=== PATIENT | female | born 1960 | race Caucasian/White ===

== ENCOUNTER 2024-10-01 04:25 | Inpatient (IN) | payer MEDICARE, SELFPAY ==
[2024-10-01] VITALS (33 sets, daily range): BP systolic 104–135; BP diastolic 50–76; PULSE 68–118; RESP 16–21; TEMP 36.5–37.7; O2SAT 95–99; BMI 38.8
--- NOTE | ~2024-10-01 | XR_ITS ---
Portable chest x-ray Comparison: None Clinical History: Shortness of breath Findings: Right-sided central venous line in place. There is minimal bibasilar interstitial edema. N o pleural effusion. Cardiomediastinal silhouette is mildly prominent. Bones and soft tissues are unr emarkable. Impression: Mild interstitial edema. Possible cardiomegaly. Reviewed, dictated and finalized at location . Impression: Mild interstitial edema. Possible cardiomegaly.
--- NOTE | ~2024-10-01 | CT_ITS ---
Clinical Indication: Chest pain CT Scan of the Chest with Contrast: Technique: Contiguous sections were acquired throughout the chest after intravenous administration of 100 cc of Omnipaque 350. Dose reduction technique was used on this scan by utilizing automated expos ure control and iterative reconstruction technique. The dose-length product (DLP) was 986.97 mGy-cm. Findings: There is no evidence of any significant mediastinal, hilar or axillary lymphadenopathy. There is no f illing defect in the pulmonary arterial tree to suggest pulmonary embolus. There is no evidence of ao rtic dissection or aneurysm. Minimal pericardial effusion present. Probable minimal pleural fluid bilaterally with mild bibasilar atelectatic change. Images through the upper abdomen reveal nodular contour of liver and distended gallbladder. 1.9 cm le ft adrenal nodule present. There is an area of amorphous mild sclerosis of the midsternal body, nonsp ecific.. Impression: No evidence of pulmonary embolus, aortic dissection, or aortic aneurysm. Minimal pericardial effusion and minimal bilateral pleural fluid with minimal bibasilar atelectasis. Cirrhotic liver with distended gallbladder. Area of mild amorphous sclerosis in the midsternal body, nonspecific. Correlate for point tenderness. Consider bone scan to evaluate for uptake. 1.9 cm left adrenal nodule, stable since prior exam from 2010, therefore consistent with benign adeno ma. Clear lungs. Reviewed, dictated and finalized at [facility]. Impression: No evidence of pulmonary embolus, aortic dissection, or aortic aneurysm. Minimal pericardial effusion and minimal bilateral pleural fluid with minimal b ibasilar atelectasis. Cirrhotic liver with distended gallbladder. Area of mild amorphous sclerosis in the midsternal body, nonspecific. Correlate for point tenderness. Consider bone scan to evaluate for uptake. 1.9 cm left adrenal nodule, stable since prior exam from 2010, therefore consis tent with benign adenoma. Clear lungs.
--- NOTE | ~2024-10-01 | NM_ITS ---
EXAMINATION: NM shay stress w perfusion DATE: 10/01/2024 16:48 INDICATION: Chest pain. TECHNIQUE: Rest images were obtained following intravenous administration of 9.44 mCi Tc99m tetrofosm in (Myoview). The patient was infused intravenously with Lexiscan (regadenoson). Then, 30 mCi Tc99m t etrofosmin (Myoview) was administered intravenously, and stress images were obtained. Data was recons tructed into short axis and horizontal and vertical long axis SPECT images. Gated SPECT images were a lso obtained. COMPARISON: Chest CT 10/01/2024 FINDINGS: Sensitivity and specificity are decreased by chest wall attenuation. There is a large, mode rate severity, fixed perfusion defect involving mid anterior segment, mid to basal anterolateral segm ents, and mid to basal inferolateral segments of left ventricle, consistent with infarct. No reversib le component to suggest ischemia. There is no segmental wall motion abnormality. Left ventricular e jection fraction measures 68%. IMPRESSION: 1. Large area of moderate severity infarct involving mid anterior segment, mid to basal anterolateral segments, and mid to basal inferolateral segments of left ventricle. 2. Normal left ventricular ejection fraction measuring 68%. Reviewed, dictated and finalized at location A. IMPRESSION: 1. Large area of moderate severity infarct involving mid anterior segment, mid to basal anterolateral segments, and mid to basal inferolateral segments of lef t ventricle. 2. Normal left ventricular ejection fraction measuring 68%.
--- OUTSIDE RECORDS SUMMARY | 2024-10-01 04:27 | XMS_ITS | Encounter Summary ---
Author Organization [facility] Address [address] [address] Phone Care Team Providers Care Safety Equipment Tester Name Role Phone Denise Rosales MD Primary Care Provider +1 [phone] Encounter Details Date Type Department Care Team (Late st Contact Info) Description 09/27/2024 [facility] [address] [address] Isi Canas, [employer] [address] [facility] [address] [place] [address] End stage renal disease; Dependence on renal dialysis Social History Tobacco Use Types Packs/Day Years Used Date Smoking Tobacco: Never Assessed Comments Unknown Sex and Gender Information Value Date Recorded Sex Assigned at Not on file Legal Sex Female 10:03 AM EDT Gender Identity Not on file Sexual Orientation Not on file documented as of this encounter Miscellaneous Notes * Dialysis Note - Isi Canas APRN - 09/27/2024 12:00 AM CDT Patient: Lina Clinton : 1960 Note Type: Dialysis Rounds-Basic Service Date: 09/27/2024 This patient was personally seen for a basic visit as part of routine monthly dialysis care for end stage renal disease. Attending Pest Control Service Technician: WARREN PENA MD Dialysis Location: [facility] Schedule: Shift: 1 OVERVIEW Patient is stable. COMMENTS: The diabetic foot ulcers are better. She is to see Dr. Soto in [facility] in [place] for access placement. HOME MEDICATIONS COMMENTS: Needs to take her binder [facility] B-complex with vitamin C tablet Take 1 tablet by mouth once a day. calcitriol 0.5 mcg capsule Take 1 capsule by mouth once a day. ergocalciferol (vitamin D2) 1,250 mcg (50,000 unit) capsule Take 1 capsule by mouth once a week. Imodium A-D 2 mg capsule Take 1 capsule by mouth three times a day as needed. [For diarrhea] levothyroxine 175 mcg tablet Take 1 tablet by mouth once a day. losartan 50 mg tablet Take 1 tablet by mouth. melatonin 10 mg tablet Take 1 tablet by mouth every night at bedtime as needed. [take an hour before going to sleep] Metamucil 0.4 gram capsule Take 3 capsule by mouth once a day. [(pt states taking Metamucil gummies)] pioglitazone 15 mg tablet Take 1 tablet by mouth once a day as directed. Protonix 40 mg tablet,delayed release (DR/EC) Take 1 tablet by mouth once a day. rosuvastatin 40 mg tablet Take 1 tablet by mouth every night as directed. Velphoro 500 mg tablet,chewable Take 1 tablet by mouth three times a day with meals. Current [facility] Allergies Allergen: No Known Allergies Allergen: No Known Drug Allergies Allergen: No Known Food Allergies DIALYSIS PRESCRIPTION COMMENTS: No indication of RENAL recovery Treatment Data Treatment Date: 09/27/2024 started at: 8:45 AM Dialysate / Machine Temp (prescribed): 37.0*C Dialysate / Machine Temp (actual): 37.0*C BFR (prescribed): 400 BFR (actual): 400 DFR (prescribed): Autoflow 1.5 DFR (actual): 500 Prescribed Time: 04:00 EDW (kg): 104.0 Dialyzer: 180NRe Optiflux Dialysate: 2.0 K, 3.0 Ca, 1.0 Mg, 100 Dextrose (G2301) Sodium: 138 Bicarb: 38 Pre Dialysis Vitals Pre BP Sit: 137/69 Pre Wt (kg): 109.6 EDW Deviation (kg): 5.6 Temp: 98.1*F Current Dialysis Vitals BP Sit: 107/66 AP/SHOVEL LOADER OPERATOR: 160/125 Pulse: 92 TREATMENT MEDICATIONS ORDERS Heparin Sodium (Porcine) 1,000 Units/mL Catheter Lock Arterial 2100 units Arterial Red Port Every Treatment 10/20/2023 - 10/18/2024 Heparin Sodium (Porcine) 1,000 Units/mL Catheter Lock Venous 2200 units Venous Blue Port Every Treatment 10/20/2023 - 10/18/2024 Heparin Sodium (Porcine) 1,000 Units/mL Systemic 1000 units IVP Every Treatment 10/20/2023 - 10/18/2024 Heparin Sodium (Porcine) 1,000 Units/mL Systemic 500 units IVP Every Treatment 10/20/2023 - 10/18/2024 Iron Sucrose (Venofer) 50 mg IVP 1X Week During Dialysis 09/13/2024 - 09/12/2025 Mircera 75 mcg IVP Every 2 weeks During Dialysis 09/20/2024 - 09/19/2025 BP AND FLUID ASSESSMENT Acceptable blood pressure. Fluid status acceptable. Post BP Sit 141/71 - 09/24/2024 150/76 - 09/22/2024 181/92 - 09/20/2024 Post Wt (kg) 106.4 - 09/24/2024 106.5 - 09/22/2024 106.7 - 09/20/2024 EDW (kg) 104.0 - 09/24/2024 104.0 - 09/22/2024 104.0 - 09/20/2024 Deviation (kg) 2.4 - 09/24/2024 2.5 - 09/22/2024 2.7 - 09/20/2024 ADEQUACY ASSESSMENT Target met. Missed Treatments 0 - Last 30 days 0 - Last 60 days spKt/V (Daugirdas II) 1.76 (09/22/24) 1.63 (08/25/24) 1.39 (08/13/24) eKdrt/V 1.55 (09/22/24) 1.44 (08/25/24) 1.23 (08/13/24) % Urea Reduction 79 (09/22/24) 76 (08/25/24) 71 (08/13/24) BUN 66 (09/22/24) 79 (08/25/24) 62 (08/13/24) BUN Post Dialysis 14 (09/22/24) 19 (08/25/24) 18 (08/13/24) Creatinine 7.59 (09/08/24) 9.40 (09/06/24) 6.46 (08/04/24) Bicarbonate (CO2) 22 (09/08/24) 25 (08/04/24) 19 (07/07/24) Sodium 143 (09/08/24) 144 (08/04/24) 147 (07/07/24) ACCESS ASSESSMENT Vascular access examined. New access developing - awaiting use. COMMENTS: AVF placed 09/23 left arm Strong bruit and thrill CVCatheter Tunneled Chest Active (In Use) - 03/01/2024 Placed - 03/01/2024 ANEMIA ASSESSMENT Hemoglobin not at target. Hemoglobin 8.9 (09/22/24) 8.6 (09/15/24) 10.0 (09/08/24) Iron Saturation (TSat) 36 (09/08/24) 52 (08/04/24) 48 (07/07/24) Ferritin 886 (09/08/24) 1,017 (08/04/24) 967 (07/07/24) Iron 76 (09/08/24) 103 (08/04/24) 106 (07/07/24) TIBC 209 (09/08/24) 199 (08/04/24) 221 (07/07/24) MCV 92 (09/08/24) 93 (08/04/24) 92 (07/07/24) Folate >24.0 (02/04/24) 9.3 (10/13/23) Vitamin B-12 1,990 (10/13/23) Platelets 178 (09/08/24) 183 (08/04/24) 180 (07/07/24) BMM ASSESSMENT Bone and mineral metabolism parameters reviewed. Calcium 8.8 09/08/24 8.0 08/04/24 8.2 07/07/24 Corrected Calcium 8.9 09/08/24 8.2 08/04/24 8.1 07/07/24 Phosphorus 4.6 09/08/24 7.3 08/04/24 10.1 07/07/24 Calcium Phosphorus Product 40 09/08/24 58 08/04/24 83 07/07/24 PTH 154 09/08/24 380 08/04/24 433 07/07/24 Vitamin D, 25-OH, Total 49.9 02/04/24 77.1 10/13/23 Magnesium 2.4 08/04/24 2.6 05/05/24 2.9 02/04/24 Alkaline Phosphatase 59 08/04/24 57 05/05/24 63 02/04/24 Aluminum <5 08/04/24 <5 02/04/24 <5 10/13/23 NUTRITION ASSESSMENT Albumin not at goal. Potassium controlled. Patient taking protein supplements. Albumin 3.9 09/08/24 3.8 08/04/24 4.1 07/07/24 Potassium 4.3 09/08/24 3.8 08/04/24 4.9 07/07/24 eNPCR 1.13 09/22/24 1.28 08/25/24 1.01 08/13/24 Hemoglobin A1C 7.8 08/04/24 6.6 05/05/24 6.7 02/04/24 PHYSICAL EXAM Exam performed. Vital Signs Reviewed. Lungs - Clear. CV - Blood pressure noted. CV - RRR. No edema. EXT - No ulcers. COMMENTS: Trace edema ADDITIONAL LABS WBC 7.77 (09/08/24) 7.13 (08/04/24) 7.83 (07/07/24) Hepatitis B Surface Ab <10 (08/04/24) <10 (05/05/24) <10 (10/13/23) ADDITIONAL COMMENT COMMENTS: ASSESSMENT: ESKD on HD via tunnel cath Foot wounds. No PAD. Working with podiatry. LIVIA on CPAP Liver cirrhosis presumably due to NAFLD, on pioglitazone PUD at anastomosis by EGD 10/01 with history of Gastric bypass Anemia of CKD HTN controlled ARB DM2 sub-optimally controlled on Actos HLD on rosuvastatin Hypothyroidism with Myxedema in September 2023 SHPT uncontrolled, started on calcitriol PLAN: - binder reminder. Try to ask social work to get a cheaper option. - encourage using GLP1 agonist instead of Actos - now is interested in home dialysis, referral made - plan for AV access creation with Surgery referral at [facility] - Dr. Escobar Signed by: ISI CANAS APRN on 09/27/2024 at 10:34:27 AM documented in this encounter Plan of Treatment Not on file documented as of this encounter Visit Diagnoses Diagnosis End stage renal disease Dependence on renal dialysis documented in this encounter Care Teams Safety Equipment Tester Relationship Specialty Start Date End Date Denise Rosales MD [address] [facility], [address] [place] [address] PCP - General Internal Medicine 08/19/23 documented as of this encounter
--- OUTSIDE RECORDS SUMMARY | 2024-10-01 04:27 | XMS_ITS | Encounter Summary ---
Author Organization [facility] Address [address] [address] Phone Care Team Providers Care Application Technician Name Role Phone Denise Rosales MD Primary Care Provider [phone] [phone] Encounter Details Date Type Department Care Team (Late st Contact Info) Description 09/20/2024 Treatment [facility] [address] [address] Sony Marie, DO [address] [facility] [address] [place] [address] End stage renal disease; Dependence [...] encounter Miscellaneous Notes * Dialysis Note - Sony Marie, - 09/20/2024 12:00 AM CST Patient: Lina Clinton : 1960 VBC: Augustine LUCIANO, IFRAH Bradshaw Note Type: Dialysis Rounds-Comp Attestation Service Date: 09/20/2024 This patient was seen for a complete visit as part of routine monthly dialysis care for end stage renal disease. Documentation of the visit is present in the dialysis unit medical record system. Attending Heat Plant Specialist: SONY MARIE Dialysis Location: [facility] Schedule: Shift: 1 ADDITIONAL COMMENT COMMENTS: ASSESSMENT: ESKD on HD [...] AV access creation with Surgery referral at [facility] - Dr. Escobar Signed by: SONY MARIE MD on 09/20/2024 at 10:04:13 AM Transcribed by: SONY MARIE MD on 09/20/2024 at 10:04:13 AM documented in this encounter Plan of Treatment Not on file documented as of this encounter Visit Diagnoses Diagnosis End stage renal disease Dependence on renal dialysis documented in this encounter Care Teams Application Technician Relationship Specialty Start Date End Date Denise Rosales MD [address] [facility], [address] [place] [address] PCP - General Internal Medicine 08/19/23 documented as of this encounter
--- OUTSIDE RECORDS SUMMARY | 2024-10-01 04:28 | XMS_ITS | Encounter Summary ---
Author Organization [facility] Address [address] [place], [place] [address] [address] Phone Care Team Providers Care Jigmaker Name Role Phone Denise Rosales MD Primary Care Provider [phone] [phone] Encounter Details Date Type Department Care Team (Late st Contact Info) Description 06/28/2024 Treatment [facility] [address] [place] [address] Isi Canas APRN [address] [facility] [address] [place] [address] Social History Tobacco Use Types Packs/Day Years Used Date Smoking Tobacco: Never Assessed Comments Unknown Sex and Gender Information Value Date Recorded Sex Assigned at Not on file Legal Sex Female 10:03 AM EDT Gender Identity Not on file Sexual Orientation Not on file documented as of this encounter Miscellaneous Notes * Dialysis Note - Isi Canas APRN - 06/28/2024 12:00 AM CST Patient: Lina Clinton : 1960 Note Type: Dialysis Rounds-Basic Service Date: 06/28/2024 This patient was personally seen for a basic visit as part of routine monthly dialysis care for end stage renal disease. Attending Adjunct Psychology Faculty Member: WARREN PENA MD Dialysis Location: [facility] Schedule: Shift: 1 OVERVIEW Patient is stable. COMMENTS: The diabetic foot ulcers are better. She is to see Dr. Soto in [facility] in [place] for access placement. HOME MEDICATIONS Medications reviewed. COMMENTS: Needs to take her binder Current [facility] Outpatient Medications B-complex with vitamin C tablet [...] as directed. Protonix 40 mg tablet,delayed release (/EC) Take 1 tablet by mouth once a day. rosuvastatin 40 mg tablet Take 1 tablet by mouth every night as directed. Velphoro 500 mg tablet,chewable Take 1 tablet by mouth three times a day with meals. Current [facility] Allergies Allergen: No Known Allergies Allergen: No Known Drug Allergies Allergen: No Known Food Allergies DIALYSIS PRESCRIPTION COMMENTS: No indication of RENAL recovery Treatment Data Treatment Date: 06/28/2024 started at: 6:11 AM Dialysate / Machine Temp (prescribed): 37.0*C Dialysate / Machine Temp (actual): 37.0*C BFR (prescribed): 400 BFR (actual): 350 DFR (prescribed): Autoflow 1.5 DFR (actual): 800 Prescribed Time: 04:00 EDW (kg): 102.0 Dialyzer: 180NRe Optiflux Dialysate: 2.0 K, 2.25 Ca, 1.0 Mg, 100 Dextrose (G2231) Sodium: 138 Bicarb: 38 Pre Dialysis Vitals Pre BP Sit: 138/79 Pre Wt (kg): 105.5 EDW Deviation (kg): 3.5 Temp: 98.2*F Current Dialysis Vitals BP Sit: 103/58 AP/SPRIGGER: 149/108 Pulse: 77 TREATMENT MEDICATIONS ORDERS Heparin Sodium (Porcine) 1,000 [...] Treatment 10/20/2023 - 10/18/2024 Iron Sucrose (Venofer) 100 mg IVP 3X Week During Dialysis 06/14/2024 - 2024 Mircera 60 mcg IVP Every 2 weeks During Dialysis 06/23/2024 - 06/22/2025 BP AND FLUID ASSESSMENT Acceptable blood pressure. Fluid status acceptable. Post BP Sit 110/68 - 06/25/2024 117/76 - 06/23/2024 115/71 - 06/21/2024 Post Wt (kg) 103.3 - 06/25/2024 103.1 - 06/23/2024 103.6 - 06/21/2024 EDW (kg) 102.0 - 06/25/2024 102.0 - 06/23/2024 102.0 - 06/21/2024 Deviation (kg) 1.3 - 06/25/2024 1.1 - 06/23/2024 1.6 - 06/21/2024 ADEQUACY ASSESSMENT Target met. Prescription compliance acceptable. Missed Treatments 0 - Last 30 days 0 - Last 60 days spKt/V (Daugirdas II) 1.31 (06/23/24) 1.43 (06/02/24) 1.45 (05/05/24) eKdrt/V 1.15 (06/23/24) 1.26 (06/02/24) 1.26 (05/05/24) % Urea Reduction 68 (06/23/24) 72 (06/02/24) 73 (05/05/24) BUN 76 (06/23/24) 67 (06/02/24) 70 (05/26/24) BUN Post Dialysis 24 (06/23/24) 19 (06/02/24) 17 (05/05/24) Creatinine 7.82 (06/09/24) 7.06 (05/05/24) 6.69 (04/07/24) Bicarbonate (CO2) 19 (06/09/24) 24 (05/05/24) 26 (04/07/24) Sodium 141 (06/09/24) 141 (05/05/24) 141 (04/07/24) ACCESS ASSESSMENT Current access is temporary and referral has been made for new access placement. COMMENTS: Access in July after new insurance CVCatheter Tunneled Chest Active (In Use) - 03/01/2024 Placed - 03/01/2024 ANEMIA ASSESSMENT Anemia targets met. Hemoglobin 10.4 (06/23/24) 10.8 (06/16/24) 11.8 (06/09/24) Iron Saturation (TSat) 21 (06/09/24) 26 (05/05/24) 24 (04/07/24) Ferritin 387 (06/09/24) 426 (05/05/24) 301 (04/07/24) Iron 50 (06/09/24) 56 (05/05/24) 56 (04/07/24) TIBC 237 (06/09/24) 217 (05/05/24) 238 (04/07/24) MCV 92 (06/09/24) 93 (05/05/24) 93 (04/07/24) Folate >24.0 (02/04/24) 9.3 (10/13/23) Vitamin B-12 1,990 (10/13/23) Platelets 163 (06/09/24) 189 (05/05/24) 201 (04/07/24) BMM ASSESSMENT Hyperphosphatemia noted. COMMENTS: Change binder to Velphro 500 mg with mealsBinder reminder Calcium 8.4 06/09/24 8.8 05/05/24 8.4 04/07/24 Corrected Calcium 8.3 06/09/24 8.9 05/05/24 8.5 04/07/24 Phosphorus 9.0 06/09/24 6.2 05/05/24 7.3 04/07/24 Calcium Phosphorus Product 76 06/09/24 55 05/05/24 61 04/07/24 PTH 309 06/09/24 416 05/05/24 367 04/07/24 Vitamin D, 25-OH, Total 49.9 02/04/24 77.1 10/13/23 Magnesium 2.6 05/05/24 2.9 02/04/24 2.1 10/13/23 Alkaline Phosphatase 57 05/05/24 63 02/04/24 67 10/13/23 Aluminum <5 02/04/24 <5 10/13/23 NUTRITION ASSESSMENT Albumin at goal. Albumin 4.1 06/09/24 3.9 05/05/24 3.9 04/07/24 Potassium 3.9 06/09/24 3.8 05/05/24 3.9 04/07/24 eNPCR 1.10 06/23/24 1.03 06/02/24 0.97 05/05/24 Hemoglobin A1C 6.6 05/05/24 6.7 02/04/24 5.7 12/03/23 PHYSICAL EXAM Exam performed. Vital Signs Reviewed. Lungs - Clear. CV - Blood pressure noted. CV - RRR. No edema. EXT - No ulcers. ADDITIONAL LABS WBC 6.29 (06/09/24) 6.51 (05/05/24) 5.97 (04/07/24) Hepatitis B Surface Ab <10 (05/05/24) <10 (10/13/23) ADDITIONAL COMMENT COMMENTS: ASSESSMENT: ESKD on HD via tunnel cath Foot wounds. No PAD. Working with podiatry. LIVIA on CPAP Liver cirrhosis presumably due to NAFLD, on pioglitazone PUD at anastomosis by EGD 10/01 with history of Gastric bypass Anemia of CKD HTN controlled DM2 controlled HLD controlled on rosuvastatin Hypothyroidism with Myxedema in September 2023 SHPT uncontrolled, started on calcitriol PLAN: - binder reminder. - Working on a surgical refferal with Mickie. The patient is not interested in doing anything until new insurance starts 07/21/24. - not interested in PD at this time. Signed by: ISI CANAS APRN on 06/28/2024 at 09:05:56 AM Transcribed by: ISI CANAS APRN on 06/28/2024 at 09:05:56 AM documented in this encounter Plan of Treatment Not on file documented as of this encounter Visit Diagnoses Not on filedocumented in this encounter Care Teams Jigmaker Relationship Specialty Start Date End Date Denise Rosales MD [address] [facility], [address] [place] [address] PCP - General Internal Medicine 08/19/23 documented as of this encounter
--- OUTSIDE RECORDS SUMMARY | 2024-10-01 04:28 | XMS_ITS ---
Author Organization [facility] Address [address] [place] [address] Care Team Providers Care Community Board Member Name Role Phone Janusz Rosales MD Primary Care Provide r Sony Marie DO Unavailable [phone] Sylwia Hess NP Unavailable Benito Cho MD Unavailable [phone] Reyes Reyna MD Unavailable [phone] Dialysis Access Sites Type Status Location Placement Date Removal Da te AV fistula Active Left Upper Arm - Anterior 09/23/2024 Hemodialysis Cath Double 03/01/24 Tunneled catheter Right Internal Jugular Active Right Neck (side) - Anterior 03/01/2024 Hemodialysis Cath Double 09/25/23 Tunneled catheter Right Internal Jugular Inactive Right Neck (side) - Anterior 09/25/2023 02/27/2024 Procedures Procedure Name Priority Date/Time Associated Diagnosis Comments POCT GLUCOSE DEVICE Routine 09/23/2024 2 :27 PM SPEAKING UNIT ASSEMBLER UT AN PROCEDURE PLACEHOLDER Routine 09/23/2024 1:15 PM SPEAKING UNIT ASSEMBLER UT AN ELECTIVE ENDOTRACHEAL AIRWAY Routine 09/23/2024 1:15 PM SPEAKING UNIT ASSEMBLER CREATION ARTERIOVENOUS FISTULA - ARM 09/23/2024 12:55 PM SPEAKING UNIT ASSEMBLER ESRD (end stage renal disease) on dialysis (HCC) POCT GLUCOSE DEVICE Routine 09/23/2024 1 1:34 AM SPEAKING UNIT ASSEMBLER EGFR STAT 09/23/2024 11:29 AM SPEAKING UNIT ASSEMBLER APTT STAT 09/23/2024 11:29 AM SPEAKING UNIT ASSEMBLER PROTIME-INR STAT 09/23/2024 11:29 AM SPEAKING UNIT ASSEMBLER CBC WITHOUT DIFFERENTIAL STAT 09/23/2024 11:29 AM SPEAKING UNIT ASSEMBLER BASIC METABOLIC PANEL STAT 09/23/2024 11:29 AM SPEAKING UNIT ASSEMBLER US VEIN MAPPING DUPLEX UPPER EXTREMITY BILATERAL Schedule Routine, Read Routine (OP Routine) 08/03/2024 10:11 AM SPEAKING UNIT ASSEMBLER Pre-operative exam ESRD (end stage renal disease) on dialysis (HCC) HEPATITIS PANEL, ACUTE STAT 03/01/2024 7:06 AM CDT HEMOGLOBIN A1C Routine 03/01/2024 7:06 AM CDT COLONOSCOPY 10/07/2023 2:06 PM CDT from Last 3 Months or Most Recently Relevant to Health Maintenance Allergies No known active allergies Medications blood glucose diagnostic (ONETOUCH ULTRA TEST) strip Take as directed; tests 1 x daily 100 strip 3 7 Active ergocalciferol (VITAMIN D) 50,000 unit capsule Take 1 capsule (50,000 Units total) by mouth once a week Friday Active levothyroxine (SYNTHROID) 175 mcg tablet Take 1 tablet (175 mcg total) by mouth clay plant treater before breakfast Active rosuvastatin (CRESTOR) 40 mg tablet Take 1 tablet (40 mg total) by mouth nightly Active calcitRIOL (ROCALTROL) 0.5 mcg capsule Take 1 capsule (0.5 mcg total) by mouth daily 30 capsule 4 025 Active pioglitazone (ACTOS) 15 mg tabletIndicati ons:type 2 diabetes mellitus Take 1 tablet (15 mg total) by mouth daily 30 tablet 4 025 Active Additional Information Patient taking differently:15 mg oral Daily,Do not take morning of surgery, Indications: type 2 diabetes mellitus, Informant: Self, Reported on 09/23/2024 vitamin B complex with vitamin C tabletIndicati ons:Vitamin Deficiency Prevention Take 1 tablet by mouth daily 30 tablet 4 025 Active losartan (COZAAR) 50 mg tablet Take 1 tablet (50 mg total) by mouth nightly 30 tablet 4 025 Active Additional Information Patient taking differently:50 mg oral Nightly,Do not take the evening before surgery, Informant: Self, Reported on 09/23/2024 psyllium, aspartame, SF (METAMUCIL SF) 3.4 gram packet Take 1 packet by mouth daily 30 packet 4 Active Additional Information Patient taking differently: 3 packetoral Daily,3 gummies do not take morning of surgery, Informant: Self, Reported on 09/23/2024 loperamide (IMODIUM) 2 mg capsule Take 1 capsule (2 mg total) by mouth 3 (three) times a day as needed for diarrhea 30 [address] (PROTONIX) 40 mg EC tablet Take 1 tablet (40 mg total) by mouth daily Active melatonin 10 mg tablet Take 1 tablet (10 mg total) by mouth nightly 4 Active Velphoro 500 mg tablet,chewabl e Take 1 tablet (500 mg total) by mouth 3 times daily 4 Active epoetin marah-epbx (RETACRIT) (10,000 unit/mL) solutionIndica tions:ESRD on Dialysis,to be given on HD days Inject 1 mL (10,000 Units total) under the skin 3 (three) times a week 4 025 Discontinu ed(Therapy completed) oxyCODONE (ROXICODONE) 5 mg immediate release tabletIndicati ons:Pain Take 1 tablet (5 mg total) by mouth every 6 (six) hours as needed for pain for up to 7 days 10 tablet 5 025 Active Problems Problem Noted Date Diagnosed Date Chronic heart failure with preserved ejection fr action 02/28/2024 Bacteremia 02/27/2024 ESRD (end stage renal disease) 11/18/2023 Assessment & Plan (08/03/2024 12:10 PM SPEAKING UNIT ASSEMBLER): Patient is right-hand dominant, requiring permanent access for dialysis. Will proceed with creation of left arm AV fistula versus graft after obtaining cardiac risk assessment. Risks of the procedure including but not limited to bleeding, infection, nerve injury, steal syndrome, stroke, , myocardial infarction communicated the patient with full understanding. She wishes to proceed Generalized muscle weakness 09/23/2023 Anemia in chronic kidney disease (CKD) ARF (acute renal failure) 09/23/2023 Metabolic acidosis 09/23/2023 Hepatitis 09/23/2023 Primary hypertension 09/23/2023 Morbidly obese 09/23/2023 LIVIA (obstructive sleep apnea) 09/23/2023 Mixed hyperlipidemia 09/23/2023 Anemia, blood loss 09/22/2023 Type 2 diabetes mellitus 12/15/2013 Overview (10/23/2016): DMII WO CMP UNCNTRLD Vitamin D deficiency 02/10/2013 Overview (10/23/2016): VITAMIN D DEFICIENCY NOS Hypothyroidism 02/10/2013 Overview (10/23/2016): HYPOTHYROIDISM NOS Immunizations Immunization Administration Dates Next Due Influenza, Quadrivalent, Spl it, Preservative Free, Intramuscular 09/23/2023 Social History Tobacco Use Types Packs/Day Years Used Date Smoking Tobacco: Former Cigarettes Q uit: 2005 Tobacco Cessation:Counseling Given: Not Answered Alcohol Use Standard Drinks/Week Comments No 0 (1 standard drink = 0.6 oz pur e alcohol) [facility] Utilities Answer Date Recorded In the past 12 months has [employer], gas, oil, or water company threatened to shut off services in your home? No 03/01/2024 Social Connection and Isolat ion Panel [NHANES] Answer Date Recorded In a typical week, how many times do you talk on the phone with family, friends, or neighbors? More than three times a week 03/01/2024 How often do you get togethe r with friends or relatives? More than three times a week 03/01/2024 How often do you attend chur ch or buddhism services? Never 03/01/2024 Do you belong to any clubs o r organizations such as bahai groups, unions, fraternal or athletic groups, or school groups? No 03/01/2024 How often do you attend meet ings of the clubs or organizations you belong to? Never 03/01/2024 Are you , , di vorced, , never , or living with a partner? 03/01/2024 AUDIT-C Answer Date Recorded Q1: How often do you have a drink containing alcohol? Never 09/23/2024 Q2: How many drinks containi ng alcohol do you have on a typical day when you are drinking? Patient does not drink Q3: How often do you have si x or more drinks on one occasion? Never 09/23/2024 Overall Financial Resource Strain (CARDIA) Answe r Date Recorded How hard is it for you to pa y for the very basics like food, housing, medical care, and heating? Not hard at all 03/01/2024 Hunger Vital Sign Answer Date Recorded Within the past 12 months, y ou worried that your food would run out before you got the money to buy more. Never true 03/01/20 24 Within the past 12 months, t he food you bought just didn't last and you didn't have money to get more. Never true 03/01/2024 PRAPARE - Transportation Answer Date Re corded In the past 12 months, has l ack of transportation kept you from medical appointments or from getting medications? No 02/18 In the past 12 months, has l ack of transportation kept you from meetings, work, or from getting things needed for daily living? No 03/01/2024 Housing Stability Vital Sign Answer Tae e Recorded In the last 12 months, was t here a time when you were not able to pay the mortgage or rent on time? No 11/18/2023 In the last 12 months, how many places have you lived? 1 11/18/2023 In the last 12 months, was t here a time when you did not have a steady place to sleep or slept in a retirement (including now)? No 11/18/2023 Housing Stability Vital Sign Answer Tae e Recorded In the last 12 months, was t here a time when you were not able to pay the mortgage or rent on time? No 03/01/2024 In the past 12 months, how m any times have you moved where you were living? 0 03/01/2024 At any time in the past 12 m [facility], were you homeless or living in a retirement (including now)? No 03/01/2024 Personal Safety Answer Date Recorded Have you ever been in or are you currently in a harmful physical or emotional relationship or is someone making you feel afraid or unsafe? Denies 09/23/2024 Comments No Sex and Gender Information Value Date Recorded Sex Assigned at Not on file Legal Sex Female 9:46 AM SPEAKING UNIT ASSEMBLER Gender Identity Not on file Sexual Orientation Not on file Last Filed Vital Signs Vital Sign Reading Time Taken Comments Blood Pressure 141/78 09/23/2024 3:40 PM SPEAKING UNIT ASSEMBLER Pulse 88 09/23/2024 3:40 PM SPEAKING UNIT ASSEMBLER Temperature 36.4 C (97.6 F) 09/23/2024 3:10 PM SPEAKING UNIT ASSEMBLER Respiratory Rate 18 09/23/2024 3:40 PM SPEAKING UNIT ASSEMBLER Oxygen Saturation 100% 09/23/2024 3:40 PM SPEAKING UNIT ASSEMBLER Inhaled Oxygen Concentration - - Weight 106.1 kg (234 lb) 09/23/2024 11:20 AM SPEAKING UNIT ASSEMBLER Height 170.2 cm (5' 7 ) 08/03/2024 10:07 AM SPEAKING UNIT ASSEMBLER Body Mass Index 36.65 08/03/2024 10:07 AM SPEAKING UNIT ASSEMBLER Results * POCT glucose (09/23/2024 2:27 PM SPEAKING UNIT ASSEMBLER) [facility] Glucose, POC 119 70 - 199 mg/dL Glucose comment 1 Use This Result PINO KNAPP Blood 09/23/2024 2:27 PM SPEAKING UNIT ASSEMBLER 09/23/2024 2:27 PM SPEAKING UNIT ASSEMBLER us Jose Rafael Huff MD LAB POCT ORDERABLES - DEVICE Fin al Result PINO RA [address] [facility] [place] [address] * UT AN ELECTIVE ENDOTRACHEAL AIRWAY, UT AN PROCEDURE PLACEHOLDER (09/23/2024 1:15 PM SPEAKING UNIT ASSEMBLER) Narrative Sony Cheung CRNA - 09/23/2024 1:15 PM SPEAKING UNIT ASSEMBLER Sony Cheung CRNA 09/23/2024 1:16 PM Airway Patient location: OR Urgency: elective Indications for airway management: anesthesia Difficult airway: no Staff: Placed by: EVENT MANAGEMENT CONSULTANT: Sony Cheung CRNA Emergent airway documentation: Risks and benefits discussed: yes Consent obtained: yes Consent given by: patient Airway prep: Preoxygenated: yes Patient position: sniffing Mask difficulty assessment: 3 - difficult mask (inadequate, unstable or two providers) Spontaneous ventilation during airway: absent Sedation level during airway: deep Final airway details: Final airway type: endotracheal airway Tube type: ETT ETT size: 7.0 mm Cuffed: yes Technique used for successful ETT placement: video laryngoscopy Devices/Methods used in placement: intubating stylet Insertion site: oral Blade type: Joelle Video blade type: CMAC Blade size: 3 Cormack-Lehane (video): grade IIb - view of arytenoids or posterior of glottis only Cuff volume: 7 mL Cuff inflated with: air ETT to teeth: 23 cm Placement verified by: auscultation and CO2 detection Airway secured with: silk tape Number of attempts: 1 Additional comments: PEDRO García atraumatically inserted ETT with supervision. Dentition unchanged. Kerri Mullins MD ANESTHESIA ORDERABLES Final Result * POCT glucose (09/23/2024 11:34 AM SPEAKING UNIT ASSEMBLER) Pathologist [facility] Glucose, POC 109 70 - 199 mg/dL Blood 09/23/2024 11:3 4 AM SPEAKING UNIT ASSEMBLER 09/23/2024 11:34 AM SPEAKING UNIT ASSEMBLER Jose Rafael Huff MD LAB POCT ORDERABLES - DEVICE Fin al Result PINO [address] [facility] [place] [address] * (ABNORMAL) eGFR (09/23/2024 11:29 AM SPEAKING UNIT ASSEMBLER) Pathologist [facility] eGFR 10(L) >=60 mL/min/1. 73 m2 Comment: Interpretive Data Reference Interval Normal >/= 90 mL/min/1.73m2 Mildly decreased* 60 - 89 mL/min/1.73m2 Mildly to moderately decreased 45 - 59 mL/min/1.73m2 Moderately to severely decreased 30 - 44 mL/min/1.73m2 Severely decreased 15 - 29 mL/min/1.73m2 Kidney Failure < 15 mL/min/1.73m2 *Relative to young adult level Estimated glomerular filtration rate is determined by the 2020 CKD-EPI equation recommended by the National Kidney Foundation (A Unifying Approach to GFR Estimation: Recommendations of the NKF-ASK Task Force on Reassessing the Inclusion of Race in Diagnosing Kidney Disease, JASN 2020). The CKD-EPI equation should not be used for patients with unstable renal function and has not been validated in children and those over 70. Current interpretive data was last reviewed 2021. Blood 09/23/2024 11:2 9 AM SPEAKING UNIT ASSEMBLER 09/23/2024 11:35 AM SPEAKING UNIT ASSEMBLER Jose Rafael Huff MD LAB BLOOD ORDERABLES Final Resul t Performing Organization Address [facility] de Phone Number [address] [place] [address] * aPTT (09/23/2024 11:29 AM SPEAKING UNIT ASSEMBLER) aPTT 28 22 - 37 sec Comment: Interpretive data aPTT test has not been evaluated for monitoring heparin therapy. The anti-Xa is the preferred test. Current interpretive data was last revised on 2019. Blood 09/23/2024 11:2 9 AM SPEAKING UNIT ASSEMBLER 09/23/2024 11:35 AM SPEAKING UNIT ASSEMBLER Jose Rafael Huff MD LAB BLOOD ORDERABLES Final Resul t Performing Organization Address City/[facility] Co de Phone Number [address] [place] [address] * Protime-INR (09/23/2024 11:29 AM SPEAKING UNIT ASSEMBLER) PT 13.9 12.0 - 14.6 sec INR 1.0 0.9 - 1.2 [facility] Comment: Ref Range High Interpretive data Oral anticoagulant therapeutic ranges: Venous thromboembolism prophylaxis or treatment: 2.0-3.0 CARDIOLOGY Standard range: 2.0-3.0 High-intensity range: 2.5-3.5 Refer to indication-specific guidelines for appropriate target ranges for prosthetic heart valve replacement. Current interpretive data was last revised on 2019. Blood 09/23/2024 11:2 9 AM SPEAKING UNIT ASSEMBLER 09/23/2024 11:35 AM SPEAKING UNIT ASSEMBLER Jose Rafael Huff MD LAB BLOOD ORDERABLES Final Resul t [facility] [address] [facility] [place] [address] * (ABNORMAL) CBC without differential (09/23/2024 11:29 AM SPEAKING UNIT ASSEMBLER) WBC 7.0 3.8 - 9.9 K/cumm Hgb 9.9(L) 11.9 - 15.5 g/dL [facility] Hct 30.7(L) 35.6 - 45.5 % [facility] Plt 239 150 - 400 K/cumm [facility] MPV 10.2 9.1 - 12.3 fL [facility] RBC 3.27(L) 3.90 - 5.20 M/cumm [facility] MCV 93.9 81.3 - 96.4 fL [facility] MCH 30.3 27.1 - 33.3 pg [facility] MCHC 32.2(L) 32.3 - 35.7 g/dL [facility] RDW CV 14.3 11.1 - 14.9 % [facility] RDW SD 48.2(H) 35.7 - 48.1 fL [facility] NRBC abs 0.00 0.00 - 0.01 K/cumm [facility] Blood 09/23/2024 11:2 9 AM SPEAKING UNIT ASSEMBLER 09/23/2024 11:35 AM SPEAKING UNIT ASSEMBLER Jose Rafael Huff MD LAB BLOOD ORDERABLES Final Resul t Performing Organization Address [facility]/ZIP Co de Phone Number PINO [phone] [facility] [place] [address] * (ABNORMAL) Basic metabolic panel (09/23/2024 11:29 AM SPEAKING UNIT ASSEMBLER) Sodium 141 135 - 145 mmol/L Potassium, pl 3.6 3.3 - 4.9 mmol/L [facility] Chloride 100 97 - 110 mmol/L [facility] CO2 29 22 - 32 mmol/L [facility] Anion gap 12 2 - 15 mmol/L [facility] BUN 39(H) 6 - 25 mg/dL [facility] Creatinine 4.80(H) 0.60 - 1.10 mg/dL [facility] Glucose 128 70 - 199 mg/dL [facility] Comment: Interpretive Data Fasting glucose >/= 126 mg/dl is diagnostic for diabetes. Fasting is defined as no caloric intake for at least 8 hours. Fasting glucose between 100 mg/dl to 125 mg/dl is diagnostic of prediabetes. In a patient with classic symptoms of hyperglycemia or hyperglycemic crisis, a random glucose >/= 200 mg/dl is diagnostic for diabetes. In the absence of unequivocal hyperglycemia, results should be confirmed by repeat testing. The classification and Diagnosis of Diabetes Diabetes Care 202; 46: S19-S40. Current interpretive data was last revised 2022. Calcium 9.3 8.5 - 10.3 mg/dL [facility] Blood 09/23/2024 11:2 9 AM SPEAKING UNIT ASSEMBLER 09/23/2024 11:35 AM SPEAKING UNIT ASSEMBLER us Jose Rafael Huff MD LAB BLOOD ORDERABLES Final Resul t Performing Organization Address [facility]/ZIP Co de Phone Number PINO [phone] [facility] [place] [address] * US Vein Mapping Duplex Upper Extremity Bilateral (08/03/2024 10:11 AM SPEAKING UNIT ASSEMBLER) Anatomical Region Laterality Modality Vascular Bilateral Ultrasound 08/03/2024 Narrative 08/06/2024 9:06 AM SPEAKING UNIT ASSEMBLER Downstream Job ID: [id number] Downstream Document ID: [id number] Dictated date/time: [id number] BILATERAL UPPER EXTREMITY VEIN MAPPING. REASON FOR EXAM Preop dialysis. COMMENTS ON THE RIGHT Deep veins of right upper extremity show normal flow and compressibility. Right cephalic vein measures 3.1, 3.2, 3.7, 5.0. Basilic measures 3.6, 3.5, 3.5, 2.6. Axillary vein measures 9.7. COMMENTS ON THE LEFT Deep veins show normal flow and compressibility. Left cephalic measures 5.0, 2.3, 2.7. Basilic measure 3.7, 3.7, 3.1, 2.4. Axillary vein is patent, 6.6. OVERALL IMPRESSION Bilateral cephalic and basilic veins marginal in terms of size for AV fistula creation. Bilateral axillary veins are patent. Job ID/Internal Job ID: [id number] Jaren Huff MD [facility] [place] US PROCEDURES Final Re sult * Hepatitis panel, acute Blood (03/01/2024 7:06 AM CDT) Hep A IgM Nonreactive Nonreactive Comment: Interpretive Data: If Hep A IgM Ab is reported as Equivocal, a new sample should be drawn in two weeks for testing. Current interpretive data was last revised on 19. Hep B core IgM Nonreactive Nonreactive [facility] Comment: Interpretive Data If HepB Core IgM Ab is reported as Equivocal, a new sample should be drawn in two weeks for testing. Current interpretive data was last revised on 19. Hep C Ab Nonreactive Nonreactive [facility] Comment: Interpretive Data Nonreactive: Antibodies to HCV not detected. Does NOT exclude the possibility of recent exposure to HCV. Equivocal: Equivocal for HCV antibodies. Supplemental molecular testing will be automatically performed to determine infection status in accordance with current CDC screening recommendations. Reactive: Positive for HCV antibodies. This may represent current or past HCV infection. Supplemental molecular testing will be automatically performed to determine current infection status in accordance with current CDC screening recommendations. Interpretive data was last revised on 2019. HepBsAg Nonreactive Nonreactive [facility] Blood 03/01/2024 7:06 AM CDT 03/01/2024 7:26 AM CDT Ilan Pat MD LAB MICROBIOLOGY - GENERAL ORDERABLES Final Result Performing Organization Address [facility] Co de Phone Number PINO [phone] [facility] [place] [address] * (ABNORMAL) Hemoglobin A1c (03/01/2024 7:06 AM CDT) Hgb A1C 6.9(H) 4.0 - 5.6 % Estimated Average Glucose 151 mg/dL [facility] Comment: The ADA recommends reporting an estimated Average Glucose (eAG) with all Hemoglobin A1c results using the equation derived from a study of 507 normal and diabetic adults. Minority populations were underrepresented and children were not included. (Diabetes Care 31:5604-3198, 2008). The eAG is not equivalent to a fasting glucose. Blood 03/01/2024 7:06 AM CDT 03/01/2024 7:31 AM CDT Lance Foreman MD LAB BLOOD ORDERABLES Final Resu lt Performing Organization Address [facility] Co de Phone Number [facility]O [facility] [address] [facility] [place] [address] * Colonoscopy (10/07/2023 2:06 PM CDT) Anatomical Region Laterality Modality Other Narrative Procedure Note Reyes Reyna MD - 10/07/2023 2:06 PM CDT - [facility] Patient Name: Lina Clinton Procedure Date: 10/07/2023 2:06 PM Date of : 1960 Admit Type: Inpatient Age: 63 Gender: Female Note Status: Finalized Attending MD: Reyes Reyna M.D. Procedure Date: 10/07/2023 Procedure: Colonoscopy Indications: Iron deficiency anemia Providers: Reyes Reyna M.D., ZAYDA Cerda (Anesthesia Staff), Holly Moncada RN, Brant, Alum Plant Operator Referring MD: Janusz Rosales M.D. Medicines: Monitored Anesthesia Care Complications: No immediate complications. Estimated Blood Loss: Estimated blood loss was minimal. Procedure: Pre-Anesthesia Assessment: - Prior to the procedure, a History and Physicalwas performed, and patient medications and allergieswere reviewed. The patient is competent. The risks and benefits of the procedure and the sedation optionsand risks were discussed with the patient. Allquestions were answered and informed consent was obtained. Patient identification and proposed procedure were verified by the physician, the nurse and the stacker operator in the procedure room. Mental Status Examination: alert and oriented. AirwayExamination: normal oropharyngeal airway and neck mobility. Respiratory Examination: clear to auscultation. CV Examination: normal. Prophylactic Antibiotics: The patient does not require prophylactic antibiotics. Prior Anticoagulants: The patient has taken no anticoagulant or antiplatelet agents. ASA Grade Assessment: IV - A patient with severe systemic disease that is a constant threat to life. After reviewing the risks and benefits, the patient was deemed in satisfactory condition to undergo the procedure. The anesthesia plan was to use monitored anesthesia care (MAC). Immediately prior to administration of medications, the patient was re-assessed for adequacy to receive sedatives. The heart rate, respiratory rate, oxygen saturations, blood pressure, adequacy of pulmonary ventilation,and response to care were monitored throughout the procedure. The physical status of the patient was re-assessed after the procedure. - The risks and benefits of the procedure and the sedation options and risks were discussed with the patient. All questions were answered and informed consent was obtained. After I obtained informed consent, the scope was passed under direct vision. Throughout theprocedure, the patient's blood pressure, pulse, and oxygen saturations were monitored continuously. The scopewas passed under direct vision. The Colonoscope was introduced through the anus and advanced to the the cecum, identified by appendiceal orifice andileocecal valve. The colonoscopy was performed without difficulty. The patient tolerated the procedurewell. The quality of the bowel preparation was adequate.The bowel preparation used was Plenvu and bisacodyl tablets via extended prep with split doseinstruction. Findings: An 8 mm polyp was found in the ileocecal valve. The polyp wassessile. The polyp was removed with a cold snare. Resection and retrieval were complete. Estimated blood loss was minimal. A 4 mm polyp was found in the cecum. The polyp was sessile. The polyp was removed with a jumbo cold forceps. Resection and retrieval were complete. Estimated blood loss was minimal. The exam was otherwise without abnormality on direct and retroflexion views. Impression: - One 8 mm polyp at the ileocecal valve, removedwith a cold snare. Resected and retrieved. - One 4 mm polyp in the cecum, removed with a jumbo cold forceps. Resected and retrieved. - The examination was otherwise normal on directand retroflexion views. Recommendation: - Await pathology results. - Repeat colonoscopy in 5 years for surveillance. Procedure Code(s): --- Professional --- 90958, Colonoscopy, flexible; with removal of tumor(s), polyp(s), or other lesion(s) by snare technique 92645, 59, Colonoscopy, flexible; with biopsy,single or multiple Diagnosis Code(s): --- Professional --- D12.0, Benign neoplasm of cecum D50.9, Iron deficiency anemia, unspecified CPT copyright 2020 [employer]. All rights reserved. The codes documented in this report are preliminary and upon airline mechanic reviewmay be revised to meet current compliance requirements. Electronically signed by Reyes Reyna M.D. Reyes Reyna M.D. 10/07/2023 2:36:38 PM Number of Addenda: 0 Note Initiated On: 10/07/2023 2:06 PM us Reyes Reyna MD ENDOSCOPY PROCEDURES Fi nal Result from Last 3 Months or Most Recently Relevant to Health Maintenance
--- OUTSIDE RECORDS SUMMARY | 2024-10-01 04:28 | XMS_ITS | Encounter Summary ---
Author Organization [employer] [facility] Address [address] [place] [address] Phone Care Team Providers Care Grips Name Role Phone Denise Rosales MD Primary Care Provider [phone] Encounter Details Date Type Department Care Team (Late st Contact Info) Description 04/23/2024 Treatment [facility] [address] [address] Ilan Pat MD [address] [facility] [address] [place] [address] Social History Tobacco Use Types Packs/Day Years Used Date Smoking Tobacco: Never Assessed Comments Unknown Sex and Gender Information Value Date Recorded Sex Assigned at Not on file Legal Sex Female 10:03 AM EDT Gender Identity Not on file Sexual Orientation Not on file documented as of this encounter Miscellaneous Notes * Dialysis Note - Ilan Pat MD - 04/23/2024 12:00 AM CDT Patient: Lina Clinton : 1960 Note Type: Dialysis Rounds-Comp Service Date: 04/23/2024 This patient was personally seen for a complete visit as part of routine monthly dialysis care for end stage renal disease. Attending Director Of Family Service Center: WARREN PENA Dialysis Location: [facility] Schedule: Shift: 1 OVERVIEW Patient is stable. COMMENTS: The diabetic foot ulcers are better. She is to see Dr. Soto in [facility] in [place] for access placement. HOME MEDICATIONS Medications reviewed. [facility] Actos 15 mg tablet Take 1 tablet by mouth once a day as directed. B-complex with vitamin C tablet Take 1 [...] mg tablet Take 1 tablet by mouth. Metamucil 3.4 gram/5.4 gram powder Take 1 scoop by mouth once a day. Miralax 17 gram/dose powder Take 17 gram by mouth once a day as needed. [For constipation] Protonix 40 mg tablet,delayed release (DR/EC) Take 1 tablet by mouth once a day. Renvela 800 mg tablet Take 2 tablet by mouth three times a day with meals. rosuvastatin 40 mg tablet Take 1 tablet by mouth every night as directed. Current [facility] Allergies Allergen: No Known Allergies Allergen: No Known Drug Allergies Allergen: No Known Food Allergies DIALYSIS PRESCRIPTION Treatment Data Treatment Date: 04/23/2024 started at: 6:44 AM Dialysate / Machine Temp (prescribed): 37.0*C Dialysate / Machine Temp (actual): 37.0*C BFR (prescribed): 400 BFR (actual): 400 DFR (prescribed): Autoflow 1.5 DFR (actual): 600 Prescribed Time: 04:00 EDW (kg): 101.0 Dialyzer: 180NRe Optiflux Dialysate: 2.0 K, 2.25 Ca, 1.0 Mg, 100 Dextrose (G2231) Sodium: 138 Bicarb: 38 Pre Dialysis Vitals Pre BP Sit: 140/74 Pre Wt (kg): 103.8 EDW Deviation (kg): 2.8 Temp: 98.3*F Current Dialysis Vitals BP Sit: 103/62 AP/SUPERVISOR HOUSECLEANER: 165/132 Pulse: 83 TREATMENT MEDICATIONS ORDERS Heparin Sodium (Porcine) 1,000 [...] units IVP Every Treatment 10/20/2023 - 10/18/2024 Mircera 75 mcg IVP Every 2 weeks During Dialysis 04/05/2024 - 04/04/2025 BP AND FLUID ASSESSMENT Acceptable blood pressure. Post BP Sit 113/57 - 04/21/2024 133/79 - 04/19/2024 93/45 - 04/16/2024 Post Wt (kg) 102.4 - 04/21/2024 102.3 - 04/19/2024 102.1 - 04/16/2024 EDW (kg) 101.0 - 04/21/2024 101.0 - 04/19/2024 101.0 - 04/16/2024 Deviation (kg) 1.4 - 04/21/2024 1.3 - 04/19/2024 1.1 - 04/16/2024 ADEQUACY ASSESSMENT Target met. Missed Treatments 0 - Last 30 days 1 - Last 60 days Most recently missed on 03/01/2024 spKt/V (Daugirdas II) 1.59 (04/07/24) 1.51 (03/10/24) 1.54 (02/11/24) eKdrt/V 1.41 (04/07/24) 1.34 (03/10/24) 1.37 (02/11/24) % Urea Reduction 75 (04/07/24) 73 (03/10/24) 74 (02/11/24) BUN 56 (04/07/24) 52 (03/10/24) 65 (02/11/24) BUN Post Dialysis 14 (04/07/24) 14 (03/10/24) 17 (02/11/24) Creatinine 6.69 (04/07/24) 7.80 (03/29/24) 6.46 (03/10/24) Bicarbonate (CO2) 26 (04/07/24) 27 (03/10/24) 25 (02/04/24) Sodium 141 (04/07/24) 146 (03/10/24) 141 (02/04/24) ACCESS ASSESSMENT COMMENTS: Had vein mapping CVCatheter Tunneled Chest Active (In Use) - 03/01/2024 Placed - 03/01/2024 ANEMIA ASSESSMENT Hemoglobin not at target. HAKEEM adjusted per protocol. Iron adjusted per protocol. Hemoglobin 9.6 (04/21/24) 10.2 (04/14/24) 9.4 (04/07/24) Iron Saturation (TSat) 24 (04/07/24) 32 (03/10/24) 22 (02/04/24) Ferritin 301 (04/07/24) 511 (03/10/24) 352 (02/04/24) Iron 56 (04/07/24) 70 (03/10/24) 50 (02/04/24) TIBC 238 (04/07/24) 217 (03/10/24) 229 (02/04/24) MCV 93 (04/07/24) 90 (03/10/24) 96 (02/04/24) Folate >24.0 (02/04/24) 9.3 (10/13/23) Vitamin B-12 1,990 (10/13/23) Platelets 201 (04/07/24) 232 (03/10/24) 163 (02/04/24) BMM ASSESSMENT PTH within target. Hyperphosphatemia noted. COMMENTS: Binder reminder Calcium 8.4 04/07/24 8.6 03/10/24 9.2 02/04/24 Corrected Calcium 8.5 04/07/24 8.8 03/10/24 9.3 02/04/24 Phosphorus 7.3 04/07/24 5.9 03/10/24 6.0 02/04/24 Calcium Phosphorus Product 61 04/07/24 51 03/10/24 55 02/04/24 PTH 367 04/07/24 530 03/10/24 133 02/04/24 Vitamin D, 25-OH, Total 49.9 02/04/24 77.1 10/13/23 30.7 06/05/23 Magnesium 2.9 02/04/24 2.1 10/13/23 2.1 06/05/23 Alkaline Phosphatase 63 02/04/24 67 10/13/23 Aluminum <5 02/04/24 <5 10/13/23 NUTRITION ASSESSMENT Albumin 3.9 04/07/24 3.8 03/10/24 3.9 02/04/24 Potassium 3.9 04/07/24 3.7 03/10/24 5.2 02/04/24 eNPCR 0.95 04/07/24 0.87 03/10/24 1.06 02/11/24 Hemoglobin A1C 6.7 02/04/24 5.7 12/03/23 10.1 06/05/23 TRANSPLANT STATUS COMMENT COMMENTS: too sick at this time. VISIT DIAGNOSES D63.1 Anemia in chronic kidney disease E11.9 Type 2 diabetes mellitus without complications E78.2 Mixed hyperlipidemia I10 Essential (primary) hypertension I25.10 Atherosclerotic heart disease of [place] coronary artery without angina pectoris I50.22 Chronic systolic (congestive) heart failure N25.81 Secondary hyperparathyroidism of renal origin ADDITIONAL LABS WBC 5.97 (04/07/24) 10.19 (03/10/24) 4.85 (02/04/24) Cholesterol 206 (06/05/23) HDL 64 (06/05/23) LDL Calculated 106 (06/05/23) Triglycerides 210 (06/05/23) Hepatitis B Surface Ab <10 (10/13/23) ADDITIONAL COMMENT COMMENTS: ASSESSMENT: ESKD on HD via tunnel cath Right foot wound without OM at this time. No PAD. LIVIA on CPAP Liver cirrhosis presumably due to NAFLD, on pioglitazone PUD at anastomosis by EGD 10/01 with history of Gastric bypass Anemia of CKD HTN controlled DM2 controlled HLD controlled on rosuvastatin Hypothyroidism with Myxedema in September 2023 SHPT uncontrolled, started on calcitriol PLAN: - binder reminder. - Mickie is sending her to Dr. Soto - she is agreeable to get a PD cath after 07/21/24. - once she has an appointment with surgeon for PD cath placement, then will let PD RN know. Signed by: Ilan Pat on 04/23/2024 at 09:10:53 AM Transcribed by: Ilan Pat on 04/23/2024 at 09:10:53 AM documented in this encounter Plan of Treatment Not on file documented as of this encounter Visit Diagnoses Not on filedocumented in this encounter Care Teams Grips Relationship Specialty Start Date End Date Denise Rosales MD [address] [facility], [address] [place] [id number] PCP - General Internal Medicine 08/19/23 documented as of this encounter
--- OUTSIDE RECORDS SUMMARY | 2024-10-01 04:28 | XMS_ITS | Encounter Summary ---
Author Organization [employer] [facility] Address [address] [place], [place] [address], [place] [address] Phone Care Team Providers Care Supervisor Costuming Name Role Phone Denise Rosales MD Primary Care Provider [phone] Encounter Details Date Type Department Care Team (Late st Contact Info) Description 03/29/2024 Treatment [facility] [address] [place] [address] Kalyn Canas APRN [address] [facility] 1 [place] [address] Social History Tobacco Use Types Packs/Day Years Used Date Smoking Tobacco: Never Assessed Comments Unknown Sex and Gender Information Value Date Recorded Sex Assigned at Not on file Legal Sex Female 10:03 AM EDT Gender Identity Not on file Sexual Orientation Not on file documented as of this encounter Miscellaneous Notes * Dialysis Note - Kalyn Canas APRN - 03/29/2024 12:00 AM CDT Patient: Lina Clinton : 1960 Note Type: Dialysis Rounds-Comp Service Date: 03/29/2024 This patient was personally seen for a complete visit as part of routine monthly dialysis care for end stage renal disease. Attending Technical Illustrator: WARREN PENA Dialysis Location: [facility] Schedule: Shift: 1 OVERVIEW Patient is stable. HOME MEDICATIONS Medications reviewed. [facility] Actos 15 mg tablet Take [...] by mouth every night as directed. Current [facility] Allergies Allergen: No Known Allergies Allergen: No Known Drug Allergies Allergen: No Known Food Allergies DIALYSIS PRESCRIPTION Treatment Data Treatment Date: 03/29/2024 started at: 6:24 AM Dialysate / Machine Temp (prescribed): 37.0*C Dialysate / Machine Temp (actual): 37.0*C BFR (prescribed): 400 BFR (actual): 350 DFR (prescribed): Autoflow 1.5 DFR (actual): 500 Prescribed Time: 04:00 EDW (kg): 101.0 Dialyzer: 180NRe Optiflux Dialysate: 2.0 K, 2.25 Ca, 1.0 Mg, 100 Dextrose (G2231) Sodium: 138 Bicarb: 38 Pre Dialysis Vitals Pre BP Sit: 151/79 Pre Wt (kg): 105.7 EDW Deviation (kg): 4.7 Temp: 97.0*F Current Dialysis Vitals BP Sit: 146/80 AP/KNOT BUMPER: 75/98 Pulse: 78 TREATMENT MEDICATIONS ORDERS Heparin Sodium (Porcine) 1,000 [...] IVP Every Treatment 10/20/2023 - 10/18/2024 Mircera 60 mcg IVP Every 2 weeks During Dialysis 03/12/2024 - 03/11/2025 BP AND FLUID ASSESSMENT Acceptable blood pressure. High weight gain. Post BP Sit 113/62 - 03/26/2024 122/74 - 03/24/2024 96/59 - 03/22/2024 Post Wt (kg) 103.7 - 03/26/2024 103.8 - 03/24/2024 102.9 - 03/22/2024 EDW (kg) 101.0 - 03/26/2024 101.0 - 03/24/2024 101.0 - 03/22/2024 Deviation (kg) 2.7 - 03/26/2024 2.8 - 03/24/2024 1.9 - 03/22/2024 ADEQUACY ASSESSMENT Target met. Prescription compliance acceptable. Missed Treatments 1 - Last 30 days 1 - Last 60 days Most recently missed on 03/01/2024 spKt/V (Daugirdas II) 1.51 (03/10/24) 1.54 (02/11/24) 1.32 (02/04/24) eKdrt/V 1.34 (03/10/24) 1.37 (02/11/24) 1.18 (02/04/24) % Urea Reduction 73 (03/10/24) 74 (02/11/24) 68 (02/04/24) BUN 52 (03/10/24) 65 (02/11/24) 66 (02/04/24) BUN Post Dialysis 14 (03/10/24) 17 (02/11/24) 21 (02/04/24) Creatinine 6.46 (03/10/24) 6.70 (02/16/24) 6.40 (02/04/24) Bicarbonate (CO2) 27 (03/10/24) 25 (02/04/24) 19 (01/07/24) Sodium 146 (03/10/24) 141 (02/04/24) 143 (01/07/24) ACCESS ASSESSMENT Current access is permanent and functioning well. CVCatheter Tunneled Chest Active (In Use) - 03/01/2024 Placed - 03/01/2024 ANEMIA ASSESSMENT Anemia targets met. Continue current HAKEEM dose. Continue maintenance iron. Hemoglobin 9.2 (03/24/24) 9.5 (03/17/24) 10.3 (03/10/24) Iron Saturation (TSat) 32 (03/10/24) 22 (02/04/24) 11 (01/07/24) Ferritin 511 (03/10/24) 352 (02/04/24) 151 (01/07/24) Iron 70 (03/10/24) 50 (02/04/24) 23 (01/07/24) TIBC 217 (03/10/24) 229 (02/04/24) 210 (01/07/24) MCV 90 (03/10/24) 96 (02/04/24) 89 (01/07/24) Folate >24.0 (02/04/24) 9.3 (10/13/23) Vitamin B-12 1,990 (10/13/23) Platelets 232 (03/10/24) 163 (02/04/24) 151 (01/07/24) BMM ASSESSMENT PTH within target. Phosphorus controlled. Calcium controlled. Calcium 8.6 03/10/24 9.2 02/04/24 8.8 01/07/24 Corrected Calcium 8.8 03/10/24 9.3 02/04/24 9.0 01/07/24 Phosphorus 5.9 03/10/24 6.0 02/04/24 4.7 01/07/24 Calcium Phosphorus Product 51 03/10/24 55 02/04/24 41 01/07/24 PTH 530 03/10/24 133 02/04/24 265 01/07/24 Vitamin D, 25-OH, Total 49.9 02/04/24 77.1 10/13/23 30.7 06/05/23 Magnesium 2.9 02/04/24 2.1 10/13/23 2.1 06/05/23 Alkaline Phosphatase 63 02/04/24 67 10/13/23 Aluminum <5 02/04/24 <5 10/13/23 NUTRITION ASSESSMENT Albumin not at goal. Caloric intake addressed. Patient taking protein supplements. Albumin 3.8 03/10/24 3.9 02/04/24 3.8 01/07/24 Potassium 3.7 03/10/24 5.2 02/04/24 4.9 01/07/24 eNPCR 0.87 03/10/24 1.06 02/11/24 1.00 02/04/24 Hemoglobin A1C 6.7 02/04/24 5.7 12/03/23 10.1 06/05/23 PHYSICAL EXAM Exam performed. Vital Signs Reviewed. Lungs - Clear. CV - Blood pressure noted. CV - RRR. No edema. ADDITIONAL LABS WBC 10.19 (03/10/24) 4.85 (02/04/24) 6.65 (01/07/24) Cholesterol 206 (06/05/23) HDL 64 (06/05/23) LDL Calculated 106 (06/05/23) Triglycerides 210 (06/05/23) Hepatitis B Surface Ab <10 (10/13/23) ADDITIONAL COMMENT COMMENTS: 24 hour urine today Signed by: Kalyn Canas on 03/29/2024 at 11:16:54 AM Transcribed by: Kalyn Canas on 03/29/2024 at 11:16:54 AM documented in this encounter Plan of Treatment Not on file documented as of this encounter Visit Diagnoses Not on filedocumented in this encounter Care Teams Supervisor Costuming Relationship Specialty Start Date End Date Denise Rosales MD [address] [facility], [address] [place] [address] PCP - General Internal Medicine 08/19/23 documented as of this encounter
--- OUTSIDE RECORDS SUMMARY | 2024-10-01 04:28 | XMS_ITS | Encounter Summary ---
Author Organization [employer] [facility] Address [address] [place], [place] [address], [place] [address] Phone Care Team Providers Care Dough Cutting Machine Operator Name Role Phone Denise Rosales MD Primary Care Provider [phone] Encounter Details Date Type Department Care Team (Late st Contact Info) Description 08/04/2024 Treatment [email or web address] [address] [address] Isi Canas APRN [address] [facility] 1 [place] [address] Social History Tobacco Use Types Packs/Day Years Used Date Smoking Tobacco: Never Assessed Comments Unknown Sex and Gender Information Value Date Recorded Sex Assigned at Not on file Legal Sex Female 10:03 AM EDT Gender Identity Not on file Sexual Orientation Not on file documented as of this encounter Miscellaneous Notes * Dialysis Note - Isi Canas APRN - 08/04/2024 12:00 AM CST Patient: Lina Clinton : 1960 Note Type: Dialysis Rounds-Basic Service Date: 08/04/2024 This patient was personally seen for a basic visit as part of routine monthly dialysis care for end stage renal disease. Attending Pressing Machine Operator: WARREN PENA MD Dialysis Location: [facility] Schedule: Shift: 1 OVERVIEW Patient is stable. Patient has no complaints. COMMENTS: The diabetic foot ulcers are better. She is to see Dr. Soto in [facility] in [place] for access placement. HOME MEDICATIONS COMMENTS: Needs to take her binder Current [facility] Outpatient Medications B-complex with vitamin C tablet [...] three times a day with meals. Current [facility] Allergies Allergen: No Known Allergies Allergen: No Known Drug Allergies Allergen: No Known Food Allergies DIALYSIS PRESCRIPTION COMMENTS: No indication of RENAL recovery Treatment Data Treatment Date: 08/04/2024 started at: 6:29 AM Dialysate / Machine Temp (prescribed): 37.0*C Dialysate / Machine Temp (actual): 37.0*C BFR (prescribed): 400 BFR (actual): 400 DFR (prescribed): Autoflow 1.5 DFR (actual): 800 Prescribed Time: 04:00 EDW (kg): 103.2 Dialyzer: 180NRe Optiflux Dialysate: 2.0 K, 2.25 Ca, 1.0 Mg, 100 Dextrose (G2231) Sodium: 138 Bicarb: 38 Pre Dialysis Vitals Pre BP Sit: 162/85 Pre Wt (kg): 105.1 EDW Deviation (kg): 1.9 Temp: 97.0*F Current Dialysis Vitals BP Sit: 101/60 AP/ELEMENTARY READING TUTOR: 154/127 Pulse: 93 TREATMENT MEDICATIONS ORDERS Heparin Sodium (Porcine) 1,000 [...] 50 mg IVP 1X Week During Dialysis 07/12/2024 - 07/11/2025 BP AND FLUID ASSESSMENT Acceptable blood pressure. Fluid status acceptable. COMMENTS: Fluid not moving, legs are tight Will try profile 2 Post BP Sit 96/54 - 08/02/2024 121/65 - 07/30/2024 123/69 - 07/28/2024 Post Wt (kg) 103.6 - 08/02/2024 103.3 - 07/30/2024 103.6 - 07/28/2024 EDW (kg) 103.2 - 08/02/2024 103.2 - 07/30/2024 103.2 - 07/28/2024 Deviation (kg) 0.4 - 08/02/2024 0.1 - 07/30/2024 0.4 - 07/28/2024 ADEQUACY ASSESSMENT Target met. Prescription compliance acceptable. Missed Treatments 0 - Last 30 days 0 - Last 60 days spKt/V (Daugirdas II) 7.17 (07/28/24) 1.48 (06/30/24) 1.31 (06/23/24) eKdrt/V 1.30 (06/30/24) 1.15 (06/23/24) 1.26 (06/02/24) % Urea Reduction 97 (07/28/24) 73 (06/30/24) 68 (06/23/24) BUN 61 (07/28/24) 70 (06/30/24) 76 (06/23/24) BUN Post Dialysis 2 (07/28/24) 19 (06/30/24) 24 (06/23/24) Creatinine 9.63 (07/07/24) 7.82 (06/09/24) 7.06 (05/05/24) Bicarbonate (CO2) 19 (07/07/24) 19 (06/09/24) 24 (05/05/24) Sodium 147 (07/07/24) 141 (06/09/24) 141 (05/05/24) ACCESS ASSESSMENT Current access is permanent and functioning well. COMMENTS: Had vein mapping yesterday CVCatheter Tunneled Chest Active (In Use) - 03/01/2024 Placed - 03/01/2024 ANEMIA ASSESSMENT Anemia targets met. Hemoglobin 11.5 (07/28/24) 11.5 (07/22/24) 11.0 (07/15/24) Iron Saturation (TSat) 48 (07/07/24) 21 (06/09/24) 26 (05/05/24) Ferritin 967 (07/07/24) 387 (06/09/24) 426 (05/05/24) Iron 106 (07/07/24) 50 (06/09/24) 56 (05/05/24) TIBC 221 (07/07/24) 237 (06/09/24) 217 (05/05/24) MCV 92 (07/07/24) 92 (06/09/24) 93 (05/05/24) Folate >24.0 (02/04/24) 9.3 (10/13/23) Vitamin B-12 1,990 (10/13/23) Platelets 180 (07/07/24) 163 (06/09/24) 189 (05/05/24) BMM ASSESSMENT Bone and mineral metabolism parameters reviewed. Calcium 8.2 07/07/24 8.4 06/09/24 8.8 05/05/24 Corrected Calcium 8.1 07/07/24 8.3 06/09/24 8.9 05/05/24 Phosphorus 10.1 07/07/24 9.0 06/09/24 6.2 05/05/24 Calcium Phosphorus Product 83 07/07/24 76 06/09/24 55 05/05/24 PTH 433 07/07/24 309 06/09/24 416 05/05/24 Vitamin D, 25-OH, Total 49.9 02/04/24 77.1 10/13/23 Magnesium 2.6 05/05/24 2.9 02/04/24 2.1 10/13/23 Alkaline Phosphatase 57 05/05/24 63 02/04/24 67 10/13/23 Aluminum <5 02/04/24 <5 10/13/23 NUTRITION ASSESSMENT Albumin at goal. Albumin 4.1 07/07/24 4.1 06/09/24 3.9 05/05/24 Potassium 4.9 07/07/24 3.9 06/09/24 3.8 05/05/24 eNPCR 1.09 06/30/24 1.10 06/23/24 1.03 06/02/24 Hemoglobin A1C 6.6 05/05/24 6.7 02/04/24 5.7 12/03/23 PHYSICAL EXAM Exam performed. Vital Signs Reviewed. Lungs - Clear. CV - Blood pressure noted. CV - RRR. No edema. EXT - No ulcers. ADDITIONAL LABS WBC 7.83 (07/07/24) 6.29 (06/09/24) 6.51 (05/05/24) Hepatitis B Surface Ab <10 (05/05/24) <10 [...] time. Signed by: ISI CANAS APRN on 08/04/2024 at 12:53:21 PM documented in this encounter Plan of Treatment Not on file documented as of this encounter Visit Diagnoses Not on filedocumented in this encounter Care Teams Dough Cutting Machine Operator Relationship Specialty Start Date End Date Denise Rosales MD [address] [facility], [address] [place] [address] PCP - General Internal Medicine 08/19/23 documented as of this encounter
--- OUTSIDE RECORDS SUMMARY | 2024-10-01 04:28 | XMS_ITS | Encounter Summary ---
Author Organization [facility] Address [address] [place] [address] Care Team Providers Care Cylinder Block Hole Reliner Name Role Phone Janusz Rosales MD Primary Care Provide r Sony Marie DO Unavailable [phone] Sylwia Hess NP Unavailable [phone] Benito Cho MD Unavailable [phone] Reyes Reyna MD Unavailable Encounter Details Date Type Department Care Team (Late st Contact Info) Description 09/17/2024 Telephone [facility] [address] [place] [address] [place] [address] [place] [address] [address] [place] [address] Social History Tobacco Use Types Packs/Day Years Used Date Smoking Tobacco: Former Cigarettes Q uit: 2005 Alcohol Use Standard Drinks/Week Comments No 0 (1 standard drink = 0.6 oz pur e alcohol) [facility] Utilities Answer Date Recorded In the past 12 months has e electric, gas, oil, or water company threatened to [...] often do you attend chur ch or yarsanism services? Never 03/01/2024 Do you belong to any clubs o r organizations such as voodoo groups, unions, fraternal or athletic groups, or school groups? No 03/01/2024 How often do you attend meet ings of the clubs or organizations you belong to? Never 03/01/2024 Are you , , di vorced, , never , or living with a partner? 03/01/2024 AUDIT-C Answer Date Recorded Q1: How often do you have a drink containing alcohol? Never 09/16/2024 Q2: How many drinks containi ng alcohol do you have on a typical day when you are drinking? Patient does not drink Q3: How often do you have si x or more drinks on one occasion? Never 09/16/2024 Overall Financial Resource Strain (CARDIA) Answe r [...] place to sleep or slept in a group home (including now)? No 11/18/2023 Housing Stability Vital Sign Answer Tae e Recorded In the last 12 months, was t here a time when you were not able to pay the mortgage or rent on time? No 03/01/2024 In the past 12 months, how m any times have you moved where you were living? 0 03/01/2024 At any time in the past 12 m [facility], were you homeless or living in a group home (including now)? No 03/01/2024 Personal Safety Answer Date Recorded Have you ever been in or are you currently in a harmful physical or emotional relationship or is someone making you feel afraid or unsafe? 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 Gender Identity Not on file Sexual Orientation Not on file documented as of this encounter Plan of Treatment Not on file documented as of this encounter Visit Diagnoses Not on filedocumented in this encounter Care Teams Cylinder Block Hole Reliner Relationship Specialty Start Date End Date Januzs Rosales MD [address] [facility] [address] [place] [address] PCP - General Internal Medicine 09/24/23 Sony Marie DO [address] [facility] [place] [address] Consulting Physician Nephrology 10/09/23 Sylwia Hess [employer] [address] [facility] [address] [place] [address] Nurse Practitioner Urology 10/09/23 [place] [address] [facility] [address] [place] [address] Consulting Physician Endocrinology 10/09/23 [place] [address] [facility] [address] [place] [address] Consulting Physician Gastroenterology 10/09/23 documented as of this encounter
--- OUTSIDE RECORDS SUMMARY | 2024-10-01 04:28 | XMS_ITS | Encounter Summary ---
Author Organization [employer] [facility] Address [address] [place], [place] [address] [address] Phone Care Team Providers Care Computer Field Technician Name Role Phone Denise Rosales MD Primary Care Provider [phone] Encounter Details Date Type Department Care Team (Late st Contact Info) Description 05/05/2024 Treatment [facility] [address] [address] Kalyn Canas APRN [address] [facility] [address] [place] [address] Social History Tobacco Use Types Packs/Day Years Used Date Smoking Tobacco: Never Assessed Comments Unknown Sex and Gender Information Value Date Recorded Sex Assigned at Not on file Legal Sex Female 10:03 AM EDT Gender Identity Not on file Sexual Orientation Not on file documented as of this encounter Miscellaneous Notes * Dialysis Note - Kalyn Canas APRN - 05/05/2024 12:00 AM CDT Patient: Lina Clinton : 1960 Note Type: Dialysis Rounds-Basic Service Date: 05/05/2024 This patient was personally seen for a basic visit as part of routine monthly dialysis care for end stage renal disease. Attending River Captain: WARREN PENA MD Dialysis Location: [facility] Schedule: Shift: 1 OVERVIEW Patient is stable. Patient has no complaints. COMMENTS: The diabetic foot ulcers are better. She is to see Dr. Soto in [facility] in [place] for access placement. HOME MEDICATIONS Medications reviewed. [facility] Medications Actos 15 mg tablet Take [...] by mouth every night as directed. Current [facility] Allergies Allergen: No Known Allergies Allergen: No Known Drug Allergies Allergen: No Known Food Allergies DIALYSIS PRESCRIPTION Treatment Data Treatment Date: 05/05/2024 started at: 6:41 AM Dialysate / Machine Temp (prescribed): 37.0*C Dialysate / Machine Temp (actual): 37.0*C BFR (prescribed): 400 BFR (actual): 350 DFR (prescribed): Autoflow 1.5 DFR (actual): 600 Prescribed Time: 04:00 EDW (kg): 101.0 Dialyzer: 180NRe Optiflux Dialysate: 2.0 K, 2.25 Ca, 1.0 Mg, 100 Dextrose (G2231) Sodium: 138 Bicarb: 38 Pre Dialysis Vitals Pre BP Sit: 130/67 Pre Wt (kg): 102.3 EDW Deviation (kg): 1.3 Temp: 96.9*F Current Dialysis Vitals BP Sit: 141/80 AP/FACULTY MEMBER: 142/112 Pulse: 86 TREATMENT MEDICATIONS ORDERS Heparin Sodium (Porcine) 1,000 [...] 100 mg IVP 3X Week During Dialysis 04/26/2024 - 05/17/2024 Mircera 75 mcg IVP Every 2 weeks During Dialysis 04/05/2024 - 04/04/2025 BP AND FLUID ASSESSMENT Acceptable blood pressure. Fluid status acceptable. Post BP Sit 112/67 - 05/03/2024 108/64 - 04/30/2024 108/60 - 04/28/2024 Post Wt (kg) 102.0 - 05/03/2024 101.8 - 04/30/2024 101.6 - 04/28/2024 EDW (kg) 101.0 - 05/03/2024 101.0 - 04/30/2024 101.0 - 04/28/2024 Deviation (kg) 1.0 - 05/03/2024 0.8 - 04/30/2024 0.6 - 04/28/2024 ADEQUACY ASSESSMENT Target met. Prescription compliance acceptable. Missed Treatments 0 - Last 30 days 0 - Last 60 days spKt/V (Daugirdas II) 1.59 (04/07/24) 1.51 (03/10/24) [...] (04/07/24) 146 (03/10/24) 141 (02/04/24) ACCESS ASSESSMENT Vascular access examined. Referral made for access revision/intervention. COMMENTS: Had vein mapping, considering PD Access next week CVCatheter Tunneled Chest Active (In Use) - 03/01/2024 Placed - 03/01/2024 ANEMIA ASSESSMENT Anemia targets met. Hemoglobin 10.5 (04/28/24) 9.6 (04/21/24) 10.2 (04/14/24) Iron Saturation (TSat) 24 (04/07/24) 32 (03/10/24) 22 (02/04/24) Ferritin 301 (04/07/24) 511 (03/10/24) 352 (02/04/24) Iron 56 (04/07/24) 70 (03/10/24) 50 (02/04/24) TIBC 238 (04/07/24) 217 (03/10/24) 229 (02/04/24) MCV 93 (04/07/24) 90 (03/10/24) 96 (02/04/24) Folate >24.0 (02/04/24) 9.3 (10/13/23) Vitamin B-12 1,990 (10/13/23) Platelets 201 (04/07/24) 232 (03/10/24) 163 (02/04/24) BMM ASSESSMENT Bone and mineral metabolism parameters reviewed. COMMENTS: Binder reminder Calcium 8.4 04/07/24 8.6 [...] 10/13/23 NUTRITION ASSESSMENT Albumin not at goal. Patient taking protein supplements. Albumin 3.9 04/07/24 3.8 03/10/24 3.9 02/04/24 Potassium 3.9 04/07/24 3.7 03/10/24 5.2 02/04/24 eNPCR 0.95 04/07/24 0.87 03/10/24 1.06 02/11/24 Hemoglobin A1C 6.7 02/04/24 5.7 12/03/23 10.1 06/05/23 TRANSPLANT STATUS COMMENT COMMENTS: too sick at this time. PHYSICAL EXAM Exam performed. Vital Signs Reviewed. Lungs - Clear. CV - Blood pressure noted. CV - RRR. No edema. EXT - No ulcers. ADDITIONAL LABS WBC 5.97 (04/07/24) 10.19 (03/10/24) [...] will let PD RN know. Signed by: Kalyn Canas on 05/05/2024 at 09:32:48 AM Transcribed by: Kalyn Canas on 05/05/2024 at 09:32:48 AM documented in this encounter Plan of Treatment Not on file documented as of this encounter Visit Diagnoses Not on filedocumented in this encounter Care Teams Computer Field Technician Relationship Specialty [place] [address] [place] [address], [address] [place] [address] PCP - General Internal Medicine 08/19/23 documented as of this encounter
--- OUTSIDE RECORDS SUMMARY | 2024-10-01 04:28 | XMS_ITS | Referral Summary ---
Author Organization [facility] Address [address] [place] [address] Care Team Providers Care Inspection Clerk Name Role Phone Janusz Rosales MD Primary Care Provide r Sony Marie DO Unavailable [phone] Sylwia Hess NP Unavailable Benito Cho MD Unavailable [phone] Reyes Reyna MD Unavailable Encounters Date Type Department Care Team Description 09/23/2024 1:00 PM RETAIL ASSET PROTECTION SPECIALIST - 09/23/2024 3:20 PM RETAIL ASSET PROTECTION SPECIALIST Surgery [facility] [place] [address] [place] [address] Jose Rafael Huff MD CREATION LEFT BRACHIAL CEPHALIC ARTERIOVENOUS FISTULA 09/23/2024 12:54 PM RETAIL ASSET PROTECTION SPECIALIST Anesthesia Event [facility] [place] [address] [place] [address] Kerri Mullins MD Taylor-White, Carlotta A., NP 09/23/2024 10:34 AM RETAIL ASSET PROTECTION SPECIALIST - 09/23/2024 4:20 PM RETAIL ASSET PROTECTION SPECIALIST Hospital Encounter [facility] [place] [address] [place] [address] Jose Rafael Huff MD ESRD (end stage renal disease) (HCC) (Primary Dx) Discharge Disposition: Discharge to home or self care 09/17/2024 Telephone [facility] Dialysis Access Center at [address] [address] Jose Rafael Huff MD 09/10/2024 Telephone [facility] Dialysis Access Center at [address] [address] Jose Rafael Huff MD Schedule LUE AVF vs AVG Creation (Cardiac clearance received from Dr. Ojeda on 09/09/24) 09/07/2024 10:00 AM RETAIL ASSET PROTECTION SPECIALIST Office Visit [facility] Medical [facility] Cardiology [address] [place] [address] [place] [address] [phone] Bob Benson MD Pre-operative cardiovascular examination (Primary Dx) 08/04/2024 Telephone [facility] Cardiology [address] [place] [address] [phone] Lamin Ojeda MD Cardiac clearance LUE AV Fistual graft creation 08/03/2024 9:16 AM RETAIL ASSET PROTECTION SPECIALIST - 08/03/2024 11:59 PM RETAIL ASSET PROTECTION SPECIALIST Hospital Encounter [facility] Dialysis Access Center at [address] [address] ESRD (end stage renal disease) on dialysis (HCC) (Primary Dx); Chronic heart failure with preserved ejection fraction (HCC); Mixed hyperlipidemia; Primary hypertension Discharge Disposition: Discharge to home or self care 08/03/2024 9:16 AM RETAIL ASSET PROTECTION SPECIALIST - 08/03/2024 11:59 PM RETAIL ASSET PROTECTION SPECIALIST Hospital Encounter [facility] Medical Office Building [address] [place] [address] [place] [phone] Pre-operative exam; ESRD (end stage renal disease) on dialysis (HCC) Discharge Disposition: Discharge to home or self care from Last 3 Months Allergies No known active allergies Medications blood glucose diagnostic (That's Us TechnologiesUCH ULTRA TEST) strip Take as directed; tests 1 x daily 100 strip 3 7 Active ergocalciferol (VITAMIN D) 50,000 unit capsule Take 1 capsule (50,000 Units total) by mouth once a week Friday Active levothyroxine (SYNTHROID) 175 mcg tablet Take 1 tablet (175 mcg total) by mouth consulting marine engineer before breakfast Active rosuvastatin (CRESTOR) 40 mg [...] 11/18/2023 Assessment & Plan (08/03/2024 12:10 PM RETAIL ASSET PROTECTION SPECIALIST): Patient is right-hand dominant, requiring permanent access [...] Date Smoking Tobacco: Former Cigarettes Q uit: 2004 Tobacco Cessation:Counseling Given: Not Answered Alcohol Use Standard Drinks/Week Comments No 0 (1 standard drink = 0.6 oz pur e alcohol) [facility] Utilities Answer Date Recorded In the past 12 months has th e electric, gas, oil, or water company [...] often do you attend chur ch or advent services? Never 03/01/2024 Do you belong to any clubs o r organizations such as taoism groups, unions, fraternal or athletic groups, or [...] any time in the past 12 m [facility], were you homeless or living in a [...] on file Legal Sex Female 9:46 AM RETAIL ASSET PROTECTION SPECIALIST Gender Identity Not on file Sexual Orientation Not on file Last Filed Vital Signs Vital Sign Reading Time Taken Comments Blood Pressure 141/78 09/23/2024 3:40 PM RETAIL ASSET PROTECTION SPECIALIST Pulse 88 09/23/2024 3:40 PM RETAIL ASSET PROTECTION SPECIALIST Temperature 36.4 C (97.6 F) 09/23/2024 3:10 PM RETAIL ASSET PROTECTION SPECIALIST Respiratory Rate 18 09/23/2024 3:40 PM RETAIL ASSET PROTECTION SPECIALIST Oxygen Saturation 100% 09/23/2024 3:40 PM RETAIL ASSET PROTECTION SPECIALIST Inhaled Oxygen Concentration - - Weight 106.1 kg (234 lb) 09/23/2024 11:20 AM RETAIL ASSET PROTECTION SPECIALIST Height 170.2 cm (5' 7 ) 08/03/2024 10:07 AM RETAIL ASSET PROTECTION SPECIALIST Body Mass Index 36.65 08/03/2024 10:07 AM RETAIL ASSET PROTECTION SPECIALIST Plan of Treatment Not on file Medical Devices Implanted Type Area Stripper Apprentice Device Identifier Shelf Expiration Date Model / Serial / Lot e-Rewards Duramax Vascpak Safesheath D-Pro 15.5fr 28cm Kit Catheter [id number] Internal Jugular e-Rewards [id number] 03/20/2026 [id number] / / [id number] [facility] [facility] Duramax Vascpak Safesheath D-Pro 15.5fr 28cm Kit Catheter [id number] - [id number] Implanted:Qty: 1 on 09/25/2023 by Jerel Correa MD at [facility] Cloud 66 11/17/2025 [id number] / / [id number] Procedures Procedure Name Priority Date/Time Associated Diagnosis Comments POCT GLUCOSE DEVICE Routine 09/23/2024 2 :27 PM RETAIL ASSET PROTECTION SPECIALIST IA AN PROCEDURE PLACEHOLDER Routine 09/23/2024 1:15 PM RETAIL ASSET PROTECTION SPECIALIST IA AN ELECTIVE ENDOTRACHEAL AIRWAY Routine 09/23/2024 1:15 PM RETAIL ASSET PROTECTION SPECIALIST CREATION ARTERIOVENOUS FISTULA - ARM 09/23/2024 12:55 PM RETAIL ASSET PROTECTION SPECIALIST ESRD (end stage renal disease) on dialysis (HCC) POCT GLUCOSE DEVICE Routine 09/23/2024 1 1:34 AM RETAIL ASSET PROTECTION SPECIALIST EGFR STAT 09/23/2024 11:29 AM RETAIL ASSET PROTECTION SPECIALIST APTT STAT 09/23/2024 11:29 AM RETAIL ASSET PROTECTION SPECIALIST PROTIME-INR STAT 09/23/2024 11:29 AM RETAIL ASSET PROTECTION SPECIALIST CBC WITHOUT DIFFERENTIAL STAT 09/23/2024 11:29 AM RETAIL ASSET PROTECTION SPECIALIST BASIC METABOLIC PANEL STAT 09/23/2024 11:29 AM RETAIL ASSET PROTECTION SPECIALIST US VEIN MAPPING DUPLEX UPPER EXTREMITY BILATERAL Schedule Routine, Read Routine (OP Routine) 08/03/2024 10:11 AM RETAIL ASSET PROTECTION SPECIALIST Pre-operative exam ESRD (end stage renal disease) on dialysis (HCC) HEPATITIS PANEL, ACUTE STAT 03/01/2024 7:06 AM CDT HEMOGLOBIN A1C Routine 03/01/2024 7:06 AM CDT COLONOSCOPY 10/07/2023 2:06 PM CDT from Last 3 Months or Most Recently Relevant to Health Maintenance Results * POCT glucose (09/23/2024 2:27 PM RETAIL ASSET PROTECTION SPECIALIST) Glucose, POC 119 70 - 199 mg/dL Glucose comment 1 Use This Result ISABELBLANCA KNAPP Blood 09/23/2024 2:27 PM RETAIL ASSET PROTECTION SPECIALIST 09/23/2024 2:27 PM RETAIL ASSET PROTECTION SPECIALIST us Jose Rafael Huff MD LAB POCT ORDERABLES - DEVICE Fin al Result PINO KNAPP [address] [facility] Department [place] [address] * IA AN ELECTIVE ENDOTRACHEAL AIRWAY, IA AN PROCEDURE PLACEHOLDER (09/23/2024 1:15 PM RETAIL ASSET PROTECTION SPECIALIST) Narrative Sony Cheung CRNA - 09/23/2024 1:15 PM RETAIL ASSET PROTECTION SPECIALIST Sony Cheung CRNA 09/23/2024 1:16 PM Airway Patient location: OR Urgency: elective Indications for airway management: anesthesia Difficult airway: no Staff: Placed by: [employer]: Sony Cheung CRNA Emergent airway documentation: Risks [...] atraumatically inserted ETT with supervision. Dentition unchanged. us Kerri Mullins MD ANESTHESIA ORDERABLES Final Result * POCT glucose (09/23/2024 11:34 AM RETAIL ASSET PROTECTION SPECIALIST) Glucose, POC 109 70 - 199 mg/dL Blood 09/23/2024 11:3 4 AM RETAIL ASSET PROTECTION SPECIALIST 09/23/2024 11:34 AM RETAIL ASSET PROTECTION SPECIALIST Jose Rafael Huff MD LAB POCT ORDERABLES - DEVICE Fin al Result Performing Organization Address [facility] Co de Phone Number PINO [address] [employer] [place] [address] * (ABNORMAL) eGFR (09/23/2024 11:29 AM RETAIL ASSET PROTECTION SPECIALIST) Pathologist [facility] eGFR 10(L) >=60 mL/min/1. 73 m2 Comment: [...] reviewed 2021. Blood 09/23/2024 11:2 9 AM RETAIL ASSET PROTECTION SPECIALIST 09/23/2024 11:35 AM RETAIL ASSET PROTECTION SPECIALIST Jose Rafael Huff MD LAB BLOOD ORDERABLES Final Resul t Performing Organization Address [facility]/ZIP Co de Phone Number ISABEL[address] [employer] [place] [address] * aPTT (09/23/2024 11:29 AM RETAIL ASSET PROTECTION SPECIALIST) Pathologist [facility] aPTT 28 22 - 37 sec Comment: Interpretive data aPTT test has not been evaluated for monitoring heparin therapy. The anti-Xa is the preferred test. Current interpretive data was last revised on 2019. Blood 09/23/2024 11:2 9 AM RETAIL ASSET PROTECTION SPECIALIST 09/23/2024 11:35 AM RETAIL ASSET PROTECTION SPECIALIST Jose Rafael Huff MD LAB BLOOD ORDERABLES Final Resul t Performing Organization Address [facility] de Phone Number [address] [address] * Protime-INR (09/23/2024 11:29 AM RETAIL ASSET PROTECTION SPECIALIST) [facility] PT 13.9 12.0 - 14.6 sec INR 1.0 0.9 - 1.2 PINO Comment: Ref Range High Interpretive data Oral anticoagulant therapeutic ranges: Venous thromboembolism prophylaxis or treatment: 2.0-3.0 CARDIOLOGY Standard range: 2.0-3.0 High-intensity range: 2.5-3.5 Refer to indication-specific guidelines for appropriate target ranges for prosthetic heart valve replacement. Current interpretive data was last revised on 2019. Blood 09/23/2024 11:2 9 AM RETAIL ASSET PROTECTION SPECIALIST 09/23/2024 11:35 AM RETAIL ASSET PROTECTION SPECIALIST Jose Rafael Huff MD LAB BLOOD ORDERABLES Final Resul t Performing Organization Address [facility] de Phone Number [place] [phone] [facility] [place] [address] * (ABNORMAL) CBC without differential (09/23/2024 11:29 AM RETAIL ASSET PROTECTION SPECIALIST) Pathologist [facility] WBC 7.0 3.8 - 9.9 K/cumm Hgb 9.9(L) 11.9 - 15.5 g/dL [facility] Hct 30.7(L) 35.6 - 45.5 % [facility] Plt 239 150 - 400 K/cumm [facility] MPV 10.2 9.1 - 12.3 fL [facility] RBC 3.27(L) 3.90 - 5.20 M/cumm [facility] MCV 93.9 81.3 - 96.4 fL [facility] MCH 30.3 27.1 - 33.3 pg [facility] MCHC 32.2(L) 32.3 - 35.7 g/dL [facility] RDW CV 14.3 11.1 - 14.9 % [facility] RDW SD 48.2(H) 35.7 - 48.1 fL [facility] NRBC abs 0.00 0.00 - 0.01 K/cumm [facility] Blood 09/23/2024 11:2 9 AM RETAIL ASSET PROTECTION SPECIALIST 09/23/2024 11:35 AM RETAIL ASSET PROTECTION SPECIALIST Jose Rafael Huff MD LAB BLOOD ORDERABLES Final Resul t [facility] [address] [facility] Department [place] [address] * (ABNORMAL) Basic metabolic panel (09/23/2024 11:29 AM RETAIL ASSET PROTECTION SPECIALIST) Sodium 141 135 - 145 mmol/L Potassium, pl 3.6 3.3 - 4.9 mmol/L [facility] Chloride 100 97 - 110 mmol/L [facility] CO2 29 22 - 32 mmol/L [facility] Anion gap 12 2 - 15 mmol/L [facility] BUN 39(H) 6 - 25 mg/dL [facility] Creatinine 4.80(H) 0.60 - 1.10 mg/dL [facility] Glucose 128 70 - 199 mg/dL [facility] Comment: Interpretive Data Fasting glucose >/= 126 [...] classification and Diagnosis of Diabetes Diabetes Care 2021; 46: S19-S40. Current interpretive data was last revised 2022. Calcium 9.3 8.5 - 10.3 mg/dL [facility] KNAPP Blood 09/23/2024 11:2 9 AM RETAIL ASSET PROTECTION SPECIALIST 09/23/2024 11:35 AM RETAIL ASSET PROTECTION SPECIALIST Jose Rafael Huff MD LAB BLOOD ORDERABLES Final Resul t PINO [address] [facility] Department [place] [address] * US Vein Mapping Duplex Upper Extremity Bilateral (08/03/2024 10:11 AM RETAIL ASSET PROTECTION SPECIALIST) Anatomical Region Laterality Modality Vascular Bilateral Ultrasound 08/03/2024 Narrative 08/06/2024 9:06 AM RETAIL ASSET PROTECTION SPECIALIST [employer] Job ID: [id number] [employer] Document ID: [id number] Dictated date/time: [id number] BILATERAL UPPER EXTREMITY VEIN MAPPING. REASON FOR [...] veins are patent. Job ID/Internal Job ID: [id number] Jaren Huff MD IMG US PROCEDURES Final Re sult * Hepatitis panel, acute Blood (03/01/2024 7:06 AM CDT) Hep A IgM Nonreactive Nonreactive Comment: Interpretive Data: If Hep A IgM Ab is reported as Equivocal, a new sample should be drawn in two weeks for testing. Current interpretive data was last revised on 19. Hep B core IgM Nonreactive Nonreactive [facility] Comment: Interpretive Data If HepB Core IgM Ab is reported as Equivocal, a new sample should be drawn in two weeks for testing. Current interpretive data was last revised on 19. Hep C Ab Nonreactive Nonreactive [facility] Comment: Interpretive Data Nonreactive: Antibodies to HCV [...] last revised on 2019. HepBsAg Nonreactive Nonreactive [facility] Blood 03/01/2024 7:06 AM CDT 03/01/2024 7:26 AM CDT Ilan Pat MD LAB MICROBIOLOGY - GENERAL ORDERABLES Final Result Performing Organization Address [facility] de Phone Number [facility] [address] [employer] [place] [address] * (ABNORMAL) Hemoglobin A1c (03/01/2024 7:06 AM CDT) Hgb A1C 6.9(H) 4.0 - 5.6 % Estimated Average Glucose 151 mg/dL [facility] Comment: The ADA recommends reporting an estimated Average Glucose (eAG) with all Hemoglobin A1c results using the equation derived from a study of 507 normal and diabetic adults. Minority populations were underrepresented and children were not included. (Diabetes Care 31:1422-1248, 2008). The eAG is not equivalent to a fasting glucose. Blood 03/01/2024 7:06 AM CDT 03/01/2024 7:31 AM CDT Lance Foreman MD LAB BLOOD ORDERABLES Final Resu lt Performing Organization Address [facility] Co de Phone Number [facility] [address] [place] [address] * Colonoscopy (10/07/2023 2:06 PM CDT) Anatomical Region Laterality Modality Other Narrative Procedure Note Reyes Reyna MD - 10/07/2023 2:06 PM CDT [facility] Endoscopy Lab Patient Name: Lina Clinton Procedure Date: 10/07/2023 2:06 PM Date of : 1960 Admit Type: Inpatient Age: 63 Gender: Female Note Status: Finalized Attending MD: Reyes Reyna M.D. Procedure Date: 10/07/2023 Procedure: Colonoscopy Indications: Iron deficiency anemia Providers: Reyes Reyna M.D., ZAYDA Cerda (Anesthesia Staff), Holly Moncada RN, Brant, Assistant Director Of Plant Operations Referring MD: Janusz Rosales M.D. Medicines: Monitored [...] by the physician, the nurse and the call center assistant in the procedure room. Mental Status Examination: [...] for surveillance. 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 All rights reserved. The codes documented in this report are preliminary and upon distributed generation project manager reviewmay be revised to meet current compliance requirements. Electronically signed by Reyes Reyna M.D. Reyes Reyna M.D. 10/07/2023 2:36:38 PM Number of Addenda: 0 Note Initiated On: 10/07/2023 2:06 PM Reyes Reyna MD ENDOSCOPY PROCEDURES Fi nal Result from Last 3 Months or Most Recently Relevant to Health Maintenance Insurance [employer] MEDICARE [facility] Advance Directives For more information, please contact: [phone] Documents on File Type Date Recorded Patient Gritting Machine Operator Expl anation Power of Pollution Control Engineer 09/23/2024 10:33 AM * Full Code (Latest Code Status on File) Date Activated Date Inactivated Comments 02/27/2024 11:26 AM 03/02/2024 7:45 PM * Full Code Date Activated Date Inactivated Comments 11/18/2023 4:23 AM 11/19/2023 10:14 PM * Full Code Date Activated Date Inactivated Comments 09/23/2023 1:30 AM 10/10/2023 8:44 PM * Full Code Date Activated Date Inactivated Comments 07/26/2022 1:06 PM 07/27/2022 4:39 AM Care Teams Inspection Clerk Relationship Specialty Start Date End Date Janusz Rosales MD [address] [address] PCP - General Internal Medicine 09/24/23 Sony Marie DO [address] [place] [address] Consulting Physician Nephrology 10/09/23 Sylwia Hess, BOTTLE WASHER [address] [facility] [address] [place] [address] Nurse Practitioner Urology 10/09/23 [place] [address] [facility] [address] [place] [address] Consulting Physician Endocrinology 10/09/23 [place] [address] [facility] [address] [place] [address] Consulting Physician Gastroenterology 10/09/23
--- OUTSIDE RECORDS SUMMARY | 2024-10-01 04:28 | XMS_ITS | Encounter Summary ---
Author Organization [employer] [facility] Address [address] [place] [address] Phone Care Team Providers Care Hand Coke Drawer Name Role Phone Denise Rosales MD Primary Care Provider [phone] Encounter Details Date Type Department Care Team (Late st Contact Info) Description 09/10/2024 Treatment [employer] [facility] [address] [address] Isi Canas APRN [address] [facility] [address] [place] [address] Social History Tobacco Use Types Packs/Day Years Used Date Smoking Tobacco: Never Assessed Comments Unknown Sex and Gender Information Value Date Recorded Sex Assigned at Not on file Legal Sex Female 10:03 AM EDT Gender Identity Not on file Sexual Orientation Not on file documented as of this encounter Miscellaneous Notes * Dialysis Note - Isi Canas APRN - 09/10/2024 12:00 AM CST Patient: Lina Clinton : 1960 Note Type: Dialysis Rounds-Basic Service Date: 09/10/2024 This patient was personally seen for a basic visit as part of routine monthly dialysis care for end stage renal disease. Attending Head Of Mathematics: WARREN PENA MD Dialysis Location: [facility] Schedule: Shift: 1 OVERVIEW Patient is stable. Patient has no complaints. COMMENTS: The diabetic foot ulcers are better. She is to see Dr. Soto in [facility] in [place] for access placement. HOME MEDICATIONS COMMENTS: Needs to take her binder Current [facility] Outpatient Medications B-complex with vitamin C tablet [...] three times a day with meals. Current [facility] Allergies Allergen: No Known Allergies Allergen: No Known Drug Allergies Allergen: No Known Food Allergies DIALYSIS PRESCRIPTION COMMENTS: No indication of RENAL recovery Treatment Data Treatment Date: 09/10/2024 started at: 6:36 AM Dialysate / Machine Temp (prescribed): 37.0*C Dialysate / Machine Temp (actual): 37.0*C BFR (prescribed): 400 BFR (actual): 400 DFR (prescribed): Autoflow 1.5 DFR (actual): 800 Prescribed Time: 04:00 EDW (kg): 104.0 Dialyzer: 180NRe Optiflux Dialysate: 2.0 K, 3.0 Ca, 1.0 Mg, 100 Dextrose (G2301) Sodium: 138 Bicarb: 38 Pre Dialysis Vitals Pre BP Sit: 145/77 Pre Wt (kg): 106.3 EDW Deviation (kg): 2.3 Temp: 97.0*F Current Dialysis Vitals BP Sit: 153/83 AP/DIGITAL MARKETING SPECIALIST: 152/136 Pulse: 93 TREATMENT MEDICATIONS ORDERS Heparin Sodium [...] IVP Every Treatment 10/20/2023 - 10/18/2024 Mircera 30 mcg IVP Every 2 weeks During Dialysis 09/06/2024 - 09/05/2025 BP AND FLUID ASSESSMENT Acceptable blood pressure. Fluid status and diet discussed with patient. COMMENTS: Fluid not moving, legs are tight Will try profile 2 Post BP Sit 137/71 - 09/08/2024 170/85 - 09/06/2024 132/81 - 09/03/2024 Post Wt (kg) 105.7 - 09/08/2024 105.8 - 09/06/2024 105.0 - 09/03/2024 EDW (kg) 104.0 - 09/08/2024 104.0 - 09/06/2024 104.0 - 09/03/2024 Deviation (kg) 1.7 - 09/08/2024 1.8 - 09/06/2024 1.0 - 09/03/2024 ADEQUACY ASSESSMENT Target met. Missed Treatments 0 - Last 30 days 0 - Last 60 days spKt/V (Daugirdas II) 1.63 (08/25/24) 1.39 (08/13/24) 7.17 (07/28/24) eKdrt/V 1.44 (08/25/24) 1.23 (08/13/24) 1.30 (06/30/24) % Urea Reduction 76 (08/25/24) 71 (08/13/24) 97 (07/28/24) BUN 79 (08/25/24) 62 (08/13/24) 61 (07/28/24) BUN Post Dialysis 19 (08/25/24) 18 (08/13/24) 2 (07/28/24) Creatinine 7.59 (09/08/24) 9.40 (09/06/24) 6.46 (08/04/24) Bicarbonate (CO2) 22 (09/08/24) 25 (08/04/24) 19 (07/07/24) Sodium 143 (09/08/24) 144 (08/04/24) 147 (07/07/24) ACCESS ASSESSMENT COMMENTS: coke handling supervisor cleared for surgery CVCatheter Tunneled Chest Active (In Use) - 03/01/2024 Placed - 03/01/2024 ANEMIA ASSESSMENT Anemia targets met. Hemoglobin 10.0 (09/08/24) 10.3 (09/01/24) 10.4 (08/25/24) Iron Saturation (TSat) 36 (09/08/24) 52 (08/04/24) 48 (07/07/24) Ferritin 886 (09/08/24) 1,017 (08/04/24) 967 (07/07/24) Iron 76 (09/08/24) 103 (08/04/24) 106 (07/07/24) TIBC 209 (09/08/24) 199 (08/04/24) 221 (07/07/24) MCV 92 (09/08/24) 93 (08/04/24) 92 (07/07/24) Folate >24.0 (02/04/24) 9.3 (10/13/23) Vitamin B-12 1,990 (10/13/23) Platelets 178 (09/08/24) 183 (08/04/24) 180 (07/07/24) BMM ASSESSMENT Bone and mineral metabolism parameters reviewed. COMMENTS: Velphoro samples given Calcium 8.8 09/08/24 8.0 08/04/24 8.2 07/07/24 [...] 10/13/23 NUTRITION ASSESSMENT Albumin not at goal. Albumin 3.9 09/08/24 3.8 08/04/24 4.1 07/07/24 Potassium 4.3 09/08/24 3.8 08/04/24 4.9 07/07/24 eNPCR 1.28 08/25/24 1.01 08/13/24 1.09 06/30/24 Hemoglobin A1C 7.8 08/04/24 6.6 05/05/24 6.7 02/04/24 PHYSICAL EXAM Exam performed. COMMENTS: Trace edema ADDITIONAL LABS WBC 7.77 [...] work to get a cheaper option. - encouraged transition to home dialysis - plan for AV access creation: A) cardiology evaluation on 08/26 - [facility] B) Surgery referral at [facility] - Dr. Escobar - not interested in PD at this time. Signed by: ISI CANAS APRN on 09/10/2024 at 10:23:31 AM documented in this encounter Plan of Treatment Not on file documented as of this encounter Visit Diagnoses Not on filedocumented in this encounter Care Teams Hand Coke Drawer Relationship Specialty Start Date End Date Denise Rosales MD [address] [facility], [address] [place] [address] PCP - General Internal Medicine 08/19/23 documented as of this encounter
--- OUTSIDE RECORDS SUMMARY | 2024-10-01 04:28 | XMS_ITS | Clinical Summary ---
Author Organization [facility] Address [facility] [place] [address] Care Team Providers Care Bench Tool Maker Name Role Phone Unavailable Primary Care Provider Unavailabl e Source Comments [facility],non-owned Affiliates and Associated Physician Practices is amultiple site organization consisting of ambulatory clinics and hospital sitesin [place], [place], [place] and [place]. This disclosure is being madepursuant to the Care Everywhere program and may not contain all information available regarding this patient. Last updated 18.[facility] Social History Tobacco Use Types Packs/Day Years Used Date Smoking Tobacco: Never Assessed Sex and Gender Information Value Date Recorded Sex Assigned at Not on file Gender Identity Not on file Sexual Orientation Not on file Plan of Treatment Health Maintenance Due Date Last Done Comments BONE DENSITY TESTING 1960 COLOGUARD (AGES 45-75) - COL ON CA SCREENING 1960 COLON MONITORING 1960 COLONOSCOPY - COLON CA SCREENING 1960 CT COLONOGRAPHY - COLON CA SCREENING 1960 Colorectal Cancer Screening 1960 FIT - COLON CA SCREENING 1960 FLEX SIG - COLON CA SCREENING 1960 LIPID TESTING 1960 MAMMOGRAM 1960 PAP SMEAR 1960 HIV SCREENING 1974 HEPATITIS C SCREENING 06/30/1977 DTAP/TDAP/TD VACCINES (1 - Tdap) 1978 PNEUMOCOCCAL VACCINE 50+ (1 of 1 - PCV) 2009 ZOSTER VACCINE (1 of 2) 2009 COVID-19 VACCINE (1 - 2023-2 5 season) 2024 INFLUENZA VACCINE (#1) 2024 DEPRESSION SCREENING 07/21/2024 Respiratory Syncytial Virus (RSV) Vaccine Pt: or over 60 yrs (1 - 1-dose 75+ series) 2034 HEPATITIS B VACCINE Aged Out No longe r eligible based on patient's age to complete this topic HIB VACCINE Aged Out No longer eligi ble based on patient's age to complete this topic HPV VACCINE Aged Out No longer eligi ble based on patient's age to complete this topic MENINGOCOCCAL (Group B) VACC INE SHARED DECISION-MAKING Aged Out No longer eligibl e based on patient's age to complete this topic MENINGOCOCCAL GROUPS A/C/Y/W VACCINE Aged Out No longer eligible b ased on patient's age to complete this topic
--- OUTSIDE RECORDS SUMMARY | 2024-10-01 04:28 | XMS_ITS | Data Portability ---
Author Organization [facility], Main Office Address [address] [place] [address] Care Team Providers Care Rn Advanced Name Role Phone NOHEMY HARRINGTON Primary Care Provider NOHEMY HARRINGTON Referring Provider [phone] Assessment Encounter Date Assessment Date Assessment LastModified by Organization Details LastModified Time 03/18/2024 03/18/2024 45 minutes spent with the patient and her ajita2 Not available 03/18/2024 19:01:20 Plan of Treatment Reminders Order Date Submit Date Provider Last Modified By Organization Details Last Modified Time Details Appointments None recorded. Lab lipid panel, serum 2023 024 [email or web address] 6 [facility] (Lab), [address] [place], [address], 5 09:15:11 CBC w/ auto diff 2023 024 [email or web address] 6 [facility] (Lab), [address] [place], [address], 5 09:15:11 TSH, serum or plasma 2023 024 [email or web address] 6 [facility] (Lab), [address] [place], [address], 5 09:15:11 CMP, serum or plasma 2023 024 [email or web address] 6 [facility] (Lab), [address] [place], [address], 5 09:15:11 vitamin D, 25-hydroxy, total, serum [address] (Lab), [address] [place], [address], 5 09:15:11 glycohemogl obin, total, blood [address] (Lab), [address] [place], [address], 5 09:15:11 microalbumi n, urine [address] (Lab), [address] [place], [address], 4 14:25:51 lipid panel, serum [address] (Lab), [address] [place], [address], 4 10:14:37 CBC w/ auto diff [address] (Lab), [address] [place], [address], 4 10:14:37 TSH, serum or plasma [address] (Lab), [address] [place], [address], 4 09:07:17 CMP, serum or plasma [address] (Lab), [address] [place], [address], 4 10:14:37 vitamin D, 25-hydroxy, total, serum 2023 024 [email or web address] 6 [facility] (Lab), [address] [place], [address], 4 10:14:37 abo group + rh type, blood - pt wishes to know blood type. 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 2022 023 [email or web address] 3 [facility], [address], [address], [place], [address], 3 08:00:36 Procedures colonoscopy screening (PROC) 2023 024 IRVING Carney MD, [address] [facility], [address], [place], [address], 4 15:39:30 Surgeries None recorded. Imaging MAMMO, screening, digital, bilateral 2023 024 [facility], [address], [place], [address], 5 08:52:00 XR, lumbosacral spine, 2 or 3 view [address] ([facility]), [address] [place], [address], 4 14:25:38 XR, thoracic spine, 3 view 2023 024 [facility] (Radiology), [address] [facility], [address], 4 13:52:14 bone density 2023 024 [email or web address] [facility], [address], [place], [address], 5 08:52:01 US, thyroid - Please call patient to schedule. 2023 024 [email or web address] [facility], [address], [place], [address], 5 08:52:01 MAMMO, screening, digital, bilateral [address] [facility], [address], [place], [address], 4 09:18:49 bone density 2023 024 [email or web address] 6 [facility], [address], [place], [address], 4 11:18:42 US, thyroid 2023 024 [email or web address] 6 [facility], [address], [place], [address], 4 09:18:49 MAMMO, screening, bilateral 2022 023 [email or web address] [address] [facility], [address], [place], [address], 3 09:22:37 Medication Orders cyclobenzap rine 10 mg tablet 2023 024 [email or web address] [id number], [address] [place], [place], [id number], 4 14:25:32 Farxiga 10 mg tablet 2022 023 [facility][id number], [address], [place], [id number], 3 09:57:27 metformin 1,000 mg tablet 2022 023 [facility] #[id number], [address], [place], [id number], 4 14:39:45 Patient TargetsNo targets recorded. Patient Instructions Encounter Date Encounter Id Patient Instructions Last Modified By Organization Details Last Modified Time 03/11/2023 [id number] FU in 3-4 dm, weight, nephropathy, allergies, lipid, thyroid Not available 03/11/2023 13:01:29 07/01/2023 [id number] Fu in 3 mo with pcp. Patient aware 07/01/23 Boy leaving [facility]. 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 Referring Physician: Nohemy Harrington, Family Medicine, Encounter Date: 03/11/2023 Profiler Operator Referral for Gy necologic examination Referring Physician: Denise Rosales Internal Medicine, Encounter Date: 09/10/2023 Profiler Operator Referral for Gy necologic examination Referring Physician: Denise Rosales [facility], Encounter Date: 03/18/2024 Diabetic Ophthalmology Refer ral for Type 2 diabetes mellitus without complication Referring Physician: Denise Rosales [facility], Encounter Date: 03/18/2024 Chief Radiologic Technologist Referral for Type 2 diabetes mellitus without complication Referring Physician: Denise Rosales [facility], Encounter Date: 03/18/2024 Results Created Date Observation Date Name Description Value Unit Range Abnormal Flag Note LastModifiedBy Organization Detail LastModifiedTime 05/30/20 22 05/30/2022 US, abdom en No observ ation record ed. [id number] [facility] [address] [place], [address], 09/18/2022 07:07:56 03/18/20 24 03/18/2024 XR, lumba r spine [facility] [address] [facility] [address] Megan kinney Name: VERONICA ESPARZA Access ion #: [id number] Sex: F : 1959 7 Dictat ed By: Karol Streeter Attend ing Physic keisha: LIBORIO BABCOCK ng Physic keisha: GENNALIBORIO GUZMAN Exam Date: 2023 12:04 PM Exam Name: XR L SPINE Admitt ing Diagno sis(es ): INDICA TION: Low back pain COMPAR NIA: None TECHNI QUE: 3 views of the lumbar spine were obtain ed. FINDIN GS: Minima l lorenzo listhe sis of L4 on L5. The interv ertebr al disc spaces are well-m aintai dominic. No signif icant facet arthro kamla is noted. Mild multil evel degene rative disc diseas e of the lumbos acral spine. No acute fractu re, verteb ral compre ssion deform ity or aggres sive osseou s lesion s. The parave rtebra l soft tissue s are grossl y unrema rkable . IMPRES SAIRA: No acute fractu re. Electr onical ly Signed by: Karol Streeter at 2023 12:49: 23 PM Page 1 INTERFACE [facility] (Imaging) [address] [place] [address], [address], 03/18/2024 13:51:17 03/18/20 24 03/18/2024 XR, thora cic spine , 3 view [facility] [address] [address] Patien t Name: VERONICA ESPARZA IA Access ion #: [id number] Sex: F : 1959 7 Dictat ed By: Karol Streeter Attend ing Physic keisha: LIBORIO BABCOCK Physic keisha: GENNALIBORIO GUZMAN Exam Date: 2023 12:05 PM Exam Name: XR T SPINE 3V Admitt ing Diagno sis(es ): ACCESS ION #: [id number] INDICA TION: Low back pain COMPAR NIA: None TECHNI QUE:3 views of the thorac ic spine were obtain ed. FINDIN GS: The thorac ic verteb ral alignm ent is normal . Right centra l venous cathet er tip projec ts over the right atrium . The interv ertebr al disc spaces are well-m aintai dominic. No signif icant facet arthro kamla is noted. No acute fractu re, verteb ral compre ssion deform ity or aggres sive osseou s lesion s. The imaged thorax and abdome n are grossl y unrema rkable . IMPRES SAIRA: No acute fractu re. Electr onical ly Signed by: Karol Streeter at 2023 12:50: 40 PM Page 1 [email or web address] [facility] (Imaging) [address] [place], [address], 03/19/2024 10:14:02 Result Notes None recorded. Problems Name Problem SNOMED Code Status Onset Date Resolution Date Notes Provider Name and Address Organization Details Recorded Time Disorder of shoulder 691396302 Active Not Available [facility] 3 07:00:00 Hyperchole sterolemia 79169968 Active 2019 Not Available [facility] 3 07:00:00 Screening for malignant neoplasm of breast Active 2020 Not Available [facility] 3 07:00:00 Screening for malignant neoplasm of colon Active 2020 Not Available [facility] 3 07:00:00 Vitamin D deficiency 57968768 Active 2019 Not Available [facility] 3 07:00:01 Seasonal allergic rhinitis 801517597 Active 2020 Not Available [facility] 3 07:00:01 Sleep disorder 73747271 Active 2019 apnea Not Available [facility] 3 07:00:01 Onychomyco sis of toenails 114387423 Active 2019 Not Available [facility] 3 07:00:01 Hypothyroi dism 19396897 Active Not Available [facility] 3 07:00:01 Eczema 71502731 Active 2019 Not Available [facility] 3 07:00:01 Chronic kidney disease stage 3 914382972 Active 2021 Not Available [facility] 3 07:00:01 Uncontroll ed type 2 diabetes mellitus 045398387 Active 2018 Not Available [facility] 3 07:00:01 Retinopath y due to diabetes mellitus 4130293 Active 2019 Not Available [facility] 3 07:00:01 Cough 75440682 Active 2020 Not Available [facility] 3 07:00:02 Upper respirator y infection 14666899 Completed Not Available [facility] 3 07:00:02 Hyperlipid emia 65119522 Active Not Available [facility] 3 07:00:02 Noncomplia nce with treatment 4829122 Active 2021 Not Available [facility] 3 07:00:02 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 Not Available [facility] 3 07:00:02 Diabetes mellitus 23145240 Active Not Available [facility] 3 07:00:02 Sleep apnea 95184893 Active Not Available [facility] 3 07:00:02 Neck pain 42781132 Active Not Available [facility] 3 07:00:03 Dystrophia unguium 66359936 Active 2020 Not Available [facility] 3 07:00:03 Iron deficiency anemia 10918375 Active 2019 Not Available [facility] 3 07:00:03 Type 2 diabetes mellitus 91427883 Active 2022 Nohemy Harrington NP [address], [place], [address] , [facility] 3 12:46:14 Essential hypertensi on 63106256 Active 2022 Nohemy Harrington NP [address], [address], [place], [address] , [facility] 3 10:19:39 Allergic rhinitis 43329362 Active 2022 Nohemy Harrington NP [address], [address], [place], [address] , [facility] 3 10:28:37 Type 2 diabetes mellitus without complicati on 432689548 Active 2023 Denise bray MD [address], [place], [address] , [facility] 4 15:09:20 Chronic kidney disease 072178419 Active 2023 Denise bray MD [address], [address], [place], [address] , [facility] 4 15:10:34 Low back pain 077148978 Active 2023 Denise bray MD [address], [place], [address] , [facility] 4 12:02:48 End stage renal failure on dialysis 710530594 Active 2023 Denise bray MD [address], [place], [address] , [facility] 4 12:10:47 Open wound of foot 218132019 Active 2023 Denise bray MD [address], [place], [address] , [facility] 4 12:11:17 Problem Notes None recorded. Procedures Surgical History Date Name Laterality Status Provider Name and Address Organization Details Recorded Time Gastric Bypass completed Not Available [facility] 09/18/2022 06:55:42 removal of toenail completed Not Available [facility] 09/18/2022 06:55:42 Imaging Results Imaging Date Name Status LastModified by [facility] Details LastModified Time 05/30/2022 US, abdomen completed [id number] [facility] [address] [place], [address], 09/18/2022 07:07:56 03/18/2024 XR, lumbar spine active INTERFACE [facility] (Imaging) [address] [place], [address], 03/18/2024 13:51:17 03/18/2024 XR, thoracic spine, 3 view completed [facility] (Imaging) [address] [place], [address], 03/19/2024 10:14:02 Procedure Notes None recorded. Medical Equipment None Reported. Allergies No known drug allergies Medications Name Sig Start Date Stop Date Status Note LastModified by Organization Details LastModified Time losartan 50 mg tablet active Not Available Not Available Not Available Santyl 250 unit/gram topical ointment APPLY TOPICALL Y TO WOUND DAILY active Not Available Not Available No t Available cyclobenz aprine 10 mg tablet TAKE 1 TABLET BY MOUTH EVERY DAY NEEDED active Not Available Not Available No t Available pioglitaz one 15 mg tablet TAKE 1 TABLET BY MOUTH EVERY DAY active Not Available Not Available No t Available metformin 500 mg tablet Take 1 tablet twice a day by oral route. 08/26 completed 4@500mg Not Available Not Available Not Available prednison e 10 mg tablet active Not Available Not Available Not Available atorvasta tin 20 mg tablet Take 1 tablet every day by oral route for 90 days. active Not Available Not Available No t Available clindamyc in HCl 300 mg capsule TAKE 1 CAPSULE EVERY 6 HOURS NEEDED 03/22 completed Not Available Not Available Not Available loperamid e 2 mg capsule 03/18 completed Not Available Not Available Not Available cetirizin e 10 mg tablet Take 1 tablet every day by oral route. active Not Available Not Available No t Available azithromy major 250 mg tablet FOLLOW PACKAGE DIRECTIO NS 02/14 completed Not Available Not Available Not Available ibuprofen 800 mg tablet TAKE 1 TABLET BY MOUTH EVERY 6 HOURS NEEDED 03/22 completed Not Available Not Available Not Available benzonata te 200 mg capsule TK 1 C PO TID FOR 7 DAYS PRN active Not Available Not Available No t Available hydrocodo ne 5 mg-acetam inophen 325 mg tablet TAKE ONE HALF TO ONE TABLET BY MOUTH EVERY 8 HOUR NEEDED FOR PAIN FOR 5 DAYS 03/18 completed Not Available Not Available Not Available Synthroid 150 mcg tablet TAKE 1 TABLET DAILY 04/13 completed Not Available Not Available Not Available prednison e 20 mg tablet 04/08 completed Not Available Not Available Not Available midodrine 5 mg tablet 03/18 completed Not Available Not Available Not Available Accu-Chek Softclix Lancets active Not Available Not Available Not Available triamcino lone acetonide 0.5 % topical ointment APPLY A THIN LAYER TO THE AFFECTED AREA(S) BY TOPICAL ROUTE 2 TIMES PER DAY 03/22 completed Not Available Not Available Not Available chlorthal idone 25 mg tablet 1 tab po daily 03/18 completed Not Available Not Available Not Available ciproflox acin 500 mg tablet 09/10 completed Not Available Not Available Not Available sulfameth oxazole 800 mg-trimet hoprim 160 mg tablet TK 1 T PO Q 12 H FOR 7 DAYS 04/08 completed Not Available Not Available Not Available aspirin 81 mg tablet,de layed release Take 1 tablet every day by oral route. 07/03 completed Not Available Not Available Not Available tramadol 50 mg tablet TAKE 1 TO 2 TABLETS BY MOUTH EVERY 6 HOURS NEEDED FOR PAIN 07/01 completed Not Available Not Available Not Available simvastat in 40 mg tablet TAKE 1 TABLET NIGHTLY 07/01 completed Not Available Not Available Not Available glimepiri de 2 mg tablet TAKE 1 TABLET TWICE A DAY 02/07 completed Not Available Not Available Not Available Synthroid 175 mcg tablet TAKE 1 TABLET BY MOUTH EVERY DAY active Not Available Not Available No t Available Macrobid 100 mg capsule Take 1 capsule every 12 hours by oral route for 7 days. active Not Available Not Available No t Available amoxicill in 875 mg tablet TAKE 1 TABLET BY MOUTH TWICE DAILY UNTIL ALL TAKEN 09/10 completed Not Available Not Available Not Available deslorata dine 5 mg tablet Take 1 tablet every day by oral route as needed for 30 days. active Not Available Not Available No t Available gemfibroz il 600 mg tablet Take 1 tablet twice a day by oral route for 90 days. active On this from previous PCP, d/c due to contrain dication Not Available Not Available Not Available hydrocodo ne 7.5 mg-acetam inophen 325 mg tablet Take 1 tablet every 6 hours by oral route. active Not Available Not Available No t Available cephalexi n 500 mg capsule Take 1 capsule every 6 hours by oral route for 10 days. active Not Available Not Available No t Available pantopraz ole 40 mg tablet,de layed release active Not Available Not Available Not Available simvastat in 20 mg tablet TAKE 1 TABLET DAILY 04/13 completed Not Available Not Available Not Available oseltamiv ir 75 mg capsule Take 1 capsule twice a day by oral route as directed for 5 days. active Not Available Not Available No t Available ferrous sulfate 325 mg (65 mg iron) tablet Take 1 tablet every day by oral route. 09/10 completed using otc [facility] Not Available Not Available Not Available calcitrio l 0.5 mcg capsule active Not Available Not Available Not Available metformin 1,000 mg tablet TAKE 1 TABLET TWICE A DAY 09/[address] Marie. Not Available Not Available Not Available glimepiri de 4 mg tablet TAKE 1 AND 1/2 TABLETS DAILY 05/24 completed Not Available Not Available Not Available orphenadr ine citrate ER 100 mg tablet,ex tended release Take 1 tablet twice a day by oral route as needed. active Not Available Not Available No t Available monteluka st 10 mg tablet Take 1 tablet every day by oral route. 03/11 completed Not Available Not Available Not Available hydroxyzi ne HCl 25 mg tablet 03/18 completed Not Available Not Available Not Available ergocalci ferol (vitamin D2) 1,250 mcg (50,000 unit) capsule TAKE 1 CAPSULE BY MOUTH WEEKLY active Not Available Not Available No t Available levofloxa major 500 mg tablet TAKE 1 TABLET BY MOUTH EVERY DAY FOR 10 DAYS 07/01 completed Not Available Not Available Not Available methylpre dnisolone 4 mg tablets in a dose pack FOLLOW PACKAGE [employer]IO NS 07/01 completed Not Available Not Available Not Available ketoconaz ole 2 % topical cream APPLY DAILY TO AFFECTED NAILS FOR 4 WKS active Not Available Not Available No t Available PreviDent 5000 Plus 1.1 % cream U UTD 10/14 completed Not Available Not Available Not Available fluticaso ne propionat e 50 mcg/actua tion nasal spray,martin pension SHAKE LIQUID AND USE 2 SPRAYS IN EACH NOSTRIL EVERY DAY active Not Available Not Available No t Available metformin ER 500 mg tablet,ex tended release 24 hr TAKE 2 TABLETS TWICE A DAY 04/25 completed Not Available Not Available Not Available amoxicill in 875 mg-potass ium clavulana te 125 mg tablet TAKE 1 TABLET BY MOUTH TWICE DAILY FOR 7 DAYS 07/01 completed Not Available Not Available Not Available amoxicill in 500 mg-potass ium clavulana te 125 mg tablet TK 1 T PO Q 12 H FOR 10 DAYS 08/07 completed Not Available Not Available Not Available olmesarta n 5 mg tablet TAKE 2 TABLETS BY MOUTH EVERY NIGHT 03/18 completed Not Available Not Available Not Available rosuvasta tin 20 mg tablet 1 tab po daily. 03/18 completed Not Available Not Available Not Available rosuvasta tin 40 mg tablet Take 1 tablet every day by oral route for 90 days. active Not Available Not Available No t Available BD Ultra-Fin e Mini Pen Needle 31 gauge x 10/03 active Not Available Not Available Not Available solifenac in 5 mg tablet TAKE 1 TABLET BY MOUTH BEFORE EACH HEMODIAL YSIS TREATMEN T active Not Available Not Available No t Available chlorhexi dine gluconate 0.12 % mouthwash 09/10 completed Not Available Not Available Not Available calcium 200 mg once daily 03/18 completed Not Available Not Available Not Available sevelamer carbonate 800 mg tablet Take 3 tablets 3 times a day by oral route for 90 days. active Not Available Not Available No t Available Citracal Plus Bone Density 20mg BID 10/24 completed Not Available Not Available Not Available Farxiga 10 mg tablet TAKE 1 TABLET BY MOUTH EVERY DAY 07/01 completed Not Available Not Available Not Available Farxiga 5 mg tablet TAKE 1 TABLET BY MOUTH IN THE MORNING active Not Available Not Available No t Available Jardiance 10 mg tablet Take 1 tablet every day by oral route. 02/07 completed Not Available Not Available Not Available Tresiba FlexTouch U-100 insulin 100 unit/mL (3 mL) subcutane ous pen 15 units inj daily. (Sliding scale per Dr. Marie) 03/18 completed taking 7 units daily Not Available Not Available Not Available Accu-Chek Guide test strips USE DAILY TO CHECK FASTING GLUCOSE active Not Available Not Available No t Available Fluvirin 8085-9056 45 mcg (15 mcg x 3)/0.5 mL intramusc ular suspensio n ADM 0.5ML IM UTD 10/17 completed Not Available Not Available Not Available Ozempic 1 mg/dose (2 mg/1.5 mL) subcutane ous pen injector Inject 1 mg every week by subcutan eous route. active Not Available Not Available No t Available Ozempic 0.25 mg or 0.5 mg (2 mg/1.5 mL) subcutane ous pen injector 0.25 mg SQ weekly for 4 weeks, then 0.5 mg SQ weekly for 4 weeks, then 1 mg SQ weekly 08/07 completed Not Available Not Available Not Available Accu-Chek Guide Me Glucose Meter active Not Available Not Available Not Available Rybelsus 7 mg tablet TAKE 2 TABLETS BY MOUTH IN THE MORNING 03/18 completed Not Available Not Available Not Available Rybelsus 3 mg tablet Take 1 tablet every day by oral route for 30 days. active Not Available Not Available No t Available Paxlovid 300 mg (150 mg x 2)-100 mg tablets in a dose pack Take 1 dose pk twice a day by oral route for 5 days. active Not Available Not Available No t Available Vitals Date Recorded Body height Provider Name an d Address Organization Details Last Updated DateTime 11/12/2021 170.18 cm Not Available [facility] 3 06:56:00 Date Recorded Body weight Body mass index (BMI) Body height Body temperature Heart rate Respiratory rate Oxygen saturation Oxygen saturation in Arterial blood by Pulse oximetry Pain severity - 0-10 verbal numeric rating [Score] - Reported Systolic blood pressure Diastolic blood pressure Provider Name and Address Organization Details Last Updated DateTime 3 479234. 25 g 37 kg/m2 170.18 cm 95.8 [degF] 94 /min 20 /min 96 % 96 % 0 160 mm[Hg] 86 mm[Hg] Nohemy Gutierrez RN [place] [facility] 3 12:19:44 Date Recorded Body height Body mass index (BMI) Body weight Body temperature Heart rate Respiratory rate Oxygen saturation Oxygen saturation in Arterial blood by Pulse oximetry Pain severity - 0-10 verbal numeric rating [Score] - Reported Systolic blood pressure Diastolic blood pressure Provider Name and Address Organization Details Last Updated DateTime 3 170.18 cm 37.7 kg/m2 139417. 76 g 95.6 [degF] 79 /min 20 /min 97 % 97 % 2 158 mm[Hg] 98 mm[Hg] Nohemy Gutierrez RN [facility] 3 10:01:23 Date Recorded Body height Body mass index (BMI) Body weight Body temperature Heart rate Systolic blood pressure Diastolic blood pressure Provider Name and Address Organization Details Last Updated DateTime 4 170.18 cm 38.8 kg/m2 966233. 91 g 97.4 [degF] 78 /min 120 mm[Hg] 70 mm[Hg] Faye Sandoval Sindy [employer] 4 14:46:56 Date Recorded Body height Body mass index (BMI) Body weight Body temperature Heart rate Systolic blood pressure Diastolic blood pressure Provider Name and Address Organization Details Last Updated DateTime 4 170.18 cm 35.6 kg/m2 114087. 47 g 97.8 [degF] 78 /min 110 mm[Hg] 60 mm[Hg] Faye Sandoval Sindy [employer] 4 11:46:08 Social History Question Answer Notes LastModified by Organization Details LastModified Time Tobacco Smoking Status Former Smoker started age 10 and stopped age 36. Nohemy Harrington NP [address] [place] [address] [address], [place], [address], [employer] [facility] 03/11/2023 12:53:59 Do You Have An Advance Directive? No Information not available 03/11/2023 What Is Your Level Of Alcohol Consumption? None [id number] Information not available 09/18/2022 Is Blood Transfusion Acceptable In An Emergency? Yes Information not available 03/11/2023 What Is Your Level Of Caffeine Consumption? Moderate [id number] Information not available 09/18/2022 What Is Your Code Status? Full Code Information not available 03/11/2023 In The 14 Days Before Symptom Onset, Have You Had Close Contact With A Laboratory-confi rmed COVID-19 While That Case Was Ill? No [email or web address] Information not available 03/11/2023 In The 14 Days Before Symptom Onset, Have You Had Close Contact With A Person Who Is Under Investigation For COVID-19 While That Person Was Ill? No [email or web address] Information not available 03/11/2023 Are You Currently Employed? No Information not available 03/11/2023 What Type Of Diet Are You Following? REGULAR [id number] Information not available 09/18/2022 Have There Been Any Changes To Your Family Or Social Situation? No [email or web address] Information not available 03/11/2023 When Did You Quit Smoking? 16+yearssincelastc igarette Information not available 03/11/2023 Do You Use Insect Repellent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
--- OUTSIDE RECORDS SUMMARY | 2024-10-01 04:28 | XMS_ITS | Encounter Summary ---
Author Organization [place] [facility] Address [address] [place], [place] [address] [address] Phone Care Team Providers Care Professor Of Economics Name Role Phone Denise Rosales MD Primary Care Provider [phone] Encounter Details Date Type Department Care Team (Late st Contact Info) Description 05/31/2024 Treatment [facility] [address] [place] [address] Kalyn Canas APRN [address] [facility] [address] [place] [address] Social History Tobacco Use Types Packs/Day Years Used Date Smoking Tobacco: Never Assessed Comments Unknown Sex and Gender Information Value Date Recorded Sex Assigned at Not on file Legal Sex Female 10:03 AM EDT Gender Identity Not on file Sexual Orientation Not on file documented as of this encounter Miscellaneous Notes * Dialysis Note - Kalyn Canas APRN - 05/31/2024 12:00 AM CST PROVIDER ROUNDING NOTE BASIC HD - Lina Clinton - Chart #: [id number] Clinic: [address] [place] [address] Modality: IHD Method of Interaction: Face to face Date of Interaction: 05/31/2024 Patient is stable - Medications and labs reviewed. Patient issues include: there is some issue with getting her vein mapping records and surgeon could not do her access. She is getting new insurance in July and wants to wait ubtil then Prior Treatment: 05/28/2024 Dialyzer: 180NRe Optiflux Dialysate: 2.0 K, 2.25 Ca, 1.0 Mg, 100 Dextrose ([id number]) Actual Time: 04:00 Prescribed Time: 4:0 Avg BFR: 430 Avg DFR: 650 Wt Gain (kg): 1.00 EDW (kg): 102.00 post Wt (kg): HOME MEDICATIONS Actos (pioglitazone) 15 mg, oral, 1 tablet once a day B-complex with vitamin C (b-complex with vitamin c) , oral, 1 tablet once a day calcitriol (calcitriol) 0.5 mcg, oral, 1 capsule once a day ergocalciferol (vitamin D2) (ergocalciferol (vitamin d2)) 1,250 mcg (50,000 unit), oral, 1 capsule once a week Imodium A-D (loperamide) 2 mg, oral, 1 capsule three times a day [For diarrhea] levothyroxine (levothyroxine) 175 mcg, oral, 1 tablet once a day losartan (losartan) 50 mg, oral, 1 tablet Metamucil (psyllium husk) 3.4 gram/5.4 gram, oral, 1 scoop once a day Miralax (polyethylene glycol 3350) 17 gram/dose, oral, 17 gram once a day [For constipation] Protonix (pantoprazole) 40 mg, oral, 1 tablet once a day Renvela (sevelamer carbonate) 800 mg, oral, 2 tablet three times a day rosuvastatin (rosuvastatin) 40 mg, oral, 1 tablet every night Kalyn Canas documented in this encounter Plan of Treatment Not on file documented as of this encounter Visit Diagnoses Not on filedocumented in this encounter Care Teams Professor Of Economics Relationship Specialty Start Date End Date Denise Rosales MD [address] [place] [address], [address] [place] [address] PCP - General Internal Medicine 08/19/23 documented as of this encounter
--- OUTSIDE RECORDS SUMMARY | 2024-10-01 04:28 | XMS_ITS | Encounter Summary ---
Author Organization [employer] [facility] Address [address] [place] [address] Phone Care Team Providers Care Air Quality Technician Name Role Phone Denise Rosales MD Primary Care Provider [phone] Encounter Details Date Type Department Care Team (Late st Contact Info) Description 07/23/2024 Treatment [facility] [address] [address] Ilan Pat MD [address] [address] Type 2 diabetes mellitus without complication; Hypertensive heart and chronic kidney disease without heart failure, with stage 5 chronic kidney disease, or end stage renal disease; Chronic diastolic congestive heart failure Social History Tobacco Use Types Packs/Day Years Used Date Smoking Tobacco: Never Assessed Comments Unknown Sex and Gender Information Value Date Recorded Sex Assigned at Not on file Legal Sex Female 10:03 AM EDT Gender Identity Not on file Sexual Orientation Not on file documented as of this encounter Miscellaneous Notes * Dialysis Note - Ilan Pat MD - 07/23/2024 12:00 AM CST Patient: Lina Clinton, 1960, 64y, F Dialysis Location: [facility] Attending Coupon Collection Clerk: Sony Marie Service Date: 07/23/2024 Service Provider: Ilan Pat MD I met face to face with the patient today. OVERVIEW The patient presented with ESRD on dialysis Primary cause of renal failure: Type 2 diabetes mellitus with diabetic chronic kidney disease Comments: Feet are healed. HOME MEDICATIONS Home Medications: Velphoro (sucroferric oxyhydroxide) 500 mg, by mouth, Take 1 tablet three times a day with meals Metamucil (psyllium husk) 0.4 gram, by mouth, Take 3 capsule once a day (pt states taking Metamucilgummies) pioglitazone 15 mg, by mouth, Take 1 tablet once a day as directed losartan 50 mg, by mouth, Take 1 tablet Protonix (pantoprazole) 40 mg, by mouth, Take 1 tablet once a day B-complex with vitamin C (b-complex with vitamin c) 1 tablet, by mouth, Take 1 tablet once a day ergocalciferol (vitamin D2) (ergocalciferol (vitamin d2)) 1,250 mcg (50,000 unit), by mouth, Take 1capsule once a week calcitriol 0.5 mcg, by mouth, Take 1 capsule once a day levothyroxine 175 mcg, by mouth, Take 1 tablet once a day rosuvastatin 40 mg, by mouth, Take 1 tablet every night as directed melatonin 10 mg, by mouth, Take 1 tablet every night at bedtime as needed take an hour before goingto sleep Imodium A-D (loperamide) 2 mg, by mouth, Take 1 capsule three times a day as needed For diarrhea Allergies: No Known Allergies LAST HOSPITALIZATION Discharge Diagnosis: R78.81 Bacteremia Admission Date 02/27/24 Discharge Date 03/02/24 DIALYSIS PRESCRIPTION IHD 3x Week Start date: 07/16/24 Dialyzer: 180NRe Optiflux BFR: 400 DFR: Autoflow 1.5 Potassium: 2.0 Sodium: 138 EDW: 104 Duration: 4:00 Calcium: 2.25 Bicarb: 38 Rx updated on: 07/15/2024 TREATMENT ASSESSMENT BP Sit Pre 07/22/2024: 154/87 07/19/2024: 169/88 07/16/2024: 113/63 BP Stand Post 07/22/2024: 144/75 07/19/2024: 126/78 07/16/2024: 116/72 BP Sit Post 07/22/2024: 144/83 07/19/2024: 137/88 07/16/2024: 124/81 Tx Duration 07/22/2024: 4:00 07/19/2024: 4:00 07/16/2024: 4:00 Missed Treatments 0 - last 30 days 0 - last 60 days FLUID ASSESSMENT EDW (kg) 07/22/2024: 104.0 07/19/2024: 104.0 07/16/2024: 104.0 Weight Pre (kg) 07/22/2024: 105.3 07/19/2024: 105.2 07/16/2024: 104.5 Weight Post (kg) 07/22/2024: 103.9 07/19/2024: 104.0 07/16/2024: 103.9 PWV (kg) 07/22/2024: -0.1 07/19/2024: 0.0 07/16/2024: -0.1 UF Rate (mL/kg/hr) 07/22/2024: 3.4 07/19/2024: 2.9 07/16/2024: 1.4 ADEQUACY ASSESSMENT spKt/V, URR 06/30/2024: 1.48, 73.0 06/23/2024: 1.31, 68.0 06/02/2024: 1.43, 72.0 Urine Cr Clearance 02/16/2024: 3.5 ACCESS ASSESSMENT Access Type: CVCatheter Access SubType: Tunneled Access Status: Active (In Use) - 03/01/2024 Access Location: Chest Placed: 03/01/2024 ANEMIA ASSESSMENT HGB, TSAT 07/15/2024: 11.0, - 07/07/2024: 11.8, 48.0 06/30/2024: 11.4, - Ferritin 07/07/2024: 967.0 06/09/2024: 387.0 05/05/2024: 426.0 Mircera, IVP (mcg) 06/23/2024: 60 05/31/2024: 75 05/17/2024: 75 Iron Sucrose (Venofer) (mg) 07/19/2024: 50 07/12/2024: 50 2024: 100 BMM ASSESSMENT PTH, Intact 07/07/2024: 433.0 06/09/2024: 309.0 05/05/2024: 416.0 Calcium, Phosphorus 07/07/2024: 8.2, 10.1 06/09/2024: 8.4, 9.0 05/05/2024: 8.8, 6.2 NUTRITION ASSESSMENT Potassium, Albumin 07/07/2024: 4.9, 4.1 06/09/2024: 3.9, 4.1 05/05/2024: 3.8, 3.9 eNPCR 06/30/2024: 1.09 06/23/2024: 1.1 06/02/2024: 1.03 DIAGNOSIS Chief Complaint: N18.6 End stage renal disease ADDITIONAL DIAGNOSES Additional conditions addressed during visit: E11.9 Type 2 diabetes mellitus without complications Comments: Glu controlled at home. Continue the current med's. Check A1c and Glu quaterly. 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 Continue current med's. Monitor status with each TX. I50.32 Chronic diastolic (congestive) heart failure Comments: NO edema, No SOB. BP controlled. No med change. DW adjustment as needed. Monitor status on each treatment. Patient data updated 07/23/2024 at 9:19 AM Signed By: Ilan Pat MD on 07/23/2024 9:25:57 AM documented in this encounter Plan of Treatment Not on file documented as of this encounter Visit Diagnoses Diagnosis Type 2 diabetes mellitus without complication Hypertensive heart and chronic kidney disease without heart failure, with stage 5 chronic kidney disease, or end stage renal disease Chronic diastolic congestive heart failure documented in this encounter Care Teams Air Quality Technician Relationship Specialty Start Date End Date Denise Rosales MD [address] [facility], [address] [place] [address] PCP - General Internal Medicine 08/19/23 documented as of this encounter
--- OUTSIDE RECORDS SUMMARY | 2024-10-01 04:28 | XMS_ITS | Encounter Summary ---
Author Organization [employer] [facility] Address [address] [address] Phone Care Team Providers Care Heat Seal Operator Name Role Phone Denise Rosales MD Primary Care Provider [phone] [phone] Encounter Details Date Type Department Care Team (Late st Contact Info) Description 08/25/2024 Treatment [facility] [address] [place] [address] Kalyn Canas APRN [address] [facility] [address] [place] [address] Social History Tobacco Use Types Packs/Day Years Used Date Smoking Tobacco: Never Assessed Comments Unknown Sex and Gender Information Value Date Recorded Sex Assigned at Not on file Legal Sex Female 10:03 AM EDT Gender Identity Not on file Sexual Orientation Not on file documented as of this encounter Miscellaneous Notes * Dialysis Note - Kalyn Canas APRN - 08/25/2024 12:00 AM CST PROVIDER ROUNDING NOTE BASIC HD - Lina Clinton - Chart #: [id number] Clinic: [address] [place] [address] Modality: IHD Method of Interaction: Face to face Date of Interaction: 08/25/2024 Patient is stable - High weight gain noted - Medications and labs reviewed. Patient issues include: To see cardiology for surgery clearance Prior Treatment: 08/23/2024 Dialyzer: 180NRe Optiflux Dialysate: 2.0 K, 3.0 Ca, 1.0 Mg, 100 Dextrose (G2301) Actual Time: 04:00 Prescribed Time: 4:0 Avg BFR: 450 Avg DFR: 800 Wt Gain (kg): 2.40 EDW (kg): 103.20 post Wt (kg): HOME MEDICATIONS B-complex with vitamin C (b-complex with vitamin [...] losartan (losartan) 50 mg, oral, 1 tablet melatonin (melatonin) 10 mg, oral, 1 tablet every night at bedtime [take an hour before going to sleep] Metamucil (psyllium husk) 0.4 gram, oral, 3 capsule once a day [(pt states taking Metamucil gummies)] pioglitazone (pioglitazone) 15 mg, oral, 1 tablet once a day Protonix (pantoprazole) 40 mg, oral, 1 tablet once a day rosuvastatin (rosuvastatin) 40 mg, oral, 1 tablet every night Velphoro (sucroferric oxyhydroxide) 500 mg, oral, 1 tablet three times a day Kalyn Canas documented in this encounter Plan of Treatment Not on file documented as of this encounter Visit Diagnoses Not on filedocumented in this encounter Care Teams Heat Seal Operator Relationship Specialty Start Date End Date Denise Rosales MD [address] [facility], [address] [place] [address] PCP - General Internal Medicine 08/19/23 documented as of this encounter
--- OUTSIDE RECORDS SUMMARY | 2024-10-01 04:28 | XMS_ITS | Clinical Summary ---
Author Organization [employer] [facility] Address [address] [place] [address] Care Team Providers Care Molder Shoulder Pad Name Role Phone Denise Rosales MD Primary Care Provider Allergies No known active allergies Medications pioglitazone (ACTOS) 15 mg tablet Take 15 mg by mouth daily with breakfast. Active levothyroxine 75 mcg tablet Take 75 mcg by mouth daily in the morning. Active calcitRIOL (ROCALTROL) 0.5 mcg capsule Take 0.5 mcg by mouth daily. Active pantoprazole (PROTONIX) 40 mg Tablet, Delayed Release (E.C.) Take 40 mg by mouth daily. Active B-complex with vitamin C (VITAMIN B&C ORAL) Take by mouth daily. Active psyllium (METAMUCIL) Packet Take 1 Packet by mouth daily. 3 gummies (on dialysis). Daily Active rosuvastatin (CRESTOR) 40 mg tablet Take 40 mg by mouth daily at bedtime. Active losartan (COZAAR) 50 mg tablet Take 50 mg by mouth daily. Active ERGOCALCIFEROL, VITAMIN D2, ORAL Take by mouth every 7 days. Takes on Friday Active HYDROcodone-juliana taminophen (NORCO) 5-325 mg tablet Take 1 Tablet by mouth every 4 hours as needed for Pain, Moderate. NO LONGER TAKING Active melatonin 5 mg Tablet Take 5 mg by mouth daily at bedtime. Active collagenase (SANTYL) 250 unit/gram Ointment Apply to affected area daily. Use a thin layer on each wound. Wound length (required) 0.3 cm X wound width (required) 3 cm X 0.3 treatment days. And 0.3x0.6x0.5 30 Gram 2 4 Active Velphoro 500 mg Tablet, Chewable Take 1 Tablet by mouth 3 times daily. 4 Active Active Problems Patient Care Coordination No te Formatting of this note migh t be different from the original. Dr. Garcia DPM Dr. Ilan Pat Nephrology at [facility], [address] [address] No additional problems on file Encounters Date Type Department Care Team Description 09/25/2024 External Device Data STL ABSTRACTION Provider, Abstract 09/24/2024 External Device Data [facility] ABSTRACTION Provider, Abstract 09/22/2024 External Device Data [facility] ABSTRACTION Provider, Abstract 09/22/2024 External Device Data [facility] ABSTRACTION Provider, Abstract 09/07/2024 External Device Data [facility] ABSTRACTION Provider, Abstract 08/11/2024 External Device Data [facility] ABSTRACTION Provider, Abstract 08/11/2024 External Device Data ST[facility] ABSTRACTION Provider, Abstract from Last 3 Months Social History Tobacco Use Types Packs/Day Years Used Date Smoking Tobacco: Former Cigarettes Q uit: 2004 Smokeless Tobacco: Never Tobacco Cessation:Counseling Given: Not Answered Alcohol Use Standard Drinks/Week Comments Never 0 (1 standard drink = 0.6 oz pur e alcohol) Feeling Safe Answer Date Recorded Are you in a relationship wi th someone who hurts you emotionally and/or physically? No 06/29/2024 Comments Unknown Sex and Gender Information Value Date Recorded Sex Assigned at Not on file Legal Sex Female 8:09 AM CDT Gender Identity Not on file Sexual Orientation Not on file Last Filed Vital Signs Vital Sign Reading Time Taken Comments Blood Pressure 125/68 06/29/2024 9:00 AM GENERAL OPERATIONS MANAGER Pulse 81 06/29/2024 9:00 AM GENERAL OPERATIONS MANAGER Temperature 36.4 C (97.6 F) 06/29/2024 9:00 AM GENERAL OPERATIONS MANAGER Respiratory Rate 18 06/29/2024 9:00 AM GENERAL OPERATIONS MANAGER Oxygen Saturation - - Inhaled Oxygen Concentration - - Weight 101.6 kg (224 lb) 06/29/2024 9:00 AM GENERAL OPERATIONS MANAGER Height 170.2 cm (5' 7 ) 06/29/2024 9:00 AM GENERAL OPERATIONS MANAGER Body Mass Index 35.08 06/29/2024 9:00 AM GENERAL OPERATIONS MANAGER Plan of Treatment Health Maintenance Due Date Last Done Comments DIABETES ANNUAL FOOT EXAM 1977 DIABETES ANNUAL RETINAL EXAM 1977 DIABETES MICROALBUMIN ANNUAL SCREEN 1977 LDL CHOLESTEROL ANNUAL 1977 PNEUMOCOCCAL VACCINE 50+ YEA RS (1 of 2 - PCV) 1978 BREAST CANCER SCREENING 1999 FIT-DNA Q 3 years 2004 FIT/FOBT Q 1 year 2004 Flex Sig/CT Colonography Q 5 years 2004 ZOSTER VACCINE (1 of 2) 2009 RSV VACCINE (60+ or ) (1 - Risk 60-74 years 1-dose series) 2019 OSTEOPOROSIS SCREENING 2024 DIABETES HBA1C Q 6 MONTHS 11/03/20242023, 03/01/2024, 11/15/2023, Additional history exists DTAP/TDAP/TD VACCINES (3 - T d or Tdap) 12/21/2027 12/20/2017, 02/15/2013 COLORECTAL SCREENING 10/06/2033 10/07/2023, 10/07/2023, 10/06/2023 Colorectal Cancer Screening 10/06/2033 INFLUENZA VACCINE Completed 05/07/2024, , 04/21/2015 Insurance [facility] [id number] [facility] Care Teams Molder Shoulder Pad Relationship Specialty Start Date End Date Denise Rosales MD PCP - General Internal Medicine 7/26/24
--- OUTSIDE RECORDS SUMMARY | 2024-10-01 04:28 | XMS_ITS | Encounter Summary ---
Author Organization [employer] [facility] Address [address] [place] [address] Phone Care Team Providers Care Logger Driving Horses Name Role Phone Denise Rosales MD Primary Care Provider [phone] [phone] Encounter Details Date Type Department Care Team (Latest Contact Info) Description 09/24/2024 Treatment [employer] [facility] [address] [address] Ilan Pat MD [address] [address] Anemia in chronic kidney disease; Secondary hyperparathyroidism of renal origin; End stage renal disease; Dependence on renal [...] Dialysis Note - Ilan Pat MD - 09/24/2024 12:00 AM CST Patient: Lina Clinton : 1960 VBC: Augustine LUCIANO, IFRAH Bradshaw Note Type: Dialysis Rounds-Comp Service Date: 09/24/2024 This patient was personally seen for a complete visit as part of routine monthly dialysis care for end stage renal disease. Attending Pst Supervisor: WARREN PENA Dialysis Location: [facility] Schedule: Shift: 1 OVERVIEW COMMENTS: The diabetic foot ulcers are better. She is to see Dr. Soto in [facility] in [place] for access placement. HOME MEDICATIONS Medications reviewed. COMMENTS: Needs to take her binder Current [facility] Outpatient Medications B-complex with vitamin C tablet [...] of RENAL recovery Treatment Data Treatment Date: 09/24/2024 started at: 6:37 AM Dialysate / Machine Temp (prescribed): 37.0*C Dialysate / Machine Temp (actual): 37.0*C BFR (prescribed): 400 BFR (actual): 400 DFR (prescribed): Autoflow 1.5 DFR (actual): 500 Prescribed Time: 04:00 EDW (kg): 104.0 Dialyzer: 180NRe Optiflux Dialysate: 2.0 K, 3.0 Ca, 1.0 Mg, 100 Dextrose (G2301) Sodium: 138 Bicarb: 38 Pre Dialysis Vitals Pre BP Sit: 126/58 Pre Wt (kg): 107.9 EDW Deviation (kg): 3.9 Temp: 97.0*F Current Dialysis Vitals BP Sit: 144/77 AP/RHINOLOGIST: 144/110 Pulse: 88 TREATMENT MEDICATIONS ORDERS Heparin Sodium (Porcine) 1,000 [...] 09/20/2024 - 09/19/2025 BP AND FLUID ASSESSMENT COMMENTS: Fluid not moving, legs are tight Will try profile 2 Post BP Sit 150/76 - 09/22/2024 181/92 - 09/20/2024 147/77 - 09/17/2024 Post Wt (kg) 106.5 - 09/22/2024 106.7 - 09/20/2024 105.8 - 09/17/2024 EDW (kg) 104.0 - 09/22/2024 104.0 - 09/20/2024 104.0 - 09/17/2024 Deviation (kg) 2.5 - 09/22/2024 2.7 - 09/20/2024 1.8 - 09/17/2024 ADEQUACY ASSESSMENT Missed Treatments 0 - Last 30 days 0 - Last 60 days spKt/V (Daugirdas II) 1.63 (08/25/24) 1.39 (08/13/24) 7.17 (07/28/24) eKdrt/V 1.44 (08/25/24) 1.23 (08/13/24) 1.30 (06/30/24) % Urea Reduction 76 (08/25/24) 71 (08/13/24) 97 (07/28/24) BUN 79 (08/25/24) 62 (08/13/24) 61 (07/28/24) BUN Post Dialysis 14 (09/22/24) 19 (08/25/24) 18 (08/13/24) Creatinine 7.59 (09/08/24) 9.40 (09/06/24) 6.46 (08/04/24) Bicarbonate (CO2) 22 (09/08/24) 25 (08/04/24) 19 (07/07/24) Sodium 143 (09/08/24) 144 (08/04/24) 147 (07/07/24) ACCESS ASSESSMENT COMMENTS: diffuser operator cleared for surgery CVCatheter Tunneled Chest Active (In Use) - 03/01/2024 Placed - 03/01/2024 ANEMIA ASSESSMENT Hemoglobin 8.9 (09/22/24) 8.6 (09/15/24) 10.0 (09/08/24) Iron Saturation (TSat) 36 (09/08/24) 52 (08/04/24) 48 (07/07/24) Ferritin 886 (09/08/24) 1,017 (08/04/24) 967 (07/07/24) Iron 76 (09/08/24) 103 (08/04/24) 106 (07/07/24) TIBC 209 (09/08/24) 199 (08/04/24) 221 (07/07/24) MCV 92 (09/08/24) 93 (08/04/24) 92 (07/07/24) Folate >24.0 (02/04/24) 9.3 (10/13/23) Vitamin B-12 1,990 (10/13/23) Platelets 178 (09/08/24) 183 (08/04/24) 180 (07/07/24) BMM ASSESSMENT COMMENTS: Velphoro samples given Calcium 8.8 09/08/24 [...] 02/04/24 <5 10/13/23 NUTRITION ASSESSMENT Albumin 3.9 09/08/24 3.8 08/04/24 4.1 07/07/24 Potassium 4.3 09/08/24 3.8 08/04/24 4.9 07/07/24 eNPCR 1.28 08/25/24 1.01 08/13/24 1.09 06/30/24 Hemoglobin A1C 7.8 08/04/24 6.6 05/05/24 6.7 02/04/24 PHYSICAL EXAM COMMENTS: Trace edema VISIT DIAGNOSES D63.1 Anemia in chronic kidney disease COMMENTS: Hgb- 8.9. HAKEEM increased. Continues on HAKEEM & Iv iron. Monitor labs monthly and adjust as needed. N25.81 Secondary hyperparathyroidism of renal origin COMMENTS: Ca PO4 & PTH all wnl. Continue the Vit-D & p-binders. Monitor labs monthly. ADDITIONAL LABS WBC 7.77 (09/08/24) 7.13 (08/04/24) [...] AV access creation with Surgery referral at [facility] - Dr. Escobar Signed by: ILAN PAT MD on 09/24/2024 at 09:41:14 AM Transcribed by: ILAN PAT MD on 09/24/2024 at 09:41:14 AM documented in this encounter Plan of Treatment Not on file documented as of this encounter Visit Diagnoses Diagnosis Anemia in chronic kidney disease Secondary hyperparathyroidism of renal origin End stage renal disease Dependence on renal dialysis documented in this encounter Care Teams Logger Driving Horses Relationship Specialty Start Date End Date Denise Rosales MD [address] [facility], [address] [place] [address] PCP - General Internal Medicine 08/19/23 documented as of this encounter
--- OUTSIDE RECORDS SUMMARY | 2024-10-01 04:28 | XMS_ITS | Referral Summary ---
Author Organization [facility] Address [address] [place] [address] Care Team Providers Care Web Coordinator Name Role Phone Unavailable Primary Care Provider Unavailabl e Source Comments [facility],non-owned Affiliates and Associated Physician Practices is amultiple site organization consisting of ambulatory clinics and hospital sitesin [place], [place], [place] and [place]. This disclosure is being madepursuant to the Care Everywhere program and may not contain all information available regarding this patient. Last updated 18.[facility] Social History Tobacco Use Types Packs/Day Years Used Date Smoking Tobacco: Never Assessed Sex and Gender Information Value Date Recorded Sex Assigned at Not on file Gender Identity Not on file Sexual Orientation Not on file Plan of Treatment Not on file
--- OUTSIDE RECORDS SUMMARY | 2024-10-01 04:28 | XMS_ITS | Encounter Summary ---
Author Organization [employer] [facility] Address [address] [place] [address] Phone Care Team Providers Care Director Of Development Name Role Phone Denise Rosales MD Primary Care Provider +1 [phone] Encounter Details Date Type Department Care Team (Late st Contact Info) Description 04/07/2024 Treatment [facility] [address] [address] Ilan Pat MD [address] [facility] 1 [place] [address] Social History Tobacco Use Types Packs/Day Years Used Date Smoking Tobacco: Never Assessed Comments Unknown Sex and Gender Information Value Date Recorded Sex Assigned at Not on file Legal Sex Female 10:03 AM EDT Gender Identity Not on file Sexual Orientation Not on file documented as of this encounter Miscellaneous Notes * Dialysis Note - Ilan Pat MD - 04/07/2024 12:00 AM CDT Patient: Lina Clinton : 1960 Note Type: Dialysis Rounds-Comp Service Date: 04/07/2024 This patient was personally seen for a complete visit as part of routine monthly dialysis care for end stage renal disease. Attending Slubber Frame Changer: WARREN PENA Dialysis Location: [facility] Schedule: Shift: 1 OVERVIEW Patient is stable. COMMENTS: The diabetic foot ulcers are better. HOME MEDICATIONS [facility]ations [facility] Actos 15 mg [...] by mouth every night as directed. [facility] Allergies Allergen: No Known Allergies Allergen: No Known Drug Allergies Allergen: No Known Food Allergies DIALYSIS PRESCRIPTION Treatment Data Treatment Date: 04/07/2024 started at: 6:32 AM Dialysate / Machine Temp (prescribed): 37.0*C Dialysate / Machine Temp (actual): 36.0*C BFR (prescribed): 400 BFR (actual): 400 DFR (prescribed): Autoflow 1.5 DFR (actual): 600 Prescribed Time: 04:00 EDW (kg): 101.0 Dialyzer: 180NRe Optiflux Dialysate: 2.0 K, 2.25 Ca, 1.0 Mg, 100 Dextrose (G2231) Sodium: 138 Bicarb: 38 Pre Dialysis Vitals Pre BP Sit: 128/68 Pre Wt (kg): 103.4 EDW Deviation (kg): 2.4 Temp: 96.8*F Current Dialysis Vitals BP Sit: 103/58 AP/SOURCING SPECIALIST: 155/120 Pulse: 83 TREATMENT MEDICATIONS ORDERS Heparin Sodium [...] ASSESSMENT Acceptable blood pressure. Post BP Sit 122/71 - 04/05/2024 107/59 - 04/02/2024 127/71 - 03/31/2024 Post Wt (kg) 102.0 - 04/05/2024 101.1 - 04/02/2024 102.0 - 03/31/2024 EDW (kg) 101.0 - 04/05/2024 101.0 - 04/02/2024 101.0 - 03/31/2024 Deviation (kg) 1.0 - 04/05/2024 0.1 - 04/02/2024 1.0 - 03/31/2024 ADEQUACY ASSESSMENT Missed Treatments 0 - Last 30 days 1 - Last 60 days Most recently missed on 03/01/2024 spKt/V (Daugirdas II) 1.51 (03/10/24) 1.54 (02/11/24) 1.32 (02/04/24) eKdrt/V 1.34 (03/10/24) 1.37 (02/11/24) 1.18 (02/04/24) % Urea Reduction 73 (03/10/24) 74 (02/11/24) 68 (02/04/24) BUN 52 (03/10/24) 65 (02/11/24) 66 (02/04/24) BUN Post Dialysis 14 (03/10/24) 17 (02/11/24) 21 (02/04/24) Creatinine 7.80 (03/29/24) 6.46 (03/10/24) 6.70 (02/16/24) Bicarbonate (CO2) 27 (03/10/24) 25 (02/04/24) 19 (01/07/24) Sodium 146 (03/10/24) 141 (02/04/24) 143 (01/07/24) ACCESS ASSESSMENT CVCatheter Tunneled Chest Active (In Use) - 03/01/2024 Placed - 03/01/2024 ANEMIA ASSESSMENT Anemia targets not met. Hemoglobin 8.9 (03/31/24) 9.2 (03/24/24) 9.5 (03/17/24) Iron Saturation (TSat) 32 (03/10/24) 22 (02/04/24) 11 (01/07/24) Ferritin 511 (03/10/24) 352 (02/04/24) 151 (01/07/24) Iron 70 (03/10/24) 50 (02/04/24) 23 (01/07/24) TIBC 217 (03/10/24) 229 (02/04/24) 210 (01/07/24) MCV 90 (03/10/24) 96 (02/04/24) 89 (01/07/24) Folate >24.0 (02/04/24) 9.3 (10/13/23) Vitamin B-12 1,990 (10/13/23) Platelets 232 (03/10/24) 163 (02/04/24) 151 (01/07/24) BMM ASSESSMENT PTH within target. Phosphorus controlled. Calcium 8.6 03/10/24 9.2 02/04/24 8.8 [...] NUTRITION ASSESSMENT Albumin not at goal. Albumin 3.8 03/10/24 3.9 02/04/24 3.8 01/07/24 Potassium 3.7 03/10/24 5.2 02/04/24 4.9 01/07/24 eNPCR 0.87 03/10/24 1.06 02/11/24 1.00 02/04/24 Hemoglobin A1C 6.7 02/04/24 5.7 12/03/23 10.1 06/05/23 TRANSPLANT STATUS COMMENT COMMENTS: too sick at this time. PHYSICAL EXAM Exam not performed. VISIT DIAGNOSES D63.1 Anemia in chronic kidney disease E11.9 Type 2 diabetes mellitus without complications E78.2 Mixed hyperlipidemia I10 Essential (primary) hypertension I25.10 Atherosclerotic heart disease of [place] coronary artery without angina pectoris I50.22 Chronic systolic (congestive) heart failure ADDITIONAL LABS WBC 10.19 (03/10/24) 4.85 (02/04/24) 6.65 (01/07/24) Cholesterol 206 (06/05/23) HDL 64 (06/05/23) LDL Calculated 106 (06/05/23) Triglycerides 210 (06/05/23) Hepatitis B Surface Ab <10 (10/13/23) ADDITIONAL COMMENT COMMENTS: 24 hour urine today Signed by: Ilan Pat on 04/07/2024 at 09:30:44 AM Transcribed by: Ilan Pat on 04/07/2024 at 09:30:44 AM documented in this encounter Plan of Treatment Not on file documented as of this encounter Visit Diagnoses Not on filedocumented in this encounter Care Teams Director Of Development Relationship Specialty Start Date End Date Denise Rosales MD [address] [facility], [address] [place] [address] PCP - General Internal Medicine 08/19/23 documented as of this encounter
--- OUTSIDE RECORDS SUMMARY | 2024-10-01 04:28 | XMS_ITS | Encounter Summary ---
Author Organization [facility] Address [address] [place], [place] [address], [place] [address] Phone Care Team Providers Care Associate Publisher Name Role Phone Denise Rosales MD Primary Care Provider [phone] Encounter Details Date Type Department Care Team (Late st Contact Info) Description 06/23/[address] [facility] [employer] [address] [place] [address] Isi Canas APRN [address] [facility] 1 [place] [address] Social History Tobacco Use Types Packs/Day Years Used Date Smoking Tobacco: Never Assessed Comments Unknown Sex and Gender Information Value Date Recorded Sex Assigned at Not on file Legal Sex Female 10:03 AM EDT Gender Identity Not on file Sexual Orientation Not on file documented as of this encounter Miscellaneous Notes * Dialysis Note - Isi Canas APRN - 06/23/2024 12:00 AM CST Patient: Lina Clinton : 1960 Note Type: Dialysis Rounds-Comp Service Date: 06/23/2024 This patient was personally seen for a complete visit as part of routine monthly dialysis care for end stage renal disease. Attending Production Manager: WARREN PENA Dialysis Location: [facility] Schedule: Shift: 1 OVERVIEW Patient is stable. COMMENTS: The diabetic foot ulcers are better. She is to see Dr. Soto in [facility] in [place] for access placement. HOME MEDICATIONS Medications reviewed. COMMENTS: Needs to take her binder Current [facility] Outpatient Medications B-complex with vitamin C tablet [...] a day. Renvela 800 mg tablet Take 4 tablet by mouth three times a day with meals. rosuvastatin 40 mg tablet Take 1 tablet by mouth every night as directed. Current [facility] Allergies Allergen: No Known Allergies Allergen: No Known Drug Allergies Allergen: No Known Food Allergies DIALYSIS PRESCRIPTION Treatment Data Treatment Date: 06/23/2024 started at: 6:16 AM Dialysate / Machine Temp (prescribed): 37.0*C Dialysate / Machine Temp (actual): -- BFR (prescribed): 400 BFR (actual): 400 DFR (prescribed): Autoflow 1.5 DFR (actual): 800 Prescribed Time: 04:00 EDW (kg): 102.0 Dialyzer: -- Dialysate: -- Sodium: 138 Bicarb: 38 Pre Dialysis Vitals Pre BP Sit: 136/72 Pre Wt (kg): 104.6 EDW Deviation (kg): 2.6 Temp: 97.0*F Current Dialysis Vitals BP Sit: 130/74 AP/HOME HEALTH CAREGIVER: 170/145 Pulse: 84 TREATMENT MEDICATIONS ORDERS Heparin Sodium (Porcine) 1,000 [...] 3X Week During Dialysis 06/14/2024 - 2024 BP AND FLUID ASSESSMENT Acceptable blood pressure. Fluid status acceptable. Post BP Sit 115/71 - 06/21/2024 110/68 - 06/18/2024 109/67 - 06/16/2024 Post Wt (kg) 103.6 - 06/21/2024 103.2 - 06/18/2024 103.3 - 06/16/2024 EDW (kg) 102.0 - 06/21/2024 102.0 - 06/18/2024 102.0 - 06/16/2024 Deviation (kg) 1.6 - 06/21/2024 1.2 - 06/18/2024 1.3 - 06/16/2024 ADEQUACY ASSESSMENT Prescription compliance acceptable. Missed Treatments 0 - Last 30 days 0 - Last 60 days spKt/V (Daugirdas II) 1.43 (06/02/24) 1.45 (05/05/24) 1.59 (04/07/24) eKdrt/V 1.26 (06/02/24) 1.26 (05/05/24) 1.41 (04/07/24) % Urea Reduction 73 (05/05/24) 75 (04/07/24) 73 (03/10/24) BUN 70 (05/26/24) 63 (05/05/24) 56 (04/07/24) BUN Post Dialysis 17 (05/05/24) 14 (04/07/24) 14 (03/10/24) Creatinine 7.82 (06/09/24) 7.06 (05/05/24) 6.69 (04/07/24) Bicarbonate (CO2) 19 (06/09/24) 24 (05/05/24) 26 (04/07/24) Sodium 141 (06/09/24) 141 (05/05/24) 141 (04/07/24) ACCESS ASSESSMENT COMMENTS: Access in July after new insurance CVCatheter Tunneled Chest Active (In Use) - 03/01/2024 Placed - 03/01/2024 ANEMIA ASSESSMENT Anemia targets met. Hemoglobin 10.8 (06/16/24) 11.8 (06/09/24) 10.8 (05/26/24) Iron Saturation (TSat) 21 (06/09/24) 26 (05/05/24) 24 (04/07/24) Ferritin 387 (06/09/24) 426 (05/05/24) 301 (04/07/24) Iron 50 (06/09/24) 56 (05/05/24) 56 (04/07/24) TIBC 237 (06/09/24) 217 (05/05/24) 238 (04/07/24) MCV 92 (06/09/24) 93 (05/05/24) 93 (04/07/24) Folate >24.0 (02/04/24) 9.3 (10/13/23) Vitamin B-12 1,990 (10/13/23) Platelets 163 (06/09/24) 189 (05/05/24) 201 (04/07/24) BMM ASSESSMENT PTH within target. Hyperphosphatemia noted. Calcium controlled. COMMENTS: Change binder to Velphro 500 mg [...] <5 10/13/23 NUTRITION ASSESSMENT Albumin at goal. Potassium controlled. Albumin 4.1 06/09/24 3.9 05/05/24 3.9 04/07/24 Potassium 3.9 06/09/24 3.8 05/05/24 3.9 04/07/24 eNPCR 1.03 06/02/24 0.97 05/05/24 0.95 04/07/24 Hemoglobin A1C 6.6 05/05/24 6.7 02/04/24 5.7 [...] time. Signed by: ISI CANAS APRN on 06/23/2024 at 08:56:08 AM Transcribed by: ISI CANAS APRN on 06/23/2024 at 08:56:08 AM documented in this encounter Plan of Treatment Not on file documented as of this encounter Visit Diagnoses Not on filedocumented in this encounter Care Teams Associate Publisher Relationship Specialty Start Date End Date Denise Rosales MD [address] [facility], [address] [place] [address] PCP - General Internal Medicine 08/19/23 documented as of this encounter
--- OUTSIDE RECORDS SUMMARY | 2024-10-01 04:28 | XMS_ITS | Encounter Summary ---
Author Organization [employer] [facility] Address [address] [address] Phone Care Team Providers Care Group Practice Pediatrician Name Role Phone Denise Rosales MD Primary Care Provider +1 -[phone] Encounter Details Date Type Department Care Team (Late st Contact Info) Description 06/07/2024 Treatment [facility] [address] [address] Sony Marie, DO [address] [facility] 1 [place] [address] Social History Tobacco Use Types Packs/Day Years Used Date Smoking Tobacco: Never Assessed Comments Unknown Sex and Gender Information Value Date Recorded Sex Assigned at Not on file Legal Sex Female 10:03 AM EDT Gender Identity Not on file Sexual Orientation Not on file documented as of this encounter Miscellaneous Notes * Dialysis Note - Sony Marie, DO - 06/07/2024 12:00 AM CST Patient: Lina Clinton : 1960 Note Type: Dialysis Rounds-Comp Attestation Service Date: 06/07/2024 This patient was seen for a complete visit as part of routine monthly dialysis care for end stage renal disease. Documentation of the visit is present in the dialysis unit medical record system. Attending Vehicle Inspector: SONY MARIE Dialysis Location: [facility] DIAL[facility] Schedule: M-W-F Shift: 1 DIALYSIS PRESCRIPTION Treatment Data Treatment Date: 06/07/2024 started at: 6:30 AM Dialysate / Machine Temp (prescribed): 37.0*C Dialysate / Machine Temp (actual): -- BFR (prescribed): 400 BFR (actual): 400 DFR (prescribed): Autoflow 1.5 DFR (actual): 800 Prescribed Time: 04:00 EDW (kg): 102.0 Dialyzer: -- Dialysate: -- Sodium: 138 Bicarb: 38 Pre Dialysis Vitals Pre BP Sit: 142/76 Pre Wt (kg): 104.3 EDW Deviation (kg): 2.3 Temp: 97.0*F Current Dialysis Vitals BP Sit: 116/65 AP/TRANSFUSION NURSE: 168/134 Pulse: 81 ADDITIONAL COMMENT COMMENTS: ASSESSMENT: ESKD on HD [...] in PD at this time. Signed by: SONY MARIE MD on 06/07/2024 at 09:21:42 AM Transcribed by: SONY MARIE MD on 06/07/2024 at 09:21:42 AM documented in this encounter Plan of Treatment Not on file documented as of this encounter Visit Diagnoses Not on filedocumented in this encounter Care Teams Group Practice Pediatrician Relationship Specialty [place] [address] [place] [address], [address] [place] [address] PCP - General Internal Medicine 08/19/23 documented as of this encounter
--- OUTSIDE RECORDS SUMMARY | 2024-10-01 04:28 | XMS_ITS | Encounter Summary ---
Author Organization [facility] Address [address] [place], [place] [address], [place] [address] Phone Care Team Providers Care Purler Name Role Phone Denise Rosales MD Primary Care Provider +1 [phone] Encounter Details Date Type Department Care Team (Late st Contact Info) Description 07/02/[address] [facility] [address] [place] [address] Isi Canas APRN [address] [facility] 1 [place] [address] Social History Tobacco Use Types Packs/Day Years Used Date Smoking Tobacco: Never Assessed Comments Unknown Sex and Gender Information Value Date Recorded Sex Assigned at Not on file Legal Sex Female 10:03 AM EDT Gender Identity Not on file Sexual Orientation Not on file documented as of this encounter Miscellaneous Notes * Dialysis Note - Isi Canas APRN - 07/02/2024 12:00 AM CST Patient: Lina Clinton : 1960 Note Type: Dialysis Rounds-Basic Service Date: 07/02/2024 This patient was personally seen for a basic visit as part of routine monthly dialysis care for end stage renal disease. Attending Teletypesetter Operator: WARREN PENA MD Dialysis Location: [facility] DIALYSIS Schedule: Shift: 1 OVERVIEW Patient is stable. COMMENTS: The diabetic foot ulcers are better. She is to see Dr. Soto in [facility] in [place] for access placement. HOME MEDICATIONS Medications reviewed. COMMENTS: Needs to take her binder Current [facility] Outpatient Medications B-complex with vitamin C tablet [...] a day with meals. Current [facility] Allergies Allergen: No Known Allergies Allergen: No Known Drug Allergies Allergen: No Known Food Allergies DIALYSIS PRESCRIPTION COMMENTS: No indication of RENAL recovery Treatment Data Treatment Date: 07/02/2024 started at: 6:21 AM Dialysate / Machine Temp (prescribed): 37.0*C Dialysate / Machine Temp (actual): 37.0*C BFR (prescribed): 400 BFR (actual): 400 DFR (prescribed): Autoflow 1.5 DFR (actual): 700 Prescribed Time: 04:00 EDW (kg): 102.0 Dialyzer: 180NRe Optiflux Dialysate: 2.0 K, 2.25 Ca, 1.0 Mg, 100 Dextrose (G2231) Sodium: 138 Bicarb: 38 Pre Dialysis Vitals Pre BP Sit: 159/85 Pre Wt (kg): 106.2 EDW Deviation (kg): 4.2 Temp: 97.1*F Current Dialysis Vitals BP Sit: 94/56 AP/BULB GROWER: 180/140 Pulse: 83 TREATMENT MEDICATIONS ORDERS Heparin Sodium [...] ASSESSMENT Acceptable blood pressure. High weight gain. Cramping noted. COMMENTS: Fluid not moving, legs are tight Will try profile 2 Post BP Sit 121/71 - 06/30/2024 105/65 - 06/28/2024 110/68 - 06/25/2024 Post Wt (kg) 104.2 - 06/30/2024 104.3 - 06/28/2024 103.3 - 06/25/2024 EDW (kg) 102.0 - 06/30/2024 102.0 - 06/28/2024 102.0 - 06/25/2024 Deviation (kg) 2.2 - 06/30/2024 2.3 - 06/28/2024 1.3 - 06/25/2024 ADEQUACY ASSESSMENT Target met. Prescription compliance acceptable. Missed Treatments 0 - Last 30 days 0 - Last 60 days spKt/V (Daugirdas II) 1.31 (06/23/24) 1.43 (06/02/24) 1.45 (05/05/24) eKdrt/V 1.15 (06/23/24) 1.26 (06/02/24) 1.26 (05/05/24) % Urea Reduction 73 (06/30/24) 68 (06/23/24) 72 (06/02/24) BUN 70 (06/30/24) 76 (06/23/24) 67 (06/02/24) BUN Post Dialysis 19 (06/30/24) 24 (06/23/24) 19 (06/02/24) Creatinine 7.82 (06/09/24) 7.06 (05/05/24) 6.69 (04/07/24) Bicarbonate (CO2) 19 (06/09/24) 24 (05/05/24) 26 (04/07/24) Sodium 141 (06/09/24) 141 (05/05/24) 141 (04/07/24) ACCESS ASSESSMENT Current access is temporary and referral has been made for new access placement. COMMENTS: Access in July after new insurance CVCatheter Tunneled Chest Active (In Use) - 03/01/2024 Placed - 03/01/2024 ANEMIA ASSESSMENT Anemia targets met. Hemoglobin 11.4 (06/30/24) 10.4 (06/23/24) 10.8 (06/16/24) Iron Saturation (TSat) 21 (06/09/24) 26 (05/05/24) [...] to Velphro 500 mg with mealsBinder reminder Just started taking Velphoro Calcium 8.4 06/09/24 8.8 05/05/24 8.4 04/07/24 [...] - Blood pressure noted. CV - RRR. 1+ edema. ADDITIONAL LABS WBC 6.29 (06/09/24) 6.51 (05/05/24) [...] time. Signed by: ISI CANAS APRN on 07/02/2024 at 10:06:41 AM Transcribed by: ISI CANAS APRN on 07/02/2024 at 10:06:41 AM documented in this encounter Plan of Treatment Not on file documented as of this encounter Visit Diagnoses Not on filedocumented in this encounter Care Teams Purler Relationship Specialty Start Date End Date Denise Rosales MD [address] [facility], [address] [place] [address] PCP - General Internal Medicine 08/19/23 documented as of this encounter
--- OUTSIDE RECORDS SUMMARY | 2024-10-01 04:28 | XMS_ITS | Patient Health Summary ---
Author Organization [facility] [employer] Address [facility] [place] [address] Care Team Providers Care Application Integration Engineer Name Role Phone Unavailable Primary Care Provider Unavailabl e Note from [facility],non-owned Affiliates and Associated Physician Practices is amultiple site organization consisting of ambulatory clinics and hospital sitesin [place] and [place]. This disclosure is being madepursuant to the Care Everywhere program and may not contain all information available regarding this patient. Last updated 18.[facility] [employer] Social History Tobacco Use Types Packs/Day Years Used Date Smoking Tobacco: Never Assessed Sex and Gender Information Value Date Recorded Sex Assigned at Not on file Gender Identity Not on file Sexual Orientation Not on file Procedures * DERMATOPATHOLOGY(Performed 11/13/2010) Results * PATHOLOGY TISSUE FOR DERMATOLOGY (11/13/2010 12:00 AM CDT) Result CASE: [id number] PATIENT: LINA CLINTON PATHOLOGIC DIAGNOSIS: Left forehead: LARGE CELL ACANTHOMA CLINICAL DATA: R/O lentigo vs large cell acanthoma. GROSS DESCRIPTION: Received is one formalin filled container labeled with the patient's name and designated left forehead. The specimen consists of a punch biopsy measuring [id number]. Jar 0. MICROSCOPIC DESCRIPTION: Sections show compact orthokeratosis with acanthosis composed of slightly larger keratinocytes with basal layer hyperpigmentatio n. Final Diagnosis performed by Jami Coleman M.D. Electronically signed 11/15/2010 5:47:57PM [facility] DERMATOLOGY LAB Comment: Performed at: Dermatopathology Laboratory [facility] - Department of Dermatology [address] [place] [address], [address] [place] [address] Phone number: [phone] Toll Free: [phone] FAX: [phone] 11/13/2010 11/14/2010 Joshua Bender MD LAB - PATHOLOGY/CYTO LOGY ORDERABLES Performing Organization Address City/State/[facility] Co id Phone Number [facility] DERMATOLOGY [facility] [address] [place] [address]. 5th Floor Lab [address] [phone]
--- OUTSIDE RECORDS SUMMARY | 2024-10-01 04:28 | XMS_ITS | Encounter Summary ---
Author Organization [employer] [facility] Address [address] [place], [place] [address] [address] Phone Care Team Providers Care Senior Pl Sql Developer Name Role Phone Denise Rosales MD Primary Care Provider +1 [phone] Encounter Details Date Type Department Care Team (Late st Contact Info) Description 05/26/2024 Treatment [facility] [address] [place] [address] Kalyn Canas APRN [address] [facility] 1 [place] [address] Social History Tobacco Use Types Packs/Day Years Used Date Smoking Tobacco: Never Assessed Comments Unknown Sex and Gender Information Value Date Recorded Sex Assigned at Not on file Legal Sex Female 10:03 AM EDT Gender Identity Not on file Sexual Orientation Not on file documented as of this encounter Miscellaneous Notes * Dialysis Note - Kalyn Canas APRN - 05/26/2024 12:00 AM CST PROVIDER ROUNDING NOTE COMP HD - Lina Clinton - Chart #: [id number] Clinic: [address] [place] [address] Modality: IHD Method of Interaction: Face to face Date of Interaction: 05/26/2024 Patient is stable - Optimal weight addressed with patient and staff. - Medications and labs reviewed. Patient issues include: Did not have access surgery, resceduled Prior Treatment: 05/24/2024 Dialyzer: 180NRe Optiflux Dialysate: 2.0 K, 2.25 Ca, 1.0 Mg, 100 Dextrose (G2231) Actual Time: 03:59 Prescribed Time: 4:0 Avg BFR: 330 Avg DFR: 530 Wt Gain (kg): 1.80 EDW (kg): 102.00 post Wt (kg): ADEQUACY spKt/V eKdrt/V OLC (Del) spKtv 1.45 05/05/24 1.26 05/05/24 1.19 05/24/24 1.59 04/07/24 1.41 04/07/24 1.53 05/21/24 1.51 03/10/24 1.34 03/10/24 1.50 05/19/24 URR Potassium, Serum Bicarbonate Creatinine % mEq/L mEq/L mg/dL 73 05/05/24 3.8 05/05/24 24 05/05/24 7.06 05/05/24 75 04/07/24 3.9 04/07/24 26 04/07/24 6.69 04/07/24 73 03/10/24 3.7 03/10/24 27 03/10/24 7.80 03/29/24 - Adequacy parameters reviewed Adequacy - Adequacy target met Sitting BP Pre Sitting BP Post Standing BP Post 139 /76 05/24/24 118 /68 05/24/24 117 /79 05/21/24 118 /69 05/21/24 130 /72 05/19/24 135 /76 10/30/24 Blood Pressure - Blood pressure controlled Fluid Status - Fluid status acceptable Interdialytic Weight Gain - Interdialytic weight gain acceptable Prescription Compliance - Prescription compliance acceptable VASCULAR ACCESS Type Exit Site Status Access ID CVCatheter-Tunneled Chest Active (In Use) [id number] - Current access is functioning well. Most Recent In-center Antibiotic Order 03/05/2024 Cefazolin 3000 mg IV 1X Week x 3 Times, Clinic [id number]- Entered By Eugenie DUPREE HGB Transferrin Sat. (Calc) Ferritin g/dL % ng/mL 10.3 05/19/24 26 05/05/24 426 05/05/24 10.4 05/12/24 24 04/07/24 301 04/07/24 10.6 05/05/24 32 03/10/24 511 03/10/24 Erythropoietin-Stimulating Agents (HAKEEM) Administrations 75 mcg Mircera 10/28/24 75 mcg Mircera 05/03/24 75 mcg Mircera 04/19/24 IV Iron Administrations 100 mg Venofer 05/17/24 100 mg Venofer 05/14/24 100 mg Venofer 05/12/24 - Anemia reviewed - Anemia targets met BONE AND MINERAL METABOLISM Calcium, Total Calcium, Corrected Phosphorous PTH-Intact, Plasma mg/dL mg/dL mg/dL pg/mL 8.8 05/05/24 8.9 05/05/24 6.2 05/05/24 416 05/05/24 8.4 04/07/24 8.5 04/07/24 7.3 04/07/24 367 04/07/24 8.6 03/10/24 8.8 03/10/24 5.9 03/10/24 530 03/10/24 Vitamin D 25 Hydroxy 49.9 02/04/24 77.1 10/13/23 - Bone and mineral metabolism parameters reviewed - Calcium controlled - Hyperphosphatemia noted Binder reminder NUTRITION Albumin eNPCR g/dL g/kg/day 3.9 05/05/24 0.97 05/05/24 3.9 04/07/24 0.95 04/07/24 3.8 03/10/24 0.87 03/10/24 - Nutrition reviewed - Patient taking protein supplements HOME MEDICATIONS Actos (pioglitazone) 15 mg, oral, [...] 40 mg, oral, 1 tablet every night EXAM - Vital signs reviewed Pulmonary - LUNGS - clear Cardiovascular - CV - Blood pressure noted - CV - RRR Edema - EXT - No edema INTEREST AND ELIGIBILITY (If changes are made, Please notify SW below) Date of discussion from transplant assessment: 05/03/2024 Patient already on transplant list? No Patient interested in transplantation? Not interested - other If undecided or not interested - other, why? Patient reports that dialysis is short-term. Has patient's physician identified one or more exclusions per the Contraindication list provider by the transplant center? No Transplant Comments: 02/12/24-Continues to not be interested in transplant at this time. Kalyn Canas documented in this encounter Plan of Treatment Not on file documented as of this encounter Visit Diagnoses Not on filedocumented in this encounter Care Teams Senior Pl Sql Developer Relationship Specialty Start Date End Date Denise Rosales MD [address] [place] [address], [address] [place] [address] PCP - General Internal Medicine 08/19/23 documented as of this encounter
--- OUTSIDE RECORDS SUMMARY | 2024-10-01 04:28 | XMS_ITS | Encounter Summary ---
Author Organization [employer] [facility] Address [address] [place], [place] [address] [address] Phone Care Team Providers Care Pulpwood Cutter Name Role Phone Denise Rosales MD Primary Care Provider +1 [phone] Encounter Details Date Type Department Care Team (Late st Contact Info) Description 04/28/2024 Treatment [facility] [address] [address] Kalyn Canas APRN [address] [facility] 1 [place] [address] Social History Tobacco Use Types Packs/Day Years Used Date Smoking Tobacco: Never Assessed Comments Unknown Sex and Gender Information Value Date Recorded Sex Assigned at Not on file Legal Sex Female 10:03 AM EDT Gender Identity Not on file Sexual Orientation Not on file documented as of this encounter Miscellaneous Notes * Dialysis Note - Kalyn Canas APRN - 04/28/2024 12:00 AM CDT Patient: Lina Clinton : 1960 Note Type: Dialysis Rounds-Basic Service Date: 04/28/2024 This patient was personally seen for a basic visit as part of routine monthly dialysis care for end stage renal disease. Attending Auto Roller: WARREN PENA MD Dialysis Location: [facility] DIALYSIS Schedule: Shift: 1 OVERVIEW Patient is stable. Patient has no complaints. COMMENTS: The diabetic foot ulcers are better. She is to see Dr. Soto in [facility] in [place] for access placement. HOME MEDICATIONS Medications reviewed. [facility] Medic[facility] Actos 15 mg tablet [...] by mouth every night as directed. Current [facility] Allergies Allergen: No Known Allergies Allergen: No Known Drug Allergies Allergen: No Known Food Allergies DIALYSIS PRESCRIPTION Treatment Data Treatment Date: 04/28/2024 started at: 6:23 AM Dialysate / Machine Temp (prescribed): 37.0*C Dialysate / Machine Temp (actual): 37.0*C BFR (prescribed): 400 BFR (actual): 400 DFR (prescribed): Autoflow 1.5 DFR (actual): 600 Prescribed Time: 04:00 EDW (kg): 101.0 Dialyzer: 180NRe Optiflux Dialysate: 2.0 K, 2.25 Ca, 1.0 Mg, 100 Dextrose (G2231) Sodium: 138 Bicarb: 38 Pre Dialysis Vitals Pre BP Sit: 159/88 Pre Wt (kg): 102.8 EDW Deviation (kg): 1.8 Temp: 97.4*F Current Dialysis Vitals BP Sit: 108/60 AP/DIRECTOR OF INFECTION CONTROL: -- Pulse: 81 TREATMENT MEDICATIONS ORDERS Heparin Sodium (Porcine) 1,000 [...] pressure. Fluid status acceptable. Post BP Sit 110/60 - 04/26/2024 101/58 - 04/23/2024 113/57 - 04/21/2024 Post Wt (kg) 102.4 - 04/26/2024 102.7 - 04/23/2024 102.4 - 04/21/2024 EDW (kg) 101.0 - 04/26/2024 101.0 - 04/23/2024 101.0 - 04/21/2024 Deviation (kg) 1.4 - 04/26/2024 1.7 - 04/23/2024 1.4 - 04/21/2024 ADEQUACY ASSESSMENT Target met. Prescription compliance acceptable. [...] (04/07/24) 146 (03/10/24) 141 (02/04/24) ACCESS ASSESSMENT Current access is temporary and referral has been made for new access placement. COMMENTS: Had vein mapping, considering PD CVCatheter Tunneled Chest Active (In Use) - 03/01/2024 Placed - 03/01/2024 ANEMIA ASSESSMENT Anemia targets met. Hemoglobin 9.6 (04/21/24) 10.2 (04/14/24) 9.4 (04/07/24) [...] within target. Hyperphosphatemia noted. Calcium controlled. COMMENTS: Binder reminder Calcium 8.4 04/07/24 8.6 [...] controlled. Patient taking protein supplements. Albumin 3.9 04/07/24 [...] without OM at this time. No PAD. LIVAI on CPAP Liver cirrhosis presumably due to [...] RN know. Signed by: Kalyn Canas on 04/28/2024 at 10:47:30 AM Transcribed by: Kalyn Canas on 04/28/2024 at 10:47:30 AM documented in this encounter Plan of Treatment Not on file documented as of this encounter Visit Diagnoses Not on filedocumented in this encounter Care Teams Pulpwood Cutter Relationship Specialty Start Date End Date Denise Rosales MD [address] [facility], [address] [place] [address] PCP - General Internal Medicine 08/19/23 documented as of this encounter
--- OUTSIDE RECORDS SUMMARY | 2024-10-01 04:28 | XMS_ITS | Encounter Summary ---
Author Organization [employer] [facility] Address [address] [place], [place] [address] [address] Phone Care Team Providers Care Roll Form Operator Name Role Phone Denise Rosales MD Primary Care Provider +1 [phone] Encounter Details Date Type Department Care Team (Late st Contact Info) Description 04/09/2024 Treatment [employer] [facility] [address] [place] [address] Kalyn Canas APRN [address] [facility] 1 [place] [address] Social History Tobacco Use Types Packs/Day Years Used Date Smoking Tobacco: Never Assessed Comments Unknown Sex and Gender Information Value Date Recorded Sex Assigned at Not on file Legal Sex Female 10:03 AM EDT Gender Identity Not on file Sexual Orientation Not on file documented as of this encounter Miscellaneous Notes * Dialysis Note - Kalyn Canas APRN - 04/09/2024 12:00 AM CDT Patient: Lina Clinton : 1960 Note Type: Dialysis Rounds-Basic Service Date: 04/09/2024 This patient was personally seen for a basic visit as part of routine monthly dialysis care for end stage renal disease. Attending Nitro Man: WARREN PENA Dialysis Location: [facility] D[facility] Schedule: Shift: 1 OVERVIEW Patient is stable. COMMENTS: The diabetic foot ulcers are better. HOME MEDICATIONS [facility] Medications Actos 15 mg tablet [...] Allergies DIALYSIS PRESCRIPTION Treatment Data Treatment Date: 04/09/2024 started at: 6:23 AM Dialysate / Machine Temp (prescribed): 37.0*C Dialysate / Machine Temp (actual): 37.0*C BFR (prescribed): 400 BFR (actual): 400 DFR (prescribed): Autoflow 1.5 DFR (actual): 700 Prescribed Time: 04:00 EDW (kg): 101.0 Dialyzer: 180NRe Optiflux Dialysate: 2.0 K, 2.25 Ca, 1.0 Mg, 100 Dextrose (G2231) Sodium: 138 Bicarb: 38 Pre Dialysis Vitals Pre BP Sit: 134/71 Pre Wt (kg): 103.2 EDW Deviation (kg): 2.2 Temp: 97.4*F Current Dialysis Vitals BP Sit: 113/64 AP/PERFORATOR TYPIST: 152/128 Pulse: 76 TREATMENT MEDICATIONS ORDERS Heparin Sodium (Porcine) 1,000 [...] pressure. Fluid status acceptable. Post BP Sit 105/63 - 04/07/2024 122/71 - 04/05/2024 107/59 - 04/02/2024 Post Wt (kg) 101.5 - 04/07/2024 102.0 - 04/05/2024 101.1 - 04/02/2024 EDW (kg) 101.0 - 04/07/2024 101.0 - 04/05/2024 101.0 - 04/02/2024 Deviation (kg) 0.5 - 04/07/2024 1.0 - 04/05/2024 0.1 - 04/02/2024 ADEQUACY ASSESSMENT Target met. Prescription compliance acceptable. Missed Treatments 0 - Last 30 days 1 - Last 60 days Most recently missed on 03/01/2024 spKt/V (Daugirdas II) 1.51 (03/10/24) 1.54 (02/11/24) 1.32 (02/04/24) eKdrt/V 1.34 (03/10/24) 1.37 (02/11/24) 1.18 (02/04/24) % Urea Reduction 75 (04/07/24) 73 (03/10/24) [...] for new access placement. COMMENTS: Had vein mapping CVCatheter Tunneled Chest Active (In Use) - 03/01/2024 Placed - 03/01/2024 ANEMIA ASSESSMENT Anemia targets met. Hemoglobin 9.4 (04/07/24) 8.9 (03/31/24) 9.2 (03/24/24) Iron Saturation (TSat) 24 (04/07/24) 32 (03/10/24) 22 (02/04/24) Ferritin 301 (04/07/24) 511 (03/10/24) 352 (02/04/24) Iron 56 (04/07/24) 70 (03/10/24) 50 (02/04/24) TIBC 238 (04/07/24) 217 (03/10/24) 229 (02/04/24) MCV 93 (04/07/24) 90 (03/10/24) 96 (02/04/24) Folate >24.0 (02/04/24) 9.3 (10/13/23) Vitamin B-12 1,990 (10/13/23) Platelets 201 (04/07/24) 232 (03/10/24) 163 (02/04/24) BMM ASSESSMENT Bone and mineral metabolism parameters reviewed. Calcium 8.4 04/07/24 8.6 03/10/24 9.2 02/04/24 [...] 3.9 04/07/24 3.7 03/10/24 5.2 02/04/24 eNPCR 0.87 03/10/24 1.06 02/11/24 1.00 02/04/24 [...] urine today Signed by: Kalyn Canas on 04/09/2024 at 10:26:51 AM Transcribed by: Kalyn Canas on 04/09/2024 at 10:26:51 AM documented in this encounter Plan of Treatment Not on file documented as of this encounter Visit Diagnoses Not on filedocumented in this encounter Care Teams Roll Form Operator Relationship Specialty Start Date End Date Denise Rosales MD [address] [facility], [address] [place] [address] PCP - General Internal Medicine 08/19/23 documented as of this encounter
--- OUTSIDE RECORDS SUMMARY | 2024-10-01 04:28 | XMS_ITS | Encounter Summary ---
Author Organization [employer] [facility] Address [address] [place], [place] [address], [place] [address] Phone Care Team Providers Care Snack Stewardess Name Role Phone Denise Rosales MD Primary Care Provider [phone] [phone] Encounter Details Date Type Department Care Team (Late st Contact Info) Description 04/14/2024 Treatment [employer] [facility] [address] [address] Kalyn Canas APRN [address] [place] [address] Social History Tobacco Use Types Packs/Day Years Used Date Smoking Tobacco: Never Assessed Comments Unknown Sex and Gender Information Value Date Recorded Sex Assigned at Not on file Legal Sex Female 10:03 AM EDT Gender Identity Not on file Sexual Orientation Not on file documented as of this encounter Miscellaneous Notes * Dialysis Note - Kalyn Canas APRN - 04/14/2024 12:00 AM CDT Patient: Lina Clinton : 1960 Note Type: Dialysis Rounds-Basic Service Date: 04/14/2024 This patient was personally seen for a basic visit as part of routine monthly dialysis care for end stage renal disease. Attending Plant Quality Manager: WARREN PENA MD Dialysis Location: [facility] Schedule: Shift: 1 OVERVIEW Patient is stable. Patient has no complaints. COMMENTS: The diabetic foot ulcers are better. HOME MEDICATIONS [facility] Outpatient Medications Actos 15 mg tablet [...] by mouth every night as directed. [facility] Allergies Allergen: No Known Allergies Allergen: No Known Drug Allergies Allergen: No Known Food Allergies DIALYSIS PRESCRIPTION Treatment Data Treatment Date: 04/14/2024 started at: 6:28 AM Dialysate / Machine Temp (prescribed): 37.0*C Dialysate / Machine Temp (actual): 36.0*C BFR (prescribed): 400 BFR (actual): 400 DFR (prescribed): Autoflow 1.5 DFR (actual): 600 Prescribed Time: 04:00 EDW (kg): 101.0 Dialyzer: 180NRe Optiflux Dialysate: 2.0 K, 2.25 Ca, 1.0 Mg, 100 Dextrose (G2231) Sodium: 138 Bicarb: 38 Pre Dialysis Vitals Pre BP Sit: 141/78 Pre Wt (kg): 103.3 EDW Deviation (kg): 2.3 Temp: 98.0*F Current Dialysis Vitals BP Sit: 104/65 AP/PUNCHBOARD ASSEMBLER: -- Pulse: 81 TREATMENT MEDICATIONS ORDERS Heparin [...] BP AND FLUID ASSESSMENT Acceptable blood pressure. EDW adjusted. Post BP Sit 123/61 - 04/12/2024 117/64 - 04/09/2024 105/63 - 04/07/2024 Post Wt (kg) 102.2 - 04/12/2024 101.3 - 04/09/2024 101.5 - 04/07/2024 EDW (kg) 101.0 - 04/12/2024 101.0 - 04/09/2024 101.0 - 04/07/2024 Deviation (kg) 1.2 - 04/12/2024 0.3 - 04/09/2024 0.5 - 04/07/2024 ADEQUACY ASSESSMENT Target met. Prescription compliance acceptable. [...] 141 (02/04/24) ACCESS ASSESSMENT Vascular access examined. Current access is temporary and referral has [...] urine today Signed by: Kalyn Canas on 04/14/2024 at 10:02:26 AM Transcribed by: Kalyn Canas on 04/14/2024 at 10:02:26 AM documented in this encounter Plan of Treatment Not on file documented as of this encounter Visit Diagnoses Not on filedocumented in this encounter Care Teams Snack Stewardess Relationship Specialty Start Date End Date Denise Rosales MD [address] [facility], [address] [place] [address] PCP - General Internal Medicine 08/19/23 documented as of this encounter
--- OUTSIDE RECORDS SUMMARY | 2024-10-01 04:28 | XMS_ITS | Encounter Summary ---
Author Organization [employer] [facility] Address [address] [place], [place] [address], [place] [address] Phone Care Team Providers Care Cable Inspector Name Role Phone Denise Rosales MD Primary Care Provider [phone] [phone] Encounter Details Date Type Department Care Team (Late st Contact Info) Description 09/03/[address] [employer] [facility] [address] [place] [address] Isi Canas APRN [address] [facility] 1 [place] [address] Social History Tobacco Use Types Packs/Day Years Used Date Smoking Tobacco: Never Assessed Comments Unknown Sex and Gender Information Value Date Recorded Sex Assigned at Not on file Legal Sex Female 10:03 AM EDT Gender Identity Not on file Sexual Orientation Not on file documented as of this encounter Miscellaneous Notes * Dialysis Note - Isi Canas APRN - 09/03/2024 12:00 AM CST Patient: Lina Clinton : 1960 Note Type: Dialysis Rounds-Basic Service Date: 09/03/2024 This patient was personally seen for a basic visit as part of routine monthly dialysis care for end stage renal disease. Attending Engineering Professor: WARREN PENA MD Dialysis Location: [facility] Schedule: Shift: 1 OVERVIEW Patient is stable. Patient has no complaints. COMMENTS: The diabetic foot ulcers are better. She is to see Dr. Soto in [facility] in [place] for access placement. HOME MEDICATIONS COMMENTS: Needs to take her binder Current [facility] Outpatient Medications B-complex with vitamin C [...] three times a day with meals. Current [facility] Allergies Allergen: No Known Allergies Allergen: No Known Drug Allergies Allergen: No Known Food Allergies DIALYSIS PRESCRIPTION COMMENTS: No indication of RENAL recovery Treatment Data Treatment Date: 09/03/2024 started at: 6:32 AM Dialysate / Machine Temp (prescribed): 37.0*C Dialysate / Machine Temp (actual): 37.0*C BFR (prescribed): 400 BFR (actual): 400 DFR (prescribed): Autoflow 1.5 DFR (actual): 800 Prescribed Time: 04:00 EDW (kg): 104.0 Dialyzer: 180NRe Optiflux Dialysate: 2.0 K, 3.0 Ca, 1.0 Mg, 100 Dextrose (G2301) Sodium: 138 Bicarb: 38 Pre Dialysis Vitals Pre BP Sit: 160/82 Pre Wt (kg): 107.0 EDW Deviation (kg): 3.0 Temp: 97.0*F Current Dialysis Vitals BP Sit: 150/86 AP/HOT STAMP OPERATOR: 164/137 Pulse: 95 TREATMENT MEDICATIONS ORDERS Heparin Sodium (Porcine) 1,000 [...] units IVP Every Treatment 10/20/2023 - 10/18/2024 BP AND FLUID ASSESSMENT Acceptable blood pressure. Fluid status and diet discussed with patient. COMMENTS: Fluid not moving, legs are tight Will try profile 2 Post BP Sit 159/95 - 09/01/2024 144/81 - 08/30/2024 165/84 - 08/27/2024 Post Wt (kg) 105.9 - 09/01/2024 105.3 - 08/30/2024 105.0 - 08/27/2024 EDW (kg) 104.0 - 09/01/2024 103.2 - 08/30/2024 103.2 - 08/27/2024 Deviation (kg) 1.9 - 09/01/2024 2.1 - 08/30/2024 1.8 - 08/27/2024 ADEQUACY ASSESSMENT Target met. Missed Treatments 0 - Last 30 days 0 - Last 60 days spKt/V (Daugirdas II) 1.63 (08/25/24) 1.39 (08/13/24) 7.17 (07/28/24) eKdrt/V 1.44 (08/25/24) 1.23 (08/13/24) 1.30 (06/30/24) % Urea Reduction 76 (08/25/24) 71 (08/13/24) 97 (07/28/24) BUN 79 (08/25/24) 62 (08/13/24) 61 (07/28/24) BUN Post Dialysis 19 (08/25/24) 18 (08/13/24) 2 (07/28/24) Creatinine 6.46 (08/04/24) 9.63 (07/07/24) 7.82 (06/09/24) Bicarbonate (CO2) 25 (08/04/24) 19 (07/07/24) 19 (06/09/24) Sodium 144 (08/04/24) 147 (07/07/24) 141 (06/09/24) ACCESS ASSESSMENT COMMENTS: Waiting on digital media manager appointment CVCatheter Tunneled Chest Active (In Use) - 03/01/2024 Placed - 03/01/2024 ANEMIA ASSESSMENT Anemia targets met. Hemoglobin 10.4 (08/25/24) 10.1 (08/18/24) 10.3 (08/11/24) Iron Saturation (TSat) 52 (08/04/24) 48 (07/07/24) 21 (06/09/24) Ferritin 1,017 (08/04/24) 967 (07/07/24) 387 (06/09/24) Iron 103 (08/04/24) 106 (07/07/24) 50 (06/09/24) TIBC 199 (08/04/24) 221 (07/07/24) 237 (06/09/24) MCV 93 (08/04/24) 92 (07/07/24) 92 (06/09/24) Folate >24.0 (02/04/24) 9.3 (10/13/23) Vitamin B-12 1,990 (10/13/23) Platelets 183 (08/04/24) 180 (07/07/24) 163 (06/09/24) BMM ASSESSMENT Hyperphosphatemia noted. COMMENTS: Velphoro samples given Calcium 8.0 08/04/24 8.2 07/07/24 8.4 06/09/24 Corrected Calcium 8.2 08/04/24 8.1 07/07/24 8.3 06/09/24 Phosphorus 7.3 08/04/24 10.1 07/07/24 9.0 06/09/24 Calcium Phosphorus Product 58 08/04/24 83 07/07/24 76 06/09/24 PTH 380 08/04/24 433 07/07/24 309 06/09/24 Vitamin D, 25-OH, Total 49.9 02/04/24 77.1 10/13/23 Magnesium 2.4 08/04/24 2.6 05/05/24 2.9 02/04/24 Alkaline Phosphatase 59 08/04/24 57 05/05/24 63 02/04/24 Aluminum <5 08/04/24 <5 02/04/24 <5 10/13/23 NUTRITION ASSESSMENT Albumin not at goal. Patient taking protein supplements. Albumin 3.8 08/04/24 4.1 07/07/24 4.1 06/09/24 Potassium 3.8 08/04/24 4.9 07/07/24 3.9 06/09/24 eNPCR 1.28 08/25/24 1.01 08/13/24 1.09 06/30/24 Hemoglobin A1C 7.8 08/04/24 6.6 05/05/24 6.7 02/04/24 PHYSICAL EXAM Exam performed. Vital Signs Reviewed. Lungs - Clear. CV - Blood pressure noted. COMMENTS: Trace edema ADDITIONAL LABS WBC 7.13 (08/04/24) 7.83 (07/07/24) 6.29 (06/09/24) Hepatitis B Surface Ab <10 (08/04/24) <10 [...] creation: A) cardiology evaluation on 08/26 - [facility] B) Surgery referral at [facility] - Dr. Escobar - not interested in PD at this time. Signed by: ISI CANAS APRN on 09/03/2024 at 09:58:57 AM documented in this encounter Plan of Treatment Not on file documented as of this encounter Visit Diagnoses Not on filedocumented in this encounter Care Teams Cable Inspector Relationship Specialty Start Date End Date Denise Rosales MD [address] [facility], [address] [place] [address] PCP - General Internal Medicine 08/19/23 documented as of this encounter
--- OUTSIDE RECORDS SUMMARY | 2024-10-01 04:28 | XMS_ITS | Encounter Summary ---
Author Organization [employer] [facility] Address [address] [place] [address] Phone Care Team Providers Care Addiction Treatment Counselor Name Role Phone Denise Rosales MD Primary Care Provider [phone] [phone] Encounter Details Date Type Department Care Team (Late st Contact Info) Description 06/25/2024 Treatment [employer] [facility] [address] [address] Ilan Pat MD [address] [address] Social History Tobacco Use Types Packs/Day Years Used Date Smoking Tobacco: Never Assessed Comments Unknown Sex and Gender Information Value Date Recorded Sex Assigned at Not on file Legal Sex Female 10:03 AM EDT Gender Identity Not on file Sexual Orientation Not on file documented as of this encounter Miscellaneous Notes * Dialysis Note - Ilan Pat MD - 06/25/2024 12:00 AM CST Patient: Lina Clinton : 1960 Note Type: Dialysis Rounds-Comp Service Date: 06/25/2024 This patient was personally seen for a complete visit as part of routine monthly dialysis care for end stage renal disease. Attending Pre Certification Specialist: WARREN PENA MD Dialysis Location: [facility] Schedule: Shift: 1 OVERVIEW COMMENTS: The diabetic foot ulcers are better. She is to see Dr. Soto in [facility] in [place] for access placement. HOME MEDICATIONS COMMENTS: Needs to take her binder Current [facility] Outpatient Medications B-complex with vitamin C [...] three times a day with meals. Current [facility] Allergies Allergen: No Known Allergies Allergen: No Known Drug Allergies Allergen: No Known Food Allergies DIALYSIS PRESCRIPTION COMMENTS: No indication of RENAL recovery Treatment Data Treatment Date: 06/25/2024 started at: 6:16 AM Dialysate / Machine Temp (prescribed): 37.0*C Dialysate / Machine Temp (actual): 37.0*C BFR (prescribed): 400 BFR (average delivered): 400 DFR (prescribed): Autoflow 1.5 DFR (average delivered): 800 Prescribed Time: 04:00 Actual Time: 04:00 EDW (kg): 102.0 Dialyzer: 180NRe Optiflux Dialysate: 2.0 K, 2.25 Ca, 1.0 Mg, 100 Dextrose (G2231) Sodium: 138 Bicarb: 38 Pre Dialysis Vitals Pre BP Sit: 128/73 Pre Wt (kg): 105.0 EDW Deviation (kg): 3.0 Temp: 98.0*F Post Dialysis Vitals Post BP Sit: 110/68 Post Wt (kg): 103.3 TREATMENT MEDICATIONS ORDERS Heparin Sodium (Porcine) 1,000 [...] 06/23/2024 - 06/22/2025 BP AND FLUID ASSESSMENT Post BP Sit 110/68 - 06/25/2024 117/76 - 06/23/2024 115/71 - 06/21/2024 Post Wt (kg) 103.3 - 06/25/2024 103.1 - 06/23/2024 103.6 - 06/21/2024 EDW (kg) 102.0 - 06/25/2024 102.0 - 06/23/2024 102.0 - 06/21/2024 Deviation (kg) 1.3 - 06/25/2024 1.1 - 06/23/2024 1.6 - 06/21/2024 ADEQUACY ASSESSMENT Missed Treatments 0 - Last 30 days 0 - Last 60 days spKt/V (Daugirdas II) 1.43 (06/02/24) 1.45 (05/05/24) 1.59 (04/07/24) eKdrt/V 1.26 (06/02/24) 1.26 (05/05/24) 1.41 (04/07/24) % Urea Reduction 68 (06/23/24) 72 (06/02/24) [...] Anemia targets met. Continue current HAKEEM dose. Hemoglobin 10.4 (06/23/24) 10.8 (06/16/24) 11.8 (06/09/24) [...] ASSESSMENT PTH within target. Hyperphosphatemia noted. COMMENTS: Change binder to Velphro [...] A1C 6.6 05/05/24 6.7 02/04/24 5.7 12/03/23 VISIT DIAGNOSES E11.9 Type 2 diabetes mellitus without complications COMMENTS: A1c 6.6% on current meds. No med change needed. Continue to monitor glucose and A1c quarterly. N25.81 Secondary hyperparathyroidism of renal origin COMMENTS: Ca PO4 & PTH all wnl. Continue the Vit-D & p-binders. Monitor labs monthly. D63.1 Anemia in chronic kidney disease COMMENTS: Hgb- 10.4. Continues on HAKEEM & Iv iron. Monitor labs monthly and adjust as needed. ADDITIONAL LABS WBC 6.29 (06/09/24) 6.51 (05/05/24) [...] in PD at this time. Signed by: ILAN PAT MD on 06/25/2024 at 05:46:54 PM Transcribed by: ILAN PAT MD on 06/25/2024 at 05:46:54 PM documented in this encounter Plan of Treatment Not on file documented as of this encounter Visit Diagnoses Not on filedocumented in this encounter Care Teams Addiction Treatment Counselor Relationship Specialty Start Date End Date Denise Rosales MD [address] [facility], [address] [place] [id number] PCP - General Internal Medicine 08/19/23 documented as of this encounter
--- OUTSIDE RECORDS SUMMARY | 2024-10-01 04:28 | XMS_ITS | Encounter Summary ---
Author Organization [employer] [facility] Address [address] [address] Phone Care Team Providers Care Machine Setter Sheet Metal Name Role Phone Denise Rosales MD Primary Care Provider [phone] [phone] Encounter Details Date Type Department Care Team (Late st Contact Info) Description 09/29/2024 Orders Only [employer] [facility] [address] [place] [address] Sony Marie DO [address] [facility] 1 [place] [address] Social History Tobacco Use Types Packs/Day Years Used Date Smoking Tobacco: Never Assessed Comments Unknown Sex and Gender Information Value Date Recorded Sex Assigned at Not on file Legal Sex Female 10:03 AM EDT Gender Identity Not on file Sexual Orientation Not on file documented as of this encounter Plan of Treatment Not on file documented as of this encounter Procedures Procedure Name Priority Date/Time Associated Diagnosis Comments HEMATOLOGY Routine 09/29/2024 documented in this encounter Results * (ABNORMAL) HEMATOLOGY (09/29/2024) Hemoglobin 8.7(L) 12.0 - 16.0 g/dL [facility] Hemoglobin x 3 26.1(L) 36.0 - 48.0 % [facility] 09/29/2024 09/30/2024 11: 56 AM CDT Narrative [facility] - 09/30/2024 Unless otherwise specified, test(s) performed at: [facility], [address] [place], [place] [id number] SERVICE CASHIER: Yuri Streeter M.D. For any questions, please call customer service at FREQUENCY:OTHER Resulting Agency Comment Specimen source: Blood us Sony Marie DO LAB BLOOD ORDERABLES Final R esult [facility] See order comments or contact performing lab Unknown, [place] documented in this encounter Visit Diagnoses Not on filedocumented in this encounter Care Teams Machine Setter Sheet Metal Relationship Specialty Start Date End Date Denise Roasles MD [address] [place] [address], [address] [place] [address] PCP - General Internal Medicine 08/19/23 documented as of this encounter
--- OUTSIDE RECORDS SUMMARY | 2024-10-01 04:28 | XMS_ITS | Encounter Summary ---
Author Organization [employer] [facility] Address [address] [address] Phone Care Team Providers Care Environmental Issues Instructor Name Role Phone Denise Rosales MD Primary Care Provider +1 -[phone] Encounter Details Date Type Department Care Team (Late st Contact Info) Description 08/11/2024 Treatment [employer] [facility] [address] [address] Sony Marie, DO [address] [facility] 1 [place] [address] Social History Tobacco Use Types Packs/Day Years Used Date Smoking Tobacco: Never Assessed Comments Unknown Sex and Gender Information Value Date Recorded Sex Assigned at Not on file Legal Sex Female 10:03 AM EDT Gender Identity Not on file Sexual Orientation Not on file documented as of this encounter Miscellaneous Notes * Dialysis Note - Sony Marie, DO - 08/11/2024 12:00 AM CST Patient: Lina Clinton : 1960 Note Type: Dialysis Rounds-Comp Attestation Service Date: 08/11/2024 This patient was seen for a complete visit as part of routine monthly dialysis care for end stage renal disease. Documentation of the visit is present in the dialysis unit medical record system. Attending Human Resources Office Manager: SONY MARIE Dialysis Location: [facility] Schedule: M-W-F Shift: 1 DIALYSIS PRESCRIPTION Treatment Data Treatment Date: 08/11/2024 started at: 6:35 AM Dialysate / Machine Temp (prescribed): 37.0*C Dialysate / Machine Temp (actual): 37.0*C BFR (prescribed): 400 BFR (actual): 400 DFR (prescribed): Autoflow 1.5 DFR (actual): 800 Prescribed Time: 04:00 EDW (kg): 103.2 Dialyzer: 180NRe Optiflux Dialysate: 2.0 K, 2.25 Ca, 1.0 Mg, 100 Dextrose (G2231) Sodium: 138 Bicarb: 38 Pre Dialysis Vitals Pre BP Sit: 155/80 Pre Wt (kg): 106.8 EDW Deviation (kg): 3.6 Temp: 97.0*F Current Dialysis Vitals BP Sit: 158/82 AP/NOODLE PRESS OPERATOR: 155/98 Pulse: 89 ADDITIONAL COMMENT COMMENTS: ASSESSMENT: ESKD on HD [...] creation: A) cardiology evaluation on 08/26 - [facility] B) Surgery referral at [facility] - Dr. Escobar - not interested in PD at this time. Signed by: SONY MARIE MD on 08/11/2024 at 09:48:18 AM Transcribed by: SONY MARIE MD on 08/11/2024 at 09:48:18 AM documented in this encounter Plan of Treatment Not on file documented as of this encounter Visit Diagnoses Not on filedocumented in this encounter Care Teams Environmental Issues Instructor Relationship Specialty Start Date End Date Denise Rosales MD [address] [facility], [address] [place] [address] PCP - General Internal Medicine 08/19/23 documented as of this encounter
--- OUTSIDE RECORDS SUMMARY | 2024-10-01 04:28 | XMS_ITS | Clinical Summary ---
Author Organization [facility] Facility Address [address] [place] [address] Care Team Providers Care Child Support Officer Name Role Phone Denise Rosales MD Primary Care Provider [phone] Medications losartan (COZAAR) 50 MG tablet Take 1 tablet (50 mg total) by mouth every night 90 tablet 1 02/18/2023 Active Rybelsus 7 MG tablet TAKE 2 TABLETS BY MOUTH IN THE MORNING 60 tablet 3 06/09/2023 Active ciprofloxacin (CIPRO) 500 MG tablet Take 1 tablet (500 mg total) by mouth 1 (one) time each day 5 tablet 08/06/2023 Active olmesartan (BENICAR) 5 MG tablet Take 2 tablets (10 mg total) by mouth every night 180 tablet 1 09/16/2023 Active hydrOXYzine (ATARAX) 25 MG tablet Take 1 tablet (25 mg total) by mouth 3 (three) times a day if needed for itching or anxiety 30 tablet 3 09/16/2023 Active rosuvastatin (CRESTOR) 20 MG tablet Take 1 tablet (20 mg total) by mouth 1 (one) time each day 90 tablet 1 11/10/2023 Active Encounters Date Type Department Care Team Description 09/29/2024 Orders Only [facility], [address] [address] Sony Marie DO 09/27/2024 Treatment [facility], [address] [address] Canas, Kalyn, DECK LID FITTER End stage renal disease; Dependence on renal dialysis 09/24/2024 Treatment [facility], [address] [place] [address] Ilan Pat MD Anemia in chronic kidney disease; Secondary hyperparathyroidism of renal origin; End stage renal disease; Dependence on renal dialysis 09/22/2024 Orders Only [facility], [address] [place] [address] Sony Marie, DO 09/20/2024 Treatment [facility], [address] [place] [phone] Sony Marie, DO End stage renal disease; Dependence on renal dialysis 09/20/2024 Documentation Only [facility], [address] [place] [phone] Sony Marie, DO 09/15/2024 Orders Only [facility], [address] [facility] [place] [phone] Sony Marie, DO 09/10/2024 Treatment [facility], [address] [place] [phone] Kalyn Canas, DECK LID FITTER 09/08/2024 Orders Only [facility], [address] [place] [address] Sony Marie, DO 09/06/2024 Orders Only [facility], [address] [place] [address] Sony Marie, DO 09/03/2024 Treatment [facility], [address] [facility] [place] [phone] Kalyn Canas, DECK LID FITTER 09/01/2024 Orders Only [facility], [address] [facility] [place] [address] Sony Marie, DO 08/25/2024 Orders Only [facility] [address] [place] [address] 1 [place] [address] Sony Marie, DO 08/25/2024 Treatment [facility], [address] [place] [address] Klayn Canas, DECK LID FITTER 08/23/2024 Treatment [facility], [address] [facility] [place] [address] Ilan Pat MD Secondary hyperparathyroidism of renal origin; Anemia in chronic kidney disease 08/18/2024 Orders Only [facility], [address] [place] [phone] Sony Marie, DO 08/13/2024 Orders Only [facility] [address] [place], [place] [address] [place] [address] Sony Marie, DO 08/11/2024 Orders Only [facility] [address] [place] [address] [place] [address] Sony Marie, DO 08/11/2024 Treatment [facility], [address] [place] [address] Sony Marie, DO 08/11/2024 Documentation Only [facility], [address] [place] [address] Sony Marie, DO 08/09/2024 Treatment [facility], [address] [place] [phone] Kalyn Canas, DECK LID FITTER 08/04/2024 Orders Only [facility], [address] [place] [address] Sony Marie, DO 08/04/2024 Treatment [facility], [address] [place] [address] Kalyn Canas APRN 07/28/2024 Orders Only [facility], [address] [place] [address] Sony Marie, DO 07/23/2024 Treatment [address] [place] [address] Ilan Pat MD Type 2 diabetes mellitus without complication; Hypertensive heart and chronic kidney disease without heart failure, with stage 5 chronic kidney disease, or end stage renal disease; Chronic diastolic congestive heart failure 07/22/2024 Orders Only [address] [place] [phone] Soyn Marie, DO 07/15/2024 Orders Only [address] [place] [phone] Sony Marie, 07/07/2024 Orders Only [facility], [address] [address] Sony Marie, DO from Last 3 Months Social History Tobacco Use Types Packs/Day Years Used Date Smoking Tobacco: Never Assessed Comments Unknown Sex and Gender Information Value Date Recorded Sex Assigned at Not on file Legal Sex Female 10:03 AM EDT Gender Identity Not on file Sexual Orientation Not on file Last Filed Vital Signs Vital Sign Reading Time Taken Comments Blood Pressure 150/70 09/16/2023 12:08 PM OSTRICH FARM WORKER Pulse 68 09/16/2023 12:08 PM OSTRICH FARM WORKER Temperature 36.7 C (98 F) 09/16/2023 12:08 PM OSTRICH FARM WORKER Respiratory Rate 18 09/16/2023 12:08 PM OSTRICH FARM WORKER Oxygen Saturation 96% 09/16/2023 12:08 PM OSTRICH FARM WORKER Inhaled Oxygen Concentration - - Weight 112 kg (248 lb) 09/16/2023 12:08 PM OSTRICH FARM WORKER Height 170.2 cm (5' 7 ) 07/30/2022 11:49 AM OSTRICH FARM WORKER Body Mass Index 38.84 07/30/2022 11:49 AM OSTRICH FARM WORKER Plan of Treatment Health Maintenance Due Date Last Done Comments Breast Cancer Screening 1960 Pneumococcal Vaccine: 65+ Ye ars (1 of 2 - PCV) 1965 Pneumococcal Vaccine: Pediat rics (0 to 5 Years) and At-Risk Patients (6 to 64 Years) (1 of 2 - PCV) 1965 Hepatitis B Vaccine (1 of 5 - Risk Dialysis 4-dose series) 1979 Colorectal Cancer Screening: Annual FOBT 2008 Colorectal Cancer Screening: Sigmoidoscopy 2008 Diabetes: Ophthalmology Exam 04/23/2022 Diabetes: Pedal Pulse Checked 04/23/2022 Diabetes: Sensory Foot Exam 04/23/2022 Diabetes: Visual Foot Exam 04/23/2022 Diabetes: Hemoglobin A1C 11/02/2024 025, 05/05/2024, 03/01/2024, Additional history exists Colorectal Cancer Screening: Colonoscopy 10/06/2033 10/07/2023, 10/06/2023 Influenza Vaccine Completed 05/07/2024, , 04/29/2021, Additional history exists Procedures Procedure Name Priority Date/Time Associated Diagnosis Comments HEMATOLOGY Routine 09/29/2024 [facility] LAB RESULTS Routine 09/22/2024 HD KINETICS Routine 09/22/2024 CHEMISTRY Routine 09/22/2024 POST CHEMISTRY Routine 09/22/2024 HEMATOLOGY Routine 09/22/2024 HEMATOLOGY Routine 09/15/2024 IMMUNO CHEMISTRY Routine 09/08/2024 CHEMISTRY Routine 09/08/2024 HEMATOLOGY Routine 09/08/2024 CHEMISTRY Routine 09/08/2024 PATIENT INFORMATION Routine 09/06/2024 CHEMISTRY Routine 09/06/2024 URINE CLEARANCE Routine 09/06/2024 PATIENT INFORMATION Routine 09/06/2024 HEMATOLOGY Routine 09/01/2024 SPECTRA KEVEN LAB RESULTS Routine 08/25/2024 HD KINETICS Routine 08/25/2024 POST CHEMISTRY Routine 08/25/2024 CHEMISTRY Routine 08/25/2024 HEMATOLOGY Routine 08/25/2024 HEMATOLOGY Routine 08/18/2024 SPECTRA KEVEN LAB RESULTS Routine 08/13/2024 HD KINETICS Routine 08/13/2024 POST CHEMISTRY Routine 08/13/2024 CHEMISTRY Routine 08/13/2024 HEMATOLOGY Routine 08/11/2024 CHEMISTRY Routine 08/04/2024 TRACE ELEMENTS Routine 08/04/2024 IMMUNO CHEMISTRY Routine 08/04/2024 CHEMISTRY Routine 08/04/2024 SPECIAL CHEMISTRY Routine 08/04/2024 HEMATOLOGY Routine 08/04/2024 SPECTRA KEVEN LAB RESULTS Routine 07/28/2024 HD KINETICS Routine 07/28/2024 CHEMISTRY Routine 07/28/2024 POST CHEMISTRY Routine 07/28/2024 HEMATOLOGY Routine 07/28/2024 HEMATOLOGY Routine 07/22/2024 HEMATOLOGY Routine 07/15/2024 IMMUNO CHEMISTRY Routine 07/07/2024 CHEMISTRY Routine 07/07/2024 HEMATOLOGY Routine 07/07/2024 CHEMISTRY Routine 07/07/2024 from Last 3 Months Results * (ABNORMAL) HEMATOLOGY (09/29/2024) Only the most recent of13 resultswithin the time period is included. Hemoglobin 8.7(L) 12.0 - 16.0 g/dL [facility] Hemoglobin x 3 26.1(L) 36.0 - 48.0 % [facility] 09/29/2024 09/30/2024 11: 56 AM CDT Narrative [facility] - 09/30/2024 Unless otherwise specified, test(s) performed at: [facility], [address] [place] [address] FIXTURE RELAMPER: Yuri Streeter M.D. For any questions, please call customer service at FREQUENCY:OTHER Resulting Agency Comment Specimen source: Blood us Sony Marie DO LAB BLOOD ORDERABLES Final R esult [facility] See order comments or contact performing lab Unknown, [place] * HD KINETICS (09/22/2024) Only the most recent of4 resultswithin the time period is included. % Urea Reduction 79 65 - 80 % [facility] 09/22/2024 09/23/2024 1:4 3 PM OSTRICH FARM WORKER Narrative [facility] - 09/24/2024 Unless otherwise specified, test(s) performed at: [facility], [address] [place], [place] [id number] FIXTURE RELAMPER: Yuri Streeter M.D. For any questions, please call customer service at FREQUENCY:OTHER Resulting Agency Comment Specimen source: Plasma Sony Marie DO LAB BLOOD ORDERABLES Final R esult Performing Organization Address [facility] Co de Phone Number [facility] See order comments or contact performing lab Unknown, [place] * POST CHEMISTRY (09/22/2024) Only the most recent of4 resultswithin the time period is included. BUN Post Dialysis 14 6 - 19 mg/dL [facility] 09/22/2024 09/23/2024 1:4 3 PM OSTRICH FARM WORKER Narrative [facility] - 09/24/2024 Unless otherwise specified, test(s) performed at: [facility], [address] [place] [address] FIXTURE RELAMPER: Yuri Streeter M.D. For any questions, please call customer service at FREQUENCY:OTHER Resulting Agency Comment Specimen source: Plasma Sony Marie DO LAB BLOOD ORDERABLES Final R esnew [facility] Performing Organization Address [facility] de Phone Number [employer] [facility] See order comments or contact performing lab Unknown, [place] * (ABNORMAL) [facility] Chemistry (09/22/2024) Only the most recent of11 resultswithin the time period is included. BUN 66(H) 6 - 19 mg/dL [facility] 09/22/2024 09/23/2024 4:0 6 PM OSTRICH FARM WORKER Narrative [facility] - 09/24/2024 Unless otherwise specified, test(s) performed at: [facility], [address] [place], [place] [id number] FIXTURE RELAMPER: Yuri Streeter M.D. For any questions, please call customer service at FREQUENCY:OTHER Resulting Agency Comment Specimen source: Serum Sony Marie DO LAB BLOOD ORDERABLES Final R esult Performing Organization Address [facility] de Phone Number [facility] See order comments or contact performing lab Unknown, [place] * [facility] Lab Results (09/22/2024) Only the most recent of4 resultswithin the time period is included. [facility] WSTDKT/V 2.6 [facility] eKdrt/V 1.55 [facility] spKt/V (Daugirdas II) 1.76 [facility] eKt/V [facility]ch [facility] eNPCR 1.13 [facility] PCR 88.08 [facility] spKt/V Gotch 1.79 [facility] ge Center nPCR_HD 1.20 [facility] eKt/V ([place]all) 1.54 [facility] 09/22/2024 09/22/2024 [facility] LAB BLOOD ORDERABLES Final Result Performing Organization Address [facility] de Phone Number [facility] Contact Performing lab Unknown, [place] * IMMUNO CHEMISTRY (09/08/2024) Only the most recent of3 resultswithin the time period is included. [facility] Hep B Surface Ag Negative Negative [facility] 09/08/2024 09/09/2024 10: 38 AM OSTRICH FARM WORKER Narrative Resulting Agency Comment Specimen source: Serum Sony Marie DO LAB BLOOD ORDERABLES Final R esult Performing Organization Address [facility] de Phone Number [facility] See order comments or contact performing lab Unknown, [place] * (ABNORMAL) URINE CLEARANCE (09/06/2024) Pathologist [facility] Creatinine, Urine Timed 47.7 mg/dL [facility] Creatinine, 24H Ur 0.3(L) 0.5 - 1.6 g/24 hr [facility] Creatinine Clear, Urine 2.5 mL/min [facility] Creat Clear, Urine Norm 2.0(L) 77.0 - 94.0 mL/min [facility] 09/06/2024 09/07/2024 12: 22 PM OSTRICH FARM WORKER N[facility]ative [facility]/08/2024 Unless otherwise specified, test(s) performed at: [facility], [address] [place] [address] FIXTURE RELAMPER: Yuri Streeter M.D. For any questions, please call customer service at FREQUENCY:OTHER Resulting Agency Comment Specimen source: Urine Sony Marie DO LAB URINE ORDERABLES Edited Result - Final Performing Organization Address [facility] Co de Phone Number [facility] See order comments or contact performing lab Unknown, [place] * PATIENT INFORMATION (09/06/2024) Only the most recent of2 resultswithin the time period is included. Patient Weight 104.0 kg [facility] Patient Height 170.0 cm [facility] Patient BSA 2.14 sq. M. [facility] Comment: Normalized values are calculated using the patient's actual BSA and normalized to the average BSA of 1.73m2. 09/06/2024 09/07/2024 12: 22 PM OSTRICH FARM WORKER Narrative [facility] - 09/08/2024 Unless otherwise specified, test(s) performed at: [facility], [address] [place] [address] FIXTURE RELAMPER: Yuri Streeter M.D. For any questions, please call customer service at FREQUENCY:OTHER Resulting Agency Comment Specimen source: PD Fluid Sony Marie DO LAB BLOOD ORDERABLES Final R esult Performing Organization Address [facility]/ZIP Co de Phone Number [facility] See order comments or contact performing lab Unknown, [place] * (ABNORMAL) SPECIAL CHEMISTRY (08/04/2024) Hemoglobin A1C 7.8(H) 4.8 - 5.9 % [facility] 08/04/2024 08/05/2024 9:3 0 AM OSTRICH FARM WORKER Narrative Resulting Agency Comment Specimen source: Blood Sony Marie DO LAB BLOOD BANK TEST ORDERABL ES Final Result Performing Organization Address [facility]/ZIP Co de Phone Number [employer] [facility] See order comments or contact performing lab Unknown, [place] * TRACE ELEMENTS (08/04/2024) Aluminum <5 0 - 10 mcg/L [facility] Comment: This test was developed and its performance characteristics determined by [facility]. It has not been cleared or approved by the FDA. The laboratory is regulated under CLIA as qualified to perform high complexity testing. This test is used for clinical purposes. It should not be regarded as investigational or for research. 08/04/2024 08/05/2024 11: 10 AM OSTRICH FARM WORKER Narrative [facility] - 08/05/2024 Unless otherwise specified, test(s) performed at: [facility], [address] [place] [address] FIXTURE RELAMPER: Yuri Streeter M.D. For any questions, please call customer service at FREQUENCY:MONTHLY Resulting Agency Comment Specimen source: Serum Sony Marie DO LAB BLOOD ORDERABLES Final R esult Performing Organization Address [facility] Co de Phone Number [employer] [facility] See order comments or contact performing lab Unknown, [place] from Last 3 Months [id number] Care Teams Child Support Officer Relationship Specialty Start Date End Date Denise Rosales MD [address] [facility], [address] [place] [address] PCP - General Internal Medicine 08/19/23
--- OUTSIDE RECORDS SUMMARY | 2024-10-01 04:28 | XMS_ITS | Encounter Summary ---
Author Organization [facility] Address [address] [place] [address] Phone Care Team Providers Care Cold Water Machine Operator Name Role Phone Denise Rosales MD Primary Care Provider [phone] [phone] Encounter Details Date Type Department Care Team (Late st Contact Info) Description 05/10/[address] [facility] [address] [address] Kalyn Canas APRN [address] [facility] 1 [place] [address] Social History Tobacco Use Types Packs/Day Years Used Date Smoking Tobacco: Never Assessed Comments Unknown Sex and Gender Information Value Date Recorded Sex Assigned at Not on file Legal Sex Female 10:03 AM EDT Gender Identity Not on file Sexual Orientation Not on file documented as of this encounter Miscellaneous Notes * Dialysis Note - Kalyn Canas APRN - 05/10/2024 12:00 AM CDT Patient: Lina Clitnon : 1960 Note Type: Dialysis Rounds-Basic Service Date: 05/10/2024 This patient was personally seen for a basic visit as part of routine monthly dialysis care for end stage renal disease. Attending Tutoring Manager: WARREN PENA MD Dialysis Location: [facility] Schedule: Shift: 1 OVERVIEW Patient is stable. Patient has no complaints. COMMENTS: The diabetic foot ulcers are better. She is to see Dr. Soto in [facility] in [place] for access placement. HOME MEDICATIONS Medications reviewed. [facility] Medic[facility] Actos 15 mg tablet [...] by mouth every night as directed. Current [facility] Allergies Allergen: No Known Allergies Allergen: No Known Drug Allergies Allergen: No Known Food Allergies DIALYSIS PRESCRIPTION Treatment Data Treatment Date: 05/10/2024 started at: 6:37 AM Dialysate / Machine Temp (prescribed): 37.0*C Dialysate / Machine Temp (actual): 37.0*C BFR (prescribed): 400 BFR (actual): 400 DFR (prescribed): Autoflow 1.5 DFR (actual): 700 Prescribed Time: 04:00 EDW (kg): 102.0 Dialyzer: 180NRe [employer] Dialysate: 2.0 K, 2.25 Ca, 1.0 Mg, 100 Dextrose (G2231) Sodium: 138 Bicarb: 38 Pre Dialysis Vitals Pre BP Sit: 118/69 Pre Wt (kg): 103.7 EDW Deviation (kg): 1.7 Temp: 97.1*F Current Dialysis Vitals BP Sit: 101/62 AP/PHYSICAL THERAPY COORDINATOR: 164/133 Pulse: 79 TREATMENT MEDICATIONS ORDERS Heparin Sodium (Porcine) 1,000 [...] pressure. Fluid status acceptable. Post BP Sit 111/62 - 05/07/2024 116/69 - 05/05/2024 112/67 - 05/03/2024 Post Wt (kg) 102.7 - 05/07/2024 102.3 - 05/05/2024 102.0 - 05/03/2024 EDW (kg) 102.0 - 05/07/2024 101.0 - 05/05/2024 101.0 - 05/03/2024 Deviation (kg) 0.7 - 05/07/2024 1.3 - 05/05/2024 1.0 - 05/03/2024 ADEQUACY ASSESSMENT Target met. Missed Treatments 0 - Last 30 days 0 - Last 60 days spKt/V (Daugirdas II) 1.45 (05/05/24) 1.59 (04/07/24) 1.51 (03/10/24) eKdrt/V 1.26 (05/05/24) 1.41 (04/07/24) 1.34 (03/10/24) % Urea Reduction 73 (05/05/24) 75 (04/07/24) 73 (03/10/24) BUN 63 (05/05/24) 56 (04/07/24) 52 (03/10/24) BUN Post Dialysis 17 (05/05/24) 14 (04/07/24) 14 (03/10/24) Creatinine 7.06 (05/05/24) 6.69 (04/07/24) 7.80 (03/29/24) Bicarbonate (CO2) 24 (05/05/24) 26 (04/07/24) 27 (03/10/24) Sodium 141 (05/05/24) 141 (04/07/24) 146 (03/10/24) ACCESS ASSESSMENT Vascular access examined. COMMENTS: Had vein mapping, considering PD Access next week Access surgery on CVCatheter Tunneled Chest Active (In Use) - 03/01/2024 Placed - 03/01/2024 ANEMIA ASSESSMENT Anemia targets met. Hemoglobin 10.6 (05/05/24) 10.5 (04/28/24) 9.6 (04/21/24) Iron Saturation (TSat) 26 (05/05/24) 24 (04/07/24) 32 (03/10/24) Ferritin 426 (05/05/24) 301 (04/07/24) 511 (03/10/24) Iron 56 (05/05/24) 56 (04/07/24) 70 (03/10/24) TIBC 217 (05/05/24) 238 (04/07/24) 217 (03/10/24) MCV 93 (05/05/24) 93 (04/07/24) 90 (03/10/24) Folate >24.0 (02/04/24) 9.3 (10/13/23) Vitamin B-12 1,990 (10/13/23) Platelets 189 (05/05/24) 201 (04/07/24) 232 (03/10/24) BMM ASSESSMENT Bone and mineral metabolism parameters reviewed. COMMENTS: Binder reminder Calcium 8.8 05/05/24 8.4 04/07/24 8.6 03/10/24 Corrected Calcium 8.9 05/05/24 8.5 04/07/24 8.8 03/10/24 Phosphorus 6.2 05/05/24 7.3 04/07/24 5.9 03/10/24 Calcium Phosphorus Product 55 05/05/24 61 04/07/24 51 03/10/24 PTH 416 05/05/24 367 04/07/24 530 03/10/24 Vitamin D, 25-OH, Total 49.9 02/04/24 77.1 10/13/23 30.7 06/05/23 Magnesium 2.6 05/05/24 2.9 02/04/24 2.1 10/13/23 Alkaline Phosphatase 57 05/05/24 63 02/04/24 67 10/13/23 Aluminum <5 02/04/24 <5 10/13/23 NUTRITION ASSESSMENT Albumin not at goal. Potassium controlled. Patient taking protein supplements. Albumin 3.9 05/05/24 3.9 04/07/24 3.8 03/10/24 Potassium 3.8 05/05/24 3.9 04/07/24 3.7 03/10/24 eNPCR 0.97 05/05/24 0.95 04/07/24 0.87 03/10/24 Hemoglobin A1C 6.6 05/05/24 6.7 02/04/24 5.7 12/03/23 TRANSPLANT STATUS COMMENT COMMENTS: too sick at this time. PHYSICAL EXAM Exam performed. ADDITIONAL LABS WBC 6.51 (05/05/24) 5.97 (04/07/24) 10.19 (03/10/24) Cholesterol 206 (06/05/23) HDL 64 (06/05/23) LDL Calculated 106 (06/05/23) Triglycerides 210 (06/05/23) Hepatitis B Surface Ab <10 (05/05/24) <10 [...] RN know. Signed by: Kalyn Canas on 05/10/2024 at 10:15:28 AM Transcribed by: Kalyn Canas on 05/10/2024 at 10:15:28 AM documented in this encounter Plan of Treatment Not on file documented as of this encounter Visit Diagnoses Not on filedocumented in this encounter Care Teams Cold Water Machine Operator Relationship Specialty Start Date End Date Denise Rosales MD [address] [facility], [address] [place] [address] PCP - General Internal Medicine 08/19/23 documented as of this encounter
--- OUTSIDE RECORDS SUMMARY | 2024-10-01 04:28 | XMS_ITS | Encounter Summary ---
Author Organization [employer] [facility] Address [address] [place], [place] [address] [address] Phone Care Team Providers Care Strategy Director Name Role Phone Denise Rosales MD Primary Care Provider [phone] Encounter Details Date Type Department Care Team (Late st Contact Info) Description 06/11/2024 Treatment [facility] [address] [address] Isi Canas APRN [address] [facility] [address] [place] [address] Social History Tobacco Use Types Packs/Day Years Used Date Smoking Tobacco: Never Assessed Comments Unknown Sex and Gender Information Value Date Recorded Sex Assigned at Not on file Legal Sex Female 10:03 AM EDT Gender Identity Not on file Sexual Orientation Not on file documented as of this encounter Miscellaneous Notes * Dialysis Note - Isi Canas APRN - 06/11/2024 12:00 AM CST Patient: Lina Clinton : 1960 Note Type: Dialysis Rounds-Basic Service Date: 06/11/2024 This patient was personally seen for a basic visit as part of routine monthly dialysis care for end stage renal disease. Attending Computer Security Coordinator: WARREN PENA MD Dialysis Location: [facility] Schedule: Shift: 1 OVERVIEW Patient is stable. COMMENTS: The diabetic foot ulcers are better. She is to see Dr. Soto in [facility] in [place] for access placement. HOME MEDICATIONS Medications reviewed. COMMENTS: Needs to take her binder Current [facility] Outpatient Medications Actos 15 mg [...] by mouth every night as directed. Current [facility] Allergies Allergen: No Known Allergies Allergen: No Known Drug Allergies Allergen: No Known Food Allergies DIALYSIS PRESCRIPTION Treatment Data Treatment Date: 06/11/2024 started at: 6:28 AM Dialysate / Machine Temp (prescribed): 37.0*C Dialysate / Machine Temp (actual): 36.0*C BFR (prescribed): 400 BFR (actual): 400 DFR (prescribed): Autoflow 1.5 DFR (actual): 600 Prescribed Time: 04:00 EDW (kg): 102.0 Dialyzer: 180NRe Optiflux Dialysate: 2.0 K, 2.25 Ca, 1.0 Mg, 100 Dextrose (G2231) Sodium: 138 Bicarb: 38 Pre Dialysis Vitals Pre BP Sit: 120/69 Pre Wt (kg): 105.2 EDW Deviation (kg): 3.2 Temp: 98.1*F Current Dialysis Vitals BP Sit: 100/57 AP/FUSELAGE FRAMER: 169/142 Pulse: 83 TREATMENT MEDICATIONS ORDERS Heparin Sodium [...] pressure. Fluid status acceptable. Post BP Sit 121/74 - 06/09/2024 106/61 - 06/07/2024 107/61 - 06/04/2024 Post Wt (kg) 103.5 - 06/09/2024 102.7 - 06/07/2024 102.5 - 06/04/2024 EDW (kg) 102.0 - 06/09/2024 102.0 - 06/07/2024 102.0 - 06/04/2024 Deviation (kg) 1.5 - 06/09/2024 0.7 - 06/07/2024 0.5 - 06/04/2024 ADEQUACY ASSESSMENT Target met. Missed Treatments 0 [...] placement. COMMENTS: Had vein mapping, considering PD Access next week Access surgery on CVCatheter Tunneled Chest Active (In Use) - 03/01/2024 Placed - 03/01/2024 ANEMIA ASSESSMENT Anemia targets met. Hemoglobin 11.8 (06/09/24) 10.8 (05/26/24) 10.3 (05/19/24) Iron Saturation (TSat) 21 (06/09/24) 26 (05/05/24) 24 (04/07/24) Ferritin 387 (06/09/24) 426 (05/05/24) 301 (04/07/24) Iron 50 (06/09/24) 56 (05/05/24) 56 (04/07/24) TIBC 237 (06/09/24) 217 (05/05/24) 238 (04/07/24) MCV 92 (06/09/24) 93 (05/05/24) 93 (04/07/24) Folate >24.0 (02/04/24) 9.3 (10/13/23) Vitamin B-12 1,990 (10/13/23) Platelets 163 (06/09/24) 189 (05/05/24) 201 (04/07/24) BMM ASSESSMENT PTH within target. Hyperphosphatemia noted. Bone and mineral metabolism parameters reviewed. COMMENTS: Binder reminder Calcium 8.4 06/09/24 8.8 05/05/24 8.4 [...] time. Signed by: ISI CANAS APRN on 06/11/2024 at 09:54:02 AM Transcribed by: ISI CANAS APRN on 06/11/2024 at 09:54:02 AM documented in this encounter Plan of Treatment Not on file documented as of this encounter Visit Diagnoses Not on filedocumented in this encounter Care Teams Strategy Director Relationship Specialty Start Date End Date Denise Rosales MD [address] [facility], [address] [place] [address] PCP - General Internal Medicine 08/19/23 documented as of this encounter
--- OUTSIDE RECORDS SUMMARY | 2024-10-01 04:28 | XMS_ITS | Clinical Summary ---
Author Organization [facility] Address [address] [place] [address] Care Team Providers Care Forms Analyst Name Role Phone Janusz Rosales MD Primary Care Provide r Sony Marie DO Unavailable [phone] Sylwia Hess NP Unavailable [phone] Benito Cho MD Unavailable [phone] Reyes Reyna MD Unavailable [phone] Allergies No known active allergies Medications blood glucose diagnostic (ONETOUCH ULTRA TEST) strip Take as directed; tests 1 x daily 100 strip 3 7 Active ergocalciferol (VITAMIN D) 50,000 unit capsule Take 1 capsule (50,000 Units total) by mouth once a week Friday Active levothyroxine (SYNTHROID) 175 mcg tablet Take 1 tablet (175 mcg total) by mouth 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 breakfast Active rosuvastatin (CRESTOR) 40 mg [...] 11/18/2023 Assessment & Plan (08/03/2024 12:10 PM PATIENT RESOURCE SPECIALIST): Patient is right-hand dominant, requiring permanent [...] NOS Hypothyroidism 02/10/2013 Overview (10/23/2016): HYPOTHYROIDISM NOS Encounters Date Type Department Care Team Description 09/23/2024 1:00 PM PATIENT RESOURCE SPECIALIST - 09/23/2024 3:20 PM PATIENT RESOURCE SPECIALIST Surgery [facility] OR [address] [place] [address] Jose Rafael Huff MD CREATION LEFT BRACHIAL CEPHALIC ARTERIOVENOUS FISTULA 09/23/2024 12:54 PM PATIENT RESOURCE SPECIALIST Anesthesia Event [facility] OR [address] [place] [address] Kerri Mullins MD Taylor-White, Carlotta A., NP 09/23/2024 10:34 AM PATIENT RESOURCE SPECIALIST - 09/23/2024 4:20 PM PATIENT RESOURCE SPECIALIST Hospital Encounter [facility] OR [address] [place] [phone] Jose Rafael Huff MD ESRD (end stage renal disease) (HCC) (Primary Dx) Discharge Disposition: Discharge to home or self care 09/17/2024 Telephone [facility] at [address] [place] [address] Jose Rafael Huff MD 09/10/2024 Telephone [facility] at [address] [place] [address] Jose Rafael Huff MD Schedule LUE AVF vs AVG Creation (Cardiac clearance received from Dr. Ojeda on 09/09/24) 09/07/2024 10:00 AM PATIENT RESOURCE SPECIALIST Office Visit [facility] Medical [facility] Cardiology [address] [place] [address] [place] [address] [phone] Bob Benson MD Pre-operative cardiovascular examination (Primary Dx) 08/04/2024 Telephone [facility] Cardiology [address] [place] [address] [place] [address] [phone] Lamin Ojeda MD Cardiac clearance LUE AV Fistual graft creation 08/03/2024 9:16 AM PATIENT RESOURCE SPECIALIST - 08/03/2024 11:59 PM PATIENT RESOURCE SPECIALIST Hospital Encounter [facility] at [address] [address] ESRD (end stage renal disease) on dialysis (HCC) (Primary Dx); Chronic heart failure with preserved ejection fraction (HCC); Mixed hyperlipidemia; Primary hypertension Discharge Disposition: Discharge to home or self care 08/03/2024 9:16 AM PATIENT RESOURCE SPECIALIST - 08/03/2024 11:59 PM PATIENT RESOURCE SPECIALIST Hospital Encounter [facility] Medical Office Building [address] [place] [address] [place] [phone] Pre-operative exam; ESRD (end stage renal disease) on dialysis (HCC) Discharge Disposition: Discharge to home or self care from Last 3 Months Immunizations Immunization Administration Dates Next Due Influenza, Quadrivalent, Spl it, Preservative Free, Intramuscular 09/23/2023 Surgical History Surgery Date Site/Laterality Comments CARPAL TUNNEL RELEASE 2008 Carpal tunnel release TUNNELED LINE PLACEMENT > 5 YEARS 09/25/2023 N/A ABDOMINAL SURGERY TUNNELED LINE PLACEMENT > 5 YEARS 03/01/2024 N/A REMOVE TUNNELED LINE 02/27/2024 Left Medical History Medical History Date Comments Disorder of thyroid Thyroid dise ase Hyperlipidemia Hyperlipidemia Hypertension Hypertension Diabetes mellitus (HCC) Diabetes Anemia in chronic kidney disease (CKD) Primary hypertension 09/23/2023 Morbidly obese (HCC) 09/23/2023 LIVIA (obstructive sleep apnea) 09/23/2023 Mixed hyperlipidemia 09/23/2023 Chronic heart failure with p reserved ejection fraction (HCC) 02/28/2024 Allergic rhinitis runny nose jose j es otc as needed GERD (gastroesophageal reflux disease) Type 2 diabetes mellitus (HCC) Hypothyroidism Cellulitis left lower leg Hemodialysis patient perma cath Family History Medical History Relation Name Comments Diabetes type II Other 1 Family hist ory of Diabetes -Type II; Hypertension Other 1 Family history of Hypertension; Kidney disease Other 1 Family histor y of Renal disease; Other Other 1 No family histo ry of Cancer -; Other Other 2 No family histo ry of Coronary artery disease; Other Other 3 No family histo ry of Seizure disorder; Relation Name Status Comments Other 1 Other 2 Other 3 Social History Tobacco Use Types Packs/Day Years Used Date Smoking Tobacco: Former Cigarettes Q uit: 2005 Tobacco Cessation:Counseling Given: Not Answered Alcohol Use Standard Drinks/Week Comments No 0 (1 standard drink = 0.6 oz pur e alcohol) [facility] Utilities Answer Date Recorded In the past 12 months has [employer], gas, oil, or water [employer] threatened to shut off services in your [...] often do you attend chur ch or religion services? Never 03/01/2024 Do you belong to any clubs o r organizations such as yazidi groups, unions, fraternal or athletic groups, or [...] place to sleep or slept in a snf (including now)? No 11/18/2023 Housing Stability Vital Sign Answer Tae e Recorded In the last 12 months, was t here a time when you were not able to pay the mortgage or rent on time? No 03/01/2024 In the past 12 months, how m any times have you moved where you were living? 0 03/01/2024 At any time in the past 12 [facility], were you homeless or living in a snf (including now)? No 03/01/2024 Personal Safety Answer Date Recorded Have you ever been in or are you currently in a harmful physical or emotional relationship or is someone making you feel afraid or unsafe? Denies 09/23/2024 Comments No Sex and Gender Information Value Date Recorded Sex Assigned at Not on file Legal Sex Female 9:46 AM PATIENT RESOURCE SPECIALIST Gender Identity Not on file Sexual Orientation Not on file Obstetrics History Last Filed Vital Signs Vital Sign Reading Time Taken Comments Blood Pressure 141/78 09/23/2024 3:40 PM PATIENT RESOURCE SPECIALIST Pulse 88 09/23/2024 3:40 PM PATIENT RESOURCE SPECIALIST Temperature 36.4 C (97.6 F) 09/23/2024 3:10 PM PATIENT RESOURCE SPECIALIST Respiratory Rate 18 09/23/2024 3:40 PM PATIENT RESOURCE SPECIALIST Oxygen Saturation 100% 09/23/2024 3:40 PM PATIENT RESOURCE SPECIALIST Inhaled Oxygen Concentration - - Weight 106.1 kg (234 lb) 09/23/2024 11:20 AM PATIENT RESOURCE SPECIALIST Height 170.2 cm (5' 7 ) 08/03/2024 10:07 AM PATIENT RESOURCE SPECIALIST Body Mass Index 36.65 08/03/2024 10:07 AM PATIENT RESOURCE SPECIALIST Plan of Treatment Health Maintenance Due Date Last Done Comments Albumin Creatinine Ratio, Urine 1960 Breast Cancer Screening-Mammogram 1960 Cervical Cancer Screening 1960 Depression Screening 1960 Osteoporosis Screening-Bone Density Scan 1960 Dilated Eye Exam 1960 Foot Exam 1960 Lipid Panel 1960 Pneumococcal vaccine 65+ (1 of 2 - PCV) 1978 Zoster Vaccine (1 of 2) 2009 Well Visit 65+ 2024 Hemoglobin A1C 09/01/2024 03/01/2024, 09/23/2023 Fall Risk Assessment 09/23/2025 09/23/2024 eGFR 09/23/2025 09/23/2024, 08/12/2023, 03/02/2024, Additional history exists DTaP/Tdap/Td Vaccine (3 - Td or Tdap) 12/21/2027 12/20/2017, 02/15/2013 Colon Cancer Screening-Colonoscopy 10/06/20332023, 10/06/2023 Hepatitis C Screening Completed 03/01/2024 , 11/19/2023, 09/24/2023, Additional history exists Influenza Vaccine Completed 05/07/2024, , 04/29/2021, Additional history exists Medical Devices Implanted Type Area Crane Chaser Device Identifier Shelf Expiration Date Model / Serial / Lot [employer] Dur[employer]ax Vascpak Safesheath D-Pro 15.5fr 28cm Kit Catheter [id number] Internal Jugular [facility] [place] [id number] 03/20/2026 [id number] / / [id number] [employer] Duramax Vascpak Safesheath D-Pro 15.5fr 28cm Kit Catheter [id number] - [id number] Implanted:Qty: 1 on 09/25/2023 by Jerel Correa MD at [facility] [employer] 11/17/2025 [id number] / / [id number] Procedures Procedure Name Priority Date/Time Associated Diagnosis Comments POCT GLUCOSE DEVICE Routine 09/23/2024 2 :27 PM PATIENT RESOURCE SPECIALIST MA AN PROCEDURE PLACEHOLDER Routine 09/23/2024 1:15 PM PATIENT RESOURCE SPECIALIST MA AN ELECTIVE ENDOTRACHEAL AIRWAY Routine 09/23/2024 1:15 PM PATIENT RESOURCE SPECIALIST CREATION ARTERIOVENOUS FISTULA - ARM 09/23/2024 12:55 PM PATIENT RESOURCE SPECIALIST ESRD (end stage renal disease) on dialysis (HCC) POCT GLUCOSE DEVICE Routine 09/23/2024 1 1:34 AM PATIENT RESOURCE SPECIALIST EGFR STAT 09/23/2024 11:29 AM PATIENT RESOURCE SPECIALIST APTT STAT 09/23/2024 11:29 AM PATIENT RESOURCE SPECIALIST PROTIME-INR STAT 09/23/2024 11:29 AM PATIENT RESOURCE SPECIALIST CBC WITHOUT DIFFERENTIAL STAT 09/23/2024 11:29 AM PATIENT RESOURCE SPECIALIST BASIC METABOLIC PANEL STAT 09/23/2024 11:29 AM PATIENT RESOURCE SPECIALIST US VEIN MAPPING DUPLEX UPPER EXTREMITY BILATERAL Schedule Routine, Read Routine (OP Routine) 08/03/2024 10:11 AM PATIENT RESOURCE SPECIALIST Pre-operative exam ESRD (end stage renal disease) on dialysis (HCC) HEPATITIS PANEL, ACUTE STAT 03/01/2024 7:06 AM CDT HEMOGLOBIN A1C Routine 03/01/2024 7:06 AM CDT COLONOSCOPY 10/07/2023 2:06 PM CDT from Last 3 Months or Most Recently Relevant to Health Maintenance Results * POCT glucose (09/23/2024 2:27 PM PATIENT RESOURCE SPECIALIST) Glucose, POC 119 70 - 199 mg/dL Glucose comment 1 Use This Result [facility]PP Blood 09/23/2024 2:27 PM PATIENT RESOURCE SPECIALIST 09/23/2024 2:27 PM PATIENT RESOURCE SPECIALIST us Jose Rafael Huff MD LAB POCT ORDERABLES - DEVICE Fin al Result Performing Organization Address City/State/[facility] [[email or web address]] Co de Phone Number PINO [address] [facility] Department [place] [address] * MA AN ELECTIVE ENDOTRACHEAL AIRWAY, MA AN PROCEDURE PLACEHOLDER (09/23/2024 1:15 PM PATIENT RESOURCE SPECIALIST) Narrative Sony Cheung CRNA - 09/23/2024 1:15 PM PATIENT RESOURCE SPECIALIST Sony Cheung CRNA 09/23/2024 1:16 PM Airway Patient location: OR Urgency: elective Indications for airway management: anesthesia Difficult airway: no Staff: Placed by: INTAKE CLERK: Sony Cheung CRNA Emergent airway documentation: Risks [...] Result * POCT glucose (09/23/2024 11:34 AM PATIENT RESOURCE SPECIALIST) Glucose, POC 109 70 - 199 mg/dL Blood 09/23/2024 11:3 4 AM PATIENT RESOURCE SPECIALIST 09/23/2024 11:34 AM PATIENT RESOURCE SPECIALIST Jose Rafael Huff MD LAB POCT ORDERABLES - DEVICE Fin al Result [facility] [address] [facility] Department [place] [address] * (ABNORMAL) eGFR (09/23/2024 11:29 AM PATIENT RESOURCE SPECIALIST) eGFR 10(L) >=60 mL/min/1. 73 m2 Comment: [...] of Race in Diagnosing Kidney Disease, JASN 202). The CKD-EPI equation should not be used for patients with unstable renal function and has not been validated in children and those over 70. Current interpretive data was last reviewed 2021. Blood 09/23/2024 11:2 9 AM PATIENT RESOURCE SPECIALIST 09/23/2024 11:35 AM PATIENT RESOURCE SPECIALIST Jose Rafael Huff MD LAB BLOOD ORDERABLES Final Resul t Performing Organization Address [facility] [[email or web address]] Co de Phone Number PINO [address] [place] [address] * aPTT (09/23/2024 11:29 AM PATIENT RESOURCE SPECIALIST) aPTT 28 22 - 37 sec Comment: Interpretive data aPTT test has not been evaluated for monitoring heparin therapy. The anti-Xa is the preferred test. Current interpretive data was last revised on 2019. Blood 09/23/2024 11:2 9 AM PATIENT RESOURCE SPECIALIST 09/23/2024 11:35 AM PATIENT RESOURCE SPECIALIST Result [facility] Jose Rafael Huff MD LAB BLOOD ORDERABLES Final Resul t Performing Organization Address [facility] de Phone Number [id number] [address] * Protime-INR (09/23/2024 11:29 AM PATIENT RESOURCE SPECIALIST) PT 13.9 12.0 - 14.6 sec INR 1.0 0.9 - 1.2 PINO Comment: Ref Range High Interpretive data Oral anticoagulant therapeutic ranges: Venous thromboembolism prophylaxis or treatment: 2.0-3.0 CARDIOLOGY Standard range: 2.0-3.0 High-intensity range: 2.5-3.5 Refer to indication-specific guidelines for appropriate target ranges for prosthetic heart valve replacement. Current interpretive data was last revised on 2019. Blood 09/23/2024 11:2 9 AM PATIENT RESOURCE SPECIALIST 09/23/2024 11:35 AM PATIENT RESOURCE SPECIALIST Result [facility] Jose Rafael Huff MD LAB BLOOD ORDERABLES Final Resul t Performing Organization Address [facility] [[email or web address]] Co de Phone Number PINO [facility] [place] [address] * (ABNORMAL) CBC without differential (09/23/2024 11:29 AM PATIENT RESOURCE SPECIALIST) WBC 7.0 3.8 - 9.9 K/cumm Hgb 9.9(L) 11.9 - 15.5 g/dL [facility] Hct 30.7(L) 35.6 - 45.5 % [facility] Plt 239 150 - 400 K/cumm [facility] MPV 10.2 9.1 - 12.3 fL [facility] RBC 3.27(L) 3.90 - 5.20 M/cumm [facility] MCV 93.9 81.3 - 96.4 fL [facility] MCH 30.3 27.1 - 33.3 pg [facility] MCHC 32.2(L) 32.3 - 35.7 g/dL [facility] RDW CV 14.3 11.1 - 14.9 % [facility] RDW SD 48.2(H) 35.7 - 48.1 fL [facility] NRBC abs 0.00 0.00 - 0.01 K/cumm [facility] Blood 09/23/2024 11:2 9 AM PATIENT RESOURCE SPECIALIST 09/23/2024 11:35 AM PATIENT RESOURCE SPECIALIST us Jose Rafael Huff MD LAB BLOOD ORDERABLES Final Resul t [facility] [address] [facility] Department of Laboratories [place], [place] [id number] * (ABNORMAL) Basic metabolic panel (09/23/2024 11:29 AM PATIENT RESOURCE SPECIALIST) [facility] Sodium 141 135 - 145 mmol/L Potassium, pl 3.6 3.3 - 4.9 mmol/L [facility] Chloride 100 97 - 110 mmol/L [facility] CO2 29 22 - 32 mmol/L [facility] Anion gap 12 2 - 15 mmol/L [facility] BUN 39(H) 6 - 25 mg/dL [facility] Creatinine 4.80(H) 0.60 - 1.10 mg/dL [facility] Glucose 128 70 - 199 mg/dL [facility] Comment: Interpretive Data Fasting glucose [...] [facility]NAPP Blood 09/23/2024 11:2 9 AM PATIENT RESOURCE SPECIALIST 09/23/2024 11:35 AM PATIENT RESOURCE SPECIALIST us Jose Rafael Huff MD LAB BLOOD ORDERABLES Final Resul t [facility] [address] [facility] Department [place] [address] * US Vein Mapping Duplex Upper Extremity Bilateral (08/03/2024 10:11 AM PATIENT RESOURCE SPECIALIST) Anatomical Region Laterality Modality Vascular Bilateral Ultrasound 08/03/2024 Narrative 08/06/2024 9:06 AM PATIENT RESOURCE SPECIALIST [employer] Job ID: [id number] [employer] Document ID: [id number] Dictated date/time: [id number] BILATERAL UPPER EXTREMITY VEIN MAPPING. REASON FOR [...] veins are patent. Job ID/Internal Job ID: [id number] us Jaren Huff MD IMG US PROCEDURES Final Re sult * Hepatitis panel, acute Blood (03/01/2024 7:06 AM CDT) Pathologist [facility] Hep A IgM Nonreactive Nonreactive Comment: Interpretive Data: If Hep A IgM Ab is reported as Equivocal, a new sample should be drawn in two weeks for testing. Current interpretive data was last revised on 19. Hep B core IgM Nonreactive Nonreactive [facility] Comment: Interpretive Data If HepB Core IgM Ab is reported as Equivocal, a new sample should be drawn in two weeks for testing. Current interpretive data was last revised on 19. Hep C Ab Nonreactive Nonreactive [facility] Comment: Interpretive Data Nonreactive: Antibodies to HCV [...] last revised on 2019. HepBsAg Nonreactive Nonreactive [facility] Blood 03/01/2024 7:06 AM CDT 03/01/2024 7:26 AM CDT Ilan Pat MD LAB MICROBIOLOGY - GENERAL ORDERABLES Final Result [facility] [address] Department [place] [address] * (ABNORMAL) Hemoglobin A1c (03/01/2024 7:06 AM CDT) Pathologist [facility] Hgb A1C 6.9(H) 4.0 - 5.6 % Estimated Average Glucose 151 mg/dL [facility] Comment: The ADA recommends reporting an estimated Average Glucose (eAG) with all Hemoglobin A1c results using the equation derived from a study of 507 normal and diabetic adults. Minority populations were underrepresented and children were not included. (Diabetes Care 31:8926-0217, 2008). The eAG is not equivalent to a fasting glucose. Blood 03/01/2024 7:06 AM CDT 03/01/2024 7:31 AM CDT Lance Foreman MD LAB BLOOD ORDERABLES Final Resu lt [facility] [address] [facility] Department [place] [address] * Colonoscopy (10/07/2023 2:06 PM CDT) Anatomical Region Laterality Modality Other Narrative Procedure Note Reyes Reyna MD - 10/07/2023 2:06 PM CDT [facility] Endoscopy Lab Patient Name: Lina Clinton Procedure Date: 10/07/2023 2:06 PM Date of : 1960 Admit Type: Inpatient Age: 63 Gender: Female Note Status: Finalized Attending MD: Reyes Reyna M.D. Procedure Date: 10/07/2023 Procedure: Colonoscopy Indications: Iron deficiency anemia Providers: Reyes Reyna M.D., ZAYDA Cerda (Anesthesia Staff), Holly Moncada RN, Brant, Launch Leader Referring MD: Janusz Rosales M.D. Medicines: Monitored [...] by the physician, the nurse and the shopping centre manager in the procedure room. Mental Status Examination: [...] for surveillance. Procedure Code(s): --- Professional --- 99961, Colonoscopy, flexible; with removal of tumor(s), polyp(s), or other lesion(s) by snare technique 71178, 59, Colonoscopy, flexible; with biopsy,single or multiple Diagnosis Code(s): --- Professional --- D12.0, Benign neoplasm of cecum D50.9, Iron deficiency anemia, unspecified CPT copyright 2020 [employer]. All rights reserved. The codes documented in this report are preliminary and upon trade mark examiner reviewmay be revised to meet current compliance requirements. Electronically signed by Reyes Reyna M.D. Reyes Reyna M.D. 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 anation Power of Securities Lending Trader 09/23/2024 10:33 AM * Full Code (Latest [...] 1:06 PM 07/27/2022 4:39 AM Care Teams Forms Analyst Relationship Specialty Start Date End Date Janusz Rosales MD [address] [facility] [address] [place] [address] PCP - General Internal Medicine 09/24/23 Sony Marie DO [address] [facility] [address] [place] [address] Consulting Physician Nephrology 10/09/23 Sylwia Hess, [place] [address] [facility] [address] [place] [address] Nurse Practitioner Urology 10/09/23 [place] [address] [facility] [address] [place] [address] Consulting Physician Endocrinology 10/09/23 [place] [address] [facility] [address] [place] [address] Consulting Physician Gastroenterology 10/09/23
--- OUTSIDE RECORDS SUMMARY | 2024-10-01 04:28 | XMS_ITS | Encounter Summary ---
Author Organization [employer] [facility] Address [address] [address] Phone Care Team Providers Care Instructional Leader Name Role Phone Denise Rosales MD Primary Care Provider [phone] [phone] Encounter Details Date Type Department Care Team (Late st Contact Info) Description 04/19/2024 Treatment [place] [employer] [facility] [address] [address] Sony Marie, DO [address] [facility] [address] [place] [address] Social History Tobacco Use Types Packs/Day Years Used Date Smoking Tobacco: Never Assessed Comments Unknown Sex and Gender Information Value Date Recorded Sex Assigned at Not on file Legal Sex Female 10:03 AM EDT Gender Identity Not on file Sexual Orientation Not on file documented as of this encounter Miscellaneous Notes * Dialysis Note - Sony Marie, DO - 04/19/2024 12:00 AM CDT Patient: Lina Clinton : 1960 Note Type: Dialysis Rounds-Comp Service Date: 04/19/2024 This patient was personally seen for a complete visit as part of routine monthly dialysis care for end stage renal disease. Attending Rock Mason Apprentice: SONY MARIE Dialysis Location: [facility] Schedule: Shift: 1 OVERVIEW Patient is stable. COMMENTS: The diabetic foot ulcers are better. HOME MEDICATIONS Medications reviewed. [facility] Medications Actos 15 [...] by mouth every night as directed. [facility] Allergies Allergen: No Known Allergies Allergen: No Known Drug Allergies Allergen: No Known Food Allergies DIALYSIS PRESCRIPTION Treatment Data Treatment Date: 04/19/2024 started at: 6:50 AM Dialysate / Machine Temp (prescribed): 37.0*C Dialysate / Machine Temp (actual): 37.0*C BFR (prescribed): 400 BFR (actual): 400 DFR (prescribed): Autoflow 1.5 DFR (actual): 600 Prescribed Time: 04:00 EDW (kg): 101.0 Dialyzer: 180NRe Optiflux Dialysate: 2.0 K, 2.25 Ca, 1.0 Mg, 100 Dextrose (G2231) Sodium: 138 Bicarb: 38 Pre Dialysis Vitals Pre BP Sit: 142/72 Pre Wt (kg): 104.3 EDW Deviation (kg): 3.3 Temp: 96.1*F Current Dialysis Vitals BP Sit: 131/77 AP/BEAUTY SPECIALIST: 148/124 Pulse: 83 TREATMENT MEDICATIONS ORDERS Heparin Sodium [...] 04/05/2024 - 04/04/2025 BP AND FLUID ASSESSMENT Post BP Sit 93/45 - 04/16/2024 92/77 - 04/14/2024 123/61 - 04/12/2024 Post Wt (kg) 102.1 - 04/16/2024 101.8 - 04/14/2024 102.2 - 04/12/2024 EDW (kg) 101.0 - 04/16/2024 101.0 - 04/14/2024 101.0 - 04/12/2024 Deviation (kg) 1.1 - 04/16/2024 0.8 - 04/14/2024 1.2 - 04/12/2024 ADEQUACY ASSESSMENT Missed Treatments 0 - Last [...] 03/01/2024 Placed - 03/01/2024 ANEMIA ASSESSMENT Hemoglobin 10.2 (04/14/24) 9.4 (04/07/24) 8.9 (03/31/24) Iron Saturation (TSat) 24 (04/07/24) 32 (03/10/24) 22 (02/04/24) Ferritin 301 (04/07/24) 511 (03/10/24) 352 (02/04/24) Iron 56 (04/07/24) 70 (03/10/24) 50 (02/04/24) TIBC 238 (04/07/24) 217 (03/10/24) 229 (02/04/24) MCV 93 (04/07/24) 90 (03/10/24) 96 (02/04/24) Folate >24.0 (02/04/24) 9.3 (10/13/23) Vitamin B-12 1,990 (10/13/23) Platelets 201 (04/07/24) 232 (03/10/24) 163 (02/04/24) BMM ASSESSMENT COMMENTS: Binder reminder Calcium 8.4 04/07/24 8.6 [...] COMMENT COMMENTS: too sick at this time. ADDITIONAL LABS WBC 5.97 (04/07/24) 10.19 (03/10/24) [...] will let PD RN know. Signed by: Sony Marie on 04/19/2024 at 09:06:08 AM Transcribed by: Sony Marie on 04/19/2024 at 09:06:08 AM documented in this encounter Plan of Treatment Not on file documented as of this encounter Visit Diagnoses Not on filedocumented in this encounter Care Teams Instructional Leader Relationship Specialty Start Date End Date Denise Rosales MD [address] [facility], [address] [place] [address] PCP - General Internal Medicine 08/19/23 documented as of this encounter
--- OUTSIDE RECORDS SUMMARY | 2024-10-01 04:28 | XMS_ITS | Encounter Summary ---
Author Organization [employer] [facility] Address [address] [place], [place] [address], [place] [address] Phone Care Team Providers Care Outdoor Recreation Specialist Name Role Phone Denise Rosales MD Primary Care Provider [phone] [phone] Encounter Details Date Type Department Care Team (Late st Contact Info) Description 08/09/2024 Treatment [place] [employer] [facility] [address] [place] [address] Kalyn Canas APRN [address] [facility] [address] [place] [address] Social History Tobacco Use Types Packs/Day Years Used Date Smoking Tobacco: Never Assessed Comments Unknown Sex and Gender Information Value Date Recorded Sex Assigned at Not on file Legal Sex Female 10:03 AM EDT Gender Identity Not on file Sexual Orientation Not on file documented as of this encounter Miscellaneous Notes * Dialysis Note - Kalyn Canas APRN - 08/09/2024 12:00 AM CST PROVIDER ROUNDING NOTE BASIC HD - Lina Clinton - Chart #: [id number] Clinic: [address] [place] [address] Modality: IHD Method of Interaction: Face to face Date of Interaction: 08/09/2024 Patient is stable - Medications and labs reviewed. Patient issues include: Had conor mapping last week, access scheduled for febuary Prior Treatment: 08/06/2024 Dialyzer: 180NRe Optiflux Dialysate: 2.0 K, 2.25 Ca, 1.0 Mg, 100 Dextrose (G2231) Actual Time: 04:00 Prescribed Time: 4:0 Avg BFR: 400 Avg DFR: 740 Wt Gain (kg): 2.20 EDW (kg): 103.20 post Wt (kg): HOME [...] on filedocumented in this encounter Care Teams Outdoor Recreation Specialist Relationship Specialty Start Date End Date Denise Rosales MD [address] [place] [address], [address] [place] [address] PCP - General Internal Medicine 08/19/23 documented as of this encounter
--- OUTSIDE RECORDS SUMMARY | 2024-10-01 04:28 | XMS_ITS | Encounter Summary ---
Author Organization [employer] [facility] Address [address] [place] [address] Phone Care Team Providers Care Esthetician Permanent Makeup Artist Name Role Phone Denise Rosales MD Primary Care Provider [phone] [phone] Encounter Details Date Type Department Care Team (Latest Contact Info) Description 08/23/2024 Treatment [employer] [facility] [address] [address] Ilan Pat MD [address] [address] Secondary hyperparathyroidism of renal origin; Anemia in chronic kidney disease Social History Tobacco Use Types Packs/Day Years Used Date Smoking Tobacco: Never Assessed Comments Unknown Sex and Gender Information Value Date Recorded Sex Assigned at Not on file Legal Sex Female 10:03 AM EDT Gender Identity Not on file Sexual Orientation Not on file documented as of this encounter Miscellaneous Notes * Dialysis Note - Ilan Pat MD - 08/23/2024 12:00 AM CST Patient: Lina Clinton, 1960, 64y, F Dialysis Location: [facility] Attending Making Line Worker: Sony Marie Service Date: 08/23/2024 Service Provider: Ilan Pat MD I met face to face with the patient today. OVERVIEW The patient presented with ESRD on dialysis Primary cause of renal failure: Type 2 diabetes mellitus with diabetic chronic kidney disease Comments: Feet are healed. LAST HOSPITALIZATION Discharge Diagnosis: R78.81 Bacteremia Admission Date 02/27/24 Discharge Date 03/02/24 DIALYSIS PRESCRIPTION IHD 3x Week Start date: 08/13/24 Dialyzer: 180NRe Optiflux BFR: 400 DFR: Autoflow 1.5 Potassium: 2.0 Sodium: 138 EDW: 103.2 Duration: 4:00 Calcium: 3.0 Bicarb: 38 Rx updated on: 08/13/2024 TREATMENT ASSESSMENT BP Sit Pre 08/20/2024: 146/65 08/18/2024: 151/79 08/16/2024: 165/73 BP Stand Post 08/20/2024: 101/58 08/18/2024: 146/79 08/16/2024: 164/83 BP Sit Post 08/20/2024: 108/61 08/18/2024: 142/82 08/16/2024: 125/96 Tx Duration 08/20/2024: 4:00 08/18/2024: 4:00 08/16/2024: 3:59 Missed Treatments 0 - last 30 days 0 - last 60 days FLUID ASSESSMENT EDW (kg) 08/20/2024: 103.2 08/18/2024: 103.2 08/16/2024: 103.2 Weight Pre (kg) 08/20/2024: 106.2 08/18/2024: 107.0 08/16/2024: 106.9 Weight Post (kg) 08/20/2024: 104.8 08/18/2024: 105.3 08/16/2024: 104.8 PWV (kg) 08/20/2024: 1.6 08/18/2024: 2.1 08/16/2024: 1.6 UF Rate (mL/kg/hr) 08/20/2024: 3.3 08/18/2024: 4 08/16/2024: 5 ADEQUACY ASSESSMENT spKt/V, URR 08/13/2024: 1.39, 71.0 07/28/2024: 7.17, 97.0 06/30/2024: 1.48, 73.0 ACCESS ASSESSMENT Access Type: CVCatheter Access SubType: Tunneled Access Status: Active (In Use) - 03/01/2024 Access Location: Chest Placed: 03/01/2024 ANEMIA ASSESSMENT HGB, TSAT 08/18/2024: 10.1, - 08/11/2024: 10.3, - 08/04/2024: 11.0, 52.0 Ferritin 08/04/2024: 1017.0 07/07/2024: 967.0 06/09/2024: 387.0 Mircera, IVP (mcg) 08/09/2024: 75 06/23/2024: 60 05/31/2024: 75 Iron Sucrose (Venofer) (mg) 08/02/2024: 50 07/19/2024: 50 07/12/2024: 50 BMM ASSESSMENT PTH, Intact 08/04/2024: 380.0 07/07/2024: 433.0 06/09/2024: 309.0 Calcium, Phosphorus 08/04/2024: 8.0, 7.3 07/07/2024: 8.2, 10.1 06/09/2024: 8.4, 9.0 NUTRITION ASSESSMENT Potassium, Albumin 08/04/2024: 3.8, 3.8 07/07/2024: 4.9, 4.1 06/09/2024: 3.9, 4.1 eNPCR 08/13/2024: 1.01 06/30/2024: 1.09 06/23/2024: 1.1 DIAGNOSIS Chief Complaint: N18.6 End stage renal disease ADDITIONAL DIAGNOSES Additional conditions addressed during visit: N25.81 Secondary hyperparathyroidism of renal origin Comments: PO4 is better but still too high. Butter binder compliance encouraged. Monitor labs monthly and adjust as needed. D63.1 Anemia in chronic kidney disease Comments: Hbg 10.1. Will contiue to monitor labs and anjust meds as needed. Patient data updated 08/23/2024 at 9:16 AM Signed By: Ilan Pat MD on 08/23/2024 9:19:22 AM documented in this encounter Plan of Treatment Not on file documented as of this encounter Visit Diagnoses Diagnosis Secondary hyperparathyroidism of renal origin Anemia in chronic kidney disease documented in this encounter Care Teams Esthetician Permanent Makeup Artist Relationship Specialty Start Date End Date Denise Rosales MD [address] [facility], [address] [place] [address] PCP - General Internal Medicine 08/19/23 documented as of this encounter
--- OUTSIDE RECORDS SUMMARY | 2024-10-01 04:29 | XMS_ITS ---
Author Name [facility], [facility] Address [address] [place] [address] Phone [phone] Organization [facility] e, NA DOCUMENT DISCLAIMER Multiple document versions may exist, please be sure you review the latest version. The information in the [facility], [place] Continuity of Care Document represents a summary of certain health and medical information. It may not contain the complete medical history for the patient and should be independently verified. The represented time in the document is Eastern Time. PROBLEMS Problem Code Status Onset Date Type 2 diabetes mellitus without complications E11.9 Active July 23, 2024 Hypertensive heart and chron ic kidney disease without heart failure, with stage 5 chronic kidney disease, or end stage renal disease I13.11 Active Zack jelly 2024 Chronic diastolic (congestive) heart failure I50.32 Active July 23, 2024 Encounter for immunization Z23 Active O ctober 2023 Bacteremia R78.81 Active March 03, 2024 Bacteremia R78.81 Active February 27, 2024 Encounter for adequacy testing for hemodialysis Z49.31 Active February 08, 2024 Personal history of diabetic foot ulcer Z86.31 A ctive November 21, 2023 Unspecified protein-calorie malnutrition E46 Active October 20, 2023 Coagulation defect, unspecified D68.9 Active October 17, 2023 Iron deficiency anemia, unspecified D50.9 Activ e October 13, 2023 Fever, unspecified R50.9 Active October 13, 2023 Anaphylactic reaction due to adverse effect of correct drug or medicament properly administered, initial encounter T88.6XXA Active October 13, 2023 Pain, unspecified R52 Active October 13, 2023 Allergy, unspecified, sequela T78.40XS Active October 13, 2023 End stage renal disease N18.6 Active Gerald 2023 Secondary hyperparathyroidism of renal origin N25.81 Active October 13, 2023 Chronic kidney disease, stage 4 (severe) N18.4 Active October 02, 2023 Personal history of nicotine dependence Z87.891 A ctive October 01, 2023 Mixed hyperlipidemia E78.2 Active September 182023 Anemia in chronic kidney disease D63.1 Active October 01, 2023 Long-term (current) use of i njectable non-insulin antidiabetic drugs Z79.85 Active October 01, 2023 Hypertensive chronic kidney disease with stage 1 through stage 4 chronic kidney disease, or unspecified chronic kidney disease I12.9 Active October 01, 2023 Hypothyroidism, unspecified E03.9 Active October 01, 2023 Type 2 diabetes mellitus wit h diabetic chronic kidney disease E11.22 Active October 01, 2023 Dependence on renal dialysis Z99.2 Active October 01, 2023 ALLERGIES AND ADVERSE REACTIONS No Known Allergies SOCIAL HISTORY Tobacco Use Status Tobacco Type Unknown if ever consumed tobacco - Caregiver Characteristics No Information Available Characteristics of Home environment No Information Available Gender and Sex Information Gender Identity Sexual Orientation No Information Available No Information Available MEDICATIONS Prescribed Medications for Dialysis Treatments Medication Instructions Dosage Route Start Date End Date Stat us Acetaminophen PRN every 4 hours 650 mg Oral October 20, 2023 October 18, 2024 Active Heparin Sodium (Porcine) 1,000 Units/mL Catheter Lock Arterial Every Treatment 2100 units Arterial Red Port October 20, 2023 October 18, 2024 Active Heparin Sodium (Porcine) 1,000 Units/mL Catheter Lock Venous Every Treatment 2200 units Venous Blue Port October 20, 2023 October 18, 2024 Active Heparin Sodium (Porcine) 1,000 Units/mL Systemic Infusion (Pump), Every Treatment, Total treatment minutes 240, Turn heparin pump off 0 minutes prior to end of treatment 500 units/ho ur Intravenous - push October 20, 2023 October 18, 2024 Active Heparin Sodium (Porcine) 1,000 Units/mL Systemic Bolus, Every Treatment, Total treatment minutes 240 1000 units Intravenous - push October 20, 2023 October 18, 2024 Active Iron Sucrose (Venofer) During Dialysis, 1X Week 50 mg Intravenous - push September 13, 2024 September 12, 2025 Active Mircera During Dialysis, Every 2 weeks 75 mcg Intravenous - push September 20, 2024 September 19, 2025 Active Mircera During Dialysis, Every 2 weeks 30 mcg Intravenous - push September 06, 2024 September 05, 2025 Discontinued Home Medications Medication Instructions Dosage Route Start Date End Date Stat us B-complex with vitamin C Take by mouth once a day 1 tablet ORAL October 13, 2023 Active calcitriol 0.5 mcg Take by mouth once a day 1 capsule ORAL October 13, 2023 Active ergocalciferol (vitamin D2) 1,250 mcg (50,000 unit) Take by mouth once a week 1 capsule ORAL October 13, 2023 Active Imodium A-D 2 mg Take by mouth three times a day as needed 1 capsule ORAL November 21, 2023 Active levothyroxine 175 mcg Take by mouth once a day 1 tablet ORAL October 13, 2023 Active losartan 50 mg Take by mouth 1 tablet ORAL November 28, 2023 Active melatonin 10 mg Take by mouth every night at bedtime as needed 1 tablet ORAL June 11, 2024 Active Metamucil 0.4 gram Take by mouth once a day 3 capsule ORAL June 11, 2024 Active pioglitazone 15 mg Take by mouth once a day as directed 1 tablet ORAL June 11, 2024 Active Protonix 40 mg Take by mouth once a day 1 tablet ORAL October 13, 2023 Active rosuvastatin 40 mg Take by mouth every night as directed 1 tablet ORAL October 13, 2023 Active Velphoro 500 mg Take by mouth three times a day with meals 1 tablet ORAL June 23, 2024 Active VITAL SIGNS Post-Treatment Vital Signs Vital Sign Value Date / Time Blood Pressure-sitting 124/66 mmHg September 29, 2024 06:38 AM Blood Pressure-standing 130/62 mmHg September 06:38 AM Heart Rate 90 beats per minute September 29 06:38 AM Respiratory Rate 18 breaths per minute September 29, 2024 06:38 AM Temperature 97.0 deg. F September 29, 2024 0 6:38 AM Weight Vital Sign Value Date / Time Estimated Dry Weight 104 kg August 11:59 PM Pre-Dialysis 109.30 kg September 29, 2024 0 6:38 AM Post-Dialysis 107.80 kg September 29, 2024 0 6:38 AM Other Other Value Date / Time Height 170.2 cm October 13, 2023 1 2:00 AM Body Mass Index 35.99 kg/m2 September 13 05:55 PM HEALTH CONCERNS Tuberculosis Testing TST Date Administered TST Date Read TST Result 10/13/2023 10/15/2023 Negative (<5) mm LAB RESULTS Hematology Result Type Result Value Relevant Referen ce Range Interpretation Date Folate, Serum 9.3 ng/mL No Reference Ran ge Provided - October 13, 2023 Folate, Serum > 24.0 ng/mL No Reference Ran ge Provided - February 04, 2024 UIBC/TIBC 182 mcg/dL 155 - 355 mcg/dL - e r 2023 TIBC (Calc) 238 mcg/dL 185 - 515 mcg/dL - er 2023 Transferrin Sat. (Calc) 24 % 20 - 55 % - April 07 Ferritin 301 ng/mL 10 - 291 ng/mL High April 07, 2024 Platelets 201 1000/mcL 130 - 400 1000/mcL - Mar WBC (No Diff) 5.97 1000/mcL 4.80 - 10.80 1000/mcL - April 07, 2024 Neutrophils 63.6 % 40.0 - 75.0 % - April 07, 2024 Platelets 189 1000/mcL 130 - 400 1000/mcL - Apro 2023 WBC (No Diff) 6.51 1000/mcL 4.80 - 10.80 1000/mcL - May 05, 2024 Neutrophils 72.1 % 40.0 - 75.0 % - April Transferrin Sat. (Calc) 26 % 20 - 55 % - May 05, 2024 Ferritin 426 ng/mL 10 - 291 ng/mL High April UIBC/TIBC 161 mcg/dL 155 - 355 mcg/dL - May 05, 2024 TIBC (Calc) 217 mcg/dL 185 - 515 mcg/dL - May 05, 2024 Transferrin Sat. (Calc) 21 % 20 - 55 % - June 09 TIBC (Calc) 237 mcg/dL 185 - 515 mcg/dL - 2023 UIBC/TIBC 187 mcg/dL 155 - 355 mcg/dL - June 09, 2024 Platelets 163 1000/mcL 130 - 400 1000/mcL - Maye mb2023 Ferritin 387 ng/mL 10 - 291 ng/mL High May 222023 Neutrophils 71.3 % 40.0 - 75.0 % - May 222023 WBC (No Diff) 6.29 1000/mcL 4.80 - 10.80 1000/mcL - June 09, 2024 WBC (No Diff) 7.83 1000/mcL 4.80 - 10.80 1000/mcL - July 07, 2024 MIKAYLA 1.3 % 0.0 - 4.0 % - July 07, 2024 MCH 29.4 pg 27.0 - 31.0 pg - June 202023 MCHC 32.0 g/dL 30.0 - 36.0 g/dL - July 07, 2024 Hemoglobin x 3 35.4 % 36.0 - 48.0 % Low [facility] 2023 RDW 16.2 % 11.5 - 14.5 % High June Platelets 180 1000/mcL 130 - 400 1000/mcL - [facility] mber 2023 UIBC/TIBC 115 mcg/dL 155 - 355 mcg/dL Low July 07, 2024 Iron 106 mcg/dL 30 - 160 mcg/dL - July 07, 2024 Transferrin Sat. (Calc) 48 % 20 - 55 % - July 07 TIBC (Calc) 221 mcg/dL 185 - 515 mcg/dL - [facility] r 2023 Monocytes 6.0 % 3.0 - 10.0 % - July 07, 2024 Eosinophil 2.6 % 0.0 - 7.0 % - July 07, 2024 Neutrophils 74.4 % 40.0 - 75.0 % - June 202023 Lymphocytes 14.8 % 19.0 - 48.0 % Low June 202023 Basophils 0.8 % 0.0 - 1.5 % - July 07, 2024 Ferritin 967 ng/mL 10 - 291 ng/mL High June 202023 Hemoglobin x 3 33 % 36.0 - 48.0 % Low [facility] r 2023 Hemoglobin x 3 34.5 % 36.0 - 48.0 % Low July 22, 2024 Hemoglobin x 3 34.5 % 36.0 - 48.0 % Low July 28, 2024 Ferritin 1017 ng/mL 10 - 291 ng/mL High July Platelets 183 1000/mcL 130 - 400 1000/mcL - Zack jelly 2024 Iron 103 mcg/dL 30 - 160 mcg/dL - July 212024 TIBC (Calc) 199 mcg/dL 185 - 515 mcg/dL - August 04, 2024 UIBC/TIBC 96 mcg/dL 155 - 355 mcg/dL Low August 04, 2024 Eosinophil 3.0 % 0.0 - 7.0 % - August 04 025 Monocytes 5.7 % 3.0 - 10.0 % - August 04, 2024 Lymphocytes 16.9 % 19.0 - 48.0 % Low July Neutrophils 71.2 % 40.0 - 75.0 % - July Basophils 1.1 % 0.0 - 1.5 % - August 04 WBC (No Diff) 7.13 1000/mcL 4.80 - 10.80 1000/mcL - August 04, 2024 MIKAYLA 2.1 % 0.0 - 4.0 % - August 04 MCH 30.2 pg 27.0 - 31.0 pg - July Hemoglobin x 3 33 % 36.0 - 48.0 % Low August 04, 2024 RDW 15.4 % 11.5 - 14.5 % High August 04, 2024 MCHC 32.6 g/dL 30.0 - 36.0 g/dL - August 04, 2024 Transferrin Sat. (Calc) 52 % 20 - 55 % - August 04, 2024 Hemoglobin x 3 30.9 % 36.0 - 48.0 % Low August 11, 2024 Hemoglobin x 3 30.3 % 36.0 - 48.0 % Low August 18, 2024 Hemoglobin x 3 31.2 % 36.0 - 48.0 % Low Februar y 2024 Hemoglobin x 3 30.9 % 36.0 - 48.0 % Low Februar y 2024 HGB 10.3 g/dL 12.0 - 16.0 g/dL Low September 01, 2024 Ferritin 886 ng/mL 10 - 291 ng/mL High August 212024 Neutrophils 76.4 % 40.0 - 75.0 % High August 212024 Eosinophil 2.6 % 0.0 - 7.0 % - September 08, 2024 Basophils 1.1 % 0.0 - 1.5 % - September 08, 2024 Lymphocytes 13.2 % 19.0 - 48.0 % Low August 212024 Monocytes 5.1 % 3.0 - 10.0 % - September 08, 2024 MIKAYLA 1.6 % 0.0 - 4.0 % - September 08, 2024 WBC (No Diff) 7.77 1000/mcL 4.80 - 10.80 1000/mcL - September 08, 2024 UIBC/TIBC 133 mcg/dL 155 - 355 mcg/dL Low September 08, 2024 TIBC (Calc) 209 mcg/dL 185 - 515 mcg/dL - 2024 Transferrin Sat. (Calc) 36 % 20 - 55 % - September 08 Iron 76 mcg/dL 30 - 160 mcg/dL - September 08, 2024 RBC 3.30 mill/mcL 4.20 - 5.40 mill/mcL Low September 08, 2024 MCH 30.5 pg 27.0 - 31.0 pg - August 212024 MCHC 33.3 g/dL 30.0 - 36.0 g/dL - September 08, 2024 HCT 30.2 % 37.0 - 47.0 % Low August Hemoglobin x 3 30 % 36.0 - 48.0 % Low 2024 Platelets 178 1000/mcL 130 - 400 1000/mcL - 2024 RDW 14.2 % 11.5 - 14.5 % - August HGB 10.0 g/dL 12.0 - 16.0 g/dL Low September 08, 2024 HGB 8.6 g/dL 12.0 - 16.0 g/dL Low September 15, 2024 Hemoglobin x 3 25.8 % 36.0 - 48.0 % Low 2024 Hemoglobin x 3 26.7 % 36.0 - 48.0 % Low September HGB 8.9 g/dL 12.0 - 16.0 g/dL Low September HGB 8.7 g/dL 12.0 - 16.0 g/dL Low September Hemoglobin x 3 26.1 % 36.0 - 48.0 % Low September 182024 Metabolic/Renal Result Type Result Value Relevant Referen ce Range Interpretation Date Vitamin B12 1990 pg/mL 211 - 911 pg/mL High September Hemoglobin A1c 6.6 % 4.8 - 5.9 % High April 202023 Bicarbonate 19 mEq/L 22 - 29 mEq/L Low June 202023 Sodium 147 mEq/L 136 - 145 mEq/L High July 07, 2024 Creatinine, Serum 9.63 mg/dL 0.60 - 1.30 mg/dL High July 07, 2024 Chloride 104 mEq/L 96 - 108 mEq/L - June 202023 Potassium 4.9 mEq/L 3.5 - 5.1 mEq/L - July 07, 2024 URR, Calc 97 % 65 - 80 % High July 28 BUN 61 mg/dL 6 - 19 mg/dL High July 28, 2024 BUN, Post 2 mg/dL 6 - 19 mg/dL Low July 28, 2024 Hemoglobin A1c 7.8 % 4.8 - 5.9 % High July 212024 Sodium 144 mEq/L 136 - 145 mEq/L - July 212024 Creatinine, Serum 6.46 mg/dL 0.60 - 1.30 mg/dL High August 04, 2024 Bicarbonate 25 mEq/L 22 - 29 mEq/L - July Chloride 103 mEq/L 96 - 108 mEq/L - July Potassium 3.8 mEq/L 3.5 - 5.1 mEq/L - July 212024 BUN 62 mg/dL 6 - 19 mg/dL High August 13, 2024 URR, Calc 71 % 65 - 80 % - August 13 BUN, Post 18 mg/dL 6 - 19 mg/dL - August 13, 2024 BUN 79 mg/dL 6 - 19 mg/dL High August 25, 2024 BUN, Post 19 mg/dL 6 - 19 mg/dL - August 25, 2024 URR, Calc 76 % 65 - 80 % - August 25 Creatinine Clearance, Urine 2.0 mL/min 77.0 - 94.0 mL/min Low September 06, 2024 Creatinine, Serum 9.40 mg/dL 0.60 - 1.30 mg/dL High September 06, 2024 Bicarbonate 22 mEq/L 22 - 29 mEq/L - August 212024 Creatinine, Serum 7.59 mg/dL 0.60 - 1.30 mg/dL High September 08, 2024 Sodium 143 mEq/L 136 - 145 mEq/L - September 08, 2024 Potassium 4.3 mEq/L 3.5 - 5.1 mEq/L - September 08, 2024 Chloride 104 mEq/L 96 - 108 mEq/L - August 212024 URR, Calc 79 % 65 - 80 % - September 22, 2024 BUN 66 mg/dL 6 - 19 mg/dL High September 22 BUN, Post 14 mg/dL 6 - 19 mg/dL - September 22 HD Adequacy Result Type Result Value Relevant Referen ce Range Interpretation Date Krt/V 0.00 No Reference Ran ge Provided - April 07, 2024 Krt/V 0.00 No Reference Ran ge Provided - May 05, 2024 Krt/V 0.00 No Reference Ran ge Provided - June 02, 2024 Krt/V 0.00 No Reference Ran ge Provided - June 23, 2024 Krt/V 0.00 No Reference Ran ge Provided - June 30, 2024 spKt/V (Daugirdas II) 7.17 No Reference Range Provided - July 28, 2024 eKt/V ([place]) 6.26 No Reference Range Provided - July 28, 2024 Krt/V 0.00 No Reference Ran ge Provided - August 13, 2024 wstdKt/V 2.3 No Reference Ran ge Provided - August 13, 2024 wstdKt/V, residual 0.0 No Reference Range Provided - August 13, 2024 eKt/V ([place]) 1.22 No Reference Range Provided - August 13, 2024 wstdKt/V without residual 2.3 No Reference Range Provided - August 13, 2024 spKt/V (Daugirdas II) 1.39 No Reference Range Provided - August 13, 2024 spKt/V Gotch 1.41 No Reference Ran ge Provided - August 13, 2024 spKt/V (Daugirdas II) 1.63 No Reference Range Provided - August 25, 2024 Krt/V 0.00 No Reference Ran ge Provided - August 25, 2024 spKt/V Gotch 1.66 No Reference Ran ge Provided - August 25, 2024 wstdKt/V 2.5 No Reference Ran ge Provided - August 25, 2024 eKt/V ([place]) 1.42 No Reference Range Provided - August 25, 2024 wstdKt/V, residual 0.0 No Reference Range Provided - August 25, 2024 wstdKt/V without residual 2.5 No Reference Range Provided - August 25, 2024 spKt/V (Daugirdas II) 1.76 No Reference Range Provided - September 22, 2024 wstdKt/V, residual 0.0 No Reference Range Provided - September 22, 2024 Krt/V 0.00 No Reference Ran ge Provided - September 22, 2024 wstdKt/V without residual 2.6 No Reference Range Provided - September 22, 2024 wstdKt/V 2.6 No Reference Ran ge Provided - September 22, 2024 spKt/V Gotch 1.79 No Reference Ran ge Provided - September 22, 2024 eKt/V ([place]) 1.54 No Reference Range Provided - September 22, 2024 Bone/Mineral Result Type Result Value Relevant Referen ce Range Interpretation Date Vitamin D 25 Hydroxy 77.1 ng/mL 30.0 - 100.0 ng/mL - October 13, 2023 Magnesium 2.1 mg/dL 1.6 - 2.6 mg/dL - October 13, 2023 Magnesium 2.9 mg/dL 1.6 - 2.6 mg/dL High February 04, 2024 Vitamin D 25 Hydroxy 49.9 ng/mL 30.0 - 100.0 ng/mL - February 04, 2024 PTH-Intact, Plasma 367 pg/mL 16 - 80 pg/mL High Sep 2023 PTH-Intact, Plasma 416 pg/mL 16 - 80 pg/mL High Apr angela2023 Magnesium 2.6 mg/dL 1.6 - 2.6 mg/dL - April 202023 PTH-Intact, Plasma 309 pg/mL 16 - 80 pg/mL High May Phosphorus 10.1 mg/dL 2.6 - 4.5 mg/dL High July 07, 2024 Calcium, Total 8.2 mg/dL 8.4 - 10.2 mg/dL Low Dece mb2023 Corrected Ca x P Product 82 0 - 54 High July 07 Ca x P Product 83 0 - 54 High June 202023 PTH-Intact, Plasma 433 pg/mL 16 - 80 pg/mL High Jun Calcium, Total 8.0 mg/dL 8.4 - 10.2 mg/dL Low Zack jelly2024 Alkaline Phosphatase 59 U/L 35 - 104 U/L - [facility] 2024 Ca x P Product 58 0 - 54 High July Phosphorus 7.3 mg/dL 2.6 - 4.5 mg/dL High July 212024 PTH-Intact, Plasma 380 pg/mL 16 - 80 pg/mL High Jul Corrected Ca x P Product 60 0 - 54 High August 04, 2024 Magnesium 2.4 mg/dL 1.6 - 2.6 mg/dL - July 212024 PTH-Intact, Plasma 154 pg/mL 16 - 80 pg/mL High Feb ruary 2024 Corrected Ca x P Product 41 0 - 54 - September 08 Calcium, Total 8.8 mg/dL 8.4 - 10.2 mg/dL - 2024 Phosphorus 4.6 mg/dL 2.6 - 4.5 mg/dL High September 08, 2024 Ca x P Product 40 0 - 54 - August 212024 Liver/Nutrition Result Type Result Value Relevant Referen ce Range Interpretation Date Globulin (Calc) 2.6 g/dL 2.0 - 4.0 g/dL - 2023 A/G Ratio 1.6 1.0 - 2.0 - July 07 Total Protein 6.7 g/dL 6.0 - 8.5 g/dL - 2023 Albumin (BCG) 4.1 g/dL 3.5 - 5.2 g/dL - 2023 Glucose 190 mg/dL 70 - 100 mg/dL High June 202023 Albumin (BCG) 3.8 g/dL 3.5 - 5.2 g/dL - August 04, 2024 Total Protein 6.0 g/dL 6.0 - 8.5 g/dL - August 04, 2024 A/G Ratio 1.7 1.0 - 2.0 - August 04 Globulin (Calc) 2.2 g/dL 2.0 - 4.0 g/dL - 2024 Glucose 250 mg/dL 70 - 100 mg/dL High July eNPCR 1.01 No Reference Ran ge Provided - August 13, 2024 eNPCR 1.28 No Reference Ran ge Provided - August 25, 2024 Glucose 235 mg/dL 70 - 100 mg/dL High August 212024 Globulin (Calc) 2.3 g/dL 2.0 - 4.0 g/dL - 2024 A/G Ratio 1.7 1.0 - 2.0 - September 08 Total Protein 6.2 g/dL 6.0 - 8.5 g/dL - 2024 Albumin (BCG) 3.9 g/dL 3.5 - 5.2 g/dL - 2024 eNPCR 1.13 No Reference Ran ge Provided - September 22, 2024 Immunochemistry Result Type Result Value Relevant Reference Range Interpre tation Date HCV s/co ratio 0.12 0.00 - 0.79 - October 13, 2023 HCV s/co ratio 0.10 0.00 - 0.79 - February 04, 2024 Trace Elements Result Type Result Value Relevant Reference Range Interpre tation Date Aluminum < 5 mcg/L 0 - 10 mcg/L - October 12 Aluminum < 5 mcg/L 0 - 10 mcg/L - February 03 Aluminum < 5 mcg/L 0 - 10 mcg/L - August 04, 2024 Peritoneal Dialysis Testing Result Type Result Value Relevant Referen ce Range Interpretation Date Creatinine, Urine 31.6 mg/dL No Reference R dominick Provided - October 27, 2023 Total Creatinine, Urine 0.4 g/24 hr 0.5 - 1.6 g/24 hr Low October 27, 2023 Creatinine, Urine 39.4 mg/dL No Reference R dominick Provided - December 15, 2023 Total Creatinine, Urine 0.5 g/24 hr 0.5 - 1.6 g/24 hr - December 15, 2023 Creatinine, Urine 41.2 mg/dL No Reference R dominick Provided - January 23, 2024 Creatinine, Urine 39.1 mg/dL No Reference R dominick Provided - February 16, 2024 Total Creatinine, Urine 0.4 g/24 hr 0.5 - 1.6 g/24 hr Low February 16, 2024 Creatinine, Urine 40.2 mg/dL No Reference R dominick Provided - March 29, 2024 Total Creatinine, Urine 0.2 g/24 hr 0.5 - 1.6 g/24 hr Low March 29, 2024 Creatinine, Urine 47.7 mg/dL No Reference R dominick Provided - September 06, 2024 Total Creatinine, Urine 0.3 g/24 hr 0.5 - 1.6 g/24 hr Low September 06 Infectious Diseases Result Type Result Value Relevant Referen ce Range Interpretation Date Hep B core Ab Total (anti-HBc) Negative No Reference Range Provided - October 13, 2023 HCV Ab (anti-HCV) Nonreactive No Reference R dominick Provided - February 04, 2024 Hep B Surface Ab (anti-HBs) < 10 mIU/mL No Reference Range Provided - August 04, 2024 Hep B Surface Ag (HBsAg) Negative No Reference Range Provided - September 08, 2024 Microbiology-Culture, Urine Result Type Result Value Relevant Referen ce Range Interpretation Date Culture Result (Urine) No Growth After 48 Hours No Reference Range Provided - June 28, 2024 DIALYSIS PRESCRIPTION Conventional Hemodialysis Data Element Value Order Date/Time September 01, 2024 Frequency 3X Week Treatment Days MonWedFri Dialyzer [id number] Optiflux Treatment Time (Total Minutes) 240 min Blood Flow Rate (mL/min) 400 mL/min Dialysate Flow Rate Autoflow 1.5 Estimated Dry Weight 104 kg Dialysate Concentrate 2.0 K, 3.0 Ca, 1.0 Mg, 100 Dextrose (G2301) Sodium (mEq/L) 138 mEq/L Bicarb Machine Setting (mEq/L) 38 mEq/L Dialysis Access Hemodialysis-CV Cath eter-Tunneled, Chest, Right Jugular Access Placed on March 01, 2024 IMMUNIZATIONS Vaccine Date Dose Route Status HEPLISAV-B, Series 3 of September 08, 2024 20.0 mcg Int ramuscular Completed HEPLISAV-B, Series 2 of August 04, 2024 20.0 mcg Intr amuscular Completed HEPLISAV-B, Series 1 of July 07, 2024 20.0 mcg Int ramuscular Completed Flu Vaccine - Flublok Trivalent May 07, 2024 0.5 mL Intramuscular Completed HEPLISAV-B, Series 4 of April 07, 2024 20.0 mcg In tramuscular Completed HEPLISAV-B, Series 3 of 4 February 04, 2024 20.0 mcg Intramu scular Completed HEPLISAV-B, Series 2 of January 07, 2024 20.0 mcg Intramu scular Completed HEPLISAV-B, Series 1 of December 03, 2023 20.0 mcg Intramus cular Completed TRANSPLANT WAITLIST STATUS No Information on Transplant Waitlist Status ADVANCE DIRECTIVES Directive Description Ordered By Effective Date Resuscitation status Full Code Sony Marie Sep [id number] DIALYSIS TREATMENTS Conventional Hemodialysis Date Pre-Treatment Vitals Post-Treatment Lili ls Duration (hr) BFR (mL/min) Dialysate Dialyzer Dialysis Access Meds Admin September 24, 2024 Weight 107.90 kg Weight 106.40 kg 04:00:00 410 2.0 K, 3.0 Ca, 1.0 Mg, 100 Dextrose (G2301) 180nre Optifl ux Blood Pressure-sitting 126/58 mmHg Blood Pressure-sit ting 141/71 mmHg Heart Rate 89 beats per minute Blood Pressure-standi ng 133/61 mmHg Respiratory Rate 18 breaths per minute Heart Rate 96 beats per minute Temperature 97.0 deg. F Respiratory Rate 18 breaths per minute - - Temperature 97.0 deg. F September 27, 2024 Weight 109.60 kg Weight 107.60 kg 01:51:00 400 2.0 K, 3.0 Ca, 1.0 Mg, 100 Dextrose (G2301) 180nre Optiflux Hemodialysis-CV Catheter-Tunneled, Chest, Right Jugular Access Placed on March 01, 2024 Heparin Sodium (Porcine) 1,000 Units/mL Catheter Lock Arterial; 2100units,Arterial Red Port Heparin Sodium (Porcine) 1,000 Units/mL Catheter Lock Venous; 2200units,Venous Blue Port Heparin Sodium (Porcine) 1,000 Units/mL Systemic; 500units,Intravenous - push Heparin Sodium (Porcine) 1,000 Units/mL Systemic; 1000units,Intravenous - push Iron Sucrose (Venofer); 50mg,Intravenous - push Blood Pressure-sitting 137/69 mmHg Blood Pressure-sit ting 109/60 mmHg Heart Rate 95 beats per minute Blood Pressure-standi ng 106/59 mmHg Respiratory Rate 20 breaths per minute Heart Rate 89 beats per minute Temperature 98.1 deg. F Respiratory Rate 18 breaths per minute - - Temperature 97.0 deg. F September 29, 2024 Weight 109.30 kg Weight 107.80 kg 04:00:00 360 2.0 K, 3.0 Ca, 1.0 Mg, 100 Dextrose (G2301) 180nre Optiflux Hemodialysis-CV Catheter-Tunneled, Chest, Right Jugular Access Placed on March 01, 2024 Heparin Sodium (Porcine) 1,000 Units/mL Catheter Lock Arterial; 2100units,Arterial Red Port Heparin Sodium (Porcine) 1,000 Units/mL Catheter Lock Venous; 2200units,Venous Blue Port Heparin Sodium (Porcine) 1,000 Units/mL Systemic; 500units,Intravenous - push Heparin Sodium (Porcine) 1,000 Units/mL Systemic; 1000units,Intravenous - push Blood Pressure-sitting 142/72 mmHg Blood Pressure-sit ting 124/66 mmHg Heart Rate 93 beats per minute Blood Pressure-standi ng 130/62 mmHg Respiratory Rate 18 breaths per minute Heart Rate 90 beats per minute Temperature 96.5 deg. F Respiratory Rate 18 breaths per minute - - Temperature 97.0 deg. F
--- OUTSIDE RECORDS SUMMARY | 2024-10-01 04:29 | XMS_ITS | Clinical Summary ---
Author Organization [facility] Address [address] [place] [address] Care Team Providers Care Electro Mechanical Engineer Name Role Phone Denise Rosales MD Primary Care Provider Allergies No known active allergies Medications levothyroxine (SYNTHROID) 175 MCG tablet Take 1 tablet (175 mcg total) by mouth every morning. Active rosuvastatin (CRESTOR) 40 MG tablet Take 0.5 tablets (20 mg total) by mouth nightly at bedtime. Active vitamin D2, ergocalciferol, (DRISDOL) 1.25 mg capsule Take 1 capsule (1.25 mg total) by mouth every 7 days. On Sundays Active pioglitazone (ACTOS) 15 MG tablet Take 1 tablet (15 mg total) by mouth daily. Active calcitriol (ROCALTROL) 0.5 MCG capsule Take 1 capsule (0.5 mcg total) by mouth daily. Active pantoprazole EC (PROTONIX) 40 MG tablet Take 1 tablet (40 mg total) by mouth 2 (two) times a day. Active sevelamer carbonate (RENVELA) 800 MG tablet Take 1 tablet (800 mg total) by mouth 3 (three) times daily with meals. Active B Complex-C Tab tablet Take 1 tablet by mouth daily. 4 Active SANTYL ointment APPLY TOPICALLY TO WOUND DAILY Active ACCU-CHEK GUIDE test strip 4 Active losartan (COZAAR) 50 MG tablet 4 Active sevelamer (RENAGEL) 800 MG tablet Take 1 tablet (800 mg total) by mouth 3 (three) times daily. Active loperamide (IMODIUM) 2 MG capsule Active melatonin (MELATONIN MAXIMUM STRENGTH) 5 MG tablet Take 1 tablet (5 mg total) by mouth. Active Active Problems Problem Noted Date Diagnosed Date Brachial neuritis 05/10/2024 Disorder of shoulder 05/10/2024 Neck pain 05/10/2024 Upper respiratory infection 05/10/2024 Low back pain 03/18/2024 Open wound of foot 03/18/2024 Chronic heart failure with p reserved ejection fraction ([facility]) 02/28/2024 Bacteremia 02/27/2024 Personal history of diabetic foot ulcer 11/21/19 Diabetic foot infection ([facility]) 2023 Unspecified protein-calorie malnutrition ([facility]) 10/20/2023 Coagulation defect ([facility]) 10/17/2023 Allergy, unspecified, sequela 10/13/2023 Anaphylactic reaction due to adverse effect of correct drug or medicament properly administered, initial encounter 10/13/2023 Chronic kidney disease with end stage renal failure on dialysis ([facility]) 10/13/2023 Fever, unspecified 10/13/2023 Pain, unspecified 10/13/2023 Secondary hyperparathyroidism of renal origin ([facility]) 10/13/2023 Dependence on renal dialysis 10/01/2023 Long-term (current) use of i njectable non-insulin antidiabetic drugs 10/01/2023 Personal history of nicotine dependence 10/01/19 24 Anemia in chronic kidney disease (CKD) 4 ARF (acute renal failure) 09/23/2023 Generalized muscle weakness 09/23/2023 Inflammatory liver disease 09/23/2023 Metabolic acidosis 09/23/2023 Morbidly obese 09/23/2023 LIVIA (obstructive sleep apnea) 09/23/2023 Primary hypertension 06/30/2023 Stage 3 chronic kidney disease 04/15/2022 Noncompliance with treatment 02/14/2022 Cough 03/22/2021 Dystrophia unguium 08/27/2020 Seasonal allergic rhinitis 08/20/2020 Iron deficiency anemia 03/15/2020 Diabetic retinopathy ([facility]) 0 Eczema 10/15/2019 Hypercholesterolemia 08/25/2019 Onychomycosis of toenail 08/25/2019 Sleep disorder 08/25/2019 Overview (05/10/2024): apnea Type 2 diabetes mellitus ([facility]) 12/15 Overview (05/10/2024): DMII WO CMP UNCNTRLD Hypothyroidism 02/10/2013 Overview (05/10/2024): HYPOTHYROIDISM NOS Vitamin D deficiency 02/10/2013 Overview (05/10/2024): VITAMIN D DEFICIENCY NOS Immunizations Name Administration Dates Next Due Flublok (RIV3, Trivalent, 0.5mL) 05/07/2024 Hepatitis B Vac Recomb Adj 2 0 Mcg/0.5ml Im Sosy 04/07/2024,02/04/2024,01/07/2024, 024 Influenza (Generic) 04/29/2021, 7,03/21/2016, 015,05/14/2012 Influenza Adult (Generic) 09/23/2023,04/14/2020 MODERNA COVID-19 (12+) MRNA, LNP-S, PF, 100 MCG/ 0.5 ML DOSE 09/22/2020 Tdap (Generic) 12/20/2017,02/15/2013 Social History Tobacco Use Types Packs/Day Years Used Date Smoking Tobacco: Unknown Tobacco Cessation:Counseling Given: Not Answered Alcohol Use Standard Drinks/Week Comments Not Currently 0 (1 standard drink = 0.6 oz pur e alcohol) Comments No Sex and Gender Information Value Date Recorded Sex Assigned at Not on file Legal Sex Female 4:17 PM CDT Gender Identity Not on file Sexual Orientation Not on file Last Filed Vital Signs Vital Sign Reading Time Taken Comments Blood Pressure 170/90 05/13/2024 10:16 AM CDT Pulse 93 05/13/2024 10:16 AM CDT Temperature 36.8 C (98.3 F) 11/17/2023 8:45 AM CDT Respiratory Rate 18 11/17/2023 5:22 AM CDT Oxygen Saturation 97% 11/17/2023 8:45 AM CDT Inhaled Oxygen Concentration - - Weight 103.3 kg (227 lb 12.8 oz) 2023 10:16 AM CDT Height 170.2 cm (5' 7 ) 05/13/2024 10:1 6 AM CDT Body Mass Index 35.68 05/13/2024 10:16 AM CDT Plan of Treatment Health Maintenance Due Date Last Done Comments Colorectal Cancer Screening Colonoscopy (10 Years) 1959 Lipid Panel 1959 Pneumococcal Vaccine: 65+ Years (1 of 2 - PCV) 1965 Pneumococcal Vaccine: Pediatrics (0 to 5 Years) and At-Risk Patients (6 to 64 Years) (1 of 2 - PCV) 1965 Diabetes: Retinopathy Eye Exam 1977 Mammogram Screening 1999 Zoster Vaccines (1 of 2) 2009 RSV Immunization or 60+ Years (1 - Risk 60-74 years 1-dose series) 2019 COVID-19 Vaccine ( season) 2024 06/10/2021, 09/22/2020, 09/22/2020 Dexa Scan (General) 2024 Hemoglobin A1C 09/01/2024 03/01/2024, 10/20, 09/23/2023 DTaP, Tdap and Td Vaccines (3 - Td or Tdap) 12/21/2027 12/20/2017, 02/15/2013 Hepatitis C Completed 03/01/2024 Influenza Adult Completed 05/07/2024, 03/0 11/2023, 04/29/2021, Additional history exists Meningococcal B Vaccine Aged Out No l onger eligible based on patient's age to complete this topic Meningococcal Vaccine Aged Out No nanette gaby eligible based on patient's age to complete this topic RSV Immunizations Under 20 Months Aged Out No longer eligible based on patient's age to complete this topic Procedures Procedure Name Priority Date/Time Associated Diagnosis Comments HEMOGLOBIN, GLYCOSYLATED STAT 11/15/2023 6:20 AM CDT from Last 3 Months or Most Recently Relevant to Health Maintenance Results * HEMOGLOBIN, GLYCOSYLATED (11/15/2023 6:20 AM CDT) HGB A1C 5.0 <5.7 % 11/15/2023 10:29 AM CDT [facility] Comment: ADA GUIDELINES 2009 5.7 TO 6.4% INCREASED RISK OF DIABETES > OR = 6.5% CONSISTENT WITH DIABETES ESTIMATED AVG GLUCOSE 97 mg/dL 11/15/2023 10:29 AM CDT [facility] 11/15/2023 6:20 AM CDT us Becca Oliveira [employer] [facility] Final Resul t [facility] [address] [place] [address], from Last 3 Months or Most Recently Relevant to Health Maintenance Insurance [facility] Advance Directives * Full Code (Latest Code Status on File) Date Activated Date Inactivated Comments 11/14/2023 7:36 PM 11/17/2023 11:30 AM Care Teams Electro Mechanical Engineer Relationship Specialty Start Date End Date Denise Rosales MD [facility] [place] [address] PCP - General INTERNAL MEDICINE 09/22/23
--- NOTE | 2024-10-01 04:31 | ECG_ITS ---
Test Date: 2024-10-01 04:38:55 Measurements Intervals Bryant Rate: 92 P: 60 PA: 150 QRS: -37 QRSD: 106 T: 70 QT: 407 QTc: 504 Interpretive Statements SINUS RHYTHM LEFT AXIS DEVIATION [QRS AXIS < -30] NONSPECIFIC T-WAVE ABNORMALITY No previous ECG available for comparison Electronically Signed On 10-01-2024 16:54:59 CDT by Talita Kolb M.D.
[2024-10-01 04:52] LABS: Basophils Absolute Auto 0.1 K/mm3 (0.0-0.1); Basophils Percent Auto 0.6 % (0.2-1.2); Eosinophils Absolute Auto 0.1 K/mm3 (0-0.3); Eosinophils Percent Auto 0.9 % (0-4.4); Hematocrit 30.2 % (37.0-47.0); Hemoglobin 9.3 g/dL (12.0-15.0); Immature Granulocyte Absolute 0.03 K/mm3 (0.00-0.031); Immature Granulocyte Percent A 0.3 % (0-0.5); Lymphocytes Absolute Auto 1.11 K/mm3 (0.9-3.2); Lymphocytes Percent Auto 10.8 % (18.3-44.2); Mean Corpuscular HGB Conc 30.8 g/dl (32-36); Mean Corpuscular Hemoglobin 30.2 pg (26-34); Mean Corpuscular Volume 98.1 fl (80-100); Mean Platelet Volume 10.3 fl (7.4-10.4); Monocytes Absolute Auto 0.8 K/mm3 (0.1-0.6); Monocytes Percent Auto 8.1 % (2.6-8.5); Neutrophils Absolute Auto 8.2 K/mm3 (1.3-6.7); Neutrophils Percent Auto 79.3 % (45.5-73.1); Platelet Count Result 192 k/mm3 (150-375); Red Blood Count 3.08 M/mm3 (4.2-5.4); Red Cell Distribution Width 14.7 % (11.5-14.5); White Blood Count 10.3 K/mm3 (4.5-10.0)
[2024-10-01 05:00] LABS: Alanine Aminotransferase 10 U/L (6-35); Albumin Level 4.2 g/dL (3.5-5.1); Alkaline Phosphatase 77 U/L (38-126); Anion Gap 12 mmol/L (4-12); Aspartate Amino Transferase 21 U/L (14-36); Bilirubin,Total 0.5 mg/dL (0.2-1.3); Blood Urea Nitrogen 52 mg/dL (7-17); Calcium 8.6 mg/dL (8.4-10.2); Carbon Dioxide 29 mmol/L (22-30); Chloride 102 mmol/L (98-107); Estimated CRCL calculation 10 ml/min; Estimated Glomerular Filt Rate 6; Glucose 169 mg/dL (65-110); Potassium 3.7 mmol/L (3.4-5.0); Sodium 143 mmol/L (137-145)
--- NOTE | 2024-10-01 05:08 | ED_ITS ---
HPI - General Adult General Chief complaint: Shortness of Breath/Dyspnea <Rinku Perez MD - Last Filed: 10/01/24 06:53> Stated complaint: sob, pain with inspiration <Rinku Perez MD - Last Filed: 10/01/24 06:53> Time Seen by Provider: 10/01/24 04:39 <Rinku Perez MD - Last Filed: 10/01/24 06:53> History of Present Illness HPI narrative: This is a 64-year-old female history of ESRD w/ HD MWF presenting for chest pain. Patient woke up at 1:00 a.m. with heaviness in the center of chest. It is nonradiating, moderate intensity and it makes it hard to take a deep breath. She has never had pain like this before there are no alleviating factors. She denies any fever chills, nausea vomiting diarrhea productive cough recent viral illness. Patient notes some mild swelling of her lower extremities. Patient had a hemodialysis fistula installed in her left arm on September [address] Huff at [facility]. <Rinku Perez MD - Last Filed: 10/01/24 06:53> Related Data Home medications: Home Medications ?Medication ?Instructions ?Recorded ?Confirmed ?Last Taken ?Type L.acidophilus-B.bifidum-B.longum 1 cap PO DAILY 06/17/23 06/17/23 Unknown History 240 mg (3 billion cell) capsule chlorthalidone 25 mg tablet 25 mg PO DAILY 06/17/23 06/17/23 Unknown History ergocalciferol (vitamin D2) 1,250 1,250 mcg PO DAILY 06/17/23 06/17/23 Unknown History mcg (50,000 unit) capsule ferrous sulfate 325 mg (65 mg 325 mg PO DAILY 06/17/23 06/17/23 Unknown History iron) tablet (Iron (ferrous sulfate)) levothyroxine 175 mcg tablet 175 mcg PO DAILY 06/17/23 06/17/23 Unknown History (Synthroid) metformin 1,000 mg tablet 1,000 mg PO BID 06/17/23 06/17/23 Unknown History semaglutide 7 mg tablet (Rybelsus) 7 mg PO BID 06/17/23 06/17/23 Unknown History simvastatin 40 mg tablet 40 mg PO DAILY 06/17/23 06/17/23 Unknown History <Rinku Perez MD - Last Filed: 10/01/24 06:53> Allergies/adverse reactions: Allergies Allergy/AdvReac Type Severity Reaction Status Date / Time No Known Allergies Allergy Verified 10/01/24 04:28 <Rinku Perez MD - Last Filed: 10/01/24 06:53> [facility] Family History Family History: Family History Father Family history of diabetes mellitus in first degree relative <Rinku Perez MD - Last Filed: 10/01/24 06:53> Social History Social History: Social History Smoking packs per day: 1 Smoking cigarettes per day: 20.0 Years smoked: 30 Smoking pack-years: 30.00 Smoking status: Former smoker Tobacco type: cigarettes Alcohol intake: never Substance use: never Substance use type: does not use Living arrangements: with family Spiritual care concerns: No <Rinku Perez MD - Last Filed: 10/01/24 06:53> Exam 2 Narrative: APPEARANCE: Patient appears comfortable Head: atraumatic. EYES: EOMI, NOSE: Atraumatic NECK: Trachea midline RESPIRATORY: No increased rate of breathing 100% on room air, bibasilar rales CARDIOVASCULAR: RRR, mild edema lower extremities, AV fistula in left arm with thrill, dialysis catheter right chest anterior chest wall ABDOMINAL: Non-distended soft nontender no guarding rebound MUSCULOSKELETAl: No obvious deformities NEURO: Alert. Moving 4/4 extremities SKIN:: Warm, dry. Normal color PSYCHIATRIC: Normal affect <Rinku Perez MD - Last Filed: 10/01/24 06:53> Course Reevaluation(s) Reevaluation #1: I assumed care of this patient at shift change, re-examined the patient no significant interval change of the physical. She still continues to have midsternal chest discomfort. I did inform her about the lab work, EKG findings. Discussed with Dr. Landry and with Dr. Kurtz will consult . Notified Dr Quinonez will accept the pt. <Deyvi Ventura MD - Last Filed: 10/01/24 08:21> Vital Signs Vital signs: Vital Signs Temperature 36.7 C 10/01/24 04:32 Pulse Rate 91 10/01/24 04:32 Respiratory Rate 21 H 10/01/24 04:32 Blood Pressure 135/75 10/01/24 04:32 Pulse Oximetry 95 10/01/24 04:32 Oxygen Delivery Room Air 10/01/24 04:32 Temperature 36.7 C 10/01/24 04:32 Pulse Rate 84 10/01/24 07:04 Respiratory Rate 17 10/01/24 07:03 Blood Pressure 119/60 10/01/24 07:03 Pulse Oximetry 95 10/01/24 07:03 Oxygen Delivery Room Air 10/01/24 04:40 <Rinku Perez MD - Last Filed: 10/01/24 06:53> Vital Signs Temperature 36.7 C 10/01/24 04:32 Pulse Rate 91 10/01/24 04:32 Respiratory Rate 21 H 10/01/24 04:32 Blood Pressure 135/75 10/01/24 04:32 Pulse Oximetry 95 10/01/24 04:32 Oxygen Delivery Room Air 10/01/24 04:32 Temperature 36.7 C 10/01/24 04:32 Pulse Rate 84 10/01/24 07:04 Respiratory Rate 17 10/01/24 07:03 Blood Pressure 119/60 10/01/24 07:03 Pulse Oximetry 95 10/01/24 07:03 Oxygen Delivery Room Air 10/01/24 04:40 <Deyvi Ventura MD - Last Filed: 10/01/24 08:21> Medical Decision Making MDM Narrative Medical decision making narrative: -Course: 64-year-old female with history of ESRD on hemodialysis who recently had a HD fistula installed presenting for chest pain. EKG with no STEMI and nonspecific T-wave abnormalities. Initial troponin elevated at 0.136. -DDX includes but is not limited to: ACS, pneumonia, PE, heart failure -Co-morbidities complicating care: End-stage renal disease, hypertension, diabetes Independent EKG interpretation: Rhythm [sinus], Rate 92, [place] -[normal], SD -[normal], QRS [narrow], QTC [normal], T waves -[negative for concerning inversions], ST Segments - [Negative for concerning elevations] Final interpretations: [Normal Sinus Rhythm] <Rinku Perez MD - Last Filed: 10/01/24 06:53> Vital Signs Vital Signs: Vital Signs Temperature 36.7 C 10/01/24 04:32 Pulse Rate 91 10/01/24 04:32 Respiratory Rate 21 H 10/01/24 04:32 Blood Pressure 135/75 10/01/24 04:32 Pulse Oximetry 95 10/01/24 04:32 Oxygen Delivery Room Air 10/01/24 04:32 Temperature 36.7 C 10/01/24 04:32 Pulse Rate 84 10/01/24 07:04 Respiratory Rate 17 10/01/24 07:03 Blood Pressure 119/60 10/01/24 07:03 Pulse Oximetry 95 10/01/24 07:03 Oxygen Delivery Room Air 10/01/24 04:40 <Rinku Perez MD - Last Filed: 10/01/24 06:53> Vital Signs Temperature 36.7 C 10/01/24 04:32 Pulse Rate 91 10/01/24 04:32 Respiratory Rate 21 H 10/01/24 04:32 Blood Pressure 135/75 10/01/24 04:32 Pulse Oximetry 95 10/01/24 04:32 Oxygen Delivery Room Air 10/01/24 04:32 Temperature 36.7 C 10/01/24 04:32 Pulse Rate 84 10/01/24 07:04 Respiratory Rate 17 10/01/24 07:03 Blood Pressure 119/60 10/01/24 07:03 Pulse Oximetry 95 10/01/24 07:03 Oxygen Delivery Room Air 10/01/24 04:40 <Deyvi Ventura MD - Last Filed: 10/01/24 08:21> Lab Data Result diagrams: 10/01/24 04:43 10/01/24 04:43 <Rinku Perez MD - Last Filed: 10/01/24 06:53> Labs: Lab Results 10/01/24 10/01/24 Range/Units 04:43 05:24 WBC 10.3 H (4.5-10.0) K/mm3 RBC 3.08 L (4.2-5.4) M/mm3 Hgb 9.3 L (12.0-15.0) g/dL Hct 30.2 L (37.0-47.0) % MCV 98.1 (80-100) fl MCH 30.2 (26-34) pg MCHC 30.8 L (32-36) g/dl RDW 14.7 H (11.5-14.5) % Plt Count 192 (150-375) k/mm3 MPV 10.3 (7.4-10.4) fl Immature Gran % (Auto) 0.3 (0-0.5) % Neut % (Auto) 79.3 H (45.5-73.1) % Lymph % (Auto) 10.8 L (18.3-44.2) % [place] % (Auto) 8.1 (2.6-8.5) % Eos % (Auto) 0.9 (0-4.4) % Baso % (Auto) 0.6 (0.2-1.2) % Lymph # (Auto) 1.11 (0.9-3.2) K/mm3 [place] # (Auto) 0.8 H (0.1-0.6) K/mm3 Eos # (Auto) 0.1 (0-0.3) K/mm3 Baso # (Auto) 0.1 (0.0-0.1) K/mm3 Abs Immat Gran (auto) 0.03 (0.00-0.031) K/mm3 Absolute Neuts (auto) 8.2 H (1.3-6.7) K/mm3 Absolute Nucleated RBC 0.000 (0.0-0.012) K/mm3 Nucleated RBC % 0.0 (0.0-0.2) % Sodium 143 (137-145) mmol/L Potassium 3.7 (3.4-5.0) mmol/L Chloride 102 (98-107) mmol/L Carbon Dioxide 29 (22-30) mmol/L Anion Gap 12 (4-12) mmol/L BUN 52 H (7-17) mg/dL Creatinine 6.78 H (0.7-1.0) mg/dL Estim Creat Clear Calc 10 ml/min Estimated GFR 6 L (59 - ) Glucose 169 H (65-110) mg/dL Calcium 8.6 (8.4-10.2) mg/dL Total Bilirubin 0.5 (0.2-1.3) mg/dL AST 21 (14-36) U/L ALT 10 (6-35) U/L Alkaline Phosphatase 77 (38-126) U/L Troponin I 0.136 H* (0.000-0.034) ng/mL Total Protein 7.0 (6.3-8.2) g/dL Albumin 4.2 (3.5-5.1) g/dL Influenza A (RT-PCR) Negative (Negative) Influenza B (RT-PCR) Negative (Negative) RSV (RT-PCR) Negative (Negative) SARS-CoV-2 RNA (RT-PCR) Negative (Negative) <Rinku Perez MD - Last Filed: 10/01/24 06:53> Lab Results 10/01/24 10/01/24 Range/Units 04:43 05:24 WBC 10.3 H (4.5-10.0) K/mm3 RBC 3.08 L (4.2-5.4) M/mm3 Hgb 9.3 L (12.0-15.0) g/dL Hct 30.2 L (37.0-47.0) % MCV 98.1 (80-100) fl MCH 30.2 (26-34) pg MCHC 30.8 L (32-36) g/dl RDW 14.7 H (11.5-14.5) % Plt Count 192 (150-375) k/mm3 MPV 10.3 (7.4-10.4) fl Immature Gran % (Auto) 0.3 (0-0.5) % Neut % (Auto) 79.3 H (45.5-73.1) % Lymph % (Auto) 10.8 L (18.3-44.2) % [place] % (Auto) 8.1 (2.6-8.5) % Eos % (Auto) 0.9 (0-4.4) % Baso % (Auto) 0.6 (0.2-1.2) % Lymph # (Auto) 1.11 (0.9-3.2) K/mm3 [place] # (Auto) 0.8 H (0.1-0.6) K/mm3 Eos # (Auto) 0.1 (0-0.3) K/mm3 Baso # (Auto) 0.1 (0.0-0.1) K/mm3 Abs Immat Gran (auto) 0.03 (0.00-0.031) K/mm3 Absolute Neuts (auto) 8.2 H (1.3-6.7) K/mm3 Absolute Nucleated RBC 0.000 (0.0-0.012) K/mm3 Nucleated RBC % 0.0 (0.0-0.2) % Sodium 143 (137-145) mmol/L Potassium 3.7 (3.4-5.0) mmol/L Chloride 102 (98-107) mmol/L Carbon Dioxide 29 (22-30) mmol/L Anion Gap 12 (4-12) mmol/L BUN 52 H (7-17) mg/dL Creatinine 6.78 H (0.7-1.0) mg/dL Estim Creat Clear Calc 10 ml/min Estimated GFR 6 L (59 - ) Glucose 169 H (65-110) mg/dL Calcium 8.6 (8.4-10.2) mg/dL Total Bilirubin 0.5 (0.2-1.3) mg/dL AST 21 (14-36) U/L ALT 10 (6-35) U/L Alkaline Phosphatase 77 (38-126) U/L Troponin I 0.136 H* (0.000-0.034) ng/mL Total Protein 7.0 (6.3-8.2) g/dL Albumin 4.2 (3.5-5.1) g/dL Influenza A (RT-PCR) Negative (Negative) Influenza B (RT-PCR) Negative (Negative) RSV (RT-PCR) Negative (Negative) SARS-CoV-2 RNA (RT-PCR) Negative (Negative) <Deyvi Ventura MD - Last Filed: 10/01/24 08:21> ECG Data EKG #2: ECG completion date: 10/01/24 <Deyvi Ventura MD - Last Filed: 10/01/24 08:21> ECG completion time: 07:59 <Deyvi Ventura MD - Last Filed: 10/01/24 08:21> EKG Interpretation: normal rate (88), left axis and no acute changes <Deyvi Ventura MD - Last Filed: 10/01/24 08:21> Discharge Plan Discharge Clinical Impression: ESRD (end stage renal disease) on dialysis Chest pain Qualifiers: Chest pain type: unspecified Qualified Code(s): R07.9 - Chest pain, unspecified <Rinku Perez MD - Last Filed: 10/01/24 06:53> Patient Disposition: Still a Patient <Rinku Perez MD - Last Filed: 10/01/24 06:53> Condition: Stable <Rinku Perez MD - Last Filed: 10/01/24 06:53> Patient Language: Lithuanian <Rinku Perez MD - Last Filed: 10/01/24 06:53> Prescriptions: No Action levothyroxine [Synthroid] 175 mcg Tablet 175 mcg PO DAILY chlorthalidone 25 mg tablet 25 mg PO DAILY simvastatin 40 mg tablet 40 mg PO DAILY ferrous sulfate [Iron (ferrous sulfate)] 325 mg (65 mg iron) Tablet 325 mg PO DAILY metformin 1,000 mg tablet 1,000 mg PO BID ergocalciferol (vitamin D2) 1,250 mcg (50,000 unit) capsule 1,250 mcg PO DAILY Healthy Colon 240 mg (3 billion cell) Capsule 1 cap PO DAILY Rybelsus 7 mg tablet 7 mg PO BID <Rinku Perez MD - Last Filed: 10/01/24 06:53> Follow-up/Referrals: Nohemy Brunson APRN [Primary Care Provider] - <Rinku Perez MD - Last Filed: 10/01/24 06:53> Time of Disposition: 08:19 <Rinku Perez MD - Last Filed: 10/01/24 06:53> 08:19 <Deyvi Ventura MD - Last Filed: 10/01/24 08:21>
[2024-10-01 05:26] LABS: Troponin I 0.136 ng/mL (0.000-0.034)
--- OUTSIDE RECORDS SUMMARY | 2024-10-01 05:50 | XMS_ITS | Encounter Summary ---
Author Organization [employer] [facility] Address [address] [address] Phone Care Team Providers Care Youth Ministry Director Name Role Phone Denise Rosales MD Primary Care Provider [phone] [phone] Encounter Details Date Type Department Care Team (Late st Contact Info) Description 09/20/2024 Treatment [employer] [facility] [address] [address] Sony Marie, DO [address] [facility] [address] [place] [address] End stage renal disease; Dependence [...] the dialysis unit medical record system. Attending Lime Trimmer: SONY MARIE Dialysis Location: [facility] Schedule: Shift: 1 ADDITIONAL COMMENT COMMENTS: [...] AV access creation with Surgery referral at [facility] - Dr. Escobar Signed by: SONY MARIE MD on 09/20/2024 at 10:04:13 AM Transcribed by: SONY MARIE MD on 09/20/2024 at 10:04:13 AM documented in this encounter Plan of Treatment Not on file documented as of this encounter Visit Diagnoses Diagnosis End stage renal disease Dependence on renal dialysis documented in this encounter Care Teams Youth Ministry Director Relationship Specialty Start Date End Date Denise Rosales MD [address] [facility], [address] [place] [address] PCP - General Internal Medicine 08/19/23 documented as of this encounter
--- OUTSIDE RECORDS SUMMARY | 2024-10-01 05:50 | XMS_ITS | Encounter Summary ---
Author Organization [employer] [facility] Address [address] [address] Phone Care Team Providers Care Abrasive Band Winder Name Role Phone Denise Rosales MD Primary Care Provider [phone] [phone] Encounter Details Date Type Department Care Team (Late st Contact Info) Description 09/27/2024 Treatment [employer] [facility] [address] [address] Isi Canas, BLOCK HAND [address] [facility] [address] [place] [address] End stage renal disease; Dependence [...] care for end stage renal disease. Attending Supervisor Microbiology Technologists: WARREN PENA MD Dialysis Location: [facility] Schedule: Shift: 1 OVERVIEW Patient is stable. COMMENTS: The diabetic foot ulcers are better. She is to see Dr. Soto in [facility] in [place] for access placement. HOME MEDICATIONS COMMENTS: Needs to take her binder [facility] Medications B-complex with vitamin C [...] 98.1*F Current Dialysis Vitals BP Sit: 107/66 AP/CLOCK AND WATCH HANDS MOUNTER: 160/125 Pulse: 92 TREATMENT MEDICATIONS ORDERS Heparin [...] AV access creation with Surgery referral at [facility] - Dr. Escobar Signed by: ISI CANAS APRN on 09/27/2024 at 10:34:27 AM documented in this encounter Plan of Treatment Not on file documented as of this encounter Visit Diagnoses Diagnosis End stage renal disease Dependence on renal dialysis documented in this encounter Care Teams Abrasive Band Winder Relationship Specialty Start Date End Date Denise Rosales MD [address] [facility], [address] [place] [address] PCP - General Internal Medicine 08/19/23 documented as of this encounter
--- OUTSIDE RECORDS SUMMARY | 2024-10-01 05:50 | XMS_ITS | Encounter Summary ---
Author Organization [employer] [facility] Address [address] [place] [address] Phone Care Team Providers Care Gristmill Operator Name Role Phone Denise Rosales MD Primary Care Provider [phone] [phone] Encounter Details Date Type Department Care Team (Latest Contact Info) Description 09/24/2024 Treatment [employer] [facility] [address] [address] Ilan Pat MD [address] [address] Anemia in chronic kidney disease; [...] care for end stage renal disease. Attending Industrial/Organizational Psychologist: WARREN PENA Dialysis Location: [facility] Schedule: Shift: 1 OVERVIEW COMMENTS: The diabetic foot ulcers are better. She is to see Dr. Soto in [facility] in [place] for access placement. HOME MEDICATIONS Medications reviewed. COMMENTS: Needs to take her binder [facility] Medications B-complex with vitamin C tablet [...] 97.0*F Current Dialysis Vitals BP Sit: 144/77 AP/BEN DAY ARTIST: 144/110 Pulse: 88 TREATMENT MEDICATIONS ORDERS Heparin [...] 144 (08/04/24) 147 (07/07/24) ACCESS ASSESSMENT COMMENTS: research and development technician cleared for surgery CVCatheter Tunneled Chest Active [...] AV access creation with Surgery referral at [facility] - Dr. Escobar Signed by: ILAN [...] dialysis documented in this encounter Care Teams Gristmill Operator Relationship Specialty Start Date End Date Denise Rosales MD [address] [facility], [address] [place] [address] PCP - General Internal Medicine 08/19/23 documented as of this encounter
--- OUTSIDE RECORDS SUMMARY | 2024-10-01 05:50 | XMS_ITS | Encounter Summary ---
Author Organization [employer] [facility] Address [address] [address] Phone Care Team Providers Care Hand Bender Name Role Phone Denise Rosales MD Primary Care Provider [phone] [phone] Encounter Details Date Type Department Care Team (Late st Contact Info) Description 09/29/2024 Orders Only [employer] [facility] [address] [place] [id number] Sony Marie DO [address] [facility] 1 [place] [address] Social History Tobacco Use Types [...] 09/30/2024 Unless otherwise specified, test(s) performed at: [facility], [address] [place], [place] [id number] CERTIFIED ACTIVITIES DIRECTOR: Yuri Streeter M.D. For any questions, please call customer service at FREQUENCY:OTHER Resulting Agency Comment Specimen source: Blood us Sony Marie DO LAB BLOOD ORDERABLES Final R [facility] See order comments or contact performing lab Unknown, [place] documented in this encounter Visit Diagnoses Not on filedocumented in this encounter Care Teams Hand Bender Relationship Specialty Start Date End Date Denise Rosales MD [address] [place] [address], [address] [place] [address] PCP - General Internal Medicine 08/19/23 documented as of this encounter
--- OUTSIDE RECORDS SUMMARY | 2024-10-01 05:51 | XMS_ITS | Encounter Summary ---
Author Organization [employer] [facility] Address [address] [place] [address] Phone Care Team Providers Care Employee Benefits Manager Name Role Phone Denise Rosales MD Primary Care Provider [phone] [phone] Encounter Details Date Type Department Care Team (Latest Contact Info) Description 08/23/2024 Treatment [employer] [facility] [address] [address] Ilan Pat MD [address] [address] Secondary hyperparathyroidism of renal origin; [...] Lina Clinton, 1960, 64y, F Dialysis Location: [facility] Attending Hand Fabric Cutter: Sony Marie Service Date: 08/23/2024 Service Provider: [...] disease documented in this encounter Care Teams Employee Benefits Manager Relationship Specialty Start Date End Date Denise Rosales MD [address] [facility], [address] [place] [address] PCP - General Internal Medicine 08/19/23 documented as of this encounter
--- OUTSIDE RECORDS SUMMARY | 2024-10-01 05:51 | XMS_ITS | Encounter Summary ---
Author Organization [employer] [facility] Address [address] [place], [place] [address], [place] [address] Phone Care Team Providers Care Cra Name Role Phone Denise Rosales MD Primary Care Provider [phone] [phone] Encounter Details Date Type Department Care Team (Late st Contact Info) Description 09/03/2024 Treatment [employer] [facility] [address] [place] [address] Isi Canas APRN [address] [facility] 1 [place] [address] Social History Tobacco Use Types [...] care for end stage renal disease. Attending Recruiter Coordinator: WARREN PENA MD Dialysis Location: [facility] Schedule: Shift: 1 OVERVIEW Patient is stable. Patient has no complaints. COMMENTS: The diabetic foot ulcers are better. She is to see Dr. Soto in [facility] in [place] for access placement. HOME MEDICATIONS COMMENTS: Needs to take her binder Current [facility] Outpatient Medications B-complex with vitamin C [...] three times a day with meals. Current [facility] Allergies Allergen: No Known Allergies Allergen: [...] 97.0*F Current Dialysis Vitals BP Sit: 150/86 AP/RECORD FILING CLERK: 164/137 Pulse: 95 TREATMENT MEDICATIONS ORDERS Heparin [...] 141 (06/09/24) ACCESS ASSESSMENT COMMENTS: Waiting on consumer sales representative appointment CVCatheter Tunneled Chest Active (In Use) [...] creation: A) cardiology evaluation on 08/26 - [facility] B) Surgery referral at [facility] - Dr. Escobar - not interested in PD at this time. Signed by: ISI CANAS APRN on 09/03/2024 at 09:58:57 AM documented in this encounter Plan of Treatment Not on file documented as of this encounter Visit Diagnoses Not on filedocumented in this encounter Care Teams Cra Relationship Specialty Start Date End Date Denise Rosales MD [address] [facility], [address] [place] [address] PCP - General Internal Medicine 08/19/23 documented as of this encounter
--- OUTSIDE RECORDS SUMMARY | 2024-10-01 05:51 | XMS_ITS | Encounter Summary ---
Author Organization [employer] [facility] Address [address] [place], [place] [address], [place] [address] Phone Care Team Providers Care Dry Sand Molder Name Role Phone Denise Rosales MD Primary Care Provider [phone] [phone] Encounter Details Date Type Department Care Team (Late st Contact Info) Description 07/02/2024 Treatment [employer] [facility] [address] [place] [address] Isi Canas APRN [address] [facility] 1 [place] [address] Social History Tobacco Use Types [...] care for end stage renal disease. Attending Food Counter Worker: WARREN PENA MD Dialysis Location: [facility] Schedule: Shift: 1 OVERVIEW Patient is stable. COMMENTS: The diabetic foot ulcers are better. She is to see Dr. Soto in [facility] in [place] for access placement. HOME MEDICATIONS Medications reviewed. COMMENTS: Needs to take her binder Current [facility] Outpatient Medications B-complex with vitamin C tablet [...] three times a day with meals. Current [facility] Allergies Allergen: No Known Allergies Allergen: No [...] 97.1*F Current Dialysis Vitals BP Sit: 94/56 AP/SED SPECIAL EDUCATION TEACHER: 180/140 Pulse: 83 TREATMENT MEDICATIONS ORDERS Heparin [...] on filedocumented in this encounter Care Teams Dry Sand Molder Relationship Specialty Start Date End Date Denise Rosales MD [address] [facility], [address] [place] [address] PCP - General Internal Medicine 08/19/23 documented as of this encounter
--- OUTSIDE RECORDS SUMMARY | 2024-10-01 05:51 | XMS_ITS | Encounter Summary ---
Author Organization [employer] [facility] Address [address] [place], [place] [address] [address] Phone Care Team Providers Care Coder Name Role Phone Denise Rosales MD Primary Care Provider [phone] [phone] Encounter Details Date Type Department Care Team (Late st Contact Info) Description 05/31/2024 Treatment [employer] [facility] [address] [place] [address] Kalyn Canas APRN [address] [facility] 1 [place] [address] Social History Tobacco Use Types Packs/Day [...] HD - Lina Clinton - Chart #: [id number] Clinic: [address] [place] [address] Modality: IHD Method of Interaction: Face to [...] on filedocumented in this encounter Care Teams Coder Relationship Specialty Start Date End Date Denise Rosales MD [address] [place] [address], [address] [place] [address] PCP - General Internal Medicine 08/19/23 documented as of this encounter
--- OUTSIDE RECORDS SUMMARY | 2024-10-01 05:51 | XMS_ITS | Encounter Summary ---
Author Organization [facility] [facility] Address [address] [place] [address] Phone Care Team Providers Care Smalltalk Developer Name Role Phone Denise Rosales MD Primary Care Provider +1 [phone] Encounter Details Date Type Department Care Team (Late st Contact Info) Description 04/07/[address] [facility] [address] [address] Ilan Pat MD [address] [facility] 1 [place] [address] Social History Tobacco Use Types [...] care for end stage renal disease. Attending Clay Press Operator: WARREN PENA Dialysis Location: [facility] Schedule: Shift: 1 OVERVIEW Patient is stable. COMMENTS: The diabetic foot ulcers are better. HOME MEDICATIONS Medications reviewed. [facility] Actos 15 mg [...] by mouth every night as directed. 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
--- OUTSIDE RECORDS SUMMARY | 2024-10-01 05:51 | XMS_ITS | Encounter Summary ---
Author Organization [employer] [facility] Address [address] [place] [address] Phone Care Team Providers Care Entry Level Sales Consultant Name Role Phone Denise Rosales MD Primary Care Provider [phone] [phone] Encounter Details Date Type Department Care Team (Late st Contact Info) Description 04/23/2024 Treatment [facility] [address] [address] Ilan Pat MD [address] [facility] 1 [place] [address] Social History Tobacco Use Types [...] care for end stage renal disease. Attending Conveyor Line Bakery Worker: WARREN PENA Dialysis Location: [facility] Schedule: Shift: 1 OVERVIEW Patient is stable. COMMENTS: The diabetic foot ulcers are better. She is to see Dr. Soto in [facility] in [place] for access placement. HOME MEDICATIONS Medications reviewed. 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
--- OUTSIDE RECORDS SUMMARY | 2024-10-01 05:51 | XMS_ITS | Clinical Summary ---
Author Organization [facility] Address [address] [place] [address] Care Team Providers Care Technology And Engineering Teacher Name Role Phone Janusz Rosales MD Primary Care Provide r Sony Marie DO Unavailable [phone] Sylwia Hess NP Unavailable [phone] eBnito Cho MD Unavailable [phone] Reyes Reyna MD Unavailable [phone] Allergies No known active allergies Medications blood glucose diagnostic (ONETOUCH ULTRA TEST) strip Take as directed; tests 1 x daily 100 strip 3 7 Active ergocalciferol (VITAMIN D) 50,000 unit capsule Take 1 capsule (50,000 Units total) by mouth once a week Friday Active levothyroxine (SYNTHROID) 175 mcg tablet Take 1 tablet (175 mcg total) by mouth principal clerk typist before breakfast Active rosuvastatin (CRESTOR) 40 mg [...] 11/18/2023 Assessment & Plan (08/03/2024 12:10 PM GRINDING WHEEL OPERATOR): Patient is right-hand dominant, requiring permanent access [...] Department Care Team Description 09/23/2024 1:00 PM GRINDING WHEEL OPERATOR - 09/23/2024 3:20 PM GRINDING WHEEL OPERATOR Surgery [facility] [place] [address] [place] [address] Jose Rafael Huff MD CREATION LEFT BRACHIAL CEPHALIC ARTERIOVENOUS FISTULA 09/23/2024 12:54 PM GRINDING WHEEL OPERATOR Anesthesia Event [facility] [place] [address] [place] [address] Kerri Mullins MD Taylor-White, Carlotta A., NP 09/23/2024 10:34 AM GRINDING WHEEL OPERATOR - 09/23/2024 4:20 PM GRINDING WHEEL OPERATOR Hospital Encounter [facility] [place] [address] [place] [address] Jose Rafael Huff MD ESRD (end stage renal disease) (HCC) (Primary Dx) Discharge Disposition: Discharge to home or self care 09/17/2024 Telephone [facility] at [address] [place] [address] Jose Rafael Huff MD 09/10/2024 Telephone [facility] at [address] [place] [address] Jose Rafael Huff MD Schedule LUE AVF vs AVG Creation (Cardiac clearance received from Dr. Ojeda on 09/09/24) 09/07/2024 10:00 AM GRINDING WHEEL OPERATOR Office Visit [facility] Medical [facility] Cardiology [address] [place] [address] [place] [address] [phone] Bob Benson MD Pre-operative cardiovascular examination (Primary Dx) 08/04/2024 Telephone [facility] Cardiology [address] [place] [address] [place] [address] [phone] Lamin Ojeda MD Cardiac clearance LUE AV Fistual graft creation 08/03/2024 9:16 AM GRINDING WHEEL OPERATOR - 08/03/2024 11:59 PM GRINDING WHEEL OPERATOR Hospital Encounter [facility] at [address] [address] ESRD (end stage renal disease) on dialysis (HCC) (Primary Dx); Chronic heart failure with preserved ejection fraction (HCC); Mixed hyperlipidemia; Primary hypertension Discharge Disposition: Discharge to home or self care 08/03/2024 9:16 AM GRINDING WHEEL OPERATOR - 08/03/2024 11:59 PM GRINDING WHEEL OPERATOR Hospital Encounter [facility] Medical Office Building [address] [place] [address] [place] [address] Pre-operative exam; ESRD (end stage renal disease) [...] drink = 0.6 oz pur e alcohol) [facility] Utilities Answer Date Recorded In the past 12 months has [employer], gas, oil, or water [employer] threatened to shut off services in your [...] often do you attend chur ch or druze services? Never 03/01/2024 Do you belong to any clubs o r organizations such as quaker groups, unions, fraternal or athletic groups, or [...] place to sleep or slept in a skilled nursing (including now)? No 11/18/2023 Housing Stability Vital Sign Answer Tae e Recorded In the last 12 months, was t here a time when you were not able to pay the mortgage or rent on time? No 03/01/2024 In the past 12 months, how m any times have you moved where you were living? 0 03/01/2024 At any time in the past 12 m [facility], were you homeless or living in a skilled nursing (including now)? No 03/01/2024 Personal Safety Answer Date Recorded Have you ever been in or are you currently in a harmful physical or emotional relationship or is someone making you feel afraid or unsafe? Denies 09/23/2024 Comments No Sex and Gender Information Value Date Recorded Sex Assigned at Not on file Legal Sex Female 9:46 AM GRINDING WHEEL OPERATOR Gender Identity Not on file Sexual Orientation Not on file Obstetrics History Last Filed Vital Signs Vital Sign Reading Time Taken Comments Blood Pressure 141/78 09/23/2024 3:40 PM GRINDING WHEEL OPERATOR Pulse 88 09/23/2024 3:40 PM GRINDING WHEEL OPERATOR Temperature 36.4 C (97.6 F) 09/23/2024 3:10 PM GRINDING WHEEL OPERATOR Respiratory Rate 18 09/23/2024 3:40 PM GRINDING WHEEL OPERATOR Oxygen Saturation 100% 09/23/2024 3:40 PM GRINDING WHEEL OPERATOR Inhaled Oxygen Concentration - - Weight 106.1 kg (234 lb) 09/23/2024 11:20 AM GRINDING WHEEL OPERATOR Height 170.2 cm (5' 7 ) 08/03/2024 10:07 AM GRINDING WHEEL OPERATOR Body Mass Index 36.65 08/03/2024 10:07 AM GRINDING WHEEL OPERATOR Plan of Treatment Health Maintenance Due Date [...] history exists Medical Devices Implanted Type Area Orthotic/Prosthetic Practitioner Device Identifier Shelf Expiration Date Model / Serial / Lot Nutritionix Duramax Vascpak Safesheath D-Pro 15.5fr 28cm Kit Catheter [id number] Internal Jugular [facility] [employer] [id number] 03/20/2026 [id number] / / [id number] [employer] Duramax Vascpak Safesheath D-Pro 15.5fr 28cm Kit Catheter [id number] - [id number] Implanted:Qty: 1 on 09/25/2023 by Jerel Correa MD at [facility] Entelos 11/17/2025 [id number] / / [id number] Procedures Procedure Name Priority Date/Time Associated Diagnosis Comments POCT GLUCOSE DEVICE Routine 09/23/2024 2 :27 PM GRINDING WHEEL OPERATOR MI AN PROCEDURE PLACEHOLDER Routine 09/23/2024 1:15 PM GRINDING WHEEL OPERATOR MI AN ELECTIVE ENDOTRACHEAL AIRWAY Routine 09/23/2024 1:15 PM GRINDING WHEEL OPERATOR CREATION ARTERIOVENOUS FISTULA - ARM 09/23/2024 12:55 PM GRINDING WHEEL OPERATOR ESRD (end stage renal disease) on dialysis (HCC) POCT GLUCOSE DEVICE Routine 09/23/2024 1 1:34 AM GRINDING WHEEL OPERATOR EGFR STAT 09/23/2024 11:29 AM GRINDING WHEEL OPERATOR APTT STAT 09/23/2024 11:29 AM GRINDING WHEEL OPERATOR PROTIME-INR STAT 09/23/2024 11:29 AM GRINDING WHEEL OPERATOR CBC WITHOUT DIFFERENTIAL STAT 09/23/2024 11:29 AM GRINDING WHEEL OPERATOR BASIC METABOLIC PANEL STAT 09/23/2024 11:29 AM GRINDING WHEEL OPERATOR US VEIN MAPPING DUPLEX UPPER EXTREMITY BILATERAL Schedule Routine, Read Routine (OP Routine) 08/03/2024 10:11 AM GRINDING WHEEL OPERATOR Pre-operative exam ESRD (end stage renal disease) on dialysis (HCC) HEPATITIS PANEL, ACUTE STAT 03/01/2024 7:06 AM CDT HEMOGLOBIN A1C Routine 03/01/2024 7:06 AM CDT COLONOSCOPY 10/07/2023 2:06 PM CDT from Last 3 Months or Most Recently Relevant to Health Maintenance Results * POCT glucose (09/23/2024 2:27 PM GRINDING WHEEL OPERATOR) Glucose, POC 119 70 - 199 mg/dL Glucose comment 1 Use This Result PINO KNAPP Blood 09/23/2024 2:27 PM GRINDING WHEEL OPERATOR 09/23/2024 2:27 PM GRINDING WHEEL OPERATOR us Jose Rafael Huff MD LAB POCT ORDERABLES - DEVICE Fin al Result Performing Organization Address City/State/[facility] Co de Phone Number PINO [address] [facility] Department [place] [address] * MI AN ELECTIVE ENDOTRACHEAL AIRWAY, MI AN PROCEDURE PLACEHOLDER (09/23/2024 1:15 PM GRINDING WHEEL OPERATOR) Narrative Sony Cheung CRNA - 09/23/2024 1:15 PM GRINDING WHEEL OPERATOR Sony Cheung CRNA 09/23/2024 1:16 PM Airway Patient location: OR Urgency: elective Indications for airway management: anesthesia Difficult airway: no Staff: Placed by: NAIL TECHNICIAN: Sony Cheung CRNA Emergent airway documentation: Risks [...] Result * POCT glucose (09/23/2024 11:34 AM GRINDING WHEEL OPERATOR) Glucose, POC 109 70 - 199 mg/dL Blood 09/23/2024 11:3 4 AM GRINDING WHEEL OPERATOR 09/23/2024 11:34 AM GRINDING WHEEL OPERATOR Jose Rafael Huff MD LAB POCT ORDERABLES - DEVICE Fin al Result [facility] [address] [facility] Department [place] [address] * (ABNORMAL) eGFR (09/23/2024 11:29 AM GRINDING WHEEL OPERATOR) eGFR 10(L) >=60 mL/min/1. 73 m2 Comment: [...] reviewed 2021. Blood 09/23/2024 11:2 9 AM GRINDING WHEEL OPERATOR 09/23/2024 11:35 AM GRINDING WHEEL OPERATOR Jose Rafael Huff MD LAB BLOOD ORDERABLES Final Resul t Performing Organization Address [facility] Co de Phone Number PINO [address] [employer] [place] [address] * aPTT (09/23/2024 11:29 AM GRINDING WHEEL OPERATOR) aPTT 28 22 - 37 sec Comment: Interpretive data aPTT test has not been evaluated for monitoring heparin therapy. The anti-Xa is the preferred test. Current interpretive data was last revised on 2019. Blood 09/23/2024 11:2 9 AM GRINDING WHEEL OPERATOR 09/23/2024 11:35 AM GRINDING WHEEL OPERATOR Result [facility] Jose Rafael Huff MD LAB BLOOD ORDERABLES Final Resul t Performing Organization Address [facility] de Phone Number [address] [address] * Protime-INR (09/23/2024 11:29 AM GRINDING WHEEL OPERATOR) PT 13.9 12.0 - 14.6 sec INR 1.0 0.9 - 1.2 PINO Comment: Ref Range High Interpretive data Oral anticoagulant therapeutic ranges: Venous thromboembolism prophylaxis or treatment: 2.0-3.0 CARDIOLOGY Standard range: 2.0-3.0 High-intensity range: 2.5-3.5 Refer to indication-specific guidelines for appropriate target ranges for prosthetic heart valve replacement. Current interpretive data was last revised on 2019. Blood 09/23/2024 11:2 9 AM GRINDING WHEEL OPERATOR 09/23/2024 11:35 AM GRINDING WHEEL OPERATOR Result [facility] Jose Rafael Huff MD LAB BLOOD ORDERABLES Final Resul t Performing Organization Address [facility] Co de Phone Number PINO [facility] [employer] [place] [address] * (ABNORMAL) CBC without differential (09/23/2024 11:29 AM GRINDING WHEEL OPERATOR) WBC 7.0 3.8 - 9.9 K/cumm Hgb [...] MEDICAL CENTER Blood 09/23/2024 11:2 9 AM GRINDING WHEEL OPERATOR 09/23/2024 11:35 AM GRINDING WHEEL OPERATOR us Jose Rafael Huff MD LAB BLOOD ORDERABLES Final Resul t [facility] [address] [facility] Department of Laboratories [place], [place] [id number] * (ABNORMAL) Basic metabolic panel (09/23/2024 11:29 AM GRINDING WHEEL OPERATOR) [facility] Sodium 141 135 - 145 mmol/L Potassium, [...] 2022. Calcium 9.3 8.5 - 10.3 mg/dL PNIO KNAPP Blood 09/23/2024 11:2 9 AM GRINDING WHEEL OPERATOR 09/23/2024 11:35 AM GRINDING WHEEL OPERATOR us Jose Rafael Huff MD LAB BLOOD ORDERABLES Final Resul t PINO [address] [facility] Department [place] [address] * US Vein Mapping Duplex Upper Extremity Bilateral (08/03/2024 10:11 AM GRINDING WHEEL OPERATOR) Anatomical Region Laterality Modality Vascular Bilateral Ultrasound 08/03/2024 Narrative 08/06/2024 9:06 AM GRINDING WHEEL OPERATOR [employer] Job ID: [id number] Ener1 Document ID: [id number] Dictated date/time: [id number] BILATERAL UPPER EXTREMITY VEIN MAPPING. REASON FOR [...] veins are patent. Job ID/Internal Job ID: [id number] us Jaren Huff MD IMG US PROCEDURES Final Re sult * Hepatitis panel, acute Blood (03/01/2024 7:06 AM CDT) Pathologist [facility] Hep A IgM Nonreactive Nonreactive Comment: Interpretive Data: If Hep A IgM Ab is reported as Equivocal, a new sample should be drawn in two weeks for testing. Current interpretive data was last revised on 19. Hep B core IgM Nonreactive Nonreactive [facility] Comment: Interpretive Data If HepB Core IgM Ab is reported as Equivocal, a new sample should be drawn in two weeks for testing. Current interpretive data was last revised on 19. Hep C Ab Nonreactive Nonreactive [facility] Comment: Interpretive Data Nonreactive: Antibodies to HCV [...] last revised on 2019. HepBsAg Nonreactive Nonreactive [facility] Blood 03/01/2024 7:06 AM CDT 03/01/2024 7:26 AM CDT Ilan Pat MD LAB MICROBIOLOGY - GENERAL ORDERABLES Final Result [facility] [address] [place] [address] * (ABNORMAL) Hemoglobin A1c (03/01/2024 7:06 AM CDT) Pathologist [facility] Hgb A1C 6.9(H) 4.0 - 5.6 % Estimated Average Glucose 151 mg/dL [facility] Comment: The ADA recommends reporting an estimated Average Glucose (eAG) with all Hemoglobin A1c results using the equation derived from a study of 507 normal and diabetic adults. Minority populations were underrepresented and children were not included. (Diabetes Care 31:4611-5433, 2008). The eAG is not equivalent to a fasting glucose. Blood 03/01/2024 7:06 AM CDT 03/01/2024 7:31 AM CDT Lance Foreman MD LAB BLOOD ORDERABLES Final Resu lt PINO [address] [facility] Department [place] [address] * Colonoscopy (10/07/2023 2:06 PM CDT) Anatomical Region Laterality Modality Other Narrative Procedure Note Reyes Reyna MD - 10/07/2023 2:06 PM CDT [facility] Endoscopy Lab Patient Name: Lina Clinton Procedure Date: 10/07/2023 2:06 PM Date of : 1960 Admit Type: Inpatient Age: 63 Gender: Female Note Status: Finalized Attending MD: Reyes Reyna M.D. Procedure Date: 10/07/2023 Procedure: Colonoscopy Indications: Iron deficiency anemia Providers: Reyes Reyna M.D., ZAYDA Cerda (Anesthesia Staff), Holly Moncada RN, Brant, Document Control Clerk Referring MD: Janusz Rosales M.D. Medicines: Monitored [...] by the physician, the nurse and the home care physical therapist in the procedure room. Mental Status Examination: [...] for surveillance. 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 All rights reserved. The codes documented in this report are preliminary and upon fermenting cellars receiver reviewmay be revised to meet current compliance requirements. Electronically signed by Reyes Reyna M.D. Reyes Reyna M.D. 10/07/2023 2:36:38 PM Number of Addenda: 0 Note Initiated On: 10/07/2023 2:06 PM Reyes Reyna MD ENDOSCOPY PROCEDURES Fi nal Result from Last 3 Months or Most Recently Relevant to Health Maintenance Insurance A[employer] MEDICARE [facility] Advance Directives For more information, please contact: [phone] Documents on File Type Date Recorded Patient Corn Detasseler Expl anation Power of Motor Vehicle Examiner 09/23/2024 10:33 AM * Full Code (Latest [...] 1:06 PM 07/27/2022 4:39 AM Care Teams Technology And Engineering Teacher Relationship Specialty Start Date End Date Janusz Rosales MD [address] [facility] 15 [place] [address] PCP - General Internal Medicine 09/24/23 Sony Marie DO [address] [facility] [facility] 1 [place] [address] Consulting Physician Nephrology 10/09/23 Sylwia Hess, ASSISTANT COUNTY ATTORNEY [address] [facility] [address] [place] [address] Nurse Practitioner Urology 10/09/23 [place] [address] [facility] [address] [place] [address] Consulting Physician Endocrinology 10/09/23 [place] [address] [facility] [address] [place] [address] Consulting Physician Gastroenterology 10/09/23
--- OUTSIDE RECORDS SUMMARY | 2024-10-01 05:51 | XMS_ITS | Encounter Summary ---
Author Organization [employer] [facility] Address [address] [place], [place] [address], [place] [address] Phone Care Team Providers Care Computer Service Technician Name Role Phone Denise Rosales MD Primary Care Provider [phone] Encounter Details Date Type Department Care Team (Late st Contact Info) Description 05/05/[address] [facility] [employer] [facility] [address] [address] Kalyn Canas APRN [address] [facility] 1 [place] [address] Social History Tobacco Use Types [...] care for end stage renal disease. Attending Emerging Solutions Executive: WARREN PENA MD Dialysis Location: [facility] Schedule: Shift: 1 OVERVIEW Patient is stable. Patient has no complaints. COMMENTS: The diabetic foot ulcers are better. She is to see Dr. Soto in [facility] in [place] for access placement. HOME MEDICATIONS Medications reviewed. [facility] Medications Actos 15 mg [...] by mouth every night as directed. Current [facility] Allergies Allergen: No Known Allergies Allergen: [...] 96.9*F Current Dialysis Vitals BP Sit: 141/80 AP/BOTTOM HOOP DRIVER: 142/112 Pulse: 86 TREATMENT MEDICATIONS ORDERS Heparin [...] filedocumented in this encounter Care Teams Computer Service Technician Relationship Specialty [place] [address] [place] [address], [address] [place] [address] PCP - General Internal Medicine 08/19/23 documented as of this encounter
--- OUTSIDE RECORDS SUMMARY | 2024-10-01 05:51 | XMS_ITS | Encounter Summary ---
Author Organization [employer] [facility] Address [address] [place] [address] Phone Care Team Providers Care Marketing/Sales Person Name Role Phone Denise Rosales MD Primary Care Provider [phone] Encounter Details Date Type Department Care Team (Late st Contact Info) Description 09/10/2024 Treatment [facility] [address] [address] Isi Canas APRN [address] [facility] 1 [place] [address] Social History Tobacco Use Types [...] care for end stage renal disease. Attending Member Of Parliament: WARREN PENA MD Dialysis [facility]: [facility] Schedule: Shift: 1 OVERVIEW Patient is stable. Patient has no complaints. COMMENTS: The diabetic foot ulcers are better. She is to see Dr. Soto in [facility] in [place] for access placement. HOME MEDICATIONS COMMENTS: Needs to take her binder Current [facility] Outpatient Medications B-complex with vitamin C [...] three times a day with meals. 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 Escobar - not interested in PD at this time. Signed by: ISI CANAS APRN on 09/10/2024 at 10:23:31 AM documented in this encounter Plan of Treatment Not on file documented as of this encounter Visit Diagnoses Not on filedocumented in this encounter Care Teams Marketing/Sales Person Relationship Specialty Start Date End Date Denise Rosales MD [address] [facility], [address] [place] [address] PCP - General Internal Medicine 08/19/23 documented as of this encounter
--- OUTSIDE RECORDS SUMMARY | 2024-10-01 05:51 | XMS_ITS | Encounter Summary ---
Author Organization [facility] Address [address] [place] [address] Care Team Providers Care Teletype Operator Name Role Phone Janusz Rosales MD Primary Care Provide r Sony Marie DO Unavailable [phone] Sylwia Hess NP Unavailable [phone] Benito Cho MD Unavailable [phone] Reyes Reyna MD Unavailable [phone] Encounter Details Date Type Department Care Team (Late st Contact Info) Description 09/17/2024 Telephone [facility] at [facility] [address] [facility] [address] [place] [address] [place] [address] [place] [address] [address] [place] [address] Social History Tobacco Use Types Packs/Day Years Used Date Smoking Tobacco: Former Cigarettes Q uit: 2005 Alcohol Use Standard Drinks/Week Comments No 0 (1 standard drink = 0.6 oz pur e alcohol) [facility] Utilities Answer Date Recorded In the [...] often do you attend chur ch or orthodoxy services? Never 03/01/2024 Do you belong to any clubs o r organizations such as jainism groups, unions, fraternal or athletic groups, or [...] place to sleep or slept in a detention (including now)? No 11/18/2023 Housing Stability Vital Sign Answer Tae e Recorded In the last 12 months, was t here a time when you were not able to pay the mortgage or rent on time? No 03/01/2024 In the past 12 months, how m any times have you moved where you were living? 0 03/01/2024 At any time in the past 12 m [facility], were you homeless or living in a detention (including now)? No 03/01/2024 Personal Safety Answer Date Recorded Have you ever been in or are you currently in a harmful physical or emotional relationship or is someone making you feel afraid or unsafe? 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 Gender Identity Not on file Sexual Orientation Not on file documented as of this encounter Plan of Treatment Not on file documented as of this encounter Visit Diagnoses Not on filedocumented in this encounter Care Teams Teletype Operator Relationship Specialty Start Date End Date Janusz Rosales MD [address] [facility] 15 [place] [address] PCP - General Internal Medicine 09/24/23 Sony Marie DO [facility] [facility] [place] [address] Consulting Physician Nephrology 10/09/23 Sylwia Hess DRUM SANDER [address] [facility] [address] [place] [address] Nurse Practitioner Urology 10/09/23 [place] [address] [facility] [address] [place] [address] Consulting Physician Endocrinology 10/09/23 [place] [address] [facility] [address] [place] [address] Consulting Physician Gastroenterology 10/09/23 documented as of this encounter
--- OUTSIDE RECORDS SUMMARY | 2024-10-01 05:51 | XMS_ITS | Encounter Summary ---
Author Organization [email or web address] [facility] Address [address] [place], [place] [address] [address] Phone Care Team Providers Care Film Editor Supervisor Name Role Phone Denise Rosales MD Primary Care Provider [phone] [phone] Encounter Details Date Type Department Care Team (Late st Contact Info) Description 05/26/2024 Treatment [employer] [facility] [address] [place] [address] Kalyn Canas APRN [address] [facility] 1 [place] [address] Social History Tobacco Use Types [...] HD - Lina Clinton - Chart #: [id number] Clinic: [address] [place] [address] Modality: IHD Method of Interaction: Face to [...] Access ID CVCatheter-Tunneled Chest Active (In Use) [id number] - Current access is functioning well. Most Recent In-center Antibiotic Order 03/05/2024 Cefazolin 3000 mg IV 1X Week x 3 Times, Clinic [id number]- Entered By Eugenie DUPREE HGB Transferrin Sat. [...] on filedocumented in this encounter Care Teams Film Editor Supervisor Relationship Specialty Start Date End Date Denise Rosales MD [address] [place] [address], [address] [place] [address] PCP - General Internal Medicine 08/19/23 documented as of this encounter
--- OUTSIDE RECORDS SUMMARY | 2024-10-01 05:51 | XMS_ITS | Clinical Summary ---
Author Organization [facility] Address [facility] [facility] [place] [address] Care Team Providers Care Telegraph Office Route Aide Name Role Phone Unavailable Primary Care Provider Unavailabl e Source Comments [facility],non-owned Affiliates and Associated Physician Practices is amultiple site organization consisting of ambulatory clinics and hospital sitesin [place], [place], [place] and [place]. This disclosure is being madepursuant to the Care Everywhere program and may not contain all information available regarding this patient. Last updated 18.[facility] Social History Tobacco Use Types Packs/Day Years [...]
--- OUTSIDE RECORDS SUMMARY | 2024-10-01 05:51 | XMS_ITS | Encounter Summary ---
Author Organization [employer] [facility] Address [address] [place], [place] [address] [address] Phone Care Team Providers Care Guest Service Aide Name Role Phone Denise Rosales MD Primary Care Provider +1 [phone] Encounter Details Date Type Department Care Team (Late st Contact Info) Description 08/09/2024 Treatment [place] [employer] [facility] [address] [place] [address] Kalyn Canas APRN [address] [facility] 1 [place] [address] Social History Tobacco Use Types [...] HD - Lina Clinton - Chart #: [id number] Clinic: [address] [place] [address] Modality: IHD Method of Interaction: Face to [...] on filedocumented in this encounter Care Teams Guest Service Aide Relationship Specialty Start Date End Date Denise Rosales MD [address] [place] [address], [address] [place] [address] PCP - General Internal Medicine 08/19/23 documented as of this encounter
--- OUTSIDE RECORDS SUMMARY | 2024-10-01 05:51 | XMS_ITS | Encounter Summary ---
Author Organization [employer] [facility] Address [address] [address] Phone Care Team Providers Care Electrical Development Engineer Name Role Phone Denise Rosales MD Primary Care Provider +1 [phone] Encounter Details Date Type Department Care Team (Late st Contact Info) Description 08/25/2024 Treatment [employer] [facility] [address] [place] [address] Kalyn Canas APRN [address] [facility] 1 [place] [address] Social History Tobacco Use Types [...] HD - Lina Clinton - Chart #: [id number] Clinic: [address] [place] [address] Modality: IHD Method of Interaction: Face to [...] on filedocumented in this encounter Care Teams Electrical Development Engineer Relationship Specialty Start Date End Date Denise Rosales MD [address] [facility], [address] [place] [address] PCP - General Internal Medicine 08/19/23 documented as of this encounter
--- OUTSIDE RECORDS SUMMARY | 2024-10-01 05:51 | XMS_ITS | Encounter Summary ---
Author Organization [employer] [facility] Address [address] [place], [place] [address] [address] Phone Care Team Providers Care Machine Silver Stripper Name Role Phone Denise Rosales MD Primary Care Provider +1 [phone] Encounter Details Date Type Department Care Team (Late st Contact Info) Description 04/28/2024 Treatment [employer] [facility] [address] [address] Kalyn Canas APRN [address] [facility] 1 [place] [address] Social History Tobacco Use Types [...] care for end stage renal disease. Attending Basket Grader: WARREN PENA MD Dialysis Location: [facility] Schedule: Shift: 1 OVERVIEW Patient is stable. Patient has no complaints. COMMENTS: The diabetic foot ulcers are better. She is to see Dr. Soto in [facility] in [place] for access placement. HOME MEDICATIONS Medications reviewed. [facility] Outpatient Medications Actos 15 mg tablet [...] by mouth every night as directed. Current [facility] Allergies Allergen: No Known Allergies [...] 97.4*F Current Dialysis Vitals BP Sit: 108/60 AP/EXTRUSION DIE REPAIR MANAGER: -- Pulse: 81 TREATMENT MEDICATIONS ORDERS Heparin [...] filedocumented in this encounter Care Teams Machine Silver Stripper Relationship Specialty Start Date End Date Denise Rosales MD [address] [facility], [address] [place] [address] PCP - General Internal Medicine 08/19/23 documented as of this encounter
--- OUTSIDE RECORDS SUMMARY | 2024-10-01 05:51 | XMS_ITS | Encounter Summary ---
Author Organization [employer] [facility] Address [address] [place] [address] Phone Care Team Providers Care Fish Culturist Name Role Phone Denise Rosales MD Primary Care Provider [phone] Encounter Details Date Type Department Care Team (Late st Contact Info) Description 07/23/[address] [facility] [address] [address] Ilan Pat MD [address] [address] Type 2 diabetes mellitus without [...] Lina Clinton, 1960, 64y, F Dialysis Location: [facility] Attending Bulk Receiver: Sony Marie Service Date: 07/23/2024 Service Provider: [...] failure documented in this encounter Care Teams Fish Culturist Relationship Specialty Start Date End Date Denise Rosales MD [address] [facility], [address] [place] [address] PCP - General Internal Medicine 08/19/23 documented as of this encounter
--- OUTSIDE RECORDS SUMMARY | 2024-10-01 05:51 | XMS_ITS | Encounter Summary ---
Author Organization [employer] [facility] Address [address] [place] [address] Phone Care Team Providers Care Gin Inspector Name Role Phone Denise Rosales MD Primary Care Provider [phone] [phone] Encounter Details Date Type Department Care Team (Late st Contact Info) Description 05/10/2024 Treatment [employer] [facility] [address] [address] Kalyn Canas APRN [address] [facility] 1 [place] [address] Social History Tobacco Use Types [...] - 05/10/2024 12:00 AM CDT Patient: Lina Clinton : 1960 Note Type: Dialysis Rounds-Basic Service Date: 05/10/2024 This patient was personally seen for a basic visit as part of routine monthly dialysis care for end stage renal disease. Attending Proofer: WARREN PENA MD Dialysis Location: [facility] Schedule: Shift: 1 OVERVIEW Patient is stable. Patient has no complaints. COMMENTS: The diabetic foot ulcers are better. She is to see Dr. Soto in [facility] in [place] for access placement. HOME MEDICATIONS Medications reviewed. [facility] Medications Actos 15 mg tablet [...] by mouth every night as directed. Current [facility] Allergies Allergen: No Known Allergies Allergen: [...] 97.1*F Current Dialysis Vitals BP Sit: 101/62 AP/[address] RECORDER: 164/133 Pulse: 79 TREATMENT MEDICATIONS ORDERS Heparin [...] on filedocumented in this encounter Care Teams Gin Inspector Relationship Specialty Start Date End Date Denise Rosales MD [address] [facility], [address] [place] [address] PCP - General Internal Medicine 08/19/23 documented as of this encounter
--- OUTSIDE RECORDS SUMMARY | 2024-10-01 05:51 | XMS_ITS ---
Author Organization [facility] Address [address] [place] [address] Care Team Providers Care Supervisor Beet End Name Role Phone Janusz Rosales MD Primary Care Provide r Sony Marie DO Unavailable [phone] Sylwia Hess NP Unavailable Benito Cho MD Unavailable [phone] Reyes Reyna MD Unavailable Dialysis Access Sites Type Status Location Placement [...] GLUCOSE DEVICE Routine 09/23/2024 2 :27 PM REMOTELY PILOTED VEHICLE CONTROLLER NM AN PROCEDURE PLACEHOLDER Routine 09/23/2024 1:15 PM REMOTELY PILOTED VEHICLE CONTROLLER NM AN ELECTIVE ENDOTRACHEAL AIRWAY Routine 09/23/2024 1:15 PM REMOTELY PILOTED VEHICLE CONTROLLER CREATION ARTERIOVENOUS FISTULA - ARM 09/23/2024 12:55 PM REMOTELY PILOTED VEHICLE CONTROLLER ESRD (end stage renal disease) on dialysis (HCC) POCT GLUCOSE DEVICE Routine 09/23/2024 1 1:34 AM REMOTELY PILOTED VEHICLE CONTROLLER EGFR STAT 09/23/2024 11:29 AM REMOTELY PILOTED VEHICLE CONTROLLER APTT STAT 09/23/2024 11:29 AM REMOTELY PILOTED VEHICLE CONTROLLER PROTIME-INR STAT 09/23/2024 11:29 AM REMOTELY PILOTED VEHICLE CONTROLLER CBC WITHOUT DIFFERENTIAL STAT 09/23/2024 11:29 AM REMOTELY PILOTED VEHICLE CONTROLLER BASIC METABOLIC PANEL STAT 09/23/2024 11:29 AM REMOTELY PILOTED VEHICLE CONTROLLER US VEIN MAPPING DUPLEX UPPER EXTREMITY BILATERAL Schedule Routine, Read Routine (OP Routine) 08/03/2024 10:11 AM REMOTELY PILOTED VEHICLE CONTROLLER Pre-operative exam ESRD (end stage renal disease) [...] 1 tablet (175 mcg total) by mouth plant production manager before breakfast Active rosuvastatin (CRESTOR) 40 mg [...] 11/18/2023 Assessment & Plan (08/03/2024 12:10 PM REMOTELY PILOTED VEHICLE CONTROLLER): Patient is right-hand dominant, requiring permanent access [...] drink = 0.6 oz pur e alcohol) [facility] Utilities Answer Date Recorded In the past 12 months has [employer], gas, oil, or water company threatened to [...] often do you attend chur ch or mandaen services? Never 03/01/2024 Do you belong to any clubs o r organizations such as denominational groups, unions, fraternal or athletic groups, or [...] place to sleep or slept in a fdc (including now)? No 11/18/2023 Housing Stability Vital Sign Answer Tae e Recorded In the last 12 months, was t here a time when you were not able to pay the mortgage or rent on time? No 03/01/2024 In the past 12 months, how m any times have you moved where you were living? 0 03/01/2024 At any time in the past 12 m [facility], were you homeless or living in a fdc (including now)? No 03/01/2024 Personal Safety Answer Date Recorded Have you ever been in or are you currently in a harmful physical or emotional relationship or is someone making you feel afraid or unsafe? Denies 09/23/2024 Comments No Sex and Gender Information Value Date Recorded Sex Assigned at Not on file Legal Sex Female 9:46 AM REMOTELY PILOTED VEHICLE CONTROLLER Gender Identity Not on file Sexual Orientation Not on file Last Filed Vital Signs Vital Sign Reading Time Taken Comments Blood Pressure 141/78 09/23/2024 3:40 PM REMOTELY PILOTED VEHICLE CONTROLLER Pulse 88 09/23/2024 3:40 PM REMOTELY PILOTED VEHICLE CONTROLLER Temperature 36.4 C (97.6 F) 09/23/2024 3:10 PM REMOTELY PILOTED VEHICLE CONTROLLER Respiratory Rate 18 09/23/2024 3:40 PM REMOTELY PILOTED VEHICLE CONTROLLER Oxygen Saturation 100% 09/23/2024 3:40 PM REMOTELY PILOTED VEHICLE CONTROLLER Inhaled Oxygen Concentration - - Weight 106.1 kg (234 lb) 09/23/2024 11:20 AM REMOTELY PILOTED VEHICLE CONTROLLER Height 170.2 cm (5' 7 ) 08/03/2024 10:07 AM REMOTELY PILOTED VEHICLE CONTROLLER Body Mass Index 36.65 08/03/2024 10:07 AM REMOTELY PILOTED VEHICLE CONTROLLER Results * POCT glucose (09/23/2024 2:27 PM REMOTELY PILOTED VEHICLE CONTROLLER) [facility] Glucose, POC 119 70 - 199 mg/dL Glucose comment 1 Use This Result PINO KNAPP Blood 09/23/2024 2:27 PM REMOTELY PILOTED VEHICLE CONTROLLER 09/23/2024 2:27 PM REMOTELY PILOTED VEHICLE CONTROLLER us Jose Rafael Huff MD LAB POCT ORDERABLES - DEVICE Fin al Result PINO RA [address] [facility] Department [place] [address] * NM AN ELECTIVE ENDOTRACHEAL AIRWAY, NM AN PROCEDURE PLACEHOLDER (09/23/2024 1:15 PM REMOTELY PILOTED VEHICLE CONTROLLER) Narrative Sony Cheung CRNA - 09/23/2024 1:15 PM REMOTELY PILOTED VEHICLE CONTROLLER Sony Cheung CRNA 09/23/2024 1:16 PM Airway Patient location: OR Urgency: elective Indications for airway management: anesthesia Difficult airway: no Staff: Placed by: MATERIAL ENGINEER: Sony Cheung CRNA Emergent airway documentation: Risks [...] Result * POCT glucose (09/23/2024 11:34 AM REMOTELY PILOTED VEHICLE CONTROLLER) Pathologist [facility] Glucose, POC 109 70 - 199 mg/dL Blood 09/23/2024 11:3 4 AM REMOTELY PILOTED VEHICLE CONTROLLER 09/23/2024 11:34 AM REMOTELY PILOTED VEHICLE CONTROLLER Jose Rafael Huff MD LAB POCT ORDERABLES - DEVICE Fin al Result PINO [address] [facility] Department [place] [address] * (ABNORMAL) eGFR (09/23/2024 11:29 AM REMOTELY PILOTED VEHICLE CONTROLLER) Pathologist [facility] eGFR 10(L) >=60 mL/min/1. 73 m2 Comment: [...] reviewed 2021. Blood 09/23/2024 11:2 9 AM REMOTELY PILOTED VEHICLE CONTROLLER 09/23/2024 11:35 AM REMOTELY PILOTED VEHICLE CONTROLLER Jose Rafael Huff MD LAB BLOOD ORDERABLES Final Resul t Performing Organization Address [facility] de Phone Number [address] [place] [address] * aPTT (09/23/2024 11:29 AM REMOTELY PILOTED VEHICLE CONTROLLER) aPTT 28 22 - 37 sec Comment: Interpretive data aPTT test has not been evaluated for monitoring heparin therapy. The anti-Xa is the preferred test. Current interpretive data was last revised on 2019. Blood 09/23/2024 11:2 9 AM REMOTELY PILOTED VEHICLE CONTROLLER 09/23/2024 11:35 AM REMOTELY PILOTED VEHICLE CONTROLLER Jose Rafael Huff MD LAB BLOOD ORDERABLES Final Resul t Performing Organization Address City/[facility] Co de Phone Number [address] [place] [address] * Protime-INR (09/23/2024 11:29 AM REMOTELY PILOTED VEHICLE CONTROLLER) PT 13.9 12.0 - 14.6 sec INR 1.0 0.9 - 1.2 [facility] Comment: Ref Range High Interpretive data Oral anticoagulant therapeutic ranges: Venous thromboembolism prophylaxis or treatment: 2.0-3.0 CARDIOLOGY Standard range: 2.0-3.0 High-intensity range: 2.5-3.5 Refer to indication-specific guidelines for appropriate target ranges for prosthetic heart valve replacement. Current interpretive data was last revised on 2019. Blood 09/23/2024 11:2 9 AM REMOTELY PILOTED VEHICLE CONTROLLER 09/23/2024 11:35 AM REMOTELY PILOTED VEHICLE CONTROLLER Jose Rafael Huff MD LAB BLOOD ORDERABLES Final Resul t [facility] [address] [facility] Department [place] [address] * (ABNORMAL) CBC without differential (09/23/2024 11:29 AM REMOTELY PILOTED VEHICLE CONTROLLER) WBC 7.0 3.8 - 9.9 K/cumm Hgb 9.9(L) 11.9 - 15.5 g/dL [facility] Hct 30.7(L) 35.6 - 45.5 % [facility] Plt 239 150 - 400 K/cumm [facility] MPV 10.2 9.1 - 12.3 fL [facility] RBC 3.27(L) 3.90 - 5.20 M/cumm [facility] MCV 93.9 81.3 - 96.4 fL [facility] MCH 30.3 27.1 - 33.3 pg [facility] MCHC 32.2(L) 32.3 - 35.7 g/dL [facility] RDW CV 14.3 11.1 - 14.9 % [facility] RDW SD 48.2(H) 35.7 - 48.1 fL [facility] NRBC abs 0.00 0.00 - 0.01 K/cumm [facility] Blood 09/23/2024 11:2 9 AM REMOTELY PILOTED VEHICLE CONTROLLER 09/23/2024 11:35 AM REMOTELY PILOTED VEHICLE CONTROLLER Jose Rafael Huff MD LAB BLOOD ORDERABLES Final Resul t Performing Organization Address [facility]/ZIP Co de Phone Number PINO [address] [facility] Department [place] [address] * (ABNORMAL) Basic metabolic panel (09/23/2024 11:29 AM REMOTELY PILOTED VEHICLE CONTROLLER) Sodium 141 135 - 145 mmol/L Potassium, pl 3.6 3.3 - 4.9 mmol/L [facility] Chloride 100 97 - 110 mmol/L [facility] CO2 29 22 - 32 mmol/L [facility] Anion gap 12 2 - 15 mmol/L [facility] BUN 39(H) 6 - 25 mg/dL [facility] Creatinine 4.80(H) 0.60 - 1.10 mg/dL [facility] Glucose 128 70 - 199 mg/dL [facility] Comment: Interpretive Data Fasting glucose >/= [...] 2022. Calcium 9.3 8.5 - 10.3 mg/dL [facility] Blood 09/23/2024 11:2 9 AM REMOTELY PILOTED VEHICLE CONTROLLER 09/23/2024 11:35 AM REMOTELY PILOTED VEHICLE CONTROLLER us Jose Rafael Huff MD LAB BLOOD ORDERABLES Final Resul t Performing Organization Address [facility]/ZIP Co de Phone Number PINO [address] [facility] Department [place] [address] * US Vein Mapping Duplex Upper Extremity Bilateral (08/03/2024 10:11 AM REMOTELY PILOTED VEHICLE CONTROLLER) Anatomical Region Laterality Modality Vascular Bilateral Ultrasound 08/03/2024 Narrative 08/06/2024 9:06 AM REMOTELY PILOTED VEHICLE CONTROLLER [employer] Job ID: [id number] [employer] Document ID: [id number] Dictated date/time: [id number] BILATERAL UPPER EXTREMITY VEIN MAPPING. REASON FOR [...] veins are patent. Job ID/Internal Job ID: [id number] Jaren Huff MD [facility] US PROCEDURES Final Re sult * Hepatitis panel, acute Blood (03/01/2024 7:06 AM CDT) Hep A IgM Nonreactive Nonreactive Comment: Interpretive Data: If Hep A IgM Ab is reported as Equivocal, a new sample should be drawn in two weeks for testing. Current interpretive data was last revised on 19. Hep B core IgM Nonreactive Nonreactive [facility] Comment: Interpretive Data If HepB Core IgM Ab is reported as Equivocal, a new sample should be drawn in two weeks for testing. Current interpretive data was last revised on 19. Hep C Ab Nonreactive Nonreactive [facility] Comment: Interpretive Data Nonreactive: Antibodies to [...] last revised on 2019. HepBsAg Nonreactive Nonreactive [facility] Blood 03/01/2024 7:06 AM CDT 03/01/2024 7:26 AM CDT Ilan Pat MD LAB MICROBIOLOGY - GENERAL ORDERABLES Final Result Performing Organization Address [facility] Co de Phone Number PINO [address] [facility] [place] [address] * (ABNORMAL) Hemoglobin A1c (03/01/2024 7:06 AM CDT) Hgb A1C 6.9(H) 4.0 - 5.6 % Estimated Average Glucose 151 mg/dL [facility] Comment: The ADA recommends reporting an estimated Average Glucose (eAG) with all Hemoglobin A1c results using the equation derived from a study of 507 normal and diabetic adults. Minority populations were underrepresented and children were not included. (Diabetes Care 31:7453-6978, 2008). The eAG is not equivalent to a fasting glucose. Blood 03/01/2024 7:06 AM CDT 03/01/2024 7:31 AM CDT Lance Foreman MD LAB BLOOD ORDERABLES Final Resu lt Performing Organization Address [facility] Co de Phone Number [facility]O [facility]Z [address] [facility] [place] [address] * Colonoscopy (10/07/2023 2:06 PM CDT) Anatomical Region Laterality Modality Other Narrative Procedure Note Reyes Reyna MD - 10/07/2023 2:06 PM CDT - [facility] Endoscopy Lab Patient Name: Lina Clinton Procedure Date: 10/07/2023 2:06 PM Date of : 1960 Admit Type: Inpatient Age: 63 Gender: Female Note Status: Finalized Attending MD: Reyes Reyna M.D. Procedure Date: 10/07/2023 Procedure: Colonoscopy Indications: Iron deficiency anemia Providers: Reyes Reyna M.D., ZAYDA Cerda (Anesthesia Staff), Holly Moncada RN, Brant, Clinical Rehabilitation Aide Referring MD: Janusz Rosales M.D. Medicines: Monitored [...] by the physician, the nurse and the customer engagement specialist in the procedure room. Mental Status Examination: [...] for surveillance. Procedure Code(s): --- Professional --- 85151, Colonoscopy, flexible; with removal of tumor(s), polyp(s), or other lesion(s) by snare technique 62108, 59, Colonoscopy, flexible; with biopsy,single or multiple Diagnosis Code(s): --- Professional --- D12.0, Benign neoplasm of cecum D50.9, Iron deficiency anemia, unspecified CPT copyright 2020 [employer]. All rights reserved. The codes documented in this report are preliminary and upon automotive repair technician reviewmay be revised to meet current compliance requirements. Electronically signed by Reyes Reyna M.D. Reyes Reyna M.D. 10/07/2023 2:36:38 PM Number of Addenda: 0 Note Initiated On: 10/07/2023 2:06 PM us Reyes Reyna MD ENDOSCOPY PROCEDURES Fi nal Result from Last 3 Months or Most Recently Relevant to Health Maintenance
--- OUTSIDE RECORDS SUMMARY | 2024-10-01 05:51 | XMS_ITS | Encounter Summary ---
Author Organization [employer] [facility] Address [address] [place], [place] [address] [address] Phone Care Team Providers Care Staff Development Coordinator Name Role Phone Denise Rosales MD Primary Care Provider [phone] Encounter Details Date Type Department Care Team (Late st Contact Info) Description 06/11/2024 Treatment [employer] [facility] [address] [address] Isi Canas APRN [address] [facility] 1 [place] [address] Social History Tobacco Use Types [...] care for end stage renal disease. Attending Sawmill Supervisor: WARREN PENA MD Dialysis Location: [facility] Schedule: Shift: 1 OVERVIEW Patient is stable. COMMENTS: The diabetic foot ulcers are better. She is to see Dr. Soto in [facility] in [place] for access placement. HOME MEDICATIONS Medications reviewed. COMMENTS: Needs to take her binder Current [facility] Outpatient Medications Actos 15 mg tablet [...] by mouth every night as directed. Current [facility] Allergies Allergen: No Known Allergies Allergen: [...] 98.1*F Current Dialysis Vitals BP Sit: 100/57 AP/RIVER TRANSPORTATION WORKER: 169/142 Pulse: 83 TREATMENT MEDICATIONS ORDERS Heparin [...] on filedocumented in this encounter Care Teams Staff Development Coordinator Relationship Specialty Start Date End Date Denise Rosales MD [address] [facility], [address] [place] [address] PCP - General Internal Medicine 08/19/23 documented as of this encounter
--- OUTSIDE RECORDS SUMMARY | 2024-10-01 05:51 | XMS_ITS | Encounter Summary ---
Author Organization [employer] [facility] Address [address] [place], [place] [address] [address] Phone Care Team Providers Care Health Inspector Name Role Phone Denise Rosales MD Primary Care Provider [phone] [phone] Encounter Details Date Type Department Care Team (Late st Contact Info) Description 04/14/2024 Treatment [employer] [facility] [address] [address] Kalyn Canas APRN [address] [facility] 1 [place] [address] Social History Tobacco Use Types [...] care for end stage renal disease. Attending Wreath And Garland Maker Hand: WARREN PENA MD Dialysis Location: [facility] DIALYSIS Schedule: Shift: 1 OVERVIEW Patient is stable. Patient has no complaints. COMMENTS: The diabetic foot ulcers are better. HOME MEDICATIONS [facility] Medic[facility] Actos 15 mg tablet Take [...] by mouth every night as directed. [facility] Allergies Allergen: No Known Allergies Allergen: No [...] 98.0*F Current Dialysis Vitals BP Sit: 104/65 AP/YOUTH CARE SPECIALIST: -- Pulse: 81 TREATMENT MEDICATIONS ORDERS Heparin [...] on filedocumented in this encounter Care Teams Health Inspector Relationship Specialty Start Date End Date Denise Rosales MD [address] [facility], [address] [place] [address] PCP - General Internal Medicine 08/19/23 documented as of this encounter
--- OUTSIDE RECORDS SUMMARY | 2024-10-01 05:51 | XMS_ITS | Patient Health Summary ---
Author Organization [facility] Address [facility] [place] [address] Care Team Providers Care Chalk Extruding Machine Operator Name Role Phone Unavailable Primary Care Provider Unavailabl e Note from [facility],non-owned Affiliates and Associated Physician Practices is amultiple site organization consisting of ambulatory clinics and hospital sitesin [place], [place], [place] and [place]. This disclosure is being madepursuant to the Care Everywhere program and may not contain all information available regarding this patient. Last updated 18.[facility] Social History Tobacco Use Types Packs/Day Years Used Date Smoking Tobacco: Never Assessed Sex and Gender Information Value Date Recorded Sex Assigned at Not on file Gender Identity Not on file Sexual Orientation Not on file Procedures * DERMATOPATHOLOGY(Performed 11/13/2010) Results * PATHOLOGY TISSUE FOR DERMATOLOGY (11/13/2010 12:00 AM CDT) Result CASE: [id number] PATIENT: LINA CLINTON PATHOLOGIC DIAGNOSIS: Left forehead: LARGE CELL ACANTHOMA CLINICAL DATA: R/O lentigo vs large cell acanthoma. GROSS DESCRIPTION: Received is one formalin filled container labeled with the patient's name and designated left forehead. The specimen consists of a punch biopsy measuring [id number]. Jar 0. MICROSCOPIC DESCRIPTION: Sections show compact orthokeratosis with acanthosis composed of slightly larger keratinocytes with basal layer hyperpigmentatio n. Final Diagnosis performed by Jami Coleman M.D. Electronically signed 11/15/2010 5:47:57PM [facility] DERMATOLOGY LAB Comment: Performed at: Dermatopathology Laboratory [facility] - Department of Dermatology [address] [place] [address], [address] [place] [address] Phone number: [phone] Toll Free: [phone] FAX: [phone] 11/13/2010 11/14/2010 Joshua Bender MD LAB - PATHOLOGY/CYTO LOGY ORDERABLES Performing Organization Address City/State/[facility] Co mo Phone Number U DERMATOLOGY LAB [address] [place] [address]. 5th Floor Lab [address] [phone]
--- OUTSIDE RECORDS SUMMARY | 2024-10-01 05:51 | XMS_ITS | Encounter Summary ---
Author Organization [employer] [facility] Address [address] [place], [place] [address] [address] Phone Care Team Providers Care Wood Router Name Role Phone Denise Rosales MD Primary Care Provider [phone] [phone] Encounter Details Date Type Department Care Team (Late st Contact Info) Description 08/04/2024 Treatment [employer] [facility] [address] [address] Isi Canas APRN [address] [facility] 1 [place] [address] Social History Tobacco Use Types [...] care for end stage renal disease. Attending Register Of Deeds: WARREN PENA MD Dialysis Location: [facility] Schedule: Shift: 1 OVERVIEW Patient is stable. Patient has no complaints. COMMENTS: The diabetic foot ulcers are better. She is to see Dr. Soto in [facility] in [place] for access placement. HOME MEDICATIONS COMMENTS: Needs to take her binder Current [facility] Outpatient Medications B-complex with vitamin C tablet [...] three times a day with meals. Current [facility] Allergies Allergen: No Known Allergies Allergen: No [...] 97.0*F Current Dialysis Vitals BP Sit: 101/60 AP/SENIOR MAINTENANCE MACHINIST: 154/127 Pulse: 93 TREATMENT MEDICATIONS ORDERS Heparin [...] on filedocumented in this encounter Care Teams Wood Router Relationship Specialty Start Date End Date Denise Rosales MD [address] [facility], [address] [place] [address] PCP - General Internal Medicine 08/19/23 documented as of this encounter
--- OUTSIDE RECORDS SUMMARY | 2024-10-01 05:51 | XMS_ITS | Encounter Summary ---
Author Organization [employer] [facility] Address [address] [place], [place] [address], [place] [address] Phone Care Team Providers Care Group Leader Wafer Polishing Name Role Phone Denise Rosales MD Primary Care Provider [phone] [phone] Encounter Details Date Type Department Care Team (Late st Contact Info) Description 06/28/2024 Treatment [employer] [facility] [address] [place] [address] Isi Canas APRN [address] [facility] 1 [place] [address] Social History Tobacco Use Types [...] care for end stage renal disease. Attending Investment Trader: WARREN PENA MD Dialysis Location: [facility] DIAL[facility]IS Schedule: Shift: 1 OVERVIEW Patient is stable. COMMENTS: The diabetic foot ulcers are better. She is to see Dr. Soto in [facility] in [place] for access placement. HOME MEDICATIONS Medications reviewed. COMMENTS: Needs to take her binder Current [facility] Outpatient Medications B-complex with vitamin C [...] three times a day with meals. Current [facility] Allergies Allergen: No Known Allergies Allergen: [...] 98.2*F Current Dialysis Vitals BP Sit: 103/58 AP/BELL VALET: 149/108 Pulse: 77 TREATMENT MEDICATIONS ORDERS Heparin [...] filedocumented in this encounter Care Teams Group Leader Wafer Polishing Relationship Specialty Start Date End Date Denise Rosales MD [address] [facility], [address] [place] [address] PCP - General Internal Medicine 08/19/23 documented as of this encounter
--- OUTSIDE RECORDS SUMMARY | 2024-10-01 05:51 | XMS_ITS | Encounter Summary ---
Author Organization [employer] [facility] Address [address] [address] Phone Care Team Providers Care Air Compressor Engineer Name Role Phone Denise Rosales MD Primary Care Provider [phone] [phone] Encounter Details Date Type Department Care Team (Late st Contact Info) Description 08/11/2024 Treatment [employer] [employer] [facility] [address] [address] Sony Marie, DO [address] [facility] 1 [place] [address] Social History Tobacco Use Types [...] the dialysis unit medical record system. Attending Dispatch Lead: SONY MARIE Dialysis Location: [facility] D[facility] Schedule: M-W-F Shift: 1 DIALYSIS PRESCRIPTION [...] 97.0*F Current Dialysis Vitals BP Sit: 158/82 AP/SOCIAL MEDIA EXECUTIVE: 155/98 Pulse: 89 ADDITIONAL COMMENT COMMENTS: ASSESSMENT: [...] creation: A) cardiology evaluation on 08/26 - [facility] B) Surgery referral at [facility] - Dr. Escobar - not interested in PD at this time. Signed by: SONY MARIE MD on 08/11/2024 at 09:48:18 AM Transcribed by: SONY MARIE MD on 08/11/2024 at 09:48:18 AM documented in this encounter Plan of Treatment Not on file documented as of this encounter Visit Diagnoses Not on filedocumented in this encounter Care Teams Air Compressor Engineer Relationship Specialty Start Date End Date Denise Rosales MD [address] [facility], [address] [place] [address] PCP - General Internal Medicine 08/19/23 documented as of this encounter
--- OUTSIDE RECORDS SUMMARY | 2024-10-01 05:51 | XMS_ITS | Encounter Summary ---
Author Organization [employer] [facility] Address [address] [place], [place] [address] [address] Phone Care Team Providers Care Swimming Pool Servicer Name Role Phone Denise Rosales MD Primary Care Provider [phone] [phone] Encounter Details Date Type Department Care Team (Late st Contact Info) Description 04/09/2024 Treatment [employer] [facility] [address] [place] [address] Kalyn Canas APRN [address] [facility] 1 [place] [address] Social History Tobacco Use Types [...] care for end stage renal disease. Attending Glove Sewer: WARREN PENA Dialysis Location: [facility] D[facility] Schedule: Shift: 1 OVERVIEW Patient is stable. COMMENTS: The diabetic foot ulcers are better. HOME MEDICATIONS [facility] Actos 15 mg tablet Take [...] 97.4*F Current Dialysis Vitals BP Sit: 113/64 AP/PROCESS CONTROL TECHNICIAN: 152/128 Pulse: 76 TREATMENT MEDICATIONS ORDERS Heparin [...] on filedocumented in this encounter Care Teams Swimming Pool Servicer Relationship Specialty Start Date End Date Denise Rosales MD [address] [facility], [address] [place] [address] PCP - General Internal Medicine 08/19/23 documented as of this encounter
--- OUTSIDE RECORDS SUMMARY | 2024-10-01 05:51 | XMS_ITS | Referral Summary ---
Author Organization [facility] Address [address] [place] [address] Care Team Providers Care [facility] Attendant Name Role Phone Janusz Rosales MD Primary Care Provide r Sony Marie DO Unavailable [phone] Sylwia Hess NP Unavailable Benito Cho MD Unavailable [phone] Reyes Reyna MD Unavailable Encounters Date Type Department Care Team Description 09/23/2024 1:00 PM SHEET METAL SUPERINTENDENT - 09/23/2024 3:20 PM SHEET METAL SUPERINTENDENT Surgery [facility] OR [address] [place] [address] Jose Rafael Huff MD CREATION LEFT BRACHIAL CEPHALIC ARTERIOVENOUS FISTULA 09/23/2024 12:54 PM SHEET METAL SUPERINTENDENT Anesthesia Event [facility] OR [address] [place] [address] Kerri Mullins MD Taylor-White, Carlotta A., NP 09/23/2024 10:34 AM SHEET METAL SUPERINTENDENT - 09/23/2024 4:20 PM SHEET METAL SUPERINTENDENT Hospital Encounter [facility] OR [address] [place] [address] Jose Rafael Huff MD ESRD (end stage renal disease) (HCC) (Primary Dx) Discharge Disposition: Discharge to home or self care 09/17/2024 Telephone [facility] at [address] [address] Jose Rafael Huff MD 09/10/2024 Telephone [facility] at [address] [address] Jose Rafael Huff MD Schedule LUE AVF vs AVG Creation (Cardiac clearance received from Dr. Ojeda on 09/09/24) 09/07/2024 10:00 AM SHEET METAL SUPERINTENDENT Office Visit [facility] Medical [facility] Cardiology [address] [place] [address] [place] [address] [phone] Bob Benson MD Pre-operative cardiovascular examination (Primary Dx) 08/04/2024 Telephone [facility] Cardiology [address] [place] [address] [phone] Lamin Ojeda MD Cardiac clearance LUE AV Fistual graft creation 08/03/2024 9:16 AM SHEET METAL SUPERINTENDENT - 08/03/2024 11:59 PM SHEET METAL SUPERINTENDENT Hospital Encounter [facility] at [address] [address] ESRD (end stage renal disease) on dialysis (HCC) (Primary Dx); Chronic heart failure with preserved ejection fraction (HCC); Mixed hyperlipidemia; Primary hypertension Discharge Disposition: Discharge to home or self care 08/03/2024 9:16 AM SHEET METAL SUPERINTENDENT - 08/03/2024 11:59 PM SHEET METAL SUPERINTENDENT Hospital Encounter [facility] [address] [place] [address] [place] [address] Pre-operative exam; ESRD (end stage renal disease) on dialysis (HCC) Discharge Disposition: Discharge to home or self care from Last 3 Months Allergies No known active allergies Medications blood glucose diagnostic (ENTEROME BioscienceUCH ULTRA TEST) strip Take as directed; tests 1 x daily 100 strip 3 7 Active ergocalciferol (VITAMIN D) 50,000 unit capsule Take 1 capsule (50,000 Units total) by mouth once a week Friday Active levothyroxine (SYNTHROID) 175 mcg tablet Take 1 tablet (175 mcg total) by mouth astrophysics professor before breakfast Active rosuvastatin (CRESTOR) 40 mg [...] 11/18/2023 Assessment & Plan (08/03/2024 12:10 PM SHEET METAL SUPERINTENDENT): Patient is right-hand dominant, requiring permanent access [...] drink = 0.6 oz pur e alcohol) [facility] Utilities Answer Date Recorded In the past [...] often do you attend chur ch or worship services? Never 03/01/2024 Do you belong to any clubs o r organizations such as lutheran groups, unions, fraternal or athletic groups, or [...] any time in the past [facility], were you homeless or living in [...] on file Legal Sex Female 9:46 AM SHEET METAL SUPERINTENDENT Gender Identity Not on file Sexual Orientation Not on file Last Filed Vital Signs Vital Sign Reading Time Taken Comments Blood Pressure 141/78 09/23/2024 3:40 PM SHEET METAL SUPERINTENDENT Pulse 88 09/23/2024 3:40 PM SHEET METAL SUPERINTENDENT Temperature 36.4 C (97.6 F) 09/23/2024 3:10 PM SHEET METAL SUPERINTENDENT Respiratory Rate 18 09/23/2024 3:40 PM SHEET METAL SUPERINTENDENT Oxygen Saturation 100% 09/23/2024 3:40 PM SHEET METAL SUPERINTENDENT Inhaled Oxygen Concentration - - Weight 106.1 kg (234 lb) 09/23/2024 11:20 AM SHEET METAL SUPERINTENDENT Height 170.2 cm (5' 7 ) 08/03/2024 10:07 AM SHEET METAL SUPERINTENDENT Body Mass Index 36.65 08/03/2024 10:07 AM SHEET METAL SUPERINTENDENT Plan of Treatment Not on file Medical Devices Implanted Type Area Clinical Application Specialist Device Identifier Shelf Expiration Date Model / Serial / Lot Videolla Duramax Vascpak Safesheath D-Pro 15.5fr 28cm Kit Catheter [id number] Internal Jugular Videolla [id number] 03/20/2026 [id number] / / [id number] [employer] [facility] Duramax Vascpak Safesheath D-Pro 15.5fr 28cm Kit Catheter [id number] - [id number] Implanted:Qty: 1 on 09/25/2023 by Jerel Correa MD at [facility] [email or web address] 11/17/2025 [id number] / / [id number] Procedures Procedure Name Priority Date/Time Associated Diagnosis Comments POCT GLUCOSE DEVICE Routine 09/23/2024 2 :27 PM SHEET METAL SUPERINTENDENT NM AN PROCEDURE PLACEHOLDER Routine 09/23/2024 1:15 PM SHEET METAL SUPERINTENDENT NM AN ELECTIVE ENDOTRACHEAL AIRWAY Routine 09/23/2024 1:15 PM SHEET METAL SUPERINTENDENT CREATION ARTERIOVENOUS FISTULA - ARM 09/23/2024 12:55 PM SHEET METAL SUPERINTENDENT ESRD (end stage renal disease) on dialysis (HCC) POCT GLUCOSE DEVICE Routine 09/23/2024 1 1:34 AM SHEET METAL SUPERINTENDENT EGFR STAT 09/23/2024 11:29 AM SHEET METAL SUPERINTENDENT APTT STAT 09/23/2024 11:29 AM SHEET METAL SUPERINTENDENT PROTIME-INR STAT 09/23/2024 11:29 AM SHEET METAL SUPERINTENDENT CBC WITHOUT DIFFERENTIAL STAT 09/23/2024 11:29 AM SHEET METAL SUPERINTENDENT BASIC METABOLIC PANEL STAT 09/23/2024 11:29 AM SHEET METAL SUPERINTENDENT US VEIN MAPPING DUPLEX UPPER EXTREMITY BILATERAL Schedule Routine, Read Routine (OP Routine) 08/03/2024 10:11 AM SHEET METAL SUPERINTENDENT Pre-operative exam ESRD (end stage renal disease) on dialysis (HCC) HEPATITIS PANEL, ACUTE STAT 03/01/2024 7:06 AM CDT HEMOGLOBIN A1C Routine 03/01/2024 7:06 AM CDT COLONOSCOPY 10/07/2023 2:06 PM CDT from Last 3 Months or Most Recently Relevant to Health Maintenance Results * POCT glucose (09/23/2024 2:27 PM SHEET METAL SUPERINTENDENT) Glucose, POC 119 70 - 199 mg/dL Glucose comment 1 Use This Result ISABELBLANCA KNAPP Blood 09/23/2024 2:27 PM SHEET METAL SUPERINTENDENT 09/23/2024 2:27 PM SHEET METAL SUPERINTENDENT us Jose Rafael Huff MD LAB POCT ORDERABLES - DEVICE Fin al Result PINO KNAPP [address] [facility] Department [place] [address] * NM AN ELECTIVE ENDOTRACHEAL AIRWAY, NM AN PROCEDURE PLACEHOLDER (09/23/2024 1:15 PM SHEET METAL SUPERINTENDENT) Narrative Sony Cheung CRNA - 09/23/2024 1:15 PM SHEET METAL SUPERINTENDENT Sony Cheung CRNA 09/23/2024 1:16 PM Airway Patient location: OR Urgency: elective Indications for airway management: anesthesia Difficult airway: no Staff: Placed by: SIDING MECHANIC: Sony Cheung CRNA Emergent airway documentation: Risks [...] Result * POCT glucose (09/23/2024 11:34 AM SHEET METAL SUPERINTENDENT) Glucose, POC 109 70 - 199 mg/dL Blood 09/23/2024 11:3 4 AM SHEET METAL SUPERINTENDENT 09/23/2024 11:34 AM SHEET METAL SUPERINTENDENT Jose Rafael Huff MD LAB POCT ORDERABLES - DEVICE Fin al Result Performing Organization Address [facility] Co de Phone Number PINO [address] [place] [address] * (ABNORMAL) eGFR (09/23/2024 11:29 AM SHEET METAL SUPERINTENDENT) Pathologist [facility] eGFR 10(L) >=60 mL/min/1. 73 m2 Comment: [...] reviewed 2021. Blood 09/23/2024 11:2 9 AM SHEET METAL SUPERINTENDENT 09/23/2024 11:35 AM SHEET METAL SUPERINTENDENT Jose Rafael Huff MD LAB BLOOD ORDERABLES Final Resul t Performing Organization Address [facility]/ZIP Co de Phone Number ISABEL[address] [place] [address] * aPTT (09/23/2024 11:29 AM SHEET METAL SUPERINTENDENT) Pathologist [facility] aPTT 28 22 - 37 sec Comment: Interpretive data aPTT test has not been evaluated for monitoring heparin therapy. The anti-Xa is the preferred test. Current interpretive data was last revised on 2019. Blood 09/23/2024 11:2 9 AM SHEET METAL SUPERINTENDENT 09/23/2024 11:35 AM SHEET METAL SUPERINTENDENT Jose Rafael Huff MD LAB BLOOD ORDERABLES Final Resul t Performing Organization Address [facility] de Phone Number [address] [address] * Protime-INR (09/23/2024 11:29 AM SHEET METAL SUPERINTENDENT) [facility] PT 13.9 12.0 - 14.6 sec INR 1.0 0.9 - 1.2 PINO Comment: Ref Range High Interpretive data Oral anticoagulant therapeutic ranges: Venous thromboembolism prophylaxis or treatment: 2.0-3.0 CARDIOLOGY Standard range: 2.0-3.0 High-intensity range: 2.5-3.5 Refer to indication-specific guidelines for appropriate target ranges for prosthetic heart valve replacement. Current interpretive data was last revised on 2019. Blood 09/23/2024 11:2 9 AM SHEET METAL SUPERINTENDENT 09/23/2024 11:35 AM SHEET METAL SUPERINTENDENT Jose Rafael Huff MD LAB BLOOD ORDERABLES Final Resul t Performing Organization Address [facility] de Phone Number [place] [id number] [facility] [place] [address] * (ABNORMAL) CBC without differential (09/23/2024 11:29 AM SHEET METAL SUPERINTENDENT) Pathologist [facility] WBC 7.0 3.8 - 9.9 K/cumm Hgb 9.9(L) 11.9 - 15.5 g/dL [facility] Hct 30.7(L) 35.6 - 45.5 % [facility] Plt 239 150 - 400 K/cumm [facility] MPV 10.2 9.1 - 12.3 fL [facility] RBC 3.27(L) 3.90 - 5.20 M/cumm [facility] MCV 93.9 81.3 - 96.4 fL [facility] MCH 30.3 27.1 - 33.3 pg [facility] MCHC 32.2(L) 32.3 - 35.7 g/dL [facility] RDW CV 14.3 11.1 - 14.9 % [facility] RDW SD 48.2(H) 35.7 - 48.1 fL [facility] NRBC abs 0.00 0.00 - 0.01 K/cumm [facility] Blood 09/23/2024 11:2 9 AM SHEET METAL SUPERINTENDENT 09/23/2024 11:35 AM SHEET METAL SUPERINTENDENT Jose Rafael Huff MD LAB BLOOD ORDERABLES Final Resul t [facility] [address] [facility] [place] [address] * (ABNORMAL) Basic metabolic panel (09/23/2024 11:29 AM SHEET METAL SUPERINTENDENT) Sodium 141 135 - 145 mmol/L Potassium, pl 3.6 3.3 - 4.9 mmol/L [facility] Chloride 100 97 - 110 mmol/L [facility] CO2 29 22 - 32 mmol/L [facility] Anion gap 12 2 - 15 mmol/L [facility] BUN 39(H) 6 - 25 mg/dL [facility] Creatinine 4.80(H) 0.60 - 1.10 mg/dL [facility] Glucose 128 70 - 199 mg/dL [facility] Comment: Interpretive Data Fasting glucose [...] PINO KNAPP Blood 09/23/2024 11:2 9 AM SHEET METAL SUPERINTENDENT 09/23/2024 11:35 AM SHEET METAL SUPERINTENDENT Jose Rafael Huff MD LAB BLOOD ORDERABLES Final Resul t PINO [address] [facility] [place] [address] * US Vein Mapping Duplex Upper Extremity Bilateral (08/03/2024 10:11 AM SHEET METAL SUPERINTENDENT) Anatomical Region Laterality Modality Vascular Bilateral Ultrasound 08/03/2024 Narrative 08/06/2024 9:06 AM SHEET METAL SUPERINTENDENT Deed Job ID: [id number] Deed Document ID: [id number] Dictated date/time: [id number] BILATERAL UPPER EXTREMITY VEIN MAPPING. REASON FOR [...] veins are patent. Job ID/Internal Job ID: [id number] Jaren Huff MD IMG US PROCEDURES Final Re sult * Hepatitis panel, acute Blood (03/01/2024 7:06 AM CDT) Hep A IgM Nonreactive Nonreactive Comment: Interpretive Data: If Hep A IgM Ab is reported as Equivocal, a new sample should be drawn in two weeks for testing. Current interpretive data was last revised on 19. Hep B core IgM Nonreactive Nonreactive [facility] Comment: Interpretive Data If HepB Core IgM Ab is reported as Equivocal, a new sample should be drawn in two weeks for testing. Current interpretive data was last revised on 19. Hep C Ab Nonreactive Nonreactive [facility] Comment: Interpretive Data Nonreactive: Antibodies to HCV [...] last revised on 2019. HepBsAg Nonreactive Nonreactive [facility] Blood 03/01/2024 7:06 AM CDT 03/01/2024 7:26 AM CDT Ilan Pat MD LAB MICROBIOLOGY - GENERAL ORDERABLES Final Result Performing Organization Address [facility] de Phone Number [facility] [address] [place] [address] * (ABNORMAL) Hemoglobin A1c (03/01/2024 7:06 AM CDT) Hgb A1C 6.9(H) 4.0 - 5.6 % Estimated Average Glucose 151 mg/dL [facility] Comment: The ADA recommends reporting an estimated Average Glucose (eAG) with all Hemoglobin A1c results using the equation derived from a study of 507 normal and diabetic adults. Minority populations were underrepresented and children were not included. (Diabetes Care 31:8586-7315, 2008). The eAG is not equivalent to a fasting glucose. Blood 03/01/2024 7:06 AM CDT 03/01/2024 7:31 AM CDT Lance Foreman MD LAB BLOOD ORDERABLES Final Resu lt Performing Organization Address City/[facility] Co de Phone Number [facility] [address] [employer] [place] [address] * Colonoscopy (10/07/2023 2:06 PM CDT) Anatomical Region Laterality Modality Other Narrative Procedure Note Reyes Reyna MD - 10/07/2023 2:06 PM CDT [facility] Endoscopy Lab Patient Name: Lina Clinton Procedure Date: 10/07/2023 2:06 PM Date of : 1960 Admit Type: Inpatient Age: 63 Gender: Female Note Status: Finalized Attending MD: Reyes Reyna M.D. Procedure Date: 10/07/2023 Procedure: Colonoscopy Indications: Iron deficiency anemia Providers: Reyes Reyna M.D., ZAYDA Cerda (Anesthesia Staff), Holly Moncada RN, Brant, Bosom Presser Referring MD: Janusz Rosales M.D. Medicines: Monitored [...] by the physician, the nurse and the oral surgery physician in the procedure room. Mental Status Examination: [...] for surveillance. Procedure Code(s): --- Professional --- 60017, Colonoscopy, flexible; with removal of tumor(s), polyp(s), or other lesion(s) by snare technique 82036, 59, Colonoscopy, flexible; with biopsy,single or multiple Diagnosis Code(s): --- Professional --- D12.0, Benign neoplasm of cecum D50.9, Iron deficiency anemia, unspecified CPT copyright 2020 [employer]. All rights reserved. The codes documented in this report are preliminary and upon electrician master reviewmay be revised to meet current compliance requirements. Electronically signed by Reyes Reyna M.D. Reyes Reyna M.D. 10/07/2023 2:36:38 PM Number of Addenda: 0 Note Initiated On: 10/07/2023 2:06 PM Reyes Reyna MD ENDOSCOPY PROCEDURES Fi nal Result from Last 3 Months or Most Recently Relevant to Health Maintenance Insurance [employer] MEDICARE [facility] Advance Directives For more information, please contact: [phone] Documents on File Type Date Recorded Patient Seam Presser Expl anation Power of Assistant Production Editor 09/23/2024 10:33 AM * Full Code (Latest [...] 1:06 PM 07/27/2022 4:39 AM Care Teams [facility] Attendant Relationship Specialty Start Date End Date Janusz Rosales MD [address] [address] PCP - General Internal Medicine 09/24/23 Sony Marie DO [address] [place] [address] Consulting Physician Nephrology 10/09/23 Sylwia Hess, GRADUATING MACHINE OPERATOR [address] [facility] [address] [place] [address] Nurse Practitioner Urology 10/09/23 [place] [address] [facility] [address] [place] [address] Consulting Physician Endocrinology 10/09/23 [place] [address] [facility] [address] [place] [address] Consulting Physician Gastroenterology 10/09/23
--- OUTSIDE RECORDS SUMMARY | 2024-10-01 05:51 | XMS_ITS | Encounter Summary ---
Author Organization [facility] Address [address] [place] [address] Phone Care Team Providers Care Manager File Name Role Phone Denise Rosales MD Primary Care Provider [phone] Encounter Details Date Type Department Care Team (Late st Contact Info) Description 06/25/2024 Treatment [facility] [address] [address] Ilan Pat MD [address] [address] Social History Tobacco Use Types [...] care for end stage renal disease. Attending Bark Peeler: WARREN PENA MD Dialysis Location: [facility] Schedule: Shift: 1 OVERVIEW COMMENTS: The diabetic foot ulcers are better. She is to see Dr. Soto in [facility] in [place] for access placement. HOME MEDICATIONS COMMENTS: Needs to take her binder Current [facility] Outpatient Medications B-complex with vitamin C [...] three times a day with meals. Current [facility] Allergies Allergen: No Known Allergies Allergen: [...] on filedocumented in this encounter Care Teams Manager File Relationship Specialty Start Date End Date Denise Rosales MD [address] [facility], [address] [place] [id number] PCP - General Internal Medicine 08/19/23 documented as of this encounter
--- OUTSIDE RECORDS SUMMARY | 2024-10-01 05:51 | XMS_ITS | Referral Summary ---
Author Organization [facility] Address [address] [facility] [place] [address] Care Team Providers Care Adventure Guide Name Role Phone Unavailable Primary Care Provider Unavailabl e Source Comments [facility],non-owned Affiliates and Associated Physician Practices is amultiple site organization consisting of ambulatory clinics and hospital sitesin [place], [place], [place] and [place]. This disclosure is being madepursuant to the Care Everywhere program and may not contain all information available regarding this patient. Last updated 18.[facility] Social History Tobacco Use Types Packs/Day Years Used Date Smoking Tobacco: Never Assessed Sex and Gender Information Value Date Recorded Sex Assigned at Not on file Gender Identity Not on file Sexual Orientation Not on file Plan of Treatment Not on file
--- OUTSIDE RECORDS SUMMARY | 2024-10-01 05:51 | XMS_ITS | Encounter Summary ---
Author Organization [facility] Address [address] [place], [place] [address] [address] Phone Care Team Providers Care Firebrick And Refractory Tile Repairer Name Role Phone Denise Rosales MD Primary Care Provider [phone] Encounter Details Date Type Department Care Team (Late st Contact Info) Description 03/29/[email or web address] [facility] [address] [place] [address] Kalyn Canas APRN [address] [facility] [address] [place] [address] Social History Tobacco Use Types [...] care for end stage renal disease. Attending Title Assistant: WARREN PENA Dialysis Location: [facility] Schedule: Shift: 1 OVERVIEW Patient is stable. HOME MEDICATIONS Medications reviewed. [facility] Medications Actos 15 mg tablet [...] directed. Current [facility] Allergies Allergen: No Known Allergies Allergen: No [...] 97.0*F Current Dialysis Vitals BP Sit: 146/80 AP/SOAKER: 75/98 Pulse: 78 TREATMENT MEDICATIONS ORDERS Heparin [...] on filedocumented in this encounter Care Teams Firebrick And Refractory Tile Repairer Relationship Specialty Start Date End Date Denise Rosales MD [address] [facility], [address] [place] [address] PCP - General Internal Medicine 08/19/23 documented as of this encounter
--- OUTSIDE RECORDS SUMMARY | 2024-10-01 05:51 | XMS_ITS | Encounter Summary ---
Author Organization [employer] [facility] Address [address] [address] Phone Care Team Providers Care Beam Builder Name Role Phone Denise Rosales MD Primary Care Provider [phone] Encounter Details Date Type Department Care Team (Late st Contact Info) Description 04/19/2024 Treatment [place] [facility] [address] [address] Sony Marie, DO [address] [facility] [address] [place] [address] Social History Tobacco Use Types [...] care for end stage renal disease. Attending Network Specialist: SONY MARIE Dialysis Location: [facility] Schedule: Shift: 1 OVERVIEW Patient is stable. COMMENTS: The diabetic foot ulcers are better. HOME MEDICATIONS Medications reviewed. [facility] Medications Actos 15 mg tablet Take [...] by mouth every night as directed. [facility] Allergies Allergen: No Known Allergies Allergen: No [...] 96.1*F Current Dialysis Vitals BP Sit: 131/77 AP/RESIDENTIAL DIRECTOR: 148/124 Pulse: 83 TREATMENT MEDICATIONS ORDERS Heparin [...] on filedocumented in this encounter Care Teams Beam Builder Relationship Specialty Start Date End Date Denise Rosales MD [address] [facility], [address] [place] [address] PCP - General Internal Medicine 08/19/23 documented as of this encounter
--- OUTSIDE RECORDS SUMMARY | 2024-10-01 05:51 | XMS_ITS | Clinical Summary ---
Author Organization [facility] Address [address] [place] [address] Care Team Providers Care Rooter Operator Name Role Phone Denise Rosales MD [...] Garcia DPM Dr. Ilan Pat Nephrology at [facility], [address] [address] No additional problems on file [...] Comments Blood Pressure 125/68 06/29/2024 9:00 AM [facility] UNDERWRITER Pulse 81 06/29/2024 9:00 AM VA UNDERWRITER Temperature 36.4 C (97.6 F) 06/29/2024 9:00 AM VA UNDERWRITER Respiratory Rate 18 06/29/2024 9:00 AM VA UNDERWRITER Oxygen Saturation - - Inhaled Oxygen Concentration - - Weight 101.6 kg (224 lb) 06/29/2024 9:00 AM VA UNDERWRITER Height 170.2 cm (5' 7 ) 06/29/2024 9:00 AM VA UNDERWRITER Body Mass Index 35.08 06/29/2024 9:00 AM [facility] UNDERWRITER Plan of Treatment Health Maintenance Due Date [...] INFLUENZA VACCINE Completed 05/07/2024, , 04/21/2015 Insurance [facility] [id number] [facility] MCR Care Teams Rooter Operator Relationship Specialty Start Date End Date Denise Rosales MD PCP - General Internal Medicine 7/26/24
--- OUTSIDE RECORDS SUMMARY | 2024-10-01 05:51 | XMS_ITS | Encounter Summary ---
Author Organization [employer] [facility] Address [address] [place], [place] [address], [place] [address] Phone Care Team Providers Care Plastics And Composites Inspector Name Role Phone Denise Rosales MD Primary Care Provider [phone] Encounter Details Date Type Department Care Team (Late st Contact Info) Description 06/23/2024 Treatment [employer] [address] [place] [address] Isi Canas APRN [address] [facility] 1 [place] [address] Social History Tobacco Use Types [...] care for end stage renal disease. Attending Lens Dotter: WARREN PENA Dialysis Location: [facility] Schedule: Shift: 1 OVERVIEW Patient is stable. COMMENTS: The diabetic foot ulcers are better. She is to see Dr. Soto in [facility] in [place] for access placement. HOME MEDICATIONS Medications reviewed. COMMENTS: Needs to take her binder Current [facility] Outpatient Medications B-complex with vitamin C [...] by mouth every night as directed. Current [facility] Allergies Allergen: No Known Allergies [...] 97.0*F Current Dialysis Vitals BP Sit: 130/74 AP/NECK BAND MAKER: 170/145 Pulse: 84 TREATMENT MEDICATIONS ORDERS Heparin [...] on filedocumented in this encounter Care Teams Plastics And Composites Inspector Relationship Specialty Start Date End Date Denise Rosales MD [address] [facility], [address] [place] [address] PCP - General Internal Medicine 08/19/23 documented as of this encounter
--- OUTSIDE RECORDS SUMMARY | 2024-10-01 05:51 | XMS_ITS | Encounter Summary ---
Author Organization [facility] Address [address] [address] Phone Care Team Providers Care Study Coordinator Name Role Phone Denise Rosales MD Primary Care Provider [phone] [phone] Encounter Details Date Type Department Care Team (Late st Contact Info) Description 06/07/2024 Treatment [facility] [address] [address] Sony Marie, DO [address] [facility] 1 [place] [address] Social History Tobacco Use Types [...] the dialysis unit medical record system. Attending Sign Language Teacher: SONY MARIE Dialysis Location: [facility] Schedule: M-W-F Shift: 1 DIALYSIS [...] 97.0*F Current Dialysis Vitals BP Sit: 116/65 AP/MEDICAL BILLER/CODER: 168/134 Pulse: 81 ADDITIONAL COMMENT COMMENTS: ASSESSMENT: [...] on filedocumented in this encounter Care Teams Study Coordinator Relationship Specialty [place] [address] [place] [address], [address] [place] [address] PCP - General Internal Medicine 08/19/23 documented as of this encounter
--- OUTSIDE RECORDS SUMMARY | 2024-10-01 05:51 | XMS_ITS | Clinical Summary ---
Author Organization [facility] Address [address] [place] [address] Care Team Providers Care Truck Driving Instructor Name Role Phone Denise Rosales MD Primary Care Provider [phone] Medications losartan (COZAAR) 50 MG tablet Take [...] Department Care Team Description 09/29/2024 Orders Only [place] [facility], [address] [address] Sony Marie DO 09/27/2024 Treatment [place] [facility], [address] [address] Canas, Kalyn, BSA OFFICER End stage renal disease; Dependence on renal dialysis 09/24/2024 Treatment [place] [facility], [address] [place] [address] Ilan Pat MD Anemia in chronic kidney disease; Secondary hyperparathyroidism of renal origin; End stage renal disease; Dependence on renal dialysis 09/22/2024 Orders Only [place] [facility], [address] [place] [address] Sony Marie, DO 09/20/2024 Treatment [place] [facility], [address] [place] [address] Sony Marie, DO End stage renal disease; Dependence on renal dialysis 09/20/2024 Documentation Only [place] [facility], [address] [place] [address] Sony Marie, DO 09/15/2024 Orders Only [facility], [address] [facility] [place] [address] Sony Marie, DO 09/10/2024 Treatment [place] [facility], [address] [place] [address] Kalyn Canas, BSA OFFICER 09/08/2024 Orders Only [facility], [address] [place] [address] Sony aMrie, DO 09/06/2024 Orders Only [facility], [address] [place] [address] Sony Marie, DO 09/03/2024 Treatment [place] [facility], [address] [place] [place] [address] Kalyn Canas, BSA OFFICER 09/01/2024 Orders Only [place] [facility], [address] [facility] [place] [address] Sony Marie, DO 08/25/2024 Orders Only [facility] [address] [place] [address] 1 [place] [address] Sony Marie, DO 08/25/2024 Treatment [facility], [address] [place] [address] Kalyn Canas, BSA OFFICER 08/23/2024 Treatment [facility], [address] [place] [place] [address] Ilan Pat MD Secondary hyperparathyroidism of renal origin; Anemia in chronic kidney disease 08/18/2024 Orders Only [facility], [address] [place] [address] Sony Marie, DO 08/13/2024 Orders Only [facility] [address] [place], [place] [address], [place] [address] Sony Marie, DO 08/11/2024 Orders Only [facility] [address] [place] [address] [place] [address] Sony Marie, DO 08/11/2024 Treatment [facility], [address] [place] [address] Sony Marie, DO 08/11/2024 Documentation Only [facility], [address] [place] [address] Sony Marie, DO 08/09/2024 Treatment [facility], [address] [place] [address] Kalyn Canas, BSA OFFICER 08/04/2024 Orders Only [facility], [address] [place] [address] oSny Marie, DO 08/04/2024 Treatment [facility], [address] [place] [address] Kalyn Canas APRN 07/28/2024 Orders Only [facility], [address] [place] [address] Sony Marie, DO 07/23/2024 Treatment [address] [place] [address] Ilan Pat MD Type 2 diabetes mellitus without complication; Hypertensive heart and chronic kidney disease without heart failure, with stage 5 chronic kidney disease, or end stage renal disease; Chronic diastolic congestive heart failure 07/22/2024 Orders Only [address] [place] [address] Sony Marie, DO 07/15/2024 Orders Only [address] [place] [address] Sony Marie, 07/07/2024 Orders Only [facility], [address] [address] Sony Marie, DO from Last [...] Comments Blood Pressure 150/70 09/16/2023 12:08 PM [employer] Pulse 68 09/16/2023 12:08 PM [employer] Temperature 36.7 C (98 F) 09/16/2023 12:08 PM [employer] Respiratory Rate 18 09/16/2023 12:08 PM [employer] Oxygen Saturation 96% 09/16/2023 12:08 PM [employer] Inhaled Oxygen Concentration - - Weight 112 kg (248 lb) 09/16/2023 12:08 PM [employer] Height 170.2 cm (5' 7 ) 07/30/2022 11:49 AM [employer] Body Mass Index 38.84 07/30/2022 11:49 AM [employer] Plan of Treatment Health Maintenance Due Date [...] included. Hemoglobin 8.7(L) 12.0 - 16.0 g/dL [facility] Hemoglobin x 3 26.1(L) 36.0 - 48.0 % [facility] 09/29/2024 09/30/2024 11: 56 AM CDT Narrative [facility] - 09/30/2024 Unless otherwise specified, test(s) performed at: [facility], [address] [place] [address] PERFORMANCE TEST ENGINEER: Yuri Streeter M.D. For any questions, please call customer service at FREQUENCY:OTHER Resulting Agency Comment Specimen source: Blood us Sony Marie DO LAB BLOOD ORDERABLES Final R esult [facility] See order comments or contact performing lab Unknown, [place] * HD KINETICS (09/22/2024) Only the most recent of4 resultswithin the time period is included. % Urea Reduction 79 65 - 80 % [facility] 09/22/2024 09/23/2024 1:4 3 PM [employer] Narrative [facility] - 09/24/2024 Unless otherwise specified, test(s) performed at: [facility], [address] [place], [place] [id number] PERFORMANCE TEST ENGINEER: Yuri Streeter M.D. For any questions, please call customer service at FREQUENCY:OTHER Resulting Agency Comment Specimen source: Plasma Sony Marie DO LAB BLOOD ORDERABLES Final R esult Performing Organization Address [facility] Co de Phone Number [facility] See order comments or contact performing lab Unknown, [place] * POST CHEMISTRY (09/22/2024) Only the most recent of4 resultswithin the time period is included. BUN Post Dialysis 14 6 - 19 mg/dL [facility] 09/22/2024 09/23/2024 1:4 3 PM [employer] Narrative [facility] - 09/24/2024 Unless otherwise specified, test(s) performed at: [facility], [address] [place] [address] PERFORMANCE TEST ENGINEER: Yuri Streeter M.D. For any questions, please call customer service at FREQUENCY:OTHER Resulting Agency Comment Specimen source: Plasma Sony Marie DO LAB BLOOD ORDERABLES [facility] Performing Organization Address [facility] de Phone Number [facility] See order comments or contact performing lab Unknown, [place] * (ABNORMAL) [facility] (09/22/2024) Only the most recent of11 resultswithin the time period is included. BUN 66(H) 6 - 19 mg/dL [facility] 09/22/2024 09/23/2024 4:0 6 PM [employer] Narrative [facility] - 09/24/2024 Unless otherwise specified, test(s) performed at: [facility], [address] [place], [place] [id number] PERFORMANCE TEST ENGINEER: Yuri Streeter M.D. For any questions, please call customer service at FREQUENCY:OTHER Resulting Agency Comment Specimen source: Serum Sony Marie DO LAB BLOOD ORDERABLES Final R esult Performing Organization Address [facility] de Phone Number [facility] See order comments or contact performing lab Unknown, [place] * [facility] Results (09/22/2024) Only the most recent of4 resultswithin the time period is included. [facility] WSTDKT/V 2.6 [facility] eKdrt/V 1.55 [facility] spKt/V (Daugirdas II) 1.76 [facility] eKt/V Gotch 1.55 [facility] eNPCR 1.13 [facility] PCR 88.08 [facility] spKt/V Gotch 1.79 [facility] ge Center nPCR_HD 1.20 [facility] eKt/V (Tattersall) 1.54 [facility] 09/22/2024 09/22/2024 [facility] Ordering Provider LAB BLOOD ORDERABLES Final Result Performing Organization Address [facility] de Phone Number [facility] Contact Performing lab Unknown, [place] * IMMUNO CHEMISTRY (09/08/2024) Only the most recent of3 resultswithin the time period is included. [facility] Hep B Surface Ag Negative Negative [facility] 09/08/2024 09/09/2024 10: 38 AM [employer] Narrative Resulting Agency Comment Specimen source: Serum Sony Marie DO LAB BLOOD ORDERABLES Final R esult Performing Organization Address [facility] de Phone Number [facility] See order comments or contact performing lab Unknown, [place] * (ABNORMAL) URINE CLEARANCE (09/06/2024) Pathologist [facility] Creatinine, Urine Timed 47.7 mg/dL [facility] Creatinine, 24H Ur 0.3(L) 0.5 - 1.6 g/24 hr [facility] Creatinine Clear, Urine 2.5 mL/min [facility] Creat Clear, Urine Norm 2.0(L) 77.0 - 94.0 mL/min [facility] 09/06/2024 09/07/2024 12: 22 PM [employer] Narrative [facility]08/2024 Unless otherwise specified, test(s) performed at: [facility], [address] [place] [id number] PERFORMANCE TEST ENGINEER: Yuri Streeter M.D. For any questions, please call customer service at FREQUENCY:OTHER Resulting Agency Comment Specimen source: Urine Sony Marie DO LAB URINE ORDERABLES Edited Result - Final Performing Organization Address [facility] Co de Phone Number [facility] See order comments or contact performing lab Unknown, [place] * PATIENT INFORMATION (09/06/2024) Only the most recent of2 resultswithin the time period is included. Patient Weight 104.0 kg [facility] Patient Height 170.0 cm [facility] Patient BSA 2.14 sq. M. [facility] Comment: Normalized values are calculated using the patient's actual BSA and normalized to the average BSA of 1.73m2. 09/06/2024 09/07/2024 12: 22 PM [employer] Narrative [facility] - 09/08/2024 Unless otherwise specified, test(s) performed at: [facility], [address] [place] [phone] PERFORMANCE TEST ENGINEER: Yuri Streeter M.D. For any questions, please call customer service at FREQUENCY:OTHER Resulting Agency Comment Specimen source: PD Fluid Sony Marie DO LAB BLOOD ORDERABLES Final R esult Performing Organization Address [facility]/ZIP Co de Phone Number [facility] See order comments or contact performing lab Unknown, [place] * (ABNORMAL) SPECIAL CHEMISTRY (08/04/2024) Hemoglobin A1C 7.8(H) 4.8 - 5.9 % [facility] 08/04/2024 08/05/2024 9:3 0 AM [employer] Narrative Resulting Agency Comment Specimen source: Blood Sony Marie DO LAB BLOOD BANK TEST ORDERABL ES Final Result Performing Organization Address [facility]/ZIP Co de Phone Number [facility] See order comments or contact performing lab Unknown, [place] * TRACE ELEMENTS (08/04/2024) Aluminum <5 0 - 10 mcg/L [facility] Comment: This test was developed and its performance characteristics determined by [facility]. It has not been cleared or approved by the FDA. The laboratory is regulated under CLIA as qualified to perform high complexity testing. This test is used for clinical purposes. It should not be regarded as investigational or for research. 08/04/2024 08/05/2024 11: 10 AM [employer] Narrative [facility] - 08/05/2024 Unless otherwise specified, test(s) performed at: [facility], [address] [place] [id number] PERFORMANCE TEST ENGINEER: Yuri Streeter M.D. For any questions, please call customer service at FREQUENCY:MONTHLY Resulting Agency Comment Specimen source: Serum Sony Marie DO LAB BLOOD ORDERABLES Final R esult Performing Organization Address [facility] Co de Phone Number [facility] See order comments or contact performing lab Unknown, [place] from Last 3 Months [id number] Care Teams Truck Driving Instructor Relationship Specialty Start Date End Date Denise Rosales MD [address] [facility], [address] [place] [address] PCP - General Internal Medicine 08/19/23
--- OUTSIDE RECORDS SUMMARY | 2024-10-01 05:52 | XMS_ITS | Clinical Summary ---
Author Organization [facility] Address [address] [place] [address] Care Team Providers Care Manager Infrastructure Name Role Phone Denise Rosales MD Primary [...] heart failure with p reserved ejection fraction ([facility]) 02/28/2024 Bacteremia 02/27/2024 Personal history of diabetic foot ulcer 11/21/19 Diabetic foot infection ([facility]) 2023 Unspecified protein-calorie malnutrition ([facility]) 10/20/2023 Coagulation defect ([facility]) 10/17/2023 Allergy, unspecified, sequela 10/13/2023 Anaphylactic reaction due to adverse effect of correct drug or medicament properly administered, initial encounter 10/13/2023 Chronic kidney disease with end stage renal failure on dialysis ([facility]) 10/13/2023 Fever, unspecified 10/13/2023 Pain, unspecified 10/13/2023 Secondary hyperparathyroidism of renal origin ([facility] /[facility]) 10/13/2023 Dependence on renal dialysis 10/01/2023 Long-term [...] 08/20/2020 Iron deficiency anemia 03/15/2020 Diabetic retinopathy ([facility]) 0 Eczema 10/15/2019 Hypercholesterolemia 08/25/2019 Onychomycosis of toenail 08/25/2019 Sleep disorder 08/25/2019 Overview (05/10/2024): apnea Type 2 diabetes mellitus ([facility]) 12/15 Overview (05/10/2024): DMII WO CMP UNCNTRLD [...] 5.0 <5.7 % 11/15/2023 10:29 AM CDT [facility] Comment: ADA GUIDELINES 2009 5.7 TO 6.4% INCREASED RISK OF DIABETES > OR = 6.5% CONSISTENT WITH DIABETES ESTIMATED AVG GLUCOSE 97 mg/dL 11/15/2023 10:29 AM CDT [facility] 11/15/2023 6:20 AM CDT us Becca Oliveira [facility] Final Resul t [facility] [address] [place] [address], from Last 3 Months or Most Recently Relevant to Health Maintenance [facility] Advance Directives * Full Code (Latest Code Status on File) Date Activated Date Inactivated Comments 11/14/2023 7:36 PM 11/17/2023 11:30 AM Care Teams Manager Infrastructure Relationship Specialty Start Date End Date Denise Rosales MD [facility] [place] [address] PCP - General INTERNAL MEDICINE 09/22/23
[2024-10-01 06:05] LABS: Influenza A QL RT-PCR Negative (Negative); Influenza B QL RT-PCR Negative (Negative); RSV RNA, RT-PCR Negative (Negative); SARS-CoV-2 RNA PCR Negative (Negative)
--- NOTE | 2024-10-01 06:15 | PC.NURSE ---
Pt receives dialysis at [facility]ney [facility] notified that pt will not be at 0630 appt.
[2024-10-01] MEDS: MORPHINE SULFATE (*CRX) 4 MG/ML INJ IV PUSH (06:50)
--- NOTE | 2024-10-01 07:54 | ECG_ITS ---
Test Date: 2024-10-01 07:59:43 Measurements Intervals [place] Rate: 88 P: 55 MS: 149 QRS: -35 QRSD: 99 T: 75 QT: 412 QTc: 500 Interpretive Statements SINUS RHYTHM LEFT AXIS DEVIATION [QRS AXIS < -30] NONSPECIFIC T-WAVE ABNORMALITY Compared to ECG 10/01/2024 04:38:55 NO SIGNIFICANT CHANGES Electronically Signed On 10-01-2024 16:56:01 CDT by Talita Kolb M.D.
[2024-10-01 08:32] LABS: Troponin I 0.122 ng/mL (0.000-0.034)
[2024-10-01] MEDS: ACETAMINOPHEN 325 MG TABLET 650 MG PO (08:52)
[2024-10-01 10:41] LABS: Hepatitis B Surface Antigen Negative (Negative)
[2024-10-01 10:59] LABS: Hepatitis B Surface Anti Res Negative
--- NOTE | 2024-10-01 11:12 | PM.CNNEP ---
Assessment and Plan Assessment and plan (1) ESRD (end stage renal disease) on dialysis: Code(s): N18.6 - End stage renal disease; Z99.2 - Dependence on renal dialysis Status: Acute Assessment and Plan: The patient has end-stage renal disease on dialysis 3 times a week. She is due today. Volume status does not look too bad. Will take off 1-2 L. Continue dialysis 3 times a week while she is here. (2) Chest pain: Qualifiers: Chest pain type: unspecified Qualified Code(s): R07.9 - Chest pain, unspecified Code(s): R07.9 - Chest pain, unspecified Status: Acute Assessment and Plan: Patient has chest pain. She is going to be evaluated by Cardiology. (3) Diabetes: Code(s): E11.9 - Type 2 diabetes mellitus without complications Status: Acute Assessment and Plan: Patient has diabetes. Somehow the patient shows up as being on metformin. I am sure this is not the case. (4) Erythropoietin deficiency anemia: Code(s): D63.1 - Anemia in chronic kidney disease Status: Acute Assessment and Plan: The patient has anemia. Will start her on Epogen (5) Renal osteodystrophy: Code(s): N25.0 - Renal osteodystrophy Status: Acute Assessment and Plan: Will check a phosphorus in the morning History of Present Illness Reason for Consult Consult date: 10/01/24 Chief Complaint Chief complaint: Chest Pain History of Present Illness Narrative: Lina is a very pleasant 64-year-old lady who has multiple medical problems including diabetes, sleep apnea, anemia, renal osteodystrophy, and end-stage renal disease on dialysis 3 times a week. The patient says that she has been on dialysis for about the last year. She is cared for by Dr. Sony Marie. She gets dialysis on Wednesdays and Fridays. About a week ago she had a fistula placed in the left upper arm and this went well. Before that she had seen Cardiology for clearance for the procedure and he said she was fine. Last night at about 1:00 a.m. the patient started having chest pressure. This continued to worsen. She came to the ER. She lives closest to this hospital so the ambulance brought her here. She was seen in the ER. EKG was unremarkable and troponins are flat so far. Cardiology was consulted and the patient was admitted to the IMU. The patient is due for dialysis today. She does not feel short of breath. Her potassium is okay. Review of Systems Constitutional: Constitutional: Reports no additional constitutional complaints Eyes: Eyes: Reports no additional eye complaints ENT: Reports system reviewed and no additional complaints, except as documented Cardiovascular: Cardiovascular: Reports no additional cardiovascular complaints Respiratory: Respiratory: Reports no additional respiratory complaints Gastrointestinal: Gastrointestinal: Reports no additional gastrointestinal complaints Genitourinary: Genitourinary: Reports no additional female genitourinary complaints Musculoskeletal: Musculoskeletal: Reports no additional musculoskeletal complaints Integumentary/Breasts: Skin/Breast: Reports system reviewed and no additional complaints, except as docu Neurologic: Reports system reviewed and no additional complaints, except as documented Psychiatric: Psychiatric: Reports no additional psychiatric complaints Endocrine: Endocrine: Reports no additional endocrine complaints [facility] Family History Family History Father Family history of diabetes mellitus in first degree relative Social History Social History Smoking packs per day: 1 Smoking cigarettes per day: 20.0 Years smoked: 30 Smoking pack-years: 30.00 Smoking status: Former smoker Tobacco type: cigarettes Alcohol intake: never Substance use: never Substance use type: does not use Living arrangements: with family Spiritual care concerns: No Meds Home Medications and Allergies Home Medications ?Medication ?Instructions ?Recorded ?Confirmed ?Type L.acidophilus-B.bifidum-B.longum 1 cap PO DAILY 06/17/23 06/17/23 History 240 mg (3 billion cell) capsule chlorthalidone 25 mg tablet 25 mg PO DAILY 06/17/23 06/17/23 History ergocalciferol (vitamin D2) 1,250 1,250 mcg PO DAILY 06/17/23 06/17/23 History mcg (50,000 unit) capsule ferrous sulfate 325 mg (65 mg 325 mg PO DAILY 06/17/23 06/17/23 History iron) tablet (Iron (ferrous sulfate)) levothyroxine 175 mcg tablet 175 mcg PO DAILY 06/17/23 06/17/23 History (Synthroid) metformin 1,000 mg tablet 1,000 mg PO BID 06/17/23 06/17/23 History semaglutide 7 mg tablet (Rybelsus) 7 mg PO BID 06/17/23 06/17/23 History simvastatin 40 mg tablet 40 mg PO DAILY 06/17/23 06/17/23 History Allergies Allergy/AdvReac Type Severity Reaction Status Date / Time No Known Allergies Allergy Verified 10/01/24 04:28 Vital Signs Vital Signs - 24 hr 10/01/24 04:32 10/01/24 04:40 10/01/24 04:40 Temperature 98.1 F Pulse Rate 91 Respiratory Rate 21 H Blood Pressure 135/75 Pulse Oximetry 95 99 99 Oxygen Delivery Room Air Room Air Room Air 10/01/24 05:29 10/01/24 07:03 10/01/24 07:04 Temperature Pulse Rate 89 89 84 Respiratory Rate 21 H 17 Blood Pressure 104/64 119/60 Pulse Oximetry 98 95 Oxygen Delivery 10/01/24 08:18 10/01/24 08:21 10/01/24 09:53 Temperature 99.1 F Pulse Rate 88 86 87 Respiratory Rate 20 20 20 Blood Pressure 111/68 105/68 110/61 Pulse Oximetry 95 95 96 Oxygen Delivery 10/01/24 10:57 10/01/24 11:00 Temperature Pulse Rate 84 68 Respiratory Rate Blood Pressure 114/64 116/67 Pulse Oximetry Oxygen Delivery Exam Narrative: Exam Narrative: Well developed well-nourished female in no acute distress Skin is warm and dry without rash Head normocephalic atraumatic Eyes normal sclerae and conjunctivae Mouth normal lips teeth and gums Neck no nodes no thyromegaly no carotid bruits Axillae no nodes Back no CVA tenderness Lungs symmetric and clear to auscultation and percussion Heart regular rate and rhythm without rub or gallop Abdomen bowel sounds positive soft nontender, no HSM, masses, or bruits. Extremities no cyanosis, clubbing, or edema. newly placed fistula in left upper arm with good bruit. Pulses 2+ equal in radial arteries Psychological not anxious or depressed Neuro alert and oriented x3 motor 5/5 cranial nerves 2-12 intact reflexes 2+ and equal in the biceps and patellar tendons cerebellar normal rapid alternating movements Results Lab Results 10/01/24 04:43 10/01/24 04:43 Lab results: Most recent lab results Calcium 8.6 mg/dL (8.4-10.2) 10/01/24 04:43
--- NOTE | 2024-10-01 11:21 | EST_ITS ---
Patient Info Name: Lina Clinton Age: 64 years : 1960 Gender: Female Ht: 67 in Wt: 234 lbs BSA: 2.28 m2 Exam Date: 10/01/2024 3:40 PM Exam Location: Echo Lab Patient Status: Inpatient Admit Date: 10/01/2024 Staff Ordering Physician: Talita Kolb MD Attending Provider: Julisa Tay MD Exercise Technologist: Maddie Ramirez RDCS Nurse: Sophie De León APN Exam Type: CA stress shay w NM Study Info Indications R07.9 - Chest pain, unspecified A regadenoson stress test was performed. Summary 1. No abnormal ST/T wave changes diagnostic of ischemia. 2. Please correlate with nuclear medicine images, reported separately. 3. Stress test supervised by Sophie De León NP. Stress test interpreted by Talita Kolb MD. Protocol: Lexiscan Stress ECG Details Stage: REST Duration (min): 2 min : 11 sec HR (bpm): 101 SBP (mmHg): 123 DBP (mmHg): 54 Stage: REST Duration (min): 11 min : 36 sec HR (bpm): 97 SBP (mmHg): 123 DBP (mmHg): 54 Stage: STAGE 1 Duration (min): 0 min : 59 sec HR (bpm): 100 SBP (mmHg): 123 DBP (mmHg): 54 Stage: RECOVERY Duration (min): 1 min : 0 sec HR (bpm): 101 SBP (mmHg): 81 DBP (mmHg): 40 Stage: RECOVERY Duration (min): 2 min : 0 sec HR (bpm): 100 SBP (mmHg): 81 DBP (mmHg): 40 Stage: RECOVERY Duration (min): 3 min : 0 sec HR (bpm): 100 SBP (mmHg): 82 DBP (mmHg): 47 Stage: RECOVERY Duration (min): 4 min : 0 sec HR (bpm): 98 SBP (mmHg): 82 DBP (mmHg): 47 Stage: RECOVERY Duration (min): 5 min : 0 sec HR (bpm): 100 SBP (mmHg): 80 DBP (mmHg): 46 Stage: RECOVERY Duration (min): 6 min : 0 sec HR (bpm): 100 SBP (mmHg): 80 DBP (mmHg): 46 Stage: RECOVERY Duration (min): 7 min : 0 sec HR (bpm): 96 SBP (mmHg): 80 DBP (mmHg): 47 Stage: RECOVERY Duration (min): 8 min : 0 sec HR (bpm): 99 SBP (mmHg): 80 DBP (mmHg): 47 Stage: RECOVERY Duration (min): 9 min : 0 sec HR (bpm): 99 SBP (mmHg): 95 DBP (mmHg): 51 Stage: RECOVERY Duration (min): 9 min : 16 sec HR (bpm): 98 SBP (mmHg): 95 DBP (mmHg): 51 Rest HR: 97 bpm Peak HR: 103 bpm Rest Sys BP: 123 mmHg Peak Sys BP: 95 mmHg Max Pred HR: 155 bpm % Max Pred HR: 66 % Target HR: 132 bpm Max RPP: 9,785 bpm*mmHg Total Time: 1 min : 0 sec Rest Che BP: 54 mmHg Peak Che BP: 51 mmHg Total Dose: 0.4 mg Resting ECG Sinus rhythm. Stress ECG No abnormal ST/T wave changes diagnostic of ischemia. Arrhythmias None. Report Signatures
--- NOTE | 2024-10-01 11:53 | PM.EVENT ---
Event Note Event Note Event Note: Patient is on dialysis and tolerating it well. Seen at 11:45 a.m.
[2024-10-01 12:01] LABS: Troponin I 0.122 ng/mL (0.000-0.034)
--- NOTE | 2024-10-01 12:02 | P.CONCA_ITS ---
Assessment and Plan Assessment and plan (1) Chest pain: Qualifiers: Chest pain type: unspecified Qualified Code(s): R07.9 - Chest pain, unspecified Code(s): R07.9 - Chest pain, unspecified Status: Acute Plan 1. Chest pain 2. Elevated troponins 3. ESRD on HD 4. Hypertension 5. Hyperlipidemia 6. Diabetes mellitus PLAN: -Chest pain has a pleuritic component. Troponins are mildly elevated but flat (in setting of known ESRD; baseline troponin levels unknown). EKG without ischemic changes. Will obtain nuclear stress test. -Obtain echocardiogram. -Chest CTA shows area of mild amorphous sclerosis in the midsternal body. However, no reproducible chest wall tenderness elicited on examination. -Further recommendations pending stress test and echocardiogram. Recommendations and plan discussed with Hospitalist. History of Present Illness History of Present Illness Consult date/time: 10/01/24 12:02 Requesting physician: Deyvi Ventura MD Consult reason: chest pain Reason For Visit: Chest Pain Narrative: We are consulted for chest pain. This is a 64 year old female with ESRD on HD, hypertension, hyperlipidemia, diabetes who presented to [place] ER with chest pain. Recently underwent fistula surgery on left arm by Dr. Huff. No prior cardiac issues. No issues in the immediate perioperative period. Patient states she woke up this morning with substernal chest pain that continued to persist, therefore, came to the ED. No radiation of pain. No worsening of pain with walking or activity. Pain worsens with inspiration and deep breathing. Workup shows troponins of 0.136, 0.122, 0.122. Chest CTA with no pulmonary embolism, minimal pericardial effusion and minimal bilateral pleural fluid, cirrhotic liver, area of mild amorphous sclerosis in the midsternal body. CXR with possible cardiomegaly, mild interstitial edema. EKGs with sinus rhythm, nonspecific T wave abnormality, however, no ischemic changes. Review of Systems 2 Review of Systems: All systems reviewed & are unremarkable except as noted in HPI and below (HPI) [facility] Family History Family History Father Family history of diabetes mellitus in first degree relative Social History Social History Smoking packs per day: 1 Smoking cigarettes per day: 20.0 Years smoked: 30 Smoking pack-years: 30.00 Smoking status: Former smoker Tobacco type: cigarettes Alcohol intake: never Substance use: never Substance use type: does not use Living arrangements: with family Spiritual care concerns: No Meds Home Medications and Allergies Home Medications ?Medication ?Instructions ?Recorded ?Confirmed ?Type L.acidophilus-B.bifidum-B.longum 1 cap PO DAILY 06/17/23 06/17/23 History 240 mg (3 billion cell) capsule chlorthalidone 25 mg tablet 25 mg PO DAILY 06/17/23 06/17/23 History ergocalciferol (vitamin D2) 1,250 1,250 mcg PO DAILY 06/17/23 06/17/23 History mcg (50,000 unit) capsule ferrous sulfate 325 mg (65 mg 325 mg PO DAILY 06/17/23 06/17/23 History iron) tablet (Iron (ferrous sulfate)) levothyroxine 175 mcg tablet 175 mcg PO DAILY 06/17/23 06/17/23 History (Synthroid) metformin 1,000 mg tablet 1,000 mg PO BID 06/17/23 06/17/23 History semaglutide 7 mg tablet (Rybelsus) 7 mg PO BID 06/17/23 06/17/23 History simvastatin 40 mg tablet 40 mg PO DAILY 06/17/23 06/17/23 History Allergies Allergy/AdvReac Type Severity Reaction Status Date / Time No Known Allergies Allergy Verified 10/01/24 04:28 Vital Signs Vital Signs - 24 hr 10/01/24 04:32 10/01/24 04:40 10/01/24 04:40 Temperature 36.7 C Pulse Rate 91 Respiratory Rate 21 H Blood Pressure 135/75 Pulse Oximetry 95 99 99 Oxygen Delivery Room Air Room Air Room Air 10/01/24 05:29 10/01/24 07:03 10/01/24 07:04 Temperature Pulse Rate 89 89 84 Respiratory Rate 21 H 17 Blood Pressure 104/64 119/60 Pulse Oximetry 98 95 Oxygen Delivery 10/01/24 08:18 10/01/24 08:21 10/01/24 09:53 Temperature 37.3 C Pulse Rate 88 86 87 Respiratory Rate 20 20 20 Blood Pressure 111/68 105/68 110/61 Pulse Oximetry 95 95 96 Oxygen Delivery 10/01/24 10:54 10/01/24 10:57 10/01/24 11:00 Temperature 37.1 C Pulse Rate 83 84 68 Respiratory Rate 18 Blood Pressure 107/56 L 114/64 116/67 Pulse Oximetry 97 Oxygen Delivery 10/01/24 11:15 10/01/24 11:30 10/01/24 11:45 Temperature Pulse Rate 86 84 88 Respiratory Rate Blood Pressure 117/67 114/70 115/70 Pulse Oximetry Oxygen Delivery Exam 2 Const: General: no acute distress HENMT: Mouth: Yes moist mucous membranes Eyes: General: appearance normal, both eyes and all related structures S clera: sclerae normal Chest: Other: No reproducible chest wall tenderness Cardio: Rate: regular rate Rhythm: regular rhythm Heart sounds: no murmurs Skin: General skin exam: normal color Neuro: Speech: normal speech Psych: Mental Status: mental status grossly normal Affect: normal affect Results Labs and Meds 10/01/24 04:43 10/01/24 04:43 Lab results: Cardiac Enzymes 10/01/24 10/01/24 10/01/24 Range/Units 04:43 07:52 10:51 AST 21 (14-36) U/L Troponin I 0.136 H* 0.122 H* 0.122 H* (0.000-0.034) ng/mL CBC 10/01/24 Range/Units 04:43 WBC 10.3 H (4.5-10.0) K/mm3 RBC 3.08 L (4.2-5.4) M/mm3 Hgb 9.3 L (12.0-15.0) g/dL Hct 30.2 L (37.0-47.0) % Plt Count 192 (150-375) k/mm3 Lymph # (Auto) 1.11 (0.9-3.2) K/mm3 Millard # (Auto) 0.8 H (0.1-0.6) K/mm3 Eos # (Auto) 0.1 (0-0.3) K/mm3 Baso # (Auto) 0.1 (0.0-0.1) K/mm3 Comprehensive Metabolic Panel 10/01/24 Range/Units 04:43 Sodium 143 (137-145) mmol/L Potassium 3.7 (3.4-5.0) mmol/L Chloride 102 (98-107) mmol/L Carbon Dioxide 29 (22-30) mmol/L BUN 52 H (7-17) mg/dL Creatinine 6.78 H (0.7-1.0) mg/dL Glucose 169 H (65-110) mg/dL Calcium 8.6 (8.4-10.2) mg/dL AST 21 (14-36) U/L ALT 10 (6-35) U/L Alkaline Phosphatase 77 (38-126) U/L Total Protein 7.0 (6.3-8.2) g/dL Albumin 4.2 (3.5-5.1) g/dL Patient Weight 10/01/24 23:59 Weight 106.5 kg
--- NOTE | 2024-10-01 13:44 | P.HP_ITS ---
H&P: HPI History of Present Illness Date/Time: 10/01/24 13:44 Chief Complaint: Chest Pressure Narrative: 64 y/o F presents here with chest pressure with PMH of HLD, HTN, sleep apnea on CPAP, gastric bypass, diabetes, and hypothyroidism. The patient presents here with chest pressure from home. She reports acute onset at 1:00 a.m. which aroused her from her sleep. She described the chest pain as deep pressure, nonradiating, constant and currently reduced but still ongoing, aggravated by deep inspiration, and no alleviating factors. She denies nausea, vomiting, shortness of breath, GERD-like symptoms, fatigue, or dizziness. Of note, she recently had a fistula placed on 09/23 in her left upper extremity. Currently has a dialysis port in her right upper chest and attends treatment on Fri/Fri/Fri. Denies any recent missed treatments. Initial VS at presentation: 98.1? F, HR 91, R 21, 135/75, and 95% on RA. ED workup showed: WBC 10.3, hemoglobin 9.3, creatinine 6.78 and GFR 6, glucose 169, initial troponin 0.136, and viral PCR negative. Initial EKG showed sinus rhythm, rate 92, left axis deviation, pattern consistent with pulmonary disease, nonspecific T-wave abnormality. CXR showed mild interstitial edema possible cardiomegaly. Chest CTA showed no evidence of PE, aortic dissection, or aortic aneurysm. Minimal pericardial effusion an minimal bilateral pleural fluid with minimal bibasilar atelectasis, cirrhotic liver with distended gallbladder, area of mild amorphous sclerosis in the mid sternal body nonspecific, 1.9 left adrenal nodule stable since 09/06, clear lungs. Review of Systems Review of Systems: All systems reviewed & are unremarkable except as noted in HPI and below [facility] Past Medical History Medical History Hypothyroidism Renal osteodystrophy Erythropoietin deficiency anemia ESRD (end stage renal disease) on dialysis Diabetes Sleep apnea HTN (hypertension) HLD (hyperlipidemia) Surgical History Surgical History History of tubal ligation History of gastric bypass Family History Family History Father Family history of diabetes mellitus in first degree relative Social History Social History Smoking packs per day: 1 Smoking cigarettes per day: 20.0 Years smoked: 30 Smoking pack-years: 30.00 Smoking status: Never smoker Tobacco type: cigarettes Alcohol intake: never Substance use: never Substance use type: does not use Do You Feel Safe in your Home?: Yes Lack of Transportation: No Lack of Food: Never True Current Housing: I Have Housing Concerned About Future Housing: No Difficulty Paying Gas/Electric Bills: No Difficulty Paying for Meds: No Currently Unemployed: No Education: Decline to Answer Difficulty w/ Childcare or Family Care: No Living arrangements: with family Spiritual care concerns: No Meds Home Medications and Allergies Home Medications ?Medication ?Instructions ?Recorded ?Confirmed ?Type ergocalciferol (vitamin D2) 1,250 1,250 mcg PO DAILY 06/17/23 10/01/24 History mcg (50,000 unit) capsule ferrous sulfate 325 mg (65 mg 325 mg PO DAILY 06/17/23 10/01/24 History iron) tablet (Iron (ferrous sulfate)) levothyroxine 175 mcg tablet 175 mcg PO DAILY 06/17/23 10/01/24 History (Synthroid) B-complex with vitamin C 1 tablet PO DAILY 10/01/24 10/01/24 History calcitriol 0.5 mcg capsule 0.5 mcg PO DAILY 10/01/24 10/01/24 History losartan 50 mg tablet 50 mg PO DAILY 10/01/24 10/01/24 History melatonin 10 mg capsule 10 mg PO HS 10/01/24 10/01/24 History pantoprazole 40 mg tablet,delayed 40 mg PO DAILY 10/01/24 10/01/24 History release pioglitazone 15 mg tablet 15 mg PO DAILY 10/01/24 10/01/24 History psyllium husk 0.4 gram capsule 1.6 g PO DAILY 10/01/24 10/01/24 History (Metamucil) rosuvastatin 40 mg tablet 40 mg PO QPM 10/01/24 10/01/24 History sucroferric oxyhydroxide 500 mg 500 mg PO TIDWM 10/01/24 10/01/24 History chewable tablet (Velphoro) Allergies Allergy/AdvReac Type Severity Reaction Status Date / Time No Known Allergies Allergy Verified 10/01/24 04:28 Vital Signs Vital Signs - 24 hr 10/01/24 04:32 10/01/24 04:40 10/01/24 04:40 Temperature 98.1 F Pulse Rate 91 Respiratory Rate 21 H Blood Pressure 135/75 Pulse Oximetry 95 99 99 Oxygen Delivery Room Air Room Air Room Air 10/01/24 05:29 10/01/24 07:03 10/01/24 07:04 Temperature Pulse Rate 89 89 84 Respiratory Rate 21 H 17 Blood Pressure 104/64 119/60 Pulse Oximetry 98 95 Oxygen Delivery 10/01/24 08:18 10/01/24 08:21 10/01/24 09:53 Temperature 99.1 F Pulse Rate 88 86 87 Respiratory Rate 20 20 20 Blood Pressure 111/68 105/68 110/61 Pulse Oximetry 95 95 96 Oxygen Delivery 10/01/24 10:54 10/01/24 10:57 10/01/24 11:00 Temperature 98.8 F Pulse Rate 83 84 68 Respiratory Rate 18 Blood Pressure 107/56 L 114/64 116/67 Pulse Oximetry 97 Oxygen Delivery 10/01/24 11:15 10/01/24 11:30 10/01/24 11:45 Temperature Pulse Rate 86 84 88 Respiratory Rate Blood Pressure 117/67 114/70 115/70 Pulse Oximetry Oxygen Delivery 10/01/24 12:00 10/01/24 12:15 10/01/24 12:30 Temperature Pulse Rate 88 91 93 Respiratory Rate Blood Pressure 113/69 123/74 124/73 Pulse Oximetry Oxygen Delivery 10/01/24 12:45 10/01/24 13:00 10/01/24 13:15 Temperature Pulse Rate 93 94 93 Respiratory Rate Blood Pressure 126/71 117/76 123/73 Pulse Oximetry Oxygen Delivery 10/01/24 13:15 Temperature Pulse Rate 70 Respiratory Rate Blood Pressure 183/82 H Pulse Oximetry Oxygen Delivery Exam Narrative: trace edema to BLE. +/-murmur. lungs diminished at bases. otherwise fine. Const: General: comfortable and no acute distress Other: , female, nontoxic appearance HENMT: Face/Nose/Sinus: Normal nares present Mouth: Yes moist mucous membranes Eyes: General: appearance normal, both eyes and all related structures Sclera: sclerae normal Pupils: Equal, round and reactive pupils present EOM: EOMs intact bilaterally Resp: Effort & Inspection: normal respiratory effort Auscultation: clear to auscultation bilaterally Cardio: Rate: regular rate Rhythm: regular rhythm Other: +/-murmur, no ectopy. GI: Other: Abdomen soft, nondistended, nontender. Skin: General skin exam: normal color and no rashes or lesions noted Wounds: no wounds Neuro: Speech: normal speech Motor exam (neuro): 5/5 motor strength present throughout Sensory Exam: normal sensation Other: A&O x4 Extrem: Other: Trace edema to bilateral ankles, symmetric. +thrill and bruit to fistula of the left bicep. Psych: Mental Status: mental status grossly normal Affect: normal affect Other: Good insight and judgment, pleasant H&P: Results Labs Labs: Short CBC 10/01/24 Range/Units 04:43 WBC 10.3 H (4.5-10.0) K/mm3 Hgb 9.3 L (12.0-15.0) g/dL Hct 30.2 L (37.0-47.0) % Plt Count 192 (150-375) k/mm3 BMP 10/01/24 04:43 Sodium 143 Potassium 3.7 Chloride 102 Carbon Dioxide 29 BUN 52 H Creatinine 6.78 H Glucose 169 H Calcium 8.6 Cardiac Enzymes 10/01/24 10/01/24 10/01/24 Range/Units 04:43 07:52 10:51 Troponin I 0.136 H* 0.122 H* 0.122 H* (0.000-0.034) ng/mL Liver Function 10/01/24 Range/Units 04:43 Total Bilirubin 0.5 (0.2-1.3) mg/dL AST 21 (14-36) U/L ALT 10 (6-35) U/L Alkaline Phosphatase 77 (38-126) U/L Albumin 4.2 (3.5-5.1) g/dL Assessment and Plan Assessment and plan (1) Chest pain: Qualifiers: Chest pain type: unspecified Qualified Code(s): R07.9 - Chest pain, unspecified Code(s): R07.9 - Chest pain, unspecified Status: Acute Assessment and Plan: - EKG, initial: Sinus rhythm, rate 92, left axis deviation, pattern consistent with pulmonary disease, nonspecific T-wave abnormality - EKG, repeat (1): T-wave abnormality no longer present when compared to EKG done earlier same day. 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 Further recs pending stress test and echo - continue rosuvastatin 40 mg daily - telemetry monitoring (2) ESRD (end stage renal disease) on dialysis: Code(s): N18.6 - End stage renal disease; Z99.2 - Dependence on renal dialysis Status: Acute Assessment and Plan: - creatinine 6.78, BUN 52, GFR 6 - hx of ESRD on HD, Friday/Friday/Friday - nephrology consulted for inpatient dialysis - trend renal function - trend electrolytes, correct as needed (3) Diabetes: Qualifiers: Diabetes mellitus complication status: with hyperglycemia Diabetes mellitus long term care phlebotomist insulin use: without assisted use Diabetes mellitus type: type 2 Qualified Code(s): E11.65 - Type 2 diabetes mellitus with hyperglycemia Code(s): E11.9 - Type 2 diabetes mellitus without complications Status: Chronic Assessment and Plan: - hypoglycemia protocol - POC blood glucose ACHS - home medication: Hold Actos - correct regimen ordered - high dose TIDWM, based off BMI - A1C ordered (4) HTN (hypertension): Qualifiers: Hypertension type: unspecified Qualified Code(s): I10 - Essential (primary) hypertension Code(s): I10 - Essential (primary) hypertension Status: Chronic Assessment and Plan: - chronic, currently 113/69 - continue home medications: Losartan 50 mg daily - monitor Plan Diet: Renal GI Prophylaxis: Not currently indicated DVT Prophylaxis: SCDs Lines: Peripheral Code Status: Full code Quality VTE Prophylaxis VTE prophylaxis: mechanical ordered Hospitalist MIPS Advance Care Plan I have confirmed that the patient's Advanced Care Plan is present, code status is documented, or surrogate decision maker is listed in patient medical record.: Yes Medication Reconciliation I have utilized all available resources to obtain, update and review the patients current medications (includes all prescriptions, OTC, herbals, cannabis, and nutritional supplements).: Yes
[2024-10-01] MEDS: HEPARIN SODIUM 1,000 UNITS/ML VIAL 5000 UNITS (15:27)
--- NOTE | 2024-10-01 15:54 | PCDIET ---
Nutrition note: Screen for MST2, unsure of weight loss. No weight loss >1 year per EMR. No intakes recorded yet. Will check intakes and monitor.
[2024-10-01 16:50] LABS: Glucose Point of Care 155 mg/dl (65-105)
--- NOTE | 2024-10-01 17:38 | PC.NURSE ---
This patient, Lina Clinton, was admitted to IMU Room 207-01. Patient/family oriented to hospital policies and general routines including ID bracelet, bed and alarms, visiting hours, pain management, procedures, bathroom and other care routines, personal items, smoking policy, room service/diet, and visiting hours. Information on how to activate the Rapid Response Team has been discussed. Patient/Family are encouraged to report perceived risks to care and to ask questions if they do not understand what they are told or what they should do. Head to toe assessment and admission completed and documented in the chart. Pt voiced no complaints or concerns at this time. Call light in reach and personal items in reach. Will continue to monitor. Mehnaz Alonso RN
[2024-10-01] MEDS: ROSUVASTATIN 20 MG TABLET 40 MG PO (18:12)
[2024-10-01 18:51] LABS: MRSA (PCR) NOT DETECTED (NOT DETECTE)
[2024-10-01 21:15] LABS: Glucose Point of Care 213 mg/dl (65-105)
[2024-10-01] MEDS: MELATONIN 5 MG TABLET 10 MG PO (22:42)
[2024-10-02] VITALS (10 sets, daily range): BP systolic 102–118; BP diastolic 58–62; PULSE 79–94; RESP 14–20; TEMP 37–37.6; O2SAT 93–100
--- NOTE | 2024-10-02 | ECHO_ITS ---
Patient Info Name: Lina Clinton Age: 64 years : 1960 Gender: Female Ht: 66 in Wt: 240 lbs BSA: 2.30 m2 HR: 99 bpm BP: 105 / 62 mmHg Heart Rhythm: Sinus Rhythm Technical Quality: Fair Exam Date: 10/02/2024 9:01 AM Exam Location: Echo Lab Patient Status: Inpatient Admit Date: 10/01/2024 Staff Ordering Physician: Talita Kolb MD (tito/kj) Pressurised Container Filler: Chery Hensley RDCS Attending Provider: Julisa Tay MD Referring Physician: Cortes VEGA; Exam Type: CA echo doppler color flow Study Info Indications - Chest pain Complete two-dimensional, color flow and Doppler transthoracic echocardiogram is performed. Summary 1. Complete two-dimensional, color flow and Doppler transthoracic echocardiogram is performed. Recommendations * Normal LV size, mild LVH, normal LV systolic function, ejection fraction about 60-65%, diastolic dysfunction is present. Normal RV size and systolic function. Mild biatrial enlargement. Moderate mitral annular calcification, trivial MR. No hemodynamically significant stenosis. Aortic valve appears mildly calcified with mild stenosis-continued echo surveillance recommended. Unable to assess RVSP due to inadequate TR jet. Left Ventricle Left ventricular chamber dimension is normal. Left ventricular systolic function is normal, estimated at 60-65%. There is mildly increased left ventricular wall thickness. The left ventricular diastolic function is abnormal. Right Ventricle Right ventricular chamber dimension is normal. Right ventricular systolic function is normal. Left Atria Left atrial chamber dimension is mildly enlarged. Right Atria Right atrial chamber dimension is mildly enlarged. Aortic Valve There is mild aortic valve stenosis with a peak velocity of 140 cm/s, mean gradient of 4 mmHg, and aortic valve area of 3.0 cm2. There is mild aortic valve calcification. Pulmonic Valve The pulmonic valve is normal. There is trace pulmonic regurgitation. Mitral Valve There is trace mitral valve regurgitation. The mitral valve annulus is moderately calcified. Tricuspid Valve The tricuspid valve leaflets are normal. Aorta The aortic root size at the sinus of Valsalva is normal. Left Ventricular Outflow Tract Name Value Normal LVOT 2D LVOT Diameter 2.0 cm LVOT Doppler LVOT Peak Gradient 4 mmHg LVOT Mean Gradient 2 mmHg LVOT VTI 26 cm LVOT VTI/AV VTI Ratio 0.9 LVOT Stroke Volume 83 ml LVOT CO 6.7 l/min LVOT CI 2.9 l/min/m2 Pulmonic Valve Name Value Normal RVOT Doppler RVOT Peak Gradient 1 mmHg PV Doppler PV Peak Gradient 3 mmHg Mitral Valve Name Value Normal MV Doppler MV Decel [place] 600 cm/s2 MV PHT 62 ms MV Area (PHT) 3.5 cm2 4.0-5.0 MV Diastolic Function MV E Peak Velocity 128 cm/s MV A Peak Velocity 135 cm/s MV E/A 1.0 MV Decel Time 214 ms MV Annular TDI MV E/e' (Septal) 16.1 <=8.0 MV E/e' (Lateral) 18.8 <=8.0 MV E/e' (Average) 17.4 Aortic Valve Name Value Normal AV Doppler AV Peak Velocity 140 cm/s AV Peak Gradient 8 mmHg AV Mean Gradient 4 mmHg AV VTI 27 cm AV Area (Cont Eq VTI) 3.0 cm2 >=3.0 AV Area (Cont Eq Marc) 2.4 cm2 AV Regurgitation 2D LVOT Area 3.2 cm2 Ventricles Name Value Normal LV Dimensions 2D/MM IVS Diastolic Thickness (2D) 1.0 cm 0.6-1.0 LVID Diastole (2D) 4.2 cm 3.8-5.2 LVIW Diastolic Thickness (2D) 1.1 cm 0.6-0.9 LVID Systole (2D) 3.0 cm 2.2-3.5 LVOT Diameter 2.0 cm LV Mass (2D Cubed) 140.22 g 67.00-162.00 LV Mass Index (2D Cubed) 61 g/m2 43-95 Relative Wall Thickness (2D) 0.50 LV Fractional Shortening/Ejection Fraction 2D/MM LV Fractional Shortening (2D) 28 % 27-45 LV EF (2D Teicholz) 55 % 54-74 LV Diastolic Volume (4C MOD) 152 ml LV EF (4C MOD) 59 % LV Diastolic Volume (2C MOD) 139 ml LV EF (2C MOD) 60 % LV Diastolic Volume (BP MOD) 151 ml 46-106 LV Diastolic Volume Index (BP MOD) 65 ml/m2 29-61 LV Systolic Volume (BP MOD) 62 ml 14-42 LV Systolic Volume Index (BP MOD) 27 ml/m2 8-24 LV EF (BP MOD) 59 % 54-74 LV Diastolic Length (4C) 8.7 cm LV Systolic Length (4C) 7.5 cm LV Stroke Volume (4C MOD) 90 ml Atria Name Value Normal LA Dimensions LA Volume (4C A-L) 112 ml LA Volume (BP A-L) 101 ml RA Dimensions RA Area (4C) 22.6 cm2 <=18.0 Report Signatures
[2024-10-02 04:53] LABS: Basophils Absolute Auto 0.1 K/mm3 (0.0-0.1); Basophils Percent Auto 0.6 % (0.2-1.2); Eosinophils Percent Auto 0.4 % (0-4.4); Hemoglobin 8.8 g/dL (12.0-15.0); Immature Granulocyte Absolute 0.05 K/mm3 (0.00-0.031); Immature Granulocyte Percent A 0.5 % (0-0.5); Lymphocytes Absolute Auto 1.56 K/mm3 (0.9-3.2); Lymphocytes Percent Auto 16.6 % (18.3-44.2); Mean Corpuscular HGB Conc 31.4 g/dl (32-36); Mean Corpuscular Volume 98.6 fl (80-100); Mean Platelet Volume 10.6 fl (7.4-10.4); Monocytes Percent Auto 10.4 % (2.6-8.5); Neutrophils Absolute Auto 6.7 K/mm3 (1.3-6.7); Neutrophils Percent Auto 71.5 % (45.5-73.1); Platelet Count Result 168 k/mm3 (150-375); Red Blood Count 2.84 M/mm3 (4.2-5.4); Red Cell Distribution Width 14.8 % (11.5-14.5); White Blood Count 9.4 K/mm3 (4.5-10.0)
[2024-10-02 05:13] LABS: Anion Gap 9 mmol/L (4-12); Blood Urea Nitrogen 36 mg/dL (7-17); Calcium 8.5 mg/dL (8.4-10.2); Carbon Dioxide 33 mmol/L (22-30); Chloride 97 mmol/L (98-107); Estimated CRCL calculation 14 ml/min; Estimated Glomerular Filt Rate 9; Glucose 124 mg/dL (65-110); Magnesium 2.4 mg/dL (1.6-2.3); Phosphorus 3.6 mg/dL (2.5-4.5); Potassium 3.9 mmol/L (3.4-5.0); Sodium 139 mmol/L (137-145)
[2024-10-02] MEDS: LEVOTHYROXINE SODIUM 100 MCG TABLET PO (06:59)
[2024-10-02] MEDS: LEVOTHYROXINE SODIUM 75 MCG TABLET PO (06:59)
--- NOTE | 2024-10-02 08:15 | P.PNIM_ITS ---
Progress Note: A&P Assessment and Plan (1) Chest pain: Qualifiers: Chest pain type: unspecified Qualified Code(s): R07.9 - Chest pain, unspecified Code(s): R07.9 - Chest pain, unspecified Status: Acute (2) HTN (hypertension): Qualifiers: Hypertension type: unspecified Qualified Code(s): I10 - Essential (primary) hypertension Code(s): I10 - Essential (primary) hypertension Status: Chronic (3) ESRD (end stage renal disease) on dialysis: Code(s): N18.6 - End stage renal disease; Z99.2 - Dependence on renal dialysis Status: Acute Plan (1) Chest pain: Qualifiers: Chest pain type: unspecified Qualified Code(s): R07.9 - Chest pain, unspecified Code(s): R07.9 - Chest pain, unspecified Status: Acute Assessment and Plan: EKG, initial: Sinus rhythm, rate 92, left axis deviation, pattern consistent with pulmonary disease, nonspecific T-wave abnormality. EKG, repeat (1): T- wave abnormality no longer present when compared to EKG done earlier same day. - CXR: mild interstitial edema, possible cardiomegaly Troponin: 0.136 -> 0.122 -> 0.122 - cardiology consulted, Cortes LOPEZ Chest pain appears pleuritic, troponin elevated but flat, EKG without ischemic changes - obtain nuclear stress test Check echo: Normal LV size, mild LVH, normal LV systolic function, ejection fraction about 60-65%, diastolic dysfunction is present. Normal RV size and systolic function. Mild biatrial enlargement. Moderate mitral annular calcification, trivial MR. No hemodynamically significant stenosis. Aortic valve appears mildly calcified with mild stenosis-continued echo surveillance recommended. Unable to assess RVSP due to inadequate TR jet. -continue rosuvastatin 40 mg daily telemetry monitoring: No arrhythmia or cardiac ischemia Cardiology recommend discharge patient today, patient needs to see her Cardiology at scheduled appointment (2) ESRD (end stage renal disease) on dialysis: Code(s): N18.6 - End stage renal disease; Z99.2 - Dependence on renal dialysis Status: Acute Assessment and Plan: creatinine 6.78, BUN 52, GFR 6, hemodialysis Friday Consult chemistry account manager for evaluation treatment Patient received dialysis yesterday, no obvious fluid overload (3) Diabetes: Qualifiers: Diabetes mellitus complication status: with hyperglycemia Diabetes mellitus retirement insulin use: without retirement use Diabetes mellitus type: type 2 Qualified Code(s): E11.65 - Type 2 diabetes mellitus with hyperglycemia Code(s): E11.9 - Type 2 diabetes mellitus without complications Status: Chronic Assessment and Plan: - hypoglycemia protocol - POC blood glucose ACHS - home medication: Hold Actos - correct regimen ordered - high dose TIDWM, based off BMI - A1C ordered Resume home medication discharge (4) HTN (hypertension): Qualifiers: Hypertension type: unspecified Qualified Code(s): I10 - Essential (primary) hypertension Code(s): I10 - Essential (primary) hypertension Status: Chronic Assessment and Plan: chronic, currently 113/69 continue home medications: Losartan 50 mg daily Subjective Date/time seen: 10/02/24 08:15 Interval history: I saw examined patient, patient denies chest pain abdomen pain, shortness breast Exam Narrative: GENERAL: Pleasant, in no acute distress. Well-nourished. - EYES: EOMI. Anicteric. - HENT: Moist mucous membranes. - LUNGS: Clear to auscultation bilateral ly, no wheezing, rhonchi, or rales. - CARDIOVASCULAR: Regular rate and rhyth m. No murmur. No JVD. - ABDOMEN: Soft, non-tender and non-dist ended. No palpable masses. - EXTREMITIES: No edema. Peripheral puls es 2+. Non-tender. - NEUROLOGIC: No focal neurological defi cits. CN II-XII grossly intact. - PSYCHIATRIC: Awake, Alert and oriented x 3. Appropriate mood and affect. - SKIN: No rashes or lesions. Warm. - LYMPH: No cervical lymphadenopathy. Objective Data Vital Signs Vital Signs: Vital Signs - 24 hr 10/01/24 08:18 10/01/24 08:21 10/01/24 09:53 Temperature 99.1 F Pulse Rate 88 86 87 Respiratory Rate 20 20 20 Blood Pressure 111/68 105/68 110/61 Pulse Oximetry 95 95 96 Oxygen Delivery Fraction of Inspired Oxygen 10/01/24 10:54 10/01/24 10:57 10/01/24 11:00 Temperature 98.8 F Pulse Rate 83 84 68 Respiratory Rate 18 Blood Pressure 107/56 L 114/64 116/67 Pulse Oximetry 97 Oxygen Delivery Fraction of Inspired Oxygen 10/01/24 11:15 10/01/24 11:30 10/01/24 11:45 Temperature Pulse Rate 86 84 88 Respiratory Rate Blood Pressure 117/67 114/70 115/70 Pulse Oximetry Oxygen Delivery Fraction of Inspired Oxygen 10/01/24 11:45 10/01/24 12:00 10/01/24 12:00 Temperature Pulse Rate 95 88 88 Respiratory Rate Blood Pressure 119/67 113/69 Pulse Oximetry Oxygen Delivery Fraction of Inspired Oxygen 10/01/24 12:15 10/01/24 12:30 10/01/24 12:45 Temperature Pulse Rate 91 93 93 Respiratory Rate Blood Pressure 123/74 124/73 126/71 Pulse Oximetry Oxygen Delivery Fraction of Inspired Oxygen 10/01/24 13:00 10/01/24 13:15 10/01/24 13:30 Temperature Pulse Rate 94 93 94 Respiratory Rate Blood Pressure 117/76 123/73 121/70 Pulse Oximetry Oxygen Delivery Fraction of Inspired Oxygen 10/01/24 13:45 10/01/24 14:00 10/01/24 14:15 Temperature Pulse Rate 95 96 71 Respiratory Rate Blood Pressure 119/67 113/69 115/63 Pulse Oximetry Oxygen Delivery Fraction of Inspired Oxygen 10/01/24 14:29 10/01/24 14:51 10/01/24 16:00 Temperature 99.0 F Pulse Rate 100 102 H 98 Respiratory Rate 18 Blood Pressure 129/73 135/68 Pulse Oximetry 96 Oxygen Delivery Fraction of Inspired Oxygen 10/01/24 16:00 10/01/24 17:00 10/01/24 18:00 Temperature 100 F H Pulse Rate 118 H 92 Respiratory Rate 16 Blood Pressure 118/50 L Pulse Oximetry 95 Oxygen Delivery Room Air Fraction of Inspired Oxygen 10/01/24 20:00 10/01/24 20:00 10/01/24 21:30 Temperature 99.4 F Pulse Rate 88 86 88 Respiratory Rate 20 20 Blood Pressure 105/54 L Pulse Oximetry 95 95 Oxygen Delivery CPAP Fraction of Inspired Oxygen 10/01/24 22:00 10/01/24 23:30 10/02/24 00:00 Temperature 98.6 F Pulse Rate 85 85 85 Respiratory Rate 20 20 Blood Pressure 102/58 L Pulse Oximetry 95 95 Oxygen Delivery CPAP Fraction of Inspired Oxygen 21 10/02/24 00:00 10/02/24 00:23 10/02/24 02:00 Temperature Pulse Rate 82 79 84 Respiratory Rate Blood Pressure Pulse Oximetry 95 Oxygen Delivery Fraction of Inspired Oxygen 10/02/24 04:00 10/02/24 04:00 10/02/24 04:08 Temperature 99.7 F H Pulse Rate 89 87 89 Respiratory Rate 20 20 Blood Pressure 105/62 Pulse Oximetry 93 93 Oxygen Delivery CPAP Fraction of Inspired Oxygen 21 10/02/24 06:00 Temperature Pulse Rate 89 Respiratory Rate Blood Pressure Pulse Oximetry Oxygen Delivery Fraction of Inspired Oxygen Intake/Output Intake/Output: Intake & Output 09/29/24 09/30/24 10/01/24 10/02/24 23:59 23:59 23:59 23:59 Intake Total 240 400 Output Total 1999 Balance -1760 400 Meds/Results Medications: Active Medications Generic Name Dose Route Start Last Admin Trade Name Freq PRN Reason Stop Dose Admin Acetaminophen 650 mg 10/01/24 08:21 10/01/24 08:52 Acetaminophen 325 Mg Tablet PO 650 mg Q4H PRN Administration Mild Pain (1-3) or Fever Calcitriol 0.5 mcg 10/02/24 09:00 Calcitriol 0.25 Mcg Capsule PO QAM [place] Dextrose 12.5 gm 10/01/24 14:21 Dextrose 50% 25 Gm/50 Ml Syringe IV PUSH PRN PRN Hypoglycemia Protocol Epoetin Aaimr-epbx 10,000 units 10/01/24 09:00 10/01/24 16:48 Epoetin Aamir-Epbx 10,000 Units/Ml Vial IV PUSH Not Given [email or web address] [facility] Ergocalciferol 50,000 units 10/03/24 09:00 Ergocalciferol 50,000 Units Capsule PO [email or web address] [facility] Ferrous Sulfate 325 mg 10/02/24 09:00 Ferrous Sulfate [address] BY MOUTH DAILY [facility] Glucagon 1 mg 10/01/24 14:21 Glucagon For Inj 1 Mg Vial IM PRN PRN Hypoglycemia Protocol Glucose 15 gm 10/01/24 14:21 Glucose Oral Gel 15 Gm Of Glucse In 37.5 Gm Tube PO PRN PRN Hypoglycemia Protocol Dextrose 1,000 mls @ 100 mls/hr 10/01/24 14:21 Dextrose 5% 1,000 Ml IVPB PRN PRN Hypoglycemia Protocol Insulin Aspart 4 - 8 units 10/01/24 17:00 10/01/24 16:51 Insulin Aspart (*Bkc) 100 Units/Ml SUB-Q Not Given TIDWM [facility] Protocol Levothyroxine Sodium 75 mcg 10/02/24 06:30 10/02/24 06:59 Levothyroxine Sodium 75 Mcg Tablet PO 75 mcg DAILY@0630 [place] Administration Levothyroxine Sodium 100 mcg 10/02/24 06:30 10/02/24 06:59 Levothyroxine Sodium 100 Mcg Tablet PO 100 mcg DAILY@0630 [facility] Administration Losartan Potassium 50 mg 10/02/24 09:00 Losartan Potassium 50 Mg Tablet PO DAILY [facility] Melatonin 10 mg 10/01/24 21:00 10/01/24 22:42 Melatonin 5 Mg Tablet PO 10 mg HS [facility] Administration Miscellaneous Information 1 each 10/01/24 00:01 10/02/24 04:27 Nonformulary Drug (Sucroferric Oxyhydroxide [Velphoro] 500 Mg Tablet,Chewable)Can Patient XX 10/31/24 00:00 Not Given CLARIFY [facility] Morphine Sulfate 2 mg 10/01/24 08:21 Morphine Sulfate (*Crx) 2 Mg/Ml Inj IV PUSH Q2H PRN Pain Rated 7-10 Nitroglycerin 0.4 mg 10/01/24 08:21 Nitroglycerin Sl 0.4 Mg Tablet SUBLINGUAL Q5MIN PRN Chest Pain Non-Formulary Medication 500 mg 10/02/24 08:00 Sucroferric Oxyhydroxide [Velphoro] PO 11/01/24 07:59 TIDWM [facility] Ondansetron HCl 4 mg 10/01/24 08:21 Ondansetron Inj 4 Mg/2 Ml Vial IV PUSH Q4H PRN Nausea Pantoprazole Sodium 40 mg 10/02/24 09:00 Pantoprazole 40 Mg Tablet PO DAILY [facility] Perflutren Lipid Microsphere 0 ml 10/01/24 11:22 Perflutren Lipid Microspheres 1.5 Ml Vial Diluted To 10 Ml Total Volume IV PUSH 10/04/24 11:22 ONCE PRN adequate visualization Protocol Psyllium Hydrophilic Mucilloid 1 packet 10/02/24 09:00 Psyllium Powder Packet BY MOUTH DAILY [facility] Rosuvastatin Calcium 40 mg 10/01/24 18:00 10/01/24 18:12 Rosuvastatin 20 Mg Tablet PO 40 mg QPM [facility] Administration Vitamin B Complex/Vitamin C 1 each 10/02/24 09:00 Vitamin B Complex/Vit C Capsule PO DAILY [place] Radiology Results: ITS Impressions Chest CTA 10/01/24 06:33 Impression: No evidence of pulmonary embolus, aortic dissection, or aortic aneurysm. Minimal pericardial effusion and minimal bilateral pleural fluid with minimal bibasilar atelectasis. Cirrhotic liver with distended gallbladder. Area of mild amorphous sclerosis in the midsternal body, nonspecific. Correlate for point tenderness. Consider bone scan to evaluate for uptake. 1.9 cm left adrenal nodule, stable since prior exam from 2010, therefore consistent with benign adenoma. Clear lungs. Chest X-Ray 10/01/24 06:38 Impression: Mild interstitial edema. Possible cardiomegaly. Lexiscan Stress Test 10/01/24 17:18 IMPRESSION: 1. Large area of moderate severity infarct involving mid anterior segment, mid to basal anterolateral segments, and mid to basal inferolateral segments of left ventricle. 2. Normal left ventricular ejection fraction measuring 68%. Labs Labs: Laboratory Results - last 24 hr 10/01/24 10/01/24 10/01/24 04:43 07:52 10:51 WBC RBC Hgb Hct MCV MCH MCHC RDW Plt Count MPV Immature Gran % (Auto) Neut % (Auto) Lymph % (Auto) [place] % (Auto) Eos % (Auto) Baso % (Auto) Lymph # (Auto) [place] # (Auto) Eos # (Auto) Baso # (Auto) Abs Immat Gran (auto) Absolute Neuts (auto) Absolute Nucleated RBC Nucleated RBC % Sodium Potassium Chloride Carbon Dioxide Anion Gap BUN Creatinine Estim Creat Clear Calc Estimated GFR Glucose POC Capillary Glucose Calcium Phosphorus Magnesium Troponin I 0.122 H* 0.122 H* Nasal MRSA (PCR) Hep Bs Antigen Negative Hep Bs Antibody Negative 10/01/24 10/01/24 10/01/24 16:43 17:37 21:12 WBC RBC Hgb Hct MCV MCH MCHC RDW Plt Count MPV Immature Gran % (Auto) Neut % (Auto) Lymph % (Auto) [place] % (Auto) Eos % (Auto) Baso % (Auto) Lymph # (Auto) [place] # (Auto) Eos # (Auto) Baso # (Auto) Abs Immat Gran (auto) Absolute Neuts (auto) Absolute Nucleated RBC Nucleated RBC % Sodium Potassium Chloride Carbon Dioxide Anion Gap BUN Creatinine Estim Creat Clear Calc Estimated GFR Glucose POC Capillary Glucose 155 H 213 H Calcium Phosphorus Magnesium Troponin I Nasal MRSA (PCR) Not detected Hep Bs Antigen Hep Bs Antibody 10/02/24 04:31 WBC 9.4 RBC 2.84 L Hgb 8.8 L Hct 28.0 L MCV 98.6 MCH 31.0 MCHC 31.4 L RDW 14.8 H Plt Count 168 MPV 10.6 H Immature Gran % (Auto) 0.5 Neut % (Auto) 71.5 Lymph % (Auto) 16.6 L [place] % (Auto) 10.4 H Eos % (Auto) 0.4 Baso % (Auto) 0.6 Lymph # (Auto) 1.56 [place] # (Auto) 1.0 H Eos # (Auto) 0.0 Baso # (Auto) 0.1 Abs Immat Gran (auto) 0.05 H Absolute Neuts (auto) 6.7 Absolute Nucleated RBC 0.000 Nucleated RBC % 0.0 Sodium 139 Potassium 3.9 Chloride 97 L Carbon Dioxide 33 H Anion Gap 9 BUN 36 H D Creatinine 4.81 H Estim Creat Clear Calc 14 Estimated GFR 9 L Glucose 124 H POC Capillary Glucose Calcium 8.5 Phosphorus 3.6 Magnesium 2.4 H Troponin I Nasal MRSA (PCR) Hep Bs Antigen Hep Bs Antibody
[2024-10-02] MEDS: PANTOPRAZOLE 40 MG TABLET PO (09:24)
[2024-10-02] MEDS: FERROUS SULFATE 325 MG TABLET DR BY MOUTH (09:26)
[2024-10-02] MEDS: VITAMIN B COMPLEX/VIT C CAPSULE 1 EACH PO (09:27)
[2024-10-02] MEDS: calcitrioL 0.25 MCG CAPSULE 0.5 MCG PO (09:27)
--- NOTE | 2024-10-02 09:54 | PM.PNCARD ---
Progress Note: A&P Assessment and Plan (1) Chest pain: Qualifiers: Chest pain type: unspecified Qualified Code(s): R07.9 - Chest pain, unspecified Code(s): R07.9 - Chest pain, unspecified Status: Acute Plan 1. Chest pain with pleuritic features 2. Elevated troponins-flat 3. ESRD on HD 4. Hypertension 5. Hyperlipidemia 6. Diabetes mellitus PLAN: -Chest pain has a pleuritic component. Chest pain has resolved. Troponins are mildly elevated but flat (in setting of known ESRD; baseline troponin levels unknown). EKG without ischemic changes. MPI reportedly showed normal LVF, large area of moderate severity infarct involving mid anterior segment, mid to basal anterolateral segments, and mid to basal inferolateral segments of left ventricle. At this time, recommend aspirin and statin treatment. Patient is eager to go home. 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 -management other medical problems as per primary team. -will sign of Subjective Date/time seen: 10/02/24 09:54 Interval history: 10/02/2024-patient reports resolution of pleuritic chest pain. No shortness of breath. On telemetry, she has been predominantly sinus rhythm. Patient is hungry, wants to eat and wants to be discharged home. Review of Systems Review of Systems: General: Negative for fever, chills, fatigue Psychological: Negative for anxiety, depression Ophthalmic: negative for loss of vision ENT: Negative for epistaxis, headaches Allergy and immunology: Negative for hives, nasal congestion Hematologic and lymphatic: Negative for overt bleeding problems Endocrine: Negative for hot flashes, palpitations Respiratory: Negative for cough, hemoptysis Cardiovascular: Pleuritic chest pain resolved Gastrointestinal: Negative for abdominal pain, nausea, vomiting, hematochezia Musculoskeletal: Negative for myalgia, joint pains Neurological: Negative for weakness Dermatological: Negative for rash, skin discoloration Exam Narrative: PHYSICAL EXAMINATION: GENERAL: Alert, oriented, no acute distress MENTAL STATUS: affect appropriate to mood EYES: Extraocular movements intact, no pallor EARS: External ears appear normal, hearing grossly normal NOSE: Normal and patent, no discharge MOUTH: Mucous membranes moist, tongue normal NECK: Supple, no JVD CHEST: Good respiratory effort, clear to auscultation HEART: Normal rate, regular rhythm, normal S1 and S2, no audible murmurs ABDOMEN: Soft, nontender NEUROLOGICAL: Alert, oriented, normal speech, no gross motor deficits MUSCULOSKELETAL: No major deformity, no amputation EXTREMITIES: Trace pedal edema, no clubbing, no cyanosis SKIN: no rash on the exposed area, no cyanosis PSYCHIATRIC: Normal mood, appropriate affect Objective Data Vital Signs Vital Signs: Vital Signs - 24 hr 10/01/24 10:54 10/01/24 10:57 10/01/24 11:00 Temperature 37.1 C Pulse Rate 83 84 68 Respiratory Rate 18 Blood Pressure 107/56 L 114/64 116/67 Pulse Oximetry 97 Oxygen Delivery Fraction of Inspired Oxygen 10/01/24 11:15 10/01/24 11:30 10/01/24 11:45 Temperature Pulse Rate 86 84 88 Respiratory Rate Blood Pressure 117/67 114/70 115/70 Pulse Oximetry Oxygen Delivery Fraction of Inspired Oxygen 10/01/24 11:45 10/01/24 12:00 10/01/24 12:00 Temperature Pulse Rate 95 88 88 Respiratory Rate Blood Pressure 119/67 113/69 Pulse Oximetry Oxygen Delivery Fraction of Inspired Oxygen 10/01/24 12:15 10/01/24 12:30 10/01/24 12:45 Temperature Pulse Rate 91 93 93 Respiratory Rate Blood Pressure 123/74 124/73 126/71 Pulse Oximetry Oxygen Delivery Fraction of Inspired Oxygen 10/01/24 13:00 10/01/24 13:15 10/01/24 13:30 Temperature Pulse Rate 94 93 94 Respiratory Rate Blood Pressure 117/76 123/73 121/70 Pulse Oximetry Oxygen Delivery Fraction of Inspired Oxygen 10/01/24 13:45 10/01/24 14:00 10/01/24 14:15 Temperature Pulse Rate 95 96 71 Respiratory Rate Blood Pressure 119/67 113/69 115/63 Pulse Oximetry Oxygen Delivery Fraction of Inspired Oxygen 10/01/24 14:29 10/01/24 14:51 10/01/24 16:00 Temperature 37.2 C Pulse Rate 100 102 H 98 Respiratory Rate 18 Blood Pressure 129/73 135/68 Pulse Oximetry 96 Oxygen Delivery Fraction of Inspired Oxygen 10/01/24 16:00 10/01/24 17:00 10/01/24 18:00 Temperature 37.7 C H Pulse Rate 118 H 92 Respiratory Rate 16 Blood Pressure 118/50 L Pulse Oximetry 95 Oxygen Delivery Room Air Fraction of Inspired Oxygen 10/01/24 20:00 10/01/24 20:00 10/01/24 21:30 Temperature 37.4 C Pulse Rate 88 86 88 Respiratory Rate 20 20 Blood Pressure 105/54 L Pulse Oximetry 95 95 Oxygen Delivery CPAP Fraction of Inspired Oxygen 21 10/01/24 22:00 10/01/24 23:30 10/02/24 00:00 Temperature 37.0 C Pulse Rate 85 85 85 Respiratory Rate 20 20 Blood Pressure 102/58 L Pulse Oximetry 95 95 Oxygen Delivery CPAP Fraction of Inspired Oxygen 21 10/02/24 00:00 10/02/24 00:23 10/02/24 02:00 Temperature Pulse Rate 82 79 84 Respiratory Rate Blood Pressure Pulse Oximetry 95 Oxygen Delivery Fraction of Inspired Oxygen 10/02/24 04:00 10/02/24 04:00 10/02/24 04:08 Temperature 37.6 C H Pulse Rate 89 87 89 Respiratory Rate 20 20 Blood Pressure 105/62 Pulse Oximetry 93 93 Oxygen Delivery CPAP Fraction of Inspired Oxygen 10/02/24 06:00 10/02/24 08:00 Temperature 37.3 C Pulse Rate 89 94 Respiratory Rate 14 Blood Pressure 118/60 Pulse Oximetry 100 Oxygen Delivery Fraction of Inspired Oxygen Intake/Output Intake/Output: Intake & Output 09/29/24 09/30/24 10/01/24 10/02/24 23:59 23:59 23:59 23:59 Intake Total 240 400 Output Total 2000 Balance -1760 400 Meds/Results Medications: Active Medications Generic Name Dose Route Start Last Admin Trade Name Freq PRN Reason Stop Dose Admin Acetaminophen 650 mg 10/01/24 08:21 10/01/24 08:52 Acetaminophen 325 Mg Tablet PO 650 mg Q4H PRN Administration Mild Pain (1-3) or Fever Calcitriol 0.5 mcg 10/02/24 09:00 10/02/24 09:27 Calcitriol 0.25 Mcg Capsule PO 0.5 mcg QAM [place] Administration Dextrose 12.5 gm 10/01/24 14:21 Dextrose 50% 25 Gm/50 Ml Syringe IV PUSH PRN PRN Hypoglycemia Protocol Epoetin Aamir-epbx 10,000 units 10/01/24 09:00 10/01/24 16:48 Epoetin Aamir-Epbx 10,000 Units/Ml Vial IV PUSH Not Given [email or web address] [facility] Ergocalciferol 50,000 units 10/03/24 09:00 Ergocalciferol 50,000 Units Capsule PO [email or web address] [facility] Ferrous Sulfate 325 mg 10/02/24 09:00 10/02/24 09:26 Ferrous Sulfate [address] BY MOUTH 325 mg DAILY [place] Administration Glucagon 1 mg 10/01/24 14:21 Glucagon For Inj 1 Mg Vial IM PRN PRN Hypoglycemia Protocol Glucose 15 gm 10/01/24 14:21 Glucose Oral Gel 15 Gm Of Glucse In 37.5 Gm Tube PO PRN PRN Hypoglycemia Protocol Dextrose 1,000 mls @ 100 mls/hr 10/01/24 14:21 Dextrose 5% 1,000 Ml IVPB PRN PRN Hypoglycemia Protocol Insulin Aspart 4 - 8 units 10/01/24 17:00 10/01/24 16:51 Insulin Aspart (*Bkc) 100 Units/Ml SUB-Q Not Given TIDWM [facility] Protocol Levothyroxine Sodium 75 mcg 10/02/24 06:30 10/02/24 06:59 Levothyroxine Sodium 75 Mcg Tablet PO 75 mcg DAILY@0630 [facility] Administration Levothyroxine Sodium 100 mcg 10/02/24 06:30 10/02/24 06:59 Levothyroxine Sodium 100 Mcg Tablet PO 100 mcg DAILY@0630 [facility] Administration Losartan Potassium 50 mg 10/02/24 09:00 10/02/24 09:30 Losartan Potassium 50 Mg Tablet PO Not Given DAILY [facility] Melatonin 10 mg 10/01/24 21:00 10/01/24 22:42 Melatonin 5 Mg Tablet PO 10 mg HS [facility] Administration Miscellaneous Information 1 each 10/01/24 00:01 10/02/24 04:27 Nonformulary Drug (Sucroferric Oxyhydroxide [Velphoro] 500 Mg Tablet,Chewable)Can Patient XX 10/31/24 00:00 Not Given CLARIFY [facility] Morphine Sulfate 2 mg 10/01/24 08:21 Morphine Sulfate (*Crx) 2 Mg/Ml Inj IV PUSH Q2H PRN Pain Rated 7-10 Nitroglycerin 0.4 mg 10/01/24 08:21 Nitroglycerin Sl 0.4 Mg Tablet SUBLINGUAL Q5MIN PRN Chest Pain Non-Formulary Medication 500 mg 10/02/24 08:00 Sucroferric Oxyhydroxide [Velphoro] PO 04/14/25 07:59 TIDWM [facility] Ondansetron HCl 4 mg 10/01/24 08:21 Ondansetron Inj 4 Mg/2 Ml Vial IV PUSH Q4H PRN Nausea Pantoprazole Sodium 40 mg 10/02/24 09:00 10/02/24 09:24 Pantoprazole 40 Mg Tablet PO 40 mg DAILY [place] Administration Perflutren Lipid Microsphere 0 ml 10/01/24 11:22 Perflutren Lipid Microspheres 1.5 Ml Vial Diluted To 10 Ml Total Volume IV PUSH 10/04/24 11:22 ONCE PRN adequate visualization Protocol Psyllium Hydrophilic Mucilloid 1 packet 10/02/24 09:00 10/02/24 09:30 Psyllium Powder Packet BY MOUTH Not Given DAILY [place] Rosuvastatin Calcium 40 mg 10/01/24 18:00 10/01/24 18:12 Rosuvastatin 20 Mg Tablet PO 40 mg QPM [place] Administration Vitamin B Complex/Vitamin C 1 each 10/02/24 09:00 10/02/24 09:27 Vitamin B Complex/Vit C Capsule PO 1 each DAILY [place] Administration Radiology Results: ITS Impressions Chest CTA 10/01/24 06:33 Impression: No evidence of pulmonary embolus, aortic dissection, or aortic aneurysm. Minimal pericardial effusion and minimal bilateral pleural fluid with minimal bibasilar atelectasis. Cirrhotic liver with distended gallbladder. Area of mild amorphous sclerosis in the midsternal body, nonspecific. Correlate for point tenderness. Consider bone scan to evaluate for uptake. 1.9 cm left adrenal nodule, stable since prior exam from 2010, therefore consistent with benign adenoma. Clear lungs. Chest X-Ray 10/01/24 06:38 Impression: Mild interstitial edema. Possible cardiomegaly. Lexiscan Stress Test 10/01/24 17:18 IMPRESSION: 1. Large area of moderate severity infarct involving mid anterior segment, mid to basal anterolateral segments, and mid to basal inferolateral segments of left ventricle. 2. Normal left ventricular ejection fraction measuring 68%. Labs Labs: Laboratory Results - last 24 hr 10/01/24 10/01/24 10/01/24 04:43 10:51 16:43 WBC RBC Hgb Hct MCV MCH MCHC RDW Plt Count MPV Immature Gran % (Auto) Neut % (Auto) Lymph % (Auto) [place] % (Auto) Eos % (Auto) Baso % (Auto) Lymph # (Auto) [place] # (Auto) Eos # (Auto) Baso # (Auto) Abs Immat Gran (auto) Absolute Neuts (auto) Absolute Nucleated RBC Nucleated RBC % Sodium Potassium Chloride Carbon Dioxide Anion Gap BUN Creatinine Estim Creat Clear Calc Estimated GFR Glucose POC Capillary Glucose 155 H Calcium Phosphorus Magnesium Troponin I 0.122 H* Nasal MRSA (PCR) Hep Bs Antigen Negative Hep Bs Antibody Negative 10/01/24 10/01/24 10/02/24 17:37 21:12 04:31 WBC 9.4 RBC 2.84 L Hgb 8.8 L Hct 28.0 L MCV 98.6 MCH 31.0 MCHC 31.4 L RDW 14.8 H Plt Count 168 MPV 10.6 H Immature Gran % (Auto) 0.5 Neut % (Auto) 71.5 Lymph % (Auto) 16.6 L [place] % (Auto) 10.4 H Eos % (Auto) 0.4 Baso % (Auto) 0.6 Lymph # (Auto) 1.56 [place] # (Auto) 1.0 H Eos # (Auto) 0.0 Baso # (Auto) 0.1 Abs Immat Gran (auto) 0.05 H Absolute Neuts (auto) 6.7 Absolute Nucleated RBC 0.000 Nucleated RBC % 0.0 Sodium 139 Potassium 3.9 Chloride 97 L Carbon Dioxide 33 H Anion Gap 9 BUN 36 H D Creatinine 4.81 H Estim Creat Clear Calc 14 Estimated GFR 9 L Glucose 124 H POC Capillary Glucose 213 H Calcium 8.5 Phosphorus 3.6 Magnesium 2.4 H Troponin I Nasal MRSA (PCR) Not detected Hep Bs Antigen Hep Bs Antibody
--- NOTE | 2024-10-02 10:44 | P.DS_ITS ---
DS: Admitting Diagnosis Discharge Date 10/02/24 Admitting Diagnosis (1) Chest pain: Qualifiers: Chest pain type: unspecified Qualified Code(s): R07.9 - Chest pain, unspecified Code(s): R07.9 - Chest pain, unspecified Status: Acute (2) HTN (hypertension): Qualifiers: Hypertension type: unspecified Qualified Code(s): I10 - Essential (primary) hypertension Code(s): I10 - Essential (primary) hypertension Status: Chronic (3) ESRD (end stage renal disease) on dialysis: Code(s): N18.6 - End stage renal disease; Z99.2 - Dependence on renal dialysis Status: Acute DS: Discharge Diagnosis Discharge Diagnosis (1) Chest pain: Qualifiers: Chest pain type: unspecified Qualified Code(s): R07.9 - Chest pain, unspecified Code(s): R07.9 - Chest pain, unspecified Status: Acute (2) HTN (hypertension): Qualifiers: Hypertension type: unspecified Qualified Code(s): I10 - Essential (primary) hypertension Code(s): I10 - Essential (primary) hypertension Status: Chronic (3) ESRD (end stage renal disease) on dialysis: Code(s): N18.6 - End stage renal disease; Z99.2 - Dependence on renal dialysis Status: Acute DS: Summary Hospital Course Hospital Course: Per H&P, 64 y/o F presents here with chest pressure with PMH of HLD, HTN, sleep apnea on CPAP, gastric bypass, diabetes, and hypothyroidism. The patient presents here with chest pressure from home. She reports acute onset at 1:00 a.m. which aroused her from her sleep. She described the chest pain as deep pressure, nonradiating, constant and currently reduced but still ongoing, aggravated by deep inspiration, and no alleviating factors. She denies nausea, vomiting, shortness of breath, GERD-like symptoms, fatigue, or dizziness. Of note, she recently had a fistula placed on 09/23 in her left upper extremity. Currently has a dialysis port in her right upper chest and attends treatment on Mon/Wed/Fri. Denies any recent missed treatments. Initial VS at presentation: 98.1? F, HR 91, R 21, 135/75, and 95% on RA. ED workup showed: WBC 10.3, hemoglobin 9.3, creatinine 6.78 and GFR 6, glucose 169, initial troponin 0.136, and viral PCR negative. Initial EKG showed sinus rhythm, rate 92, left axis deviation, pattern consistent with pulmonary disease, nonspecific T-wave abnormality. CXR showed mild interstitial edema possible cardiomegaly. Chest CTA showed no evidence of PE, aortic dissection, or aortic aneurysm. Minimal pericardial effusion an minimal bilateral pleural fluid with minimal bibasilar atelectasis, cirrhotic liver with distended gallbladder, area of mild amorphous sclerosis in the mid sternal body nonspecific, 1.9 left adrenal nodule stable since 09/06, clear lungs. The following med issues have been addressed during hospitalization (1) Chest pain: Qualifiers: Chest pain type: unspecified Qualified Code(s): R07.9 - Chest pain, unspecified Code(s): R07.9 - Chest pain, unspecified Status: Acute Assessment and Plan: EKG, initial: Sinus rhythm, rate 92, left axis deviation, pattern consistent with pulmonary disease, nonspecific T-wave abnormality. EKG, repeat (1): T- wave abnormality no longer present when compared to EKG done earlier same day. - CXR: mild interstitial edema, possible cardiomegaly Troponin: 0.136 -> 0.122 -> 0.122 - cardiology consulted, Cortes LOPEZ Chest pain appears pleuritic, troponin elevated but flat, EKG without ischemic changes - obtain nuclear stress test Check echo: Normal LV size, mild LVH, normal LV systolic function, ejection fraction about 60-65%, diastolic dysfunction is present. Normal RV size and systolic function. Mild biatrial enlargement. Moderate mitral annular calcification, trivial MR. No hemodynamically significant stenosis. Aortic valve appears mildly calcified with mild stenosis-continued echo surveillance recommended. Unable to assess RVSP due to inadequate TR jet. -continue rosuvastatin 40 mg daily telemetry monitoring: No arrhythmia or cardiac ischemia Cardiology recommend discharge patient today, patient needs to see her Cardiology at scheduled appointment (2) ESRD (end stage renal disease) on dialysis: Code(s): N18.6 - End stage renal disease; Z99.2 - Dependence on renal dialysis Status: Acute Assessment and Plan: creatinine 6.78, BUN 52, GFR 6, hemodialysis Friday Consult artificial fly tier for evaluation treatment Patient received dialysis yesterday, no obvious fluid overload (3) Diabetes: Qualifiers: Diabetes mellitus complication status: with hyperglycemia Diabetes mellitus penitentiary insulin use: without penitentiary use Diabetes mellitus type: type 2 Qualified Code(s): E11.65 - Type 2 diabetes mellitus with hyperglycemia Code(s): E11.9 - Type 2 diabetes mellitus without complications Status: Chronic Assessment and Plan: - hypoglycemia protocol - POC blood glucose ACHS - home medication: Hold Actos - correct regimen ordered - high dose TIDWM, based off BMI - A1C ordered Resume home medication discharge (4) HTN (hypertension): Qualifiers: Hypertension type: unspecified Qualified Code(s): I10 - Essential (primary) hypertension Code(s): I10 - Essential (primary) hypertension Status: Chronic Assessment and Plan: chronic, currently 113/69 continue home medications: Losartan 50 mg daily Time Spent with Patient Time attestation: Total time spent providing and/or coordinating discharge services: Exam Narrative: GENERAL: Pleasant, in no acute distress. Well-nourished. - EYES: EOMI. Anicteric. - HENT: Moist mucous membranes. - LUNGS: Clear to auscultation bilateral ly, no wheezing, rhonchi, or rales. - CARDIOVASCULAR: Regular rate and rhyth m. No murmur. No JVD. - ABDOMEN: Soft, non-tender and non-dist ended. No palpable masses. - EXTREMITIES: No edema. Peripheral puls es 2+. Non-tender. - NEUROLOGIC: No focal neurological defi cits. CN II-XII grossly intact. - PSYCHIATRIC: Awake, Alert and oriented x 3. Appropriate mood and affect. - SKIN: No rashes or lesions. Warm. - LYMPH: No cervical lymphadenopathy. DS: Data Data Completed and Pending Labs on day of discharge: Labs from last 24 hours 10/02/24 10/01/24 10/01/24 04:31 21:12 17:37 WBC 9.4 RBC 2.84 L Hgb 8.8 L Hct 28.0 L MCV 98.6 MCH 31.0 MCHC 31.4 L RDW 14.8 H Plt Count 168 MPV 10.6 H Immature Gran % (Auto) 0.5 Neut % (Auto) 71.5 Lymph % (Auto) 16.6 L [place] % (Auto) 10.4 H Eos % (Auto) 0.4 Baso % (Auto) 0.6 Lymph # (Auto) 1.56 [place] # (Auto) 1.0 H Eos # (Auto) 0.0 Baso # (Auto) 0.1 Abs Immat Gran (auto) 0.05 H Absolute Neuts (auto) 6.7 Absolute Nucleated RBC 0.000 Nucleated RBC % 0.0 Sodium 139 Potassium 3.9 Chloride 97 L Carbon Dioxide 33 H Anion Gap 9 BUN 36 H D Creatinine 4.81 H Estim Creat Clear Calc 14 Estimated GFR 9 L Glucose 124 H POC Capillary Glucose 213 H Calcium 8.5 Phosphorus 3.6 Magnesium 2.4 H Troponin I Nasal MRSA (PCR) Not detected Hep Bs Antibody 10/01/24 10/01/24 10/01/24 16:43 10:51 04:43 WBC RBC Hgb Hct MCV MCH MCHC RDW Plt Count MPV Immature Gran % (Auto) Neut % (Auto) Lymph % (Auto) [place] % (Auto) Eos % (Auto) Baso % (Auto) Lymph # (Auto) [place] # (Auto) Eos # (Auto) Baso # (Auto) Abs Immat Gran (auto) Absolute Neuts (auto) Absolute Nucleated RBC Nucleated RBC % Sodium Potassium Chloride Carbon Dioxide Anion Gap BUN Creatinine Estim Creat Clear Calc Estimated GFR Glucose POC Capillary Glucose 155 H Calcium Phosphorus Magnesium Troponin I 0.122 H* Nasal MRSA (PCR) Hep Bs Antibody Negative Discharge Plan Discharge Attending physician on discharge: Chayo Baird Consulting providers: Aki Landry; Todd Kurtz Discharging Clinician: Chayo Baird Anticipated Discharge Date/Time: 10/02/24 10:45 Patient Disposition: Home, Self-Care Activity: as tolerated Diet: as tolerated and heart healthy Wound Care Instructions: keep dressing dry Patient Instructions: Antibiotic Form Patient Language: Ethiopian Stand Alone Forms: General Discharge Information Follow-up/Referrals: Nohemy Brunson APRN [Advanced Practice Nurse] - (Patient needs to see primary care provider in 1 week) Discharge Medications: New aspirin 81 mg capsule 81 mg PO DAILY Qty: 60 0RF Continued levothyroxine [Synthroid] 175 mcg Tablet 175 mcg PO DAILY ferrous sulfate [Iron (ferrous sulfate)] 325 mg (65 mg iron) Tablet 325 mg PO DAILY ergocalciferol (vitamin D2) 1,250 mcg (50,000 unit) capsule 1,250 mcg PO DAILY losartan 50 mg tablet 50 mg PO DAILY pioglitazone 15 mg tablet 15 mg PO DAILY pantoprazole 40 mg tablet,delayed release (DR/EC) 40 mg PO DAILY calcitriol 0.5 mcg capsule 0.5 mcg PO DAILY B-complex with vitamin C Tablet 1 tablet PO DAILY psyllium husk [Metamucil] 0.4 gram capsule 1.6 g PO DAILY melatonin 10 mg capsule 10 mg PO HS Velphoro 500 mg tablet,chewable 500 mg PO TIDWM rosuvastatin 40 mg tablet 40 mg PO QPM Qty: 30 0RF Date of admission: 10/01/24 08:22 Primary Care Provider: Connie,Denise Admitting Provider: Julisa Tay Attending physician on admission: Julisa Tay Condition: Stable
--- NOTE | 2024-10-02 11:29 | PM.PNNEP ---
Progress Note: A&P Assessment and Plan (1) ESRD (end stage renal disease) on dialysis: Code(s): N18.6 - End stage renal disease; Z99.2 - Dependence on renal dialysis Status: Acute Assessment and Plan: The patient has end-stage renal disease on dialysis 3 times a week. the patient had dialysis yesterday. She is due again on Friday. She is eager to go home today. He has been discharged by the hospitalists. She will report to dialysis on Friday. I will ask the staff to send records over to her vessel captain and machine maintenance supervisor (2) Chest pain: Qualifiers: Chest pain type: unspecified Qualified Code(s): R07.9 - Chest pain, unspecified Code(s): R07.9 - Chest pain, unspecified Status: Acute Assessment and Plan: Patient has chest pain. Lexiscan negative. She is going home today. Will follow up with her outpatient machine maintenance supervisor. (3) Diabetes: Qualifiers: Diabetes mellitus type: type 2 Diabetes mellitus senior living insulin use: without intermodal truck driver use Diabetes mellitus complication status: with hyperglycemia Qualified Code(s): E11.65 - Type 2 diabetes mellitus with hyperglycemia Code(s): E11.9 - Type 2 diabetes mellitus without complications Status: Chronic Assessment and Plan: Patient has diabetes. (4) Erythropoietin deficiency anemia: Code(s): D63.1 - Anemia in chronic kidney disease Status: Acute Assessment and Plan: The patient has anemia. She received Epogen yesterday (5) Renal osteodystrophy: Code(s): N25.0 - Renal osteodystrophy Status: Acute Assessment and Plan: phosphorus level was normal Subjective Date/time seen: 10/02/24 11:29 Interval history: in the room. We discussed the case. patient feels better. Ate a good breakfast. No more chest pain Review of Systems Cardiovascular: Cardiovascular: Reports no additional cardiovascular complaints Respiratory: Respiratory: Reports no additional respiratory complaints Gastrointestinal: Gastrointestinal: Reports no additional gastrointestinal complaints Genitourinary: Genitourinary: Reports no additional female genitourinary complaints Exam Narrative: WDWN in NAD skin no rash head ncat lungs clear cor reg no rub abd BS+ nontender and soft ext no edema. Objective Data Vital Signs Vital Signs: Vital Signs - 24 hr 10/01/24 11:30 10/01/24 11:45 10/01/24 11:45 Temperature Pulse Rate 84 88 95 Respiratory Rate Blood Pressure 114/70 115/70 119/67 Pulse Oximetry Oxygen Delivery Fraction of Inspired Oxygen 10/01/24 12:00 10/01/24 12:00 10/01/24 12:15 Temperature Pulse Rate 88 88 91 Respiratory Rate Blood Pressure 113/69 123/74 Pulse Oximetry Oxygen Delivery Fraction of Inspired Oxygen 10/01/24 12:30 10/01/24 12:45 10/01/24 13:00 Temperature Pulse Rate 93 93 94 Respiratory Rate Blood Pressure 124/73 126/71 117/76 Pulse Oximetry Oxygen Delivery Fraction of Inspired Oxygen 10/01/24 13:15 10/01/24 13:30 10/01/24 13:45 Temperature Pulse Rate 93 94 95 Respiratory Rate Blood Pressure 123/73 121/70 119/67 Pulse Oximetry Oxygen Delivery Fraction of Inspired Oxygen 10/01/24 14:00 10/01/24 14:15 10/01/24 14:29 Temperature Pulse Rate 96 71 100 Respiratory Rate Blood Pressure 113/69 115/63 129/73 Pulse Oximetry Oxygen Delivery Fraction of Inspired Oxygen 10/01/24 14:51 10/01/24 16:00 10/01/24 16:00 Temperature 99.0 F Pulse Rate 102 H 98 Respiratory Rate 18 Blood Pressure 135/68 Pulse Oximetry 96 Oxygen Delivery Room Air Fraction of Inspired Oxygen 10/01/24 17:00 10/01/24 18:00 10/01/24 20:00 Temperature 100 F H 99.4 F Pulse Rate 118 H 92 88 Respiratory Rate 16 20 Blood Pressure 118/50 L 105/54 L Pulse Oximetry 95 95 Oxygen Delivery Fraction of Inspired Oxygen 10/01/24 20:00 10/01/24 21:30 10/01/24 22:00 Temperature Pulse Rate 86 88 85 Respiratory Rate 20 Blood Pressure Pulse Oximetry 95 Oxygen Delivery CPAP Fraction of Inspired Oxygen 10/01/24 23:30 10/02/24 00:00 10/02/24 00:00 Temperature 98.6 F Pulse Rate 85 85 82 Respiratory Rate 20 20 Blood Pressure 102/58 L Pulse Oximetry 95 95 Oxygen Delivery CPAP Fraction of Inspired Oxygen 21 10/02/24 00:23 10/02/24 02:00 10/02/24 04:00 Temperature 99.7 F H Pulse Rate 79 84 89 Respiratory Rate 20 Blood Pressure 105/62 Pulse Oximetry 95 93 Oxygen Delivery Fraction of Inspired Oxygen 10/02/24 04:00 10/02/24 04:08 10/02/24 06:00 Temperature Pulse Rate 87 89 89 Respiratory Rate 20 Blood Pressure Pulse Oximetry 93 Oxygen Delivery CPAP Fraction of Inspired Oxygen 10/02/24 08:00 10/02/24 08:00 10/02/24 08:00 Temperature 99.1 F Pulse Rate 94 94 94 Respiratory Rate 14 14 Blood Pressure 118/60 Pulse Oximetry 100 100 Oxygen Delivery Room Air Fraction of Inspired Oxygen 21 10/02/24 10:00 10/02/24 10:26 10/02/24 11:20 Temperature Pulse Rate 94 94 Respiratory Rate 14 Blood Pressure Pulse Oximetry 100 100 Oxygen Delivery Room Air Room Air Fraction of Inspired Oxygen 21 10/02/24 11:20 Temperature Pulse Rate 94 Respiratory Rate Blood Pressure Pulse Oximetry Oxygen Delivery Fraction of Inspired Oxygen Intake/Output Intake/Output: Intake & Output 09/29/24 09/30/24 10/01/24 10/02/24 23:59 23:59 23:59 23:59 Intake Total 240 400 Output Total 1999 Balance -1760 400 Meds/Results Medications: Active Medications Generic Name Dose Route Start Last Admin Trade Name Freq PRN Reason Stop Dose Admin Acetaminophen 650 mg 10/01/24 08:21 10/01/24 08:52 Acetaminophen 325 Mg Tablet PO 650 mg Q4H PRN Administration Mild Pain (1-3) or Fever Calcitriol 0.5 mcg 10/02/24 09:00 10/02/24 09:27 Calcitriol 0.25 Mcg Capsule PO 0.5 mcg QAM [facility] Administration Dextrose 12.5 gm 10/01/24 14:21 Dextrose 50% 25 Gm/50 Ml Syringe IV PUSH PRN PRN Hypoglycemia Protocol Epoetin Aamir-epbx 10,000 units 10/01/24 09:00 10/01/24 16:48 Epoetin Aamir-Epbx 10,000 Units/Ml Vial IV PUSH Not Given MOWEFR@09 [facility] Ergocalciferol 50,000 units 10/03/24 09:00 Ergocalciferol 50,000 Units Capsule PO Schulte@0900 [facility] Ferrous Sulfate 325 mg 10/02/24 09:00 10/02/24 09:26 Ferrous Sulfate [address] BY MOUTH 325 mg DAILY [place] Administration Glucagon 1 mg 10/01/24 14:21 Glucagon For Inj 1 Mg Vial IM PRN PRN Hypoglycemia Protocol Glucose 15 gm 10/01/24 14:21 Glucose Oral Gel 15 Gm Of Glucse In 37.5 Gm Tube PO PRN PRN Hypoglycemia Protocol Dextrose 1,000 mls @ 100 mls/hr 10/01/24 14:21 Dextrose 5% 1,000 Ml IVPB PRN PRN Hypoglycemia Protocol Insulin Aspart 4 - 8 units 10/01/24 17:00 10/01/24 16:51 Insulin Aspart (*Bkc) 100 Units/Ml SUB-Q Not Given TIDWM [facility] Protocol Levothyroxine Sodium 75 mcg 10/02/24 06:30 10/02/24 06:59 Levothyroxine Sodium 75 Mcg Tablet PO 75 mcg DAILY@0630 [facility] Administration Levothyroxine Sodium 100 mcg 10/02/24 06:30 10/02/24 06:59 Levothyroxine Sodium 100 Mcg Tablet PO 100 mcg DAILY@0630 [facility] Administration Losartan Potassium 50 mg 10/02/24 09:00 10/02/24 09:30 Losartan Potassium 50 Mg Tablet PO Not Given DAILY [facility] Melatonin 10 mg 10/01/24 21:00 10/01/24 22:42 Melatonin 5 Mg Tablet PO 10 mg HS [facility] Administration Miscellaneous Information 1 each 10/01/24 00:01 10/02/24 04:27 Nonformulary Drug (Sucroferric Oxyhydroxide [Velphoro] 500 Mg Tablet,Chewable)Can Patient XX 10/31/24 00:00 Not Given CLARIFY [facility] Morphine Sulfate 2 mg 10/01/24 08:21 Morphine Sulfate (*Crx) 2 Mg/Ml Inj IV PUSH Q2H PRN Pain Rated 7-10 Nitroglycerin 0.4 mg 10/01/24 08:21 Nitroglycerin Sl 0.4 Mg Tablet SUBLINGUAL Q5MIN PRN Chest Pain Non-Formulary Medication 500 mg 10/02/24 08:00 Sucroferric Oxyhydroxide [Velphoro] PO 11/01/24 07:59 TIDWM [facility] Ondansetron HCl 4 mg 10/01/24 08:21 Ondansetron Inj 4 Mg/2 Ml Vial IV PUSH Q4H PRN Nausea Pantoprazole Sodium 40 mg 10/02/24 09:00 10/02/24 09:24 Pantoprazole 40 Mg Tablet PO 40 mg DAILY [place] Administration Perflutren Lipid Microsphere 0 ml 10/01/24 11:22 Perflutren Lipid Microspheres 1.5 Ml Vial Diluted To 10 Ml Total Volume IV PUSH 10/04/24 11:22 ONCE PRN adequate visualization Protocol Psyllium Hydrophilic Mucilloid 1 packet 10/02/24 09:00 10/02/24 09:30 Psyllium Powder Packet BY MOUTH Not Given DAILY [place] Rosuvastatin Calcium 40 mg 10/01/24 18:00 10/01/24 18:12 Rosuvastatin 20 Mg Tablet PO 40 mg QPM [place] Administration Vitamin B Complex/Vitamin C 1 each 10/02/24 09:00 10/02/24 09:27 Vitamin B Complex/Vit C Capsule PO 1 each DAILY [place] Administration Radiology Results: ITS Impressions Chest CTA 10/01/24 06:33 Impression: No evidence of pulmonary embolus, aortic dissection, or aortic aneurysm. Minimal pericardial effusion and minimal bilateral pleural fluid with minimal bibasilar atelectasis. Cirrhotic liver with distended gallbladder. Area of mild amorphous sclerosis in the midsternal body, nonspecific. Correlate for point tenderness. Consider bone scan to evaluate for uptake. 1.9 cm left adrenal nodule, stable since prior exam from 2010, therefore consistent with benign adenoma. Clear lungs. Chest X-Ray 10/01/24 06:38 Impression: Mild interstitial edema. Possible cardiomegaly. Lexiscan Stress Test 10/01/24 17:18 IMPRESSION: 1. Large area of moderate severity infarct involving mid anterior segment, mid to basal anterolateral segments, and mid to basal inferolateral segments of left ventricle. 2. Normal left ventricular ejection fraction measuring 68%. Labs Labs: Laboratory Results - last 24 hr 10/01/24 10/01/24 10/01/24 10:51 16:43 17:37 WBC RBC Hgb Hct MCV MCH MCHC RDW Plt Count MPV Immature Gran % (Auto) Neut % (Auto) Lymph % (Auto) [place] % (Auto) Eos % (Auto) Baso % (Auto) Lymph # (Auto) [place] # (Auto) Eos # (Auto) Baso # (Auto) Abs Immat Gran (auto) Absolute Neuts (auto) Absolute Nucleated RBC Nucleated RBC % Sodium Potassium Chloride Carbon Dioxide Anion Gap BUN Creatinine Estim Creat Clear Calc Estimated GFR Glucose POC Capillary Glucose 155 H Calcium Phosphorus Magnesium Troponin I 0.122 H* Nasal MRSA (PCR) Not detected 10/01/24 10/02/24 21:12 04:31 WBC 9.4 RBC 2.84 L Hgb 8.8 L Hct 28.0 L MCV 98.6 MCH 31.0 MCHC 31.4 L RDW 14.8 H Plt Count 168 MPV 10.6 H Immature Gran % (Auto) 0.5 Neut % (Auto) 71.5 Lymph % (Auto) 16.6 L [place] % (Auto) 10.4 H Eos % (Auto) 0.4 Baso % (Auto) 0.6 Lymph # (Auto) 1.56 [place] # (Auto) 1.0 H Eos # (Auto) 0.0 Baso # (Auto) 0.1 Abs Immat Gran (auto) 0.05 H Absolute Neuts (auto) 6.7 Absolute Nucleated RBC 0.000 Nucleated RBC % 0.0 Sodium 139 Potassium 3.9 Chloride 97 L Carbon Dioxide 33 H Anion Gap 9 BUN 36 H D Creatinine 4.81 H Estim Creat Clear Calc 14 Estimated GFR 9 L Glucose 124 H POC Capillary Glucose 213 H Calcium 8.5 Phosphorus 3.6 Magnesium 2.4 H Troponin I Nasal MRSA (PCR)
== END 2024-10-02 12:05 | disposition home or self-care (01) | DRG 204 ==
LOC: ANHED 08:21 → ANHIMU 09:10
PROVIDERS: Family Medicine; Internal Medicine Nephrology; Student in an Organized Health Care Education/Training Program; Admitting Provider Family Medicine; Emergency Provider Emergency Medicine; PCP Internal Medicine; Visit Provider Hospitalist
DX: R07.81 Pleurodynia (principal); N18.6 End stage renal disease; I12.0 Hypertensive chronic kidney disease with stage 5 chronic kidney disease or end stage renal disease; E11.65 Type 2 diabetes mellitus with hyperglycemia; E11.22 Type 2 diabetes mellitus with diabetic chronic kidney disease; D63.1 Anemia in chronic kidney disease; G47.30 Sleep apnea, unspecified; N25.0 Renal osteodystrophy; E03.9 Hypothyroidism, unspecified; E78.5 Hyperlipidemia, unspecified; Z99.2 Dependence on renal dialysis; Z98.84 Bariatric surgery status; Z87.891 Personal history of nicotine dependence
CPT/HCPCS: 36415; 71045; 71275; 78452; 80048; 80053; 82948; 83735; 84100; 84484; 85025; 86706; 87040; 87340; 87637; 87641; 93005; 93017; 93306; 96374; 96375; 96376; 99285; A9270; A9502; G0257; J1644; J2270; J2785; J7030; Q9967